=== PATIENT | female | born 1940 | race Caucasian/White ===

== ENCOUNTER 2020-08-28 14:44 | Outpatient (REF) | payer MEDICARE, SELFPAY | END 2020-08-28 14:45 | disposition home or self-care (01) | LOC: HO.LNP 14:44 | PROVIDERS: Visit Provider Hospitalist | DX: N39.0 Urinary tract infection, site not specified (principal) | CPT/HCPCS: 87086; 87088; 87186 ==

== ENCOUNTER 2021-03-18 14:14 | Outpatient (REF) | payer MEDICARE, SELFPAY | END 2021-03-18 14:15 | disposition home or self-care (01) | LOC: HO.LNP 14:14 | PROVIDERS: Visit Provider Hospitalist | DX: N39.0 Urinary tract infection, site not specified (principal) | CPT/HCPCS: 87086; 87088; 87186 ==

== ENCOUNTER 2021-05-04 08:41 | Outpatient (REF) | payer MEDICARE, SELFPAY ==
[2021-05-04 11:47] LABS: Hematocrit 42.5 % (37-47); Hemoglobin 14.7 g/dl (12.0-16.0); Mean Corpuscular HGB Conc 34.6 g/dl (31.0-35.0); Mean Corpuscular Volume 89.7 fL (80-98); Mean Platelet Volume 9.5 fL (9.4-12.3); Platelet Count 307 X10*3/uL (160-400); Red Blood Count 4.74 X10*6/uL (4.20-5.50); Red Cell Distribution Width 12.9 % (11.0-16.0); White Blood Count 8.6 X10*3/uL (4.8-10.8)
[2021-05-04 12:05] LABS: Alanine Aminotransferase 21 U/L (0-31); Albumin Level 4.6 g/dL (3.5-5.0); Alkaline Phosphatase 120 U/L (39-117); Anion Gap 14 (12-20); Aspartate Amino Transferase 25 U/L (5-31); Blood Urea Nitrogen 19 mg/dL (9-16); Calcium 9.7 mg/dL (8.4-10.2); Carbon Dioxide 27 mmol/L (22-29); Chloride 104 mmol/L (96-108); Cholesterol 171 mg/dL; Estimated Glomerular Filt Rate > 60; Glucose Fasting 90 mg/dL (60-99); HDL Cholesterol 55 mg/dL; LDL Cholesterol Calculated 97 mg/dl; Potassium 4.6 mmol/L (3.3-5.1); Sodium 140 mmol/L (135-145); Total Protein 7.9 g/dL (6.5-8.0); Triglycerides 97 mg/dL
[2021-05-04 12:08] LABS: TSH reflex Free T4 0.64 uIU/mL (0.32-4.0); Vitamin D 25-OH Total 30.3 ng/mL (>30)
== END 2021-05-04 08:42 | disposition home or self-care (01) ==
LOC: HO.HMGCLDS 08:41
PROVIDERS: PCP Internal Medicine; Visit Provider Internal Medicine
DX: Z00.00 Encounter for general adult medical examination without abnormal findings (principal); E55.9 Vitamin D deficiency, unspecified
CPT/HCPCS: 36415; 80053; 80061; 82306; 84443; 85027

== ENCOUNTER 2021-08-17 | Outpatient (REF) | payer MEDICARE, SELFPAY ==
[2021-08-18 13:02] LABS: Influenza A PCR NEGATIVE (Negative); Influenza B PCR NEGATIVE (Negative); Resp Syncy Virus RNA Qual PCR NEGATIVE (Negative); SARS COV2 PCR INHOUSE NEGATIVE (Negative)
== END 2021-08-17 00:01 | disposition home or self-care (01) ==
LOC: HO.LNP
PROVIDERS: Visit Provider Internal Medicine
DX: R43.9 Unspecified disturbances of smell and taste (principal); Z20.822 Contact with and (suspected) exposure to COVID-19
CPT/HCPCS: 0241U

== ENCOUNTER 2022-05-11 12:02 | Outpatient (REF) | payer MEDICARE, SELFPAY ==
[2022-05-11 14:11] LABS: Anion Gap 11 (12-20); Blood Urea Nitrogen 17 mg/dL (9-16); Calcium 9.3 mg/dL (8.4-10.2); Carbon Dioxide 26 mmol/L (22-29); Chloride 102 mmol/L (96-108); Estimated Glomerular Filt Rate > 60; Glucose Random 96 mg/dL (60-115); Potassium 4.7 mmol/L (3.3-5.1); Sodium 134 mmol/L (135-145)
== END 2022-05-11 12:03 | disposition home or self-care (01) ==
LOC: HO.HMGCLDS 12:02
PROVIDERS: PCP Internal Medicine; Visit Provider Physician Assistant
DX: Z87.440 Personal history of urinary (tract) infections (principal)
CPT/HCPCS: 36415; 80048

== ENCOUNTER 2022-06-20 09:48 | Outpatient (REF) | payer MEDICARE, SELFPAY ==
[2022-06-22 01:16] LABS: Lyme Abs Screen <0.90 index
== END 2022-06-20 09:49 | disposition home or self-care (01) ==
LOC: HO.HMGCLDS 09:48
PROVIDERS: PCP Internal Medicine; Visit Provider Internal Medicine
DX: T14.8XXA Other injury of unspecified body region, initial encounter (principal); W57.XXXA Bitten or stung by nonvenomous insect and other nonvenomous arthropods, initial encounter; Y93.9 Activity, unspecified; Y92.9 Unspecified place or not applicable; Y99.8 Other external cause status
CPT/HCPCS: 36415; 86617; 86618

== ENCOUNTER 2023-06-09 08:55 | Outpatient (AMB) | payer MEDICARE, SELFPAY ==
[2023-06-09 09:06] VITALS: BP 136/80; PULSE 84; O2SAT 97; BMI 20.6
--- NOTE | 2023-06-09 09:06 | AM.OFFVISMDC ---
Intake Vital Signs 06/09/23 09:06 Height 5 ft 4.5 in Weight 122 lb BMI 20.6 BP 136/80 Blood Pressure Location Lt brachial Position Sitting Pulse 84 Pulse Source Pulse Oximeter Pulse Oximetry (%) 97 Oxygen Delivery Method Room Air Intake Visit Reasons: SWV Allergies nitrofurantoin [NITROFURANTOIN] Allergy (Unknown, Verified 06/09/23 09:12) diarrhea, swollen lips oxycodone [From PERCOCET] Allergy (Unknown, Verified 02/27/23 11:56) NAUSEA & VOMITING Sulfa (Sulfonamide Antibiotics) [SULFA (SULFONAMIDE ANTIBIOTICS)] Allergy (Unknown, Verified 06/09/23 09:12) diarrhea, swollen lips trimethoprim [TRIMETHOPRIM] Allergy (Unknown, Verified 06/09/23 09:12) diarrhea, swollen lips acetaminophen [From VICODIN] Adverse Reaction (Mild, Verified 06/09/23 09:12) NAUSEA & VOMITING hydrocodone [From VICODIN] Adverse Reaction (Mild, Verified 06/09/23 09:12) NAUSEA & VOMITING Nitrofurantoin Macrocrystal Allergy (Unknown, Uncoded 06/09/23 09:12) diarrhea, swollen lips Trimethoprim HCl Allergy (Unknown, Uncoded 06/09/23 09:12) diarrhea swollen lips Medication List - Last Reconciled 06/09/23 by Fatou Hinojosa MD ascorbic acid (vitamin C) 500 mg PO DAILY calcium carbonate-vitamin D3 600 mg-12.5 mcg (500 unit) (Calcium 600 with Vitamin D3) caps PO celecoxib 200 mg PO DAILY cranberry 200 mg PO DAILY dicyclomine 10 mg PO TID docusate sodium (Colace) 100 mg PO DAILY estradiol 0.01%(0.1mg/gram) grams vaginal 2XW hyoscyamine sulfate 0.125 mg PO BID-QID PRN ibuprofen 200 mg PO Q6H PRN ketorolac 0.5% drps ophthalmic (eye) L.acidophilus,helvet-B.bifidum 250 million cell (Acidophilus Probiotic Complex) caps PO loratadine (Claritin) 10 mg PO DAILY melatonin 10 mg PO BEDTIME PRN vefbwtwo-mbh-vtsc-FA-lutein 8 mg iron-400 mcg-300 mcg (Centrum Silver Women) 1 tab PO DAILY naproxen 250 mg PO BID PRN omega 7-pzg-xeq-fish oil 500-1,000 mg 1 cap PO DAILY trospium 20 mg PO BID HPI SWV HPI Details Pt presents for annual. Patient noticed a new lump around her scar area on the right breast and will call her oncologist to schedule a repeat mammogram and ultrasound. Initiated the conversation about Advanced Directives. Advanced Directives help? patients prepare for current and future decisions about their medical treatment? and place of care. Discussed with patient that it is a process where a patients? current condition and prognosis are reviewed, their wishes for information? regarding their illness are elicited, and likely medical dilemmas are presented? and options discussed. The form can be amended as needed, reviewed yearly and? make changes as needed IPPE/AWV ? year old presents? for her ? Annual? Wellness Visit, initial visit.? Medical / Social History Reviewed? Past Medical History ?Yes? . ? [place]? of Care / Care Team list updated ?Yes . ? Surgical/Hospitalization? History ?Yes . ? Current Medications? (including OTC and supplements) ?Yes . ? Family History ?Yes? . ? Tobacco? Control form ?Yes . ? AUDIT-C (Alcohol use) form? ?Yes . ? Illicit drug use in Social? History ?Yes . ? Current diagnosis of? depression? ?No ? Appropriate PHQ2/PHQ9? completed ?Yes . ? Data entered by ?Medical? Box Sorter and reviewed by provider ? Fall Risk ? Fall? History? Have you had any falls with? injury in the past year? ?No . ? Have you had two or more? falls in the past year? ?No . ? Fall Risk Assessment: ?No? falls in the past year . ? HRA filled out by? the patient, reviewed by Provider and scanned. ? IPPE/AWV ? Balance? [place]? ?Yes . ? Tandem? walk ?Yes . ? Walk and? Turn ?Yes . ? Rise from? sit to stand ?Yes . ?Vision? Corrective? lens ?Yes ? Vision? screen ? Up-to-date, has an appointment [] for vision? screening and glaucoma screening ?Hearing? Whisper? test ?pass .? Initiated the conversation about Advanced Directives. Advanced Directives help? patients prepare for current and future decisions about their medical treatment? and place of care. Discussed with patient that it is a process where a patients? current condition and prognosis are reviewed, their wishes for information? regarding their illness are elicited, and likely medical dilemmas are presented? and options discussed. The form can be amended as needed, reviewed yearly and? make changes as needed Written? Plan?Completed. See Patient? Documents. [facility] Medical History (Updated 06/09/23 @ 10:08 by Fatou Hinojosa MD) Annual physical exam Breast calcification, right Frequent UTI Gallstones Hearing loss IBS (irritable bowel syndrome) Osteopenia Sacroiliitis Urge incontinence Vitamin D deficiency Surgical History H/O colonoscopy Family History (Updated 06/09/23 @ 09:24 by ISIDRA Schmitz) Father No problems noted. Mother HTN (hypertension) Aneurysm Social History Alcohol intake: current Alcohol intake frequency: holidays/special occasions only Patient Tobacco Use Status: Never used Tobacco Questionnaire Medicare Wellness Checkup What is your age?: 81 or older What gender do you identify with?: female During the past 4 weeks, how much have you been bothered by emotional problems such as feeling anxious, depressed, irritable, sad or downhearted, and blue?: slightly During the past 4 weeks, has your physical & emotional health limited your social activities with family, friends, neighbors, or groups?: not at all During the past 4 weeks, how much bodily pain have you generally had?: mild pain During the past 4 weeks, was someone available to help you if you needed & wanted help?: no, not at all During the past 4 weeks, what was the hardest physical activity you could do for at least 2 minutes?: moderate Can you get to places out of walking distance without help? (For eg., can you travel alone on buses, taxis or drive your car?): Yes Can you go shopping for groceries or clothes without someone's help?: Yes Can you prepare your own meals?: Yes Can you do your housework without help?: Yes Because of any health problems, do you need the help of another person with your personal care needs such as eating, bathing, dressing or getting around the house?: No Can you handle your own money without help?: Yes During the past 4 weeks, how would you rate your health in general?: good During the past 4 weeks how have things been going for you?: good & bad parts about equal Are you having difficulties driving your car?: no Do you always fasten your seat belt when you are in a car?: yes, usually During past 4 weeks, have you been bothered by the following: never: Sexual problems?, Trouble eating well?, Teeth or denture problems? and Problems using the telephone?, seldom: Falling or dizzy when standing up and sometimes: Tiredness or fatigue? Have you fallen 2 or more times in the past year?: No Are you afraid of falling?: No Are you a smoker?: no During the past 4 weeks, how many drinks of wine, beer, or other alcoholic beverages did you have?: 1 drink or less per week Do you exercise for about 20 minutes 3 or more times a week?: yes, most of the time Have you been given information to help with the following?: yes: Hazards in your house that might hurt you? and no: Keeping track of your medications? How often do you have trouble taking medicines the way you have been told to take them?: I always take medicine as prescribed How confident are you that you can control & manage most of your health problems?: very confident What is your race?: White Mini Mental State Exam (MMSE) Orientation What is the (year) (season) (date) (day) (month)?: year, season, date, day and month Where are we (state) (county) (town or city) (hospital) (floor)?: state, county, town or city, hospital/clinic and floor Registration Name of 3 unrelated objects clearly and slowly, then ask patient to repeat all 3 of them. (1st repeat determines score. Make sure they can repeat all three): object 1, object 2 and object 3 Attention & Calculation (CHOOSE ONE) Ask pt to begin with 100 & count backward by 7. Stop after 5 repeats. If pt cannot ask them to spell the word WORLD backward.: 93 Spell WORLD backwards (DLROW): 5 letters Recall Ask patient to repeat the 3 items from question #3.: object 1, object 2 and object 3 Language Show patient a wristwatch & ask what it is. Repeat for pencil.: watch and pencil Ask the patient to repeat the phrase 'No ifs, ands, or buts' after you.: correct Ask the patient to 'take a piece of paper with their right hand' 'fold paper in half' 'place paper on floor': take paper in right hand, fold paper in half and place paper on floor Print the sentence 'CLOSE YOUR EYES' on a piece. If patient actually closes eyes then score.: followed written direction Give patient a blank piece of paper & ask to write a sentence. Score if it contains a noun & verb.: sentence contains subject and verb Ask patient to copy figure of intersecting pentagons exactly. Score if all 10 angles & 2 intersects are included.: all 10 angles present & 2 are intersected Score Score: 31 Activity of Daily Living Bathing - sponge bath, tub bath or shower: receives no assistance (gets in/out by self, if usual bathing means Dressing - getting clothes from closets & drawers, including inner/outer garments & fasteners.: gets clothes & gets completely dressed without help Toileting - going to the 'toilet room' for urine/bowel elimination & cleaning self/arranging clothes: goes to toilet room, cleans self, arranges clothes without help Transfer: moves in & out of bed and chair without help (may use support object) Continence: controls urination/bowel movements completely by self Feeding: feeds self without help Total Score: 0 Information obtained from: patient Using telephone: independent Traveling: independent Shopping: independent Preparing meals: independent Housework: independent Taking medicine: independent Managing money: independent PHQ-9 Over the last 2 weeks, how often have you been bothered by any of the following problems? 1. Little interest or pleasure in doing things: not at all 2. Feeling down, depressed, or hopeless: not at all 3. Trouble falling or staying asleep, or sleeping too much: not at all 4. Feeling tired or having little energy: not at all 5. Poor appetite or overeating: not at all 6. Feeling bad about yourself - or that you are a failure or have let yourself or your family down: not at all 7. Trouble concentrating on things, such as reading the newspaper or watching television: not at all 8. Moving or speaking so slowly that other people could have noticed. Or the opposite - being so fidgety or restless that you have been moving around a lot more than usual: not at all 9. Thoughts that you would be better off or of hurting yourself in some way: not at all Total score: 0 Depression Screening Interpretation: Negative Source: Developed by Drs. Kojo Mcpherson, Sumi Kern, Harinder Lubin and colleagues, with an educational kingsley from [employer]. Review of Systems Const All systems reviewed & are unremarkable except as noted in HPI and below Reports no additional complaints Eyes Reports no additional complaints ENT Reports no additional complaints Card Reports no additional complaints Resp Reports no additional complaints GI Reports no additional complaints Reports no additional complaints Physical Exam Vital Signs: Last Vital Signs Pulse 84 06/09/23 09:06 BP 136/80 06/09/23 09:06 Pulse Ox 97 06/09/23 09:06 Oxygen Delivery Method Room Air 06/09/23 09:06 BMI result Body Mass Index 20.6 Const General: no acute distress HEENT Head: Yes normal to inspection Eyes General: appearance normal, both eyes and all related structures Neck Neck: Yes no lymphadenopathy and Yes supple Chest Breast/axilla palpation: abnormal palpation of the breast (Right breast 12:00 o'clock scar tissue with 1 cm mobile firm lump) Resp Effort & Inspection: normal respiratory effort Auscultation: clear to auscultation bilaterally Cardio Rhythm: regular rhythm Heart sounds: S1 normal heart sound present and S2 normal heart sound present GI Inspection: Yes normal to inspection Palpation (GI): Soft to palpation Percussion: Yes normal to percussion Auscultation: normal bowel sounds Extrem General: Yes no clubbing, cyanosis or edema Assessment & Plan Assessment & Plan (1) Annual physical exam: Code(s): Z00.00 - Encounter for general adult medical examination without abnormal findings Plan: Well-balanced diet regular exercise discussed with the patient she will return for fasting blood work. 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 Carrasco Code(s): K58.9 - Irritable bowel syndrome without diarrhea Plan: Restart dicyclomine and follow-up with GI Orders: Orders Comprehensive [place]. Panel Fast Today E55.9 - Vitamin D deficiency, unspecified, Z00.00 - Encounter for general adult medical examination without abnormal findings Lipid Panel Today E55.9 - Vitamin D deficiency, unspecified, Z00.00 - Encounter for general adult medical examination without abnormal findings TSH reflex Free T4 Today E55.9 - Vitamin D deficiency, unspecified, Z00.00 - Encounter for general adult medical examination without abnormal findings Complete Blood Count Auto Diff Today E55.9 - Vitamin D deficiency, unspecified, Z00.00 - Encounter for general adult medical examination without abnormal findings Medications: New dicyclomine 10 mg PO TID 90 caps 2RF Quality Reporting (2019) Depression/Bipolar (159/160/161/177) PHQ-9: Total score: 0 Coding Level of Care Code Medicare Subsequent (G0439) Diagnoses Annual physical exam Z00.00 Vitamin D deficiency E55.9 Breast calcification, right R92.1 IBS (irritable bowel syndrome) K58.9 CPT Codes Advance Care Planning - Time spent: 1-15 minutes, not on file ([id number]) Advance Care Planning Advance Care Planning discussion: Exists, not on file Forms completed: Health Care Proxy Time spent: 1-15 minutes, not on file
== END 2023-06-09 10:09 | disposition home or self-care (01) ==
PROVIDERS: Visit Provider Internal Medicine
DX: Z00.00 Encounter for general adult medical examination without abnormal findings (principal); E55.9 Vitamin D deficiency, unspecified; R92.1 Mammographic calcification found on diagnostic imaging of breast; K58.9 Irritable bowel syndrome, unspecified
CPT/HCPCS: 1124F; G0439

== ENCOUNTER 2023-06-12 09:01 | Outpatient (REF) | payer MEDICARE, SELFPAY ==
[2023-06-12 11:37] LABS: MANUAL DIFF FLAG NO
[2023-06-12 11:47] LABS: Basophils Absolute Auto 0.1 X10*3/uL (0.0-0.2); Basophils Percent Auto 0.8 % (0-2); Eosinophils Absolute Auto 0.3 X10*3/uL (0.0-0.4); Eosinophils Percent Auto 3.3 % (0-4); Hematocrit 41.3 % (37.0-47.0); Hemoglobin 14.5 g/dl (12.0-16.0); Imm Gran Abs Auto 0.01 X10*3/uL (0.00-0.03); Imm Gran Pct Auto 0.1 % (0.0-0.4); Lymphocytes Absolute Auto 1.8 X10*3/uL (1.2-4.9); Lymphocytes Percent Auto 23.1 % (20-40); Mean Corpuscular HGB Conc 35.1 g/dl (31.0-35.0); Mean Corpuscular Hemoglobin 30.8 pg (27.0-33.0); Mean Corpuscular Volume 87.7 fL (80.0-98.0); Mean Platelet Volume 9.3 fL (9.4-12.3); Monocytes Absolute Auto 0.6 X10*3/uL (0.1-1.2); Monocytes Percent Auto 7.6 % (2-11); Neutrophils Absolute Auto 5.2 x10*3/uL (2.0-8.3); Neutrophils Percent Auto 65.1 % (45-73); Platelet Count 308 X10*3/uL (160-400); Red Blood Count 4.71 X10*6/uL (4.20-5.50); Red Cell Distribution Width 13.1 % (11.0-16.0)
[2023-06-12 12:08] LABS: Alanine Aminotransferase 18 U/L (0-31); Albumin Level 4.4 g/dL (3.5-5.0); Alkaline Phosphatase 109 U/L (39-117); Anion Gap 12 (12-20); Aspartate Amino Transferase 22 U/L (5-31); Bilirubin Total 1.2 mg/dL (0.0-1.0); Blood Urea Nitrogen 15 mg/dL (9-16); Calcium 9.4 mg/dL (8.4-10.2); Carbon Dioxide 24 mmol/L (22-29); Chloride 106 mmol/L (96-108); Cholesterol 168 mg/dL; Estimated Glomerular Filt Rate > 60; Glucose Fasting 101 mg/dL (60-99); HDL Cholesterol 55 mg/dL; LDL Cholesterol Calculated 96 mg/dl; Potassium 4.1 mmol/L (3.3-5.1); Sodium 138 mmol/L (135-145); Total Protein 7.5 g/dL (6.5-8.0); Triglycerides 88 mg/dL
[2023-06-12 12:13] LABS: TSH reflex Free T4 0.91 uIU/mL (0.32-4.0)
== END 2023-06-12 09:02 | disposition home or self-care (01) ==
LOC: HO.HMGCLDS 09:01
PROVIDERS: PCP Internal Medicine; Visit Provider Internal Medicine
DX: Z00.00 Encounter for general adult medical examination without abnormal findings (principal); E55.9 Vitamin D deficiency, unspecified
CPT/HCPCS: 36415; 80053; 80061; 84443; 85025

== ENCOUNTER 2023-06-22 09:19 | Outpatient (AMB) | payer MEDICARE, SELFPAY ==
--- NOTE | 2023-06-22 09:48 | AM.OFFWIN_ITS ---
Intake Vital Signs 06/22/23 09:50 BP 130/80 Blood Pressure Location Lt brachial Position Sitting Pulse 64 Pulse Source Pulse Oximeter Temp 98.8 F Temp Source Temporal Artery Scan Pulse Oximetry (%) 97 Oxygen Delivery Method Room Air Intake Visit Reasons: EP UTI (lobby) Intake Note: Patient here for UTI, she has been experiencing frequent urination, cloudy urine and burning when urinating since Monday. Patient Tobacco Use Status: Never used Tobacco Allergies nitrofurantoin [NITROFURANTOIN] Allergy (Unknown, Verified 06/22/23 09:50) diarrhea, swollen lips oxycodone [From PERCOCET] Allergy (Unknown, Verified 06/22/23 09:50) NAUSEA & VOMITING Sulfa (Sulfonamide Antibiotics) [SULFA (SULFONAMIDE ANTIBIOTICS)] Allergy (Unknown, Verified 06/22/23 09:50) diarrhea, swollen lips trimethoprim [TRIMETHOPRIM] Allergy (Unknown, Verified 06/22/23 09:50) diarrhea, swollen lips acetaminophen [From VICODIN] Adverse Reaction (Mild, Verified 06/22/23 09:50) NAUSEA & VOMITING hydrocodone [From VICODIN] Adverse Reaction (Mild, Verified 06/22/23 09:50) NAUSEA & VOMITING Nitrofurantoin Macrocrystal Allergy (Unknown, Uncoded 06/22/23 09:50) diarrhea, swollen lips Trimethoprim HCl Allergy (Unknown, Uncoded 06/22/23 09:50) diarrhea swollen lips Do you need a note to return to daycare/school/sports/work: No HPI HPI Comments History of Present Illness Details 83-year-old female history of UTI so presents for UTI symptoms. Patient endorses burning, quality is coming his frequency and urgency. [facility] Medical History (Updated 06/09/23 @ 10:08 by Fatou Hinojosa MD) Annual physical exam Breast calcification, right Frequent UTI Gallstones Hearing loss IBS (irritable bowel syndrome) Osteopenia Sacroiliitis Urge incontinence Vitamin D deficiency Surgical History H/O colonoscopy Family History (Updated 06/09/23 @ 09:24 by Vandana Morales [facility]) Father No problems noted. Mother HTN (hypertension) Aneurysm Social History Alcohol intake: current Alcohol intake frequency: holidays/special occasions only Patient Tobacco Use Status: Never used Tobacco Review of Systems Const All systems reviewed & are unremarkable except as noted in HPI and below Denies fever(s), Denies headache(s) and Denies weakness Eyes Reports no additional complaints ENT Reports no additional complaints and Denies headache(s) Card Reports no additional complaints, Denies chest pain, Denies leg edema and Denies dyspnea Resp Denies cough and Denies dyspnea GI Denies abdominal pain, Denies nausea and Denies vomiting Reports dysuria and Reports urinary urgency Musc Reports no additional complaints Neuro Denies headache(s) and Denies weakness Psych Reports no additional complaints Endo Reports no additional complaints Physical Exam Vital Signs: Last Vital Signs Temp 98.8 F 06/22/23 09:50 Pulse 64 06/22/23 09:50 BP 130/80 06/22/23 09:50 Pulse Ox 97 06/22/23 09:50 Oxygen Delivery Method Room Air 06/22/23 09:50 Const General: cooperative, no acute distress and alert Orientation/consciousness: patient oriented x3 Limitations: no limitations HEENT Head: Yes normal to inspection Ears: hearing grossly normal bilaterally and external ears normal General nose exam: Normal external nose present Eyes General: appearance normal, both eyes and all related structures Neck Neck: Yes normal visual inspection Chest Chest palpation & inspection: normal inspection of the chest Resp Effort & Inspection: normal respiratory effort, able to speak in complete sentences and no audible wheezes Auscultation: clear to auscultation bilaterally Cardio Rate: regular rate Rhythm: regular rhythm GI Inspection: Yes normal to inspection Palpation (GI): Soft to palpation and nontender General: Yes no CVA tenderness Back/Spine/Pelvis Back: no CVA tenderness Skin General skin exam: no rashes or lesions noted Neuro General: patient oriented x3 Psych Appearance: grossly normal Mental Status: mental status grossly normal Speech and movement: Normal speech and movement present Affect: normal affect Attitude: cooperative Thought process: Normal thought process present Thought content: Normal thought content present Results AMB Urinalysis, Automated 2 UA Leukoctes 125 Laver[place]/uL Last Edit by СЕРГЕЙ Tello on 06/22/23 10: 13 UA Nitrite Positive Last Edit by СЕРГЕЙ Tello on 06/22/23 10:13 UA Urobilinogen 0.2 mg/dL Last Edit by Park Hernadez [facility] on 06/22/23 10:13 UA Protein 0 mg/dL Last Edit [facility] on 06/22/23 10:13 UA pH 6.0 Last Edit by [facility], [facility] on 06/22/23 10:13 UA Blood 10 Dillon/uL Last Edit by [facility], [facility] on 06/22/23 10:13 UA Specific [place] 1.010 Last Edit by [facility], [facility] on 06/22/23 10:13 UA Ketone Negative Last Edit by [facility], [facility] on 06/22/23 10:13 UA Bilirubin 0 mg/dL Last Edit by [facility], [facility] on 06/22/23 10:13 UA Glucose 0 mg/dL Last Edit by [facility], [facility] on 06/22/23 10:13 Results Reviewed Results Reviewed: Laboratory Last Values Urine pH (Auto) 6.0 06/22/23 10:11 Specific [place] (Auto) 1.010 06/22/23 10:11 Urine Protein (Auto) 0 mg/dL 06/22/23 10:11 Glucose (UA)(Auto) 0 mg/dL 06/22/23 10:11 Urine Ketones (Auto) Negative 06/22/23 10:11 Urine Blood (Auto) 10 [place]/uL 06/22/23 10:11 Urine Nitrite (Auto) Positive 06/22/23 10:11 Urine Bilirubin (Auto) 0 mg/dL 06/22/23 10:11 Urine Urobilinogen (Auto) 0.2 mg/dL 06/22/23 10:11 Leukocyte Esterase (Auto) 125 [place]/uL 06/22/23 10:11 Assessment & Plan Assessment & Plan (1) Urinary tract infection: Code(s): N39.0 - Urinary tract infection, site not specified Plan VSS. Symptoms consistent with UTI. Urinalysis shows positive leukocyte esterase. Cultures reviewed. Will prescribe Keflex Discharge instructions, follow up and treatment are discussed with patient in my usual fashion. Alternatives in treatment are also discussed. The patient will return for worsening symptoms or as needed. Advised that any labs/imaging or dered will be followed up on and contact made if further treatment needed. Counseled that patient's condition may require further evaluation and/or treatment. Symptoms of concern for worsening disorder discussed in detail in my customary manner. Patient does verbalize understanding of the plan, there are no apparent barriers to communication. The patient is given the opportunity to ask questions and have them answered to his/her satisfaction Orders: Orders AMB Urinalysis Automated Today Z13.9 - Encounter for screening, unspecified Medications: New cephalexin 500 mg PO BID 7 days 14 caps 0RF Patient Instructions: You was seen and evaluated in the urgent care for UTI symptoms. Urinalysis was performed and was consistent with urinary tract infection. Prescribed an antibiotic please take as directed. Please return to the emergency department her urgent care if you experience any new or worsening symptoms such as fever, back pain, worsening urinary symptoms, any concerns of assignments above. Coding Level of Care Code Est Pt Level 3 (74310) Diagnoses Urinary tract infection N39.0
[2023-06-22 09:50] VITALS: BP 130/80; PULSE 64; TEMP 37.1; O2SAT 97
== END 2023-06-22 10:39 | disposition home or self-care (01) ==
PROVIDERS: PCP Internal Medicine; Visit Provider Physician Assistant
DX: Z13.9 Encounter for screening, unspecified (principal); N39.0 Urinary tract infection, site not specified
CPT/HCPCS: 81003; 99213

== ENCOUNTER 2023-07-07 10:14 | Outpatient (AMB) | payer MEDICARE, SELFPAY ==
--- NOTE | 2023-07-07 10:31 | MHC.OFFWIV ---
Intake Vital Signs 07/07/23 10:33 Height 5 ft 4.5 in Weight 123 lb BMI 20.8 BP 136/72 Blood Pressure Location Lt brachial Position Sitting Pulse 70 Pulse Source Pulse Oximeter Temp 98.3 F Temp Source Temporal Artery Scan Pulse Oximetry (%) 97 Oxygen Delivery Method Room Air Intake Visit Reasons: EP, UTI? Intake Note: Pt is here c/o possible UTI. Patient Tobacco Use Status: Never used Tobacco Allergies nitrofurantoin [NITROFURANTOIN] Allergy (Unknown, Verified 07/07/23 10:31) diarrhea, swollen lips oxycodone [From PERCOCET] Allergy (Unknown, Verified 07/07/23 10:31) NAUSEA & VOMITING Sulfa (Sulfonamide Antibiotics) [SULFA (SULFONAMIDE ANTIBIOTICS)] Allergy (Unknown, Verified 07/07/23 10:31) diarrhea, swollen lips trimethoprim [TRIMETHOPRIM] Allergy (Unknown, Verified 07/07/23 10:31) diarrhea, swollen lips acetaminophen [From VICODIN] Adverse Reaction (Mild, Verified 07/07/23 10:31) NAUSEA & VOMITING hydrocodone [From VICODIN] Adverse Reaction (Mild, Verified 07/07/23 10:31) NAUSEA & VOMITING Nitrofurantoin Macrocrystal Allergy (Unknown, Uncoded 07/07/23 10:31) diarrhea, swollen lips Trimethoprim HCl Allergy (Unknown, Uncoded 07/07/23 10:31) diarrhea swollen lips Do you need a note to return to daycare/school/sports/work: No HPI HPI Comments History of Present Illness Details This is a 83-year-old female with past medical history significant for recurrent UTIs who presents to the office today for sick visit. Patient complaining of dysuria and urinary frequency x2 days. She denies any fevers or chills. She denies any flank pain. She denies any hematuria. She denies any abdominal pain or nausea/vomiting/diarrhea. [facility] Medical History (Updated 06/09/23 @ 10:08 by Fatou Hinojosa MD) Annual physical exam Breast calcification, right Frequent UTI Gallstones Hearing loss IBS (irritable bowel syndrome) Osteopenia Sacroiliitis Urge incontinence Vitamin D deficiency Surgical History H/O colonoscopy Family History (Updated 06/09/23 @ 09:24 by ISIDRA Schmitz) Father No problems noted. Mother HTN (hypertension) Aneurysm Social History Alcohol intake: current Alcohol intake frequency: holidays/special occasions only Patient Tobacco Use Status: Never used Tobacco Review of Systems Const All systems reviewed & are unremarkable except as noted in HPI and below Reports no additional complaints Eyes Reports no additional complaints ENT Reports no additional complaints Card Reports no additional complaints Resp Reports no additional complaints GI Reports no additional complaints Reports no additional complaints Musc Reports no additional complaints Skin/Breast Reports system reviewed and no additional complaints, except as documented Neuro Reports no additional complaints Psych Reports no additional complaints Endo Reports no additional complaints Luigi/Lymph Reports no additional complaints Aller/Immun Reports no additional complaints Physical Exam Vital Signs: Last Vital Signs Temp 98.3 F 07/07/23 10:33 Pulse 70 07/07/23 10:33 BP 136/72 07/07/23 10:33 Pulse Ox 97 07/07/23 10:33 Oxygen Delivery Method Room Air 07/07/23 10:33 BMI result Body Mass Index 20.8 Const General: cooperative, healthy appearing, no acute distress and well developed Orientation/consciousness: patient oriented x3 HEENT Head: Yes normal to inspection Ears: hearing grossly normal bilaterally General nose exam: Normal external nose present Face and sinus: Yes normal facial exam Mouth: Normal oral and palatal mucosa present Eyes General: appearance normal, both eyes and all related structures Pupils: Equal, round and reactive pupils present EOM: EOMs intact bilaterally Resp Effort & Inspection: normal respiratory effort and no respiratory distress Auscultation: clear to auscultation bilaterally Cardio Rate: regular rate Rhythm: regular rhythm Heart sounds: no gallops, no murmurs and no rubs Peripheral pulses: Peripheral pulses 2+ throughout GI Inspection: No distended Palpation (GI): Soft to palpation and nontender Auscultation: normal bowel sounds General: Yes no CVA tenderness Back/Spine/Pelvis Back: no CVA tenderness Skin General skin exam: no rashes or lesions noted Neuro General: patient oriented x3 Cranial nerves: Yes CN's II-XII intact bilaterally and Yes Equal, round and reactive pupils present Gait exam (Neuro): Normal gait present Motor exam (neuro): 5/5 motor strength present throughout Extrem General: Yes normal to inspection, Yes full ROM and Yes no clubbing, cyanosis or edema Psych Appearance: grossly normal Mental Status: mental status grossly normal Results AMB Urinalysis, Automated UA Leukoctes 70 [place]ver[place]/uL Last Edit by Danii Leon CMA on 07/07/23 10:48 UA Nitrite Negative Last Edit by Danii Leon CMA on 07/07/23 10:48 UA Urobilinogen 0.2 mg/dL Last Edit by Danii Leon, CURTIS on 07/07/23 10:48 UA Protein 0 mg/dL Last Edit by Danii Leon, CURTIS on 07/07/23 10:48 UA pH 6.0 Last Edit by Danii Leon, CURTIS on 07/07/23 10:48 UA Blood 25 Dillon/uL Last Edit by Danii Leon, CURTIS on 07/07/23 10:48 UA Specific [place] 1.010 Last Edit by Danii Leon, CURTIS on 07/07/23 10:48 UA Ketone Negative Last Edit by Danii Leon CMA on 07/07/23 10:48 UA Bilirubin 0 mg/dL Last Edit by Danii Leon, CURTIS on 07/07/23 10:48 UA Glucose 0 mg/dL Last Edit by Danii Leon CMA on 07/07/23 10:48 Results Reviewed Results Reviewed: Laboratory Last Values Urine pH (Auto) 6.0 07/07/23 10:47 Specific [place] (Auto) 1.010 07/07/23 10:47 Urine Protein (Auto) 0 mg/dL 07/07/23 10:47 Glucose (UA)(Auto) 0 mg/dL 07/07/23 10:47 Urine Ketones (Auto) Negative 07/07/23 10:47 Urine Blood (Auto) 25 Dillon/uL 07/07/23 10:47 Urine Nitrite (Auto) Negative 07/07/23 10:47 Urine Bilirubin (Auto) 0 mg/dL 07/07/23 10:47 Urine Urobilinogen (Auto) 0.2 mg/dL 07/07/23 10:47 Leukocyte Esterase (Auto) 70 [place]/uL 07/07/23 10:47 Assessment & Plan Assessment & Plan (1) Urinary tract infection: Code(s): N39.0 - Urinary tract infection, site not specified Plan This is an 83-year-old female with past medical history significant for recurrent UTIs complaining of dysuria and urinary frequency. Urine dipstick positive for leukocyte esterase. History and physical most consistent with an acute urinary tract infection. Her vital signs are stable, physical exam is benign without CVA tenderness to suggest pyelonephritis, and patient is overall nontoxic appearing. Patient sent home on PO cephalexin 500 mg 4 times daily x7 days for treatment of acute uncomplicated urinary tract infection. Patient advised to follow-up here or proceed directly to the emergency room if she were to develop fever/chills, hematuria, or flank pain. Patient verbalizes her understanding and she is in agreement with the plan. Orders: Orders AMB Urinalysis Automated Today Z13.9 - Encounter for screening, unspecified Medications: New cephalexin 500 mg PO QID 7 days 28 caps 0RF Coding Level of Care Code Est Pt Level 3 (73230) Diagnoses Urinary tract infection N39.0
[2023-07-07 10:33] VITALS: BP 136/72; PULSE 70; TEMP 36.8; O2SAT 97; BMI 20.8
== END 2023-07-07 12:12 | disposition home or self-care (01) ==
PROVIDERS: PCP Internal Medicine; Visit Provider Physician Assistant Medical
DX: N39.0 Urinary tract infection, site not specified (principal); R30.0 Dysuria
CPT/HCPCS: 81003; 99213

== ENCOUNTER 2023-08-28 10:22 | Outpatient (AMB) | payer MEDICARE, SELFPAY ==
--- NOTE | 2023-08-28 11:52 | MHC.OFFWIV ---
Intake Vital Signs 08/28/23 12:02 Height 5 ft 4.5 in Weight 123 lb BMI 20.8 BP 136/82 Blood Pressure Location Lt brachial Position Sitting Pulse 72 Pulse Source Pulse Oximeter Pulse Oximetry (%) 94 Oxygen Delivery Method Room Air Intake Visit Reasons: EST/uti [phone] Intake Note: Pt is here today for a walk in visit. Pt c/o pain and burning when urinating frequent urination since yesterday. Patient Tobacco Use Status: Never used Tobacco Allergies nitrofurantoin [NITROFURANTOIN] Allergy (Unknown, Verified 08/28/23 12:37) diarrhea, swollen lips oxycodone [From PERCOCET] Allergy (Unknown, Verified 08/28/23 12:37) NAUSEA & VOMITING Sulfa (Sulfonamide Antibiotics) [SULFA (SULFONAMIDE ANTIBIOTICS)] Allergy (Unknown, Verified 08/28/23 12:37) diarrhea, swollen lips trimethoprim [TRIMETHOPRIM] Allergy (Unknown, Verified 08/28/23 12:37) diarrhea, swollen lips acetaminophen [From VICODIN] Adverse Reaction (Mild, Verified 08/28/23 12:37) NAUSEA & VOMITING hydrocodone [From VICODIN] Adverse Reaction (Mild, Verified 08/28/23 12:37) NAUSEA & VOMITING Nitrofurantoin Macrocrystal Allergy (Unknown, Uncoded 08/28/23 12:37) diarrhea, swollen lips Trimethoprim HCl Allergy (Unknown, Uncoded 08/28/23 12:37) diarrhea swollen lips Medication List - Last Reconciled 08/28/23 by Lele Saravia MD ascorbic acid (vitamin C) 500 mg PO DAILY calcium carbonate-vitamin D3 600 mg-12.5 mcg (500 unit) (Calcium 600 with Vitamin D3) caps PO celecoxib 200 mg PO DAILY cephalexin 500 mg PO BID 7 days cephalexin 500 mg PO QID 7 days cranberry 200 mg PO DAILY dicyclomine 10 mg PO TID docusate sodium (Colace) 100 mg PO DAILY estradiol 0.01%(0.1mg/gram) grams vaginal 2XW hyoscyamine sulfate 0.125 mg PO BID-QID PRN ibuprofen 200 mg PO Q6H PRN ketorolac 0.5% drps ophthalmic (eye) L.acidophilus,helvet-B.bifidum 250 million cell (Acidophilus Probiotic Complex) caps PO loratadine (Claritin) 10 mg PO DAILY melatonin 10 mg PO BEDTIME PRN vebuybbi-mub-wgif-FA-vit K-lut 8 mg iron-400 mcg-50 mcg (Centrum Silver Women) 1 tab PO DAILY naproxen 250 mg PO BID PRN omega 1-ljv-aaz-fish oil 500-1,000 mg 1 cap PO DAILY trospium 20 mg PO BID HPI EST/uti [phone] HPI Details Patient presents for a sick visit. Reports symptoms of increased frequency of urination, burning on urination and discomfort in the suprapubic area. Symptoms started in the past few days. No fevers or chills. No nausea or vomiting. [facility] Medical History (Updated 08/28/23 @ 12:38 by Lele Saravia MD) Vitamin D deficiency Hearing loss Annual physical exam Gallstones Osteopenia Frequent UTI Breast calcification, right Sacroiliitis Urge incontinence IBS (irritable bowel syndrome) Surgical History H/O colonoscopy Family History (Updated 06/09/23 @ 09:24 by ISIDRA Schmitz) Father No problems noted. Mother HTN (hypertension) Aneurysm Social History Alcohol intake: current Alcohol intake frequency: holidays/special occasions only Patient Tobacco Use Status: Never used Tobacco Physical Exam Vital Signs: Last Vital Signs Pulse 72 08/28/23 12:02 BP 136/82 08/28/23 12:02 Pulse Ox 94 08/28/23 12:02 Oxygen Delivery Method Room Air 08/28/23 12:02 BMI result Body Mass Index 20.8 General: Yes bladder normal to palpation and Yes no CVA tenderness Bimanual exam- vagina & uterus: bladder normal to palpation Back/Spine/Pelvis Back: no CVA tenderness Results AMB Urinalysis, Automated UA Leukoctes 500 [place]/uL Last Edit by ISIDRA Schmitz on 08/28/23 12:08 3+ Vandana Morales 08/28/23 12:08 UA Nitrite Positive Last Edit by ISIDRA Schmitz on 08/28/23 12:08 UA Urobilinogen 0.2 mg/dL Last Edit by Vandana Morales Devyn on 08/28/23 12:08 UA Protein 0 mg/dL Last Edit by Vandana Morales Devyn on 08/28/23 12:08 UA pH 6.0 Last Edit by Vandana Morales [facility] on 08/28/23 12:08 UA Blood 25 [place]/uL Last Edit by Vandana Morales [facility] on 08/28/23 12:08 1+ Vandana Morales 08/28/23 12:08 UA Specific [place] 1.010 Last Edit by Vandana Morales Devyn on 08/28/23 12:08 UA Ketone Negative Last Edit by Vandana Morales [facility] on 08/28/23 12:08 UA Bilirubin 0 mg/dL Last Edit by Vandana Morales Devyn on 08/28/23 12:08 UA Glucose 0 mg/dL Last Edit by Vandana oMrales [facility] on 08/28/23 12:08 Results Reviewed Results Reviewed: Laboratory Last Values Urine pH (Auto) 6.0 08/28/23 12:07 Specific [place] (Auto) 1.010 08/28/23 12:07 Urine Protein (Auto) 0 mg/dL 08/28/23 12:07 Glucose (UA)(Auto) 0 mg/dL 08/28/23 12:07 Urine Ketones (Auto) Negative 08/28/23 12:07 Urine Blood (Auto) 25 [place]/uL 08/28/23 12:07 Urine Nitrite (Auto) Positive 08/28/23 12:07 Urine Bilirubin (Auto) 0 mg/dL 08/28/23 12:07 Urine Urobilinogen (Auto) 0.2 mg/dL 08/28/23 12:07 Leukocyte Esterase (Auto) 500 [place]/uL 08/28/23 12:07 Assessment & Plan Assessment & Plan (1) Urinary tract infection: Code(s): N39.0 - Urinary tract infection, site not specified Qualifiers: Urinary tract infection type: acute cystitis Hematuria presence: without hematuria Qualified Code(s): N30.00 - Acute cystitis without hematuria Plan: Take antibiotics as directed. Increase fluid intake. If symptoms of burning persist, new onset of fever or lower back pain, to follow-up at the clinic. Orders: Orders AMB Urinalysis Automated Today Z13.9 - Encounter for screening, unspecified Medications: Refilled cephalexin 500 mg PO QID 7 days 28 caps 0RF Coding Level of Care Code Est Pt Level 3 (75277) Diagnoses Acute cystitis without hematuria N30.00 Urinary tract infection type: acute cystitis Hematuria presence: without hematuria
[2023-08-28 12:02] VITALS: BP 136/82; PULSE 72; O2SAT 94; BMI 20.8
== END 2023-08-28 12:53 | disposition home or self-care (01) ==
PROVIDERS: PCP Internal Medicine; Visit Provider Internal Medicine
DX: N30.00 Acute cystitis without hematuria (principal); R35.0 Frequency of micturition
CPT/HCPCS: 81003; 99213

== ENCOUNTER 2023-10-27 11:04 | Outpatient (AMB) | payer MEDICARE, SELFPAY ==
--- NOTE | 2023-10-27 11:54 | MHC.OFFWIV ---
Intake Vital Signs 10/27/23 11:55 Height 5 ft 4.5 in Weight 56.245 kg BMI 21.0 BP 130/78 Blood Pressure Location Rt brachial Position Sitting Pulse 92 Pulse Source Pulse Oximeter Temp 97.6 F Temp Source Temporal Artery Scan Pulse Oximetry (%) 98 Oxygen Delivery Method Room Air Intake Visit Reasons: EP UTI [phone] Intake Note: pt is her today for UTI started last weekend Patient Tobacco Use Status: Never used Tobacco Allergies nitrofurantoin [NITROFURANTOIN] Allergy (Unknown, Verified 10/27/23 12:16) diarrhea, swollen lips oxycodone [From PERCOCET] Allergy (Unknown, Verified 10/27/23 12:16) NAUSEA & VOMITING Sulfa (Sulfonamide Antibiotics) [SULFA (SULFONAMIDE ANTIBIOTICS)] Allergy (Unknown, Verified 10/27/23 12:16) diarrhea, swollen lips trimethoprim [TRIMETHOPRIM] Allergy (Unknown, Verified 10/27/23 12:16) diarrhea, swollen lips acetaminophen [From VICODIN] Adverse Reaction (Mild, Verified 10/27/23 12:16) NAUSEA & VOMITING hydrocodone [From VICODIN] Adverse Reaction (Mild, Verified 10/27/23 12:16) NAUSEA & VOMITING Nitrofurantoin Macrocrystal Allergy (Unknown, Uncoded 08/28/23 12:37) diarrhea, swollen lips Trimethoprim HCl Allergy (Unknown, Uncoded 08/28/23 12:37) diarrhea swollen lips Do you need a note to return to daycare/school/sports/work: No HPI HPI Comments History of Present Illness Details 83-year-old female presents the urinary frequency, urgency, dysuria for the past few days. History of UTI in this feels like a typical UTI. No flank pain, fevers, chills, nausea, vomiting, abdominal pain, headache, vision changes, chest pain or shortness of breath Physical exam benign Concerns for UTI versus cystitis unlikely pyelonephritis. No signs of systemic illness. Plan at this time will obtain a urine. Will discharge patient home on Ceftin. Educated patient on diagnosis and treatment plan, answered all question, patient verbalizes understanding. At this time patient will be discharged home, advised to return with new or worsening symptoms. Educated on worrisome signs and symptoms and when to return. At this time I feel comfortable discharge home. [facility] Medical History Vitamin D deficiency Hearing loss Annual physical exam Gallstones Osteopenia Frequent UTI Breast calcification, right Sacroiliitis Urge incontinence IBS (irritable bowel syndrome) Surgical History H/O colonoscopy Family History Father No problems noted. Mother HTN (hypertension) Aneurysm Social History Alcohol intake: current Alcohol intake frequency: holidays/special occasions only Patient Tobacco Use Status: Never used Tobacco Review of Systems Const Details: Constitutional : No Weight loss, No Fever, No Chills, No Fatigue, No Malaise ENT/Mouth : No sore throat, No Rhinorrhea Eyes: No Eye Pain, No Swelling, No Redness Cardiovascular : No Chest Pain, No SOB, No Dyspnea on Exertion, No Orthopnea, No Edema, No Palpitations Respiratory : No Cough, No Sputum, No Wheezing Gastrointestinal : No Nausea, No Vomiting, No Diarrhea, No Constipation, No abdominal Pain, No Hematochezia, No Melena Genitourinary : + Dysuria, + Urinary Frequency, No Hematuria, Musculoskeletal : No joint pain, No Myalgias, No Joint Swelling Skin : No Skin Lesions, No rash Neuro : No Weakness, No Numbness, No Dizziness, No Headache Psych : No Anxiety/Panic, No Depression All other systems reviewed and are negative All systems reviewed & are unremarkable except as noted in HPI and below Physical Exam Vital Signs: Last Vital Signs Temp 97.6 F 10/27/23 11:55 Pulse 92 10/27/23 11:55 BP 130/78 10/27/23 11:55 Pulse Ox 98 10/27/23 11:55 Oxygen Delivery Method Room Air 10/27/23 11:55 BMI result Body Mass Index 21.0 vss Appearance: Alert.? Oriented X3.? No acute distress.? Head: Normocephalic, atraumatic, no step-offs or deformities Eyes: Pupils equal, round and reactive to light.? CVS: Normal heart rate and rhythm.? Pulses normal.? Respiratory: No respiratory distress.? Breath sounds normal.? Abdomen: Soft and nontender.? Skin: Skin warm and dry.? Normal skin color.? Normal skin turgor.? Extremities: No lower extremity edema.? No calf ttp. 5/5 strength to bilateral upper and lower extremities Back: No CVA tenderness bilaterally Neuro: Oriented X 3.? No motor deficit.? No sensory deficit. CN 2-12 intact Assessment & Plan Assessment & Plan (1) Acute UTI: Code(s): N39.0 - Urinary tract infection, site not specified Plan Take your medications as prescribed. If you were prescribed antibiotics today, it is important that you take your medication to their entirety, do not skip any doses, do not finish them early. Follow-up with your primary care provider this week. Return to the emergency department with new or worsening symptoms. Such as fevers, chills, chest pain, shortness of breath, nausea, vomiting, dizziness, headache, vision changes, lethargy In case of emergency call 911 Medications: New cefuroxime axetil 250 mg PO BID 7 days 14 tabs 0RF Coding Level of Care Code Est Pt Level 3 (77557) Diagnoses Acute UTI N39.0
[2023-10-27 11:55] VITALS: BP 130/78; PULSE 92; TEMP 36.4; O2SAT 98; BMI 21.0
== END 2023-10-27 12:58 | disposition home or self-care (01) ==
PROVIDERS: PCP Internal Medicine; Visit Provider Physician Assistant
DX: N39.0 Urinary tract infection, site not specified (principal)
CPT/HCPCS: 99213

== ENCOUNTER 2023-12-01 14:07 | Outpatient (AMB) | payer MEDICARE, SELFPAY ==
--- NOTE | 2023-12-01 14:47 | MHC.OFFWIV ---
Intake Vital Signs 12/01/23 14:48 Height 5 ft 4.5 in Weight 125 lb BMI 21.1 BP 150/90 H Blood Pressure Location Lt brachial Position Sitting Pulse 82 Pulse Source Pulse Oximeter Pulse Oximetry (%) 97 Oxygen Delivery Method Room Air Intake Visit Reasons: EP UTI in lobby Patient Tobacco Use Status: Never used Tobacco Allergies nitrofurantoin [NITROFURANTOIN] Allergy (Unknown, Verified 12/01/23 14:56) diarrhea, swollen lips oxycodone [From PERCOCET] Allergy (Unknown, Verified 12/01/23 14:56) NAUSEA & VOMITING Sulfa (Sulfonamide Antibiotics) [SULFA (SULFONAMIDE ANTIBIOTICS)] Allergy (Unknown, Verified 12/01/23 14:56) diarrhea, swollen lips trimethoprim [TRIMETHOPRIM] Allergy (Unknown, Verified 12/01/23 14:56) diarrhea, swollen lips acetaminophen [From VICODIN] Adverse Reaction (Mild, Verified 12/01/23 14:56) NAUSEA & VOMITING hydrocodone [From VICODIN] Adverse Reaction (Mild, Verified 12/01/23 14:56) NAUSEA & VOMITING Nitrofurantoin Macrocrystal Allergy (Unknown, Uncoded 08/28/23 12:37) diarrhea, swollen lips Trimethoprim HCl Allergy (Unknown, Uncoded 08/28/23 12:37) diarrhea swollen lips Medication List - Last Reconciled 12/01/23 by Oscar Castro MD ascorbic acid (vitamin C) 500 mg PO DAILY calcium carbonate-vitamin D3 600 mg-12.5 mcg (500 unit) (Calcium 600 with Vitamin D3) caps PO cefuroxime axetil 250 mg PO BID 7 days celecoxib 200 mg PO DAILY cranberry 200 mg PO DAILY dicyclomine 10 mg PO TID docusate sodium (Colace) 100 mg PO DAILY estradiol 0.01%(0.1mg/gram) grams vaginal 2XW hyoscyamine sulfate 0.125 mg PO BID-QID PRN ibuprofen 200 mg PO Q6H PRN ketorolac 0.5% drps ophthalmic (eye) L.acidophilus,helvet-B.bifidum 250 million cell (Acidophilus Probiotic Complex) caps PO loratadine (Claritin) 10 mg PO DAILY melatonin 10 mg PO BEDTIME PRN gfaaniuj-zla-ghow-FA-vit K-lut 8 mg iron-400 mcg-50 mcg (Centrum Silver Women) 1 tab PO DAILY naproxen 250 mg PO BID PRN omega 6-vfu-twy-fish oil 500-1,000 mg 1 cap PO DAILY trospium 20 mg PO BID Do you need a note to return to daycare/school/sports/work: No HPI EP UTI in lobby HPI Details Patient is 83-year-old female came in today to be evaluated for possible tract infection Patient is allergic to Macrodantin and sulfa Patient has been having recurrent UTIs We talked about personal hygiene, I would recommend to start using water rather than wipes to clean after urinating Patient already have appointment with the Urology next month Review system: She has no fever no chills, no headache no dizziness no back pain, no vomiting no nausea Antibiotic sent with 1 refill until patient sees urologist Blood pressure slightly elevated today it was fine last time will continue to monitor [facility] Medical History Vitamin D deficiency Hearing loss Annual physical exam Gallstones Osteopenia Frequent UTI Breast calcification, right Sacroiliitis Urge incontinence IBS (irritable bowel syndrome) Surgical History H/O colonoscopy Family History Father No problems noted. Mother HTN (hypertension) Aneurysm Social History Alcohol intake: current Alcohol intake frequency: holidays/special occasions only Patient Tobacco Use Status: Never used Tobacco Review of Systems Const All systems reviewed & are unremarkable except as noted in HPI and below Physical Exam Vital Signs: Last Vital Signs Pulse 82 12/01/23 14:48 BP 150/90 H 12/01/23 14:48 Pulse Ox 97 12/01/23 14:48 Oxygen Delivery Method Room Air 12/01/23 14:48 BMI result Body Mass Index 21.1 Const General: no acute distress Orientation/consciousness: patient oriented x3 Eyes General: appearance normal, both eyes and all related structures Resp Effort & Inspection: normal respiratory effort and able to speak in complete sentences Auscultation: clear to auscultation bilaterally Cardio Other: S1 S2 Neuro General: patient oriented x3 Psych Mental Status: mental status grossly normal Results AMB Urinalysis, Automated UA Leukoctes 125 [place]/uL Last Edit by Gerard Matos CMA on 12/01/23 14:58 UA Nitrite Positive Last Edit by Gerard Matos CMA on 12/01/23 14:58 UA Urobilinogen 0.2 mg/dL Last Edit by Gerard Matos CMA on 12/01/23 14:58 UA Protein 0 mg/dL Last Edit by Gerard Matos CMA on 12/01/23 14:58 UA pH 6.0 Last Edit by Gerard Matos CMA on 12/01/23 14:58 UA Blood 25 Dillon/uL Last Edit by Gerard Matos CMA on 12/01/23 14:58 UA Specific [place] 1.005 Last Edit by Gerard Matos CMA on 12/01/23 14:58 UA Ketone Negative Last Edit by Gerard Matos CMA on 12/01/23 14:58 UA Bilirubin 0 mg/dL Last Edit by Gerard Matos CMA on 12/01/23 14:58 UA Glucose 0 mg/dL Last Edit by Gerard Matos CMA on 12/01/23 14:58 Results Reviewed Results Reviewed: Laboratory Last Values Urine pH (Auto) 6.0 12/01/23 14:57 Specific [place] (Auto) 1.005 12/01/23 14:57 Urine Protein (Auto) 0 mg/dL 12/01/23 14:57 Glucose (UA)(Auto) 0 mg/dL 12/01/23 14:57 Urine Ketones (Auto) Negative 12/01/23 14:57 Urine Blood (Auto) 25 [place]/uL 12/01/23 14:57 Urine Nitrite (Auto) Positive 12/01/23 14:57 Urine Bilirubin (Auto) 0 mg/dL 12/01/23 14:57 Urine Urobilinogen (Auto) 0.2 mg/dL 12/01/23 14:57 Leukocyte Esterase (Auto) 125 [place]/uL 12/01/23 14:57 Assessment & Plan Assessment & Plan (1) Acute cystitis: Code(s): N30.00 - Acute cystitis without hematuria Qualifiers: Hematuria presence: with hematuria Qualified Code(s): N30.01 - Acute cystitis with hematuria Plan Patient is 83-year-old female came in today to be evaluated for possible tract infection Patient is allergic to Macrodantin and sulfa Patient has been having recurrent UTIs We talked about personal hygiene, I would recommend to start using water rather than wipes to clean after urinating Patient already have appointment with the Urology next month Review system: She has no fever no chills, no headache no dizziness no back pain, no vomiting no nausea Antibiotic sent with 1 refill until patient sees urologist Blood pressure slightly elevated today it was fine last time will continue to monitor Orders: Orders Urine Culture Today N30.00 - Acute cystitis without hematuria AMB Urinalysis Automated Today Z13.9 - Encounter for screening, unspecified Medications: Refilled cefuroxime axetil 250 mg PO BID 14 tabs 1RF 7 days Coding Level of Care Code Est Pt Level 3 (68127) Diagnoses Acute cystitis with hematuria N30.01 Hematuria presence: with hematuria
[2023-12-01 14:48] VITALS: BP 150/90; PULSE 82; O2SAT 97; BMI 21.1
== END 2023-12-01 15:27 | disposition home or self-care (01) ==
PROVIDERS: PCP Internal Medicine; Visit Provider Internal Medicine
DX: N30.01 Acute cystitis with hematuria (principal)
CPT/HCPCS: 81003; 99213

== ENCOUNTER 2023-12-01 14:57 | Outpatient (REF) | payer MEDICARE, SELFPAY | END 2023-12-01 14:58 | disposition home or self-care (01) | LOC: HO.LAB 14:57 | PROVIDERS: Visit Provider Internal Medicine | DX: N30.00 Acute cystitis without hematuria (principal) | CPT/HCPCS: 87086; 87088; 87186 ==

== ENCOUNTER 2023-12-21 11:38 | Outpatient (AMB) | payer MEDICARE, SELFPAY ==
[2023-12-21 11:40] VITALS: BP 120/70; PULSE 61; TEMP 36.3; O2SAT 96; BMI 21.1
--- NOTE | 2023-12-21 11:40 | AM.OFFWIN_ITS ---
Intake Vital Signs 12/21/23 11:40 Height 5 ft 4.5 in Weight 125 lb BMI 21.1 BP 120/70 Blood Pressure Location Lt brachial Position Sitting Pulse 61 Pulse Source Pulse Oximeter Temp 97.3 F Temp Source Temporal Artery Scan Pulse Oximetry (%) 96 Oxygen Delivery Method Room Air Intake Visit Reasons: EST/uti(lobby) Intake Note: pt is here today for UTI started 1 week ago Patient Tobacco Use Status: Never used Tobacco Allergies nitrofurantoin [NITROFURANTOIN] Allergy (Unknown, Verified 12/21/23 11:40) diarrhea, swollen lips oxycodone [From PERCOCET] Allergy (Unknown, Verified 12/21/23 11:40) NAUSEA & VOMITING Sulfa (Sulfonamide Antibiotics) [SULFA (SULFONAMIDE ANTIBIOTICS)] Allergy (Unknown, Verified 12/21/23 11:40) diarrhea, swollen lips trimethoprim [TRIMETHOPRIM] Allergy (Unknown, Verified 12/21/23 11:40) diarrhea, swollen lips acetaminophen [From VICODIN] Adverse Reaction (Mild, Verified 12/21/23 11:40) NAUSEA & VOMITING hydrocodone [From VICODIN] Adverse Reaction (Mild, Verified 12/21/23 11:40) NAUSEA & VOMITING Nitrofurantoin Macrocrystal Allergy (Unknown, Uncoded 08/28/23 12:37) diarrhea, swollen lips Trimethoprim HCl Allergy (Unknown, Uncoded 08/28/23 12:37) diarrhea swollen lips Do you need a note to return to daycare/school/sports/work: No HPI EST/uti(lobby) HPI Details This is an 83-year-old female patient who presents today with possible urinary tract infection. States that she does get frequent UTIs, and has an appointment with urology next month. Reports that she had a UTI about 1 month ago, and was prescribed cefuroxime, which she ended up having a negative reaction to including blisters in her mouth. She states that she has been having urinary urgency, frequency, burning for the last 5-6 days. Denies fever or chills. Denies flank pain. [facility] Medical History Vitamin D deficiency Hearing loss Annual physical exam Gallstones Osteopenia Frequent UTI Breast calcification, right Sacroiliitis Urge incontinence IBS (irritable bowel syndrome) Surgical History H/O colonoscopy Family History Father No problems noted. Mother HTN (hypertension) Aneurysm Social History Alcohol intake: current Alcohol intake frequency: holidays/special occasions only Patient Tobacco Use Status: Never used Tobacco Review of Systems Const All systems reviewed & are unremarkable except as noted in HPI and below Physical Exam Vital Signs: BMI result Body Mass Index 21.1 Const General: cooperative, comfortable and no acute distress Resp Effort & Inspection: normal respiratory effort Auscultation: clear to auscultation bilaterally Cardio Palpation: normal PMI Rate: regular rate Rhythm: regular rhythm General: Yes bladder normal to palpation and Yes no CVA tenderness Bimanual exam- vagina & uterus: bladder normal to palpation Back/Spine/Pelvis Back: no CVA tenderness Skin General skin exam: no rashes or lesions noted Extrem General: Yes no clubbing, cyanosis or edema Psych Appearance: grossly normal Mental Status: mental status grossly normal Speech and movement: Normal speech and movement present Results AMB Urinalysis, Automated UA Leukoctes 0 Laverne/uL Last Edit by Gerard Matos CMA on 12/21/23 11:46 UA Nitrite Negative Last Edit by Gerard Matos CMA on 12/21/23 11:46 UA Urobilinogen 0.2 mg/dL Last Edit by Gerard Matos CMA on 12/21/23 11 :46 UA Protein 0 mg/dL Last Edit by Gerard Matos CMA on 12/21/23 11:46 UA pH 6.0 Last Edit by Gerard Matos CMA on 12/21/23 11:46 UA Blood 0 Dillon/uL Last Edit by Gerard Matos CMA on 12/21/23 11:46 UA Specific Timblin 1.025 Last Edit by Gerard Matos CMA on 12/21/23 11:46 UA Ketone Negative Last Edit by Gerard Matos CMA on 12/21/23 11:46 UA Bilirubin 0 mg/dL Last Edit by Gerard Matos CMA on 12/21/23 11:46 UA Glucose 0 mg/dL Last Edit by Gerard Matos CMA on 12/21/23 11:46 Results Reviewed Results Reviewed: Laboratory Last Values Urine pH (Auto) 6.0 12/21/23 11:45 Specific Timblin (Auto) 1.025 12/21/23 11:45 Urine Protein (Auto) 0 mg/dL 12/21/23 11:45 Glucose (UA)(Auto) 0 mg/dL 12/21/23 11:45 Urine Ketones (Auto) Negative 12/21/23 11:45 Urine Blood (Auto) 0 Dillon/uL 12/21/23 11:45 Urine Nitrite (Auto) Negative 12/21/23 11:45 Urine Bilirubin (Auto) 0 mg/dL 12/21/23 11:45 Urine Urobilinogen (Auto) 0.2 mg/dL 12/21/23 11:45 Leukocyte Esterase (Auto) 0 Laverne/uL 12/21/23 11:45 Assessment & Plan Assessment & Plan (1) Urinary tract infection: Code(s): N39.0 - Urinary tract infection, site not specified Qualifiers: Urinary tract infection type: acute cystitis Hematuria presence: with hematuria Qualified Code(s): N30.01 - Acute cystitis with hematuria Plan: Urine dip consistent with UTI. Patient states she has done well previously on cephalexin. I will prescribe this. We reviewed indications, use, possible side effects. Encouraged her to keep upcoming urology appointment due to frequent UTIs. Offered to prescribe her pyridium for the discomfort however she declined. Advised to return to the clinic or follow-up with PCP if she does not improve with treatment, if she develops any worsening symptoms or fever/chills, or flank pain. She verbalizes understanding and agrees to plan. Orders: Orders AMB Urinalysis Automated Today Z13.9 - Encounter for screening, unspecified Medications: New cephalexin 500 mg PO QID 7 days 28 caps 0RF N39.0 - Urinary tract infection, site not specified Coding Level of Care Code Est Pt Level 3 (55687) Diagnoses Acute cystitis with hematuria N30.01 Urinary tract infection type: acute cystitis Hematuria presence: with hematuria
== END 2023-12-21 12:16 | disposition home or self-care (01) ==
PROVIDERS: PCP Internal Medicine; Visit Provider Nurse Practitioner Family
DX: N30.01 Acute cystitis with hematuria (principal)
CPT/HCPCS: 81003; 99213

== ENCOUNTER 2024-06-14 09:00 | Outpatient (AMB) | payer MEDICARE, SELFPAY ==
--- NOTE | 2024-06-14 09:04 | MHC.PC.OV ---
Intake Visit Reasons: SWV Allergies nitrofurantoin [NITROFURANTOIN] Allergy (Unknown, Verified 12/21/23 11:40) diarrhea, swollen lips oxycodone [From PERCOCET] Allergy (Unknown, Verified 12/21/23 11:40) NAUSEA & VOMITING Sulfa (Sulfonamide Antibiotics) [SULFA (SULFONAMIDE ANTIBIOTICS)] Allergy (Unknown, Verified 12/21/23 11:40) diarrhea, swollen lips trimethoprim [TRIMETHOPRIM] Allergy (Unknown, Verified 12/21/23 11:40) diarrhea, swollen lips acetaminophen [From VICODIN] Adverse Reaction (Mild, Verified 12/21/23 11:40) NAUSEA & VOMITING hydrocodone [From VICODIN] Adverse Reaction (Mild, Verified 12/21/23 11:40) NAUSEA & VOMITING Nitrofurantoin Macrocrystal Allergy (Unknown, Uncoded 08/28/23 12:37) diarrhea, swollen lips Trimethoprim HCl Allergy (Unknown, Uncoded 08/28/23 12:37) diarrhea swollen lips [facility] Medical History Vitamin D deficiency Hearing loss Annual physical exam Gallstones Osteopenia Frequent UTI Breast calcification, right Sacroiliitis Urge incontinence IBS (irritable bowel syndrome) Surgical History H/O colonoscopy Family History Father No problems noted. Mother HTN (hypertension) Aneurysm Social History Alcohol intake: current Alcohol intake frequency: holidays/special occasions only Patient Tobacco Use Status: Never used Tobacco Questionnaire PHQ-9 Over the last 2 weeks, how often have you been bothered by any of the following problems? 1. Little interest or pleasure in doing things: not at all 2. Feeling down, depressed, or hopeless: not at all 3. Trouble falling or staying asleep, or sleeping too much: several days 4. Feeling tired or having little energy: several days 5. Poor appetite or overeating: not at all 6. Feeling bad about yourself - or that you are a failure or have let yourself or your family down: not at all 7. Trouble concentrating on things, such as reading the newspaper or watching television: not at all 8. Moving or speaking so slowly that other people could have noticed. Or the opposite - being so fidgety or restless that you have been moving around a lot more than usual: not at all 9. Thoughts that you would be better off or of hurting yourself in some way: not at all Total score: 2 Source: Developed by Drs. Kojo Mcpherson, Sumi Kern, Harinder Lubin and colleagues, with an educational kingsley from [employer]. Thrive Questionnaire Date Thrive assessed: 06/11/24 I am a: Patient What is your living situation today?: I have a steady place to live Within the past 12 months, did the food you bought not last and you didn't have the money to get more?: Never true Within the past 12 months, did you worry whether your food would run out before you got money to buy more?: Never true Do you have trouble paying for medicines?: No Do you have trouble getting transportation to medical appointments?: No Do you have trouble paying your heating and electricity bill?: No Do you have trouble taking care of your child, family member or friend?: No Do you have trouble with day-to-day activities such as bathing, preparing meals, shopping, managing finances, etc.?: No Are you currently unemployed and looking for a job?: No Are you interested in more education?: No Please select the resources that you would like help with: Housing/Usp Currently or been in a relationship where the following occur: No concerns reported THRIVE Score: 0 AUDIT C Alcohol Use Questionnaire (AUDIT-C) 1. How often do you have a drink containing alcohol?: Monthly or less 2. How many drinks containing alcohol do you have on a typical day when you are drinking?: 1 or 2 3. How often do you have six or more drinks on one occasion?: Never Total Score: 1 DEMI-7 AMB Questionnaire DEMI-7 Feeling nervous, anxious, or on edge: 0 = Not at all Not being able to stop or control worryin = Not at all Worrying too much about different things: 0 = Not at all Trouble relaxin = Not at all Being so restless that it is hard to sit still: 0 = Not at all Becoming easily annoyed or irritable: 0 = Not at all Feeling afraid as if something awful might happen: 0 = Not at all Total DEMI-7 score (0-4 normal; 5-9 mild; 10-14 moderate; 15-21 severe): 0 Source: Developed by Drs. Kojo Mcpherson, Sumi Kern, Harinder Lubin and colleagues, with an educational kingsley from [employer]. Physical exam (Primary Care) Tobacco/Smoking Status: Tobacco use Status Patient Tobacco Use Status Never used Tobacco 12/21/23 11:40 Thrive Assessment: Date of Thrive Assessment Date Thrive assessed 06/11/24 06/11/24 12:05 Currently or been in a relationship where the following occur: No concerns reported Coding
--- NOTE | 2024-06-14 09:04 | AM.OFFVISMDC ---
Intake Vital Signs 06/14/24 09:05 Height 5 ft 4.5 in Weight 120 lb BMI 20.3 BP 130/65 Blood Pressure Location Rt brachial Position Sitting Pulse 80 Pulse Source Pulse Oximeter Pulse Oximetry (%) 98 Oxygen Delivery Method Room Air Intake Visit Reasons: SWV Allergies nitrofurantoin [NITROFURANTOIN] Allergy (Unknown, Verified 06/14/24 09:08) diarrhea, swollen lips oxycodone [From PERCOCET] Allergy (Unknown, Verified 06/14/24 09:08) NAUSEA & VOMITING Sulfa (Sulfonamide Antibiotics) [SULFA (SULFONAMIDE ANTIBIOTICS)] Allergy (Unknown, Verified 06/14/24 09:08) diarrhea, swollen lips trimethoprim [TRIMETHOPRIM] Allergy (Unknown, Verified 06/14/24 09:08) diarrhea, swollen lips acetaminophen [From VICODIN] Adverse Reaction (Mild, Verified 06/14/24 09:08) NAUSEA & VOMITING hydrocodone [From VICODIN] Adverse Reaction (Mild, Verified 06/14/24 09:08) NAUSEA & VOMITING Nitrofurantoin Macrocrystal Allergy (Unknown, Uncoded 06/14/24 09:08) diarrhea, swollen lips Trimethoprim HCl Allergy (Unknown, Uncoded 06/14/24 09:08) diarrhea swollen lips Medication List - Last Reconciled 06/14/24 by Fatou Hinojosa MD ascorbic acid (vitamin C) 500 mg PO DAILY calcium carbonate-vitamin D3 600 mg-12.5 mcg (500 unit) (Calcium 600 with Vitamin D3) caps PO cephalexin 250 mg PO QID cranberry 15,000 mg PO DAILY docusate sodium (Colace) 100 mg PO DAILY estradiol 0.01%(0.1mg/gram) grams vaginal 2XW ibuprofen 200 mg PO Q6H PRN ketorolac 0.5% drps ophthalmic (eye) L.acidophilus,helvet-B.bifidum 250 million cell (Acidophilus Probiotic Complex) caps PO loratadine (Claritin) 10 mg PO DAILY melatonin 10 mg PO BEDTIME PRN ygjfbuex-izd-kxbv-FA-vit K-lut 8 mg iron-400 mcg-50 mcg (Centrum Silver Women) 1 tab PO DAILY naproxen 220 mg PO DAILY PRN omega 9-uia-gdb-fish oil 500-1,000 mg 1 cap PO DAILY trospium 20 mg PO BID HPI SWV HPI Details Initiated the conversation about Advanced Directives. Advanced Directives help? patients prepare for current and future decisions about their medical treatment? and place of care. Discussed with patient that it is a process where a patients? current condition and prognosis are reviewed, their wishes for information? regarding their illness are elicited, and likely medical dilemmas are presented? and options discussed. The form can be amended as needed, reviewed yearly and? make changes as needed IPPE/AWV ? year old presents? for her ? Annual? Wellness Visit, initial visit.? Medical / Social History Reviewed? Past Medical History ?Yes? . ? [place]? of Care / Care Team list updated ?Yes . ? Surgical/Hospitalization? History ?Yes . ? Current Medications? (including OTC and supplements) ?Yes . ? Family History ?Yes? . ? Tobacco? Control form ?Yes . ? AUDIT-C (Alcohol use) form? ?Yes . ? Illicit drug use in Social? History ?Yes . ? Current diagnosis of? depression? ?No ? Appropriate PHQ2/PHQ9? completed ?Yes . ? Data entered by ?Medical? Adoption Coordinator and reviewed by provider ? Fall Risk ? Fall? History? Have you had any falls with? injury in the past year? ?No . ? Have you had two or more? falls in the past year? ?No . ? Fall Risk Assessment: ?No? falls in the past year . ? HRA filled out by? the patient, reviewed by Provider and scanned. ? IPPE/AWV ? Balance? [place]? ?Yes . ? Tandem? walk ?Yes . ? Walk and? Turn ?Yes . ? Rise from? sit to stand ?Yes . ?Vision? Corrective? lens ?Yes ? Vision? screen ? Up-to-date, has an appointment [] for vision? screening and glaucoma screening ?Hearing? Whisper? test ?pass .? Initiated the conversation about Advanced Directives. Advanced Directives help? patients prepare for current and future decisions about their medical treatment? and place of care. Discussed with patient that it is a process where a patients? current condition and prognosis are reviewed, their wishes for information? regarding their illness are elicited, and likely medical dilemmas are presented? and options discussed. The form can be amended as needed, reviewed yearly and? make changes as needed Written? Plan?Completed. See Patient? Documents. [facility] Medical History Vitamin D deficiency Hearing loss Annual physical exam Gallstones Osteopenia Frequent UTI Breast calcification, right Sacroiliitis Urge incontinence IBS (irritable bowel syndrome) Surgical History H/O colonoscopy Family History Father No problems noted. Mother HTN (hypertension) Aneurysm Social History Alcohol intake: current Alcohol intake frequency: holidays/special occasions only Patient Tobacco Use Status: Never used Tobacco Questionnaire Medicare Wellness Checkup What is your age?: 81 or older What gender do you identify with?: female During the past 4 weeks, how much have you been bothered by emotional problems such as feeling anxious, depressed, irritable, sad or downhearted, and blue?: not at all During the past 4 weeks, has your physical & emotional health limited your social activities with family, friends, neighbors, or groups?: not at all During the past 4 weeks, how much bodily pain have you generally had?: mild pain During the past 4 weeks, was someone available to help you if you needed & wanted help?: yes, a little During the past 4 weeks, what was the hardest physical activity you could do for at least 2 minutes?: moderate Can you get to places out of walking distance without help? (For eg., can you travel alone on buses, taxis or drive your car?): Yes Can you go shopping for groceries or clothes without someone's help?: Yes Can you prepare your own meals?: Yes Can you do your housework without help?: Yes Because of any health problems, do you need the help of another person with your personal care needs such as eating, bathing, dressing or getting around the house?: No Can you handle your own money without help?: Yes During the past 4 weeks, how would you rate your health in general?: good During the past 4 weeks how have things been going for you?: pretty well Are you having difficulties driving your car?: no Do you always fasten your seat belt when you are in a car?: yes, usually During past 4 weeks, have you been bothered by the following: never: Sexual problems?, Trouble eating well? and Problems using the telephone?, seldom: Falling or dizzy when standing up and sometimes: Teeth or denture problems? and Tiredness or fatigue? Have you fallen 2 or more times in the past year?: No Are you afraid of falling?: No Are you a smoker?: no During the past 4 weeks, how many drinks of wine, beer, or other alcoholic beverages did you have?: 1 drink or less per week Do you exercise for about 20 minutes 3 or more times a week?: yes, most of the time Have you been given information to help with the following?: yes: Hazards in your house that might hurt you? and yes: Keeping track of your medications? How often do you have trouble taking medicines the way you have been told to take them?: I always take medicine as prescribed How confident are you that you can control & manage most of your health problems?: somewhat confident What is your race?: White Mini Mental State Exam (MMSE) Orientation What is the (year) (season) (date) (day) (month)?: year, season, date, day and month Where are we (state) (county) (town or city) (hospital) (floor)?: state, county, town or city, hospital/clinic and floor Registration Name of 3 unrelated objects clearly and slowly, then ask patient to repeat all 3 of them. (1st repeat determines score. Make sure they can repeat all three): object 1, object 2 and object 3 Attention & Calculation (CHOOSE ONE) Spell WORLD backwards (DLROW): 5 letters Recall Ask patient to repeat the 3 items from question #3.: object 1, object 2 and object 3 Language Show patient a wristwatch & ask what it is. Repeat for pencil.: watch and pencil Ask the patient to repeat the phrase 'No ifs, ands, or buts' after you.: correct Ask the patient to 'take a piece of paper with their right hand' 'fold paper in half' 'place paper on floor': take paper in right hand, fold paper in half and place paper on floor Print the sentence 'CLOSE YOUR EYES' on a piece. If patient actually closes eyes then score.: followed written direction Give patient a blank piece of paper & ask to write a sentence. Score if it contains a noun & verb.: sentence contains subject and verb Score Score: 29 Activity of Daily Living Bathing - sponge bath, tub bath or shower: receives no assistance (gets in/out by self, if usual bathing means Dressing - getting clothes from closets & drawers, including inner/outer garments & fasteners.: gets clothes & gets completely dressed without help Toileting - going to the 'toilet room' for urine/bowel elimination & cleaning self/arranging clothes: goes to toilet room, cleans self, arranges clothes without help Transfer: moves in & out of bed and chair without help (may use support object) Continence: controls urination/bowel movements completely by self Feeding: feeds self without help Total Score: 0 Information obtained from: patient Using telephone: independent Traveling: independent Shopping: independent Preparing meals: independent Housework: independent Taking medicine: independent Managing money: independent PHQ-9 Over the last 2 weeks, how often have you been bothered by any of the following problems? 1. Little interest or pleasure in doing things: not at all 2. Feeling down, depressed, or hopeless: not at all 3. Trouble falling or staying asleep, or sleeping too much: several days 4. Feeling tired or having little energy: several days 5. Poor appetite or overeating: not at all 6. Feeling bad about yourself - or that you are a failure or have let yourself or your family down: not at all 7. Trouble concentrating on things, such as reading the newspaper or watching television: not at all 8. Moving or speaking so slowly that other people could have noticed. Or the opposite - being so fidgety or restless that you have been moving around a lot more than usual: not at all 9. Thoughts that you would be better off or of hurting yourself in some way: not at all Total score: 2 Depression Screening Interpretation: Negative Depression Screening Done: Yes Source: Developed by Drs. Kojo Mcpherson, Sumi Kern, Harinder Lubin and colleagues, with an educational kingsley from [employer]. Review of Systems Const All systems reviewed & are unremarkable except as noted in HPI and below Reports no additional complaints Eyes Reports no additional complaints ENT Reports no additional complaints Card Reports no additional complaints Resp Reports no additional complaints GI Reports no additional complaints Reports no additional complaints Physical Exam Vital Signs: Last Vital Signs Pulse 80 06/14/24 09:05 Pulse Ox 98 06/14/24 09:05 Oxygen Delivery Method Room Air 06/14/24 09:05 BMI result Body Mass Index 20.3 Const General: no acute distress HEENT Head: Yes normal to inspection Ears: hearing grossly normal bilaterally Eyes General: appearance normal, both eyes and all related structures Neck Neck: Yes no lymphadenopathy and Yes supple Resp Effort & Inspection: normal respiratory effort Auscultation: clear to auscultation bilaterally Cardio Rhythm: regular rhythm Heart sounds: S1 normal heart sound present and S2 normal heart sound present GI Inspection: Yes normal to inspection Palpation (GI): Soft to palpation Percussion: Yes normal to percussion Auscultation: normal bowel sounds Extrem General: Yes no clubbing, cyanosis or edema Assessment & Plan Assessment & Plan (1) IBS (irritable bowel syndrome): Comment: Chronic constipation, Dr. Carrasco, negative colonoscopy 2018 Code(s): K58.9 - Irritable bowel syndrome without diarrhea Plan: Increase fiber and fluid intake discussed with the patient she was advised to increase Colace dose to 2 a day and continue Metamucil supplement. Patient requested referral to GI (2) Frequent UTI: Comment: Dr. Morgan, on daily cephalexin Code(s): N39.0 - Urinary tract infection, site not specified Plan: Follow-up with urology (3) Annual physical exam: Code(s): Z00.00 - Encounter for general adult medical examination without abnormal findings Plan: Well-balanced diet regular physical activity discussed with the patient. She will return for fasting blood work. (4) Vitamin D deficiency: Code(s): E55.9 - Vitamin D deficiency, unspecified Plan: Continue vitamin-D supplement Orders: Orders Lipid Panel Today Fatou Hinojosa MD E55.9 - Vitamin D deficiency, unspecified, K58.9 - Irritable bowel syndrome without diarrhea, Z00.00 - Encounter for general adult medical examination without abnormal findings Vitamin D 25-OH Total Today Fatou Hinojosa MD E55.9 - Vitamin D deficiency, unspecified, K58.9 - Irritable bowel syndrome without diarrhea, Z00.00 - Encounter for general adult medical examination without abnormal findings Comprehensive [place]. Panel Fast Today Fatou Hinojosa MD E55.9 - Vitamin D deficiency, unspecified, K58.9 - Irritable bowel syndrome without diarrhea, Z00.00 - Encounter for general adult medical examination without abnormal findings Complete Blood Count Auto Diff Today Fatou Hinojosa MD E55.9 - Vitamin D deficiency, unspecified, K58.9 - Irritable bowel syndrome without diarrhea, Z00.00 - Encounter for general adult medical examination without abnormal findings TSH reflex Free T4 Today Fatou Hinojosa MD E55.9 - Vitamin D deficiency, unspecified, K58.9 - Irritable bowel syndrome without diarrhea, Z00.00 - Encounter for general adult medical examination without abnormal findings Referrals Gastroenterology Referral Fatou Hinojosa MD K58.9 - Irritable bowel syndrome without diarrhea Medications: Changed From cephalexin 500 mg PO QID 7 days 28 caps 0RF N39.0 - Urinary tract infection, site not specified To cephalexin 250 mg PO QID N39.0 - Urinary tract infection, site not specified JAZLYN Aguero Quality Reporting (2019) Depression/Bipolar (159/160/161/177) PHQ-9: Total score: 2 Coding Level of Care Code Medicare Subsequent (G0439) Diagnoses IBS (irritable bowel syndrome) K58.9 Frequent UTI N39.0 Annual physical exam Z00.00 Vitamin D deficiency E55.9 CPT Codes Advance Care Planning - Advance Care Planning discussion: On file, no changes ([id number]) Advance Care Planning - Time spent: 1-15 minutes, on File ([id number]) Advance Care Planning Advance Care Planning discussion: On file, no changes Forms completed: Health Care Proxy Time spent: 1-15 minutes, on File
[2024-06-14 09:05] VITALS: BP 130/65; PULSE 80; O2SAT 98; BMI 20.3
== END 2024-06-14 09:49 | disposition home or self-care (01) ==
PROVIDERS: PCP Internal Medicine; Visit Provider Internal Medicine
DX: Z00.00 Encounter for general adult medical examination without abnormal findings (principal); K58.9 Irritable bowel syndrome, unspecified; N39.0 Urinary tract infection, site not specified; E55.9 Vitamin D deficiency, unspecified
CPT/HCPCS: 1123F; G0439

== ENCOUNTER 2024-06-17 09:41 | Outpatient (REF) | payer MEDICARE, SELFPAY ==
[2024-06-17 13:29] LABS: MANUAL DIFF FLAG NO
[2024-06-17 13:49] LABS: Basophils Absolute Auto 0.1 X10*3/uL (0.0-0.2); Basophils Percent Auto 0.7 % (0-2); Eosinophils Absolute Auto 0.2 X10*3/uL (0.0-0.4); Eosinophils Percent Auto 2.4 % (0-4); Hematocrit 41.4 % (37.0-47.0); Hemoglobin 14.3 g/dl (12.0-16.0); Imm Gran Abs Auto 0.03 X10*3/uL (0.00-0.03); Imm Gran Pct Auto 0.3 % (0.0-0.4); Lymphocytes Percent Auto 20.2 % (20-40); Mean Corpuscular HGB Conc 34.5 g/dl (31.0-35.0); Mean Corpuscular Volume 89.6 fL (80.0-98.0); Mean Platelet Volume 9.7 fL (9.4-12.3); Monocytes Absolute Auto 0.9 X10*3/uL (0.1-1.2); Monocytes Percent Auto 9.1 % (2-11); Neutrophils Absolute Auto 6.5 x10*3/uL (2.0-8.3); Neutrophils Percent Auto 67.3 % (45-73); Platelet Count 306 X10*3/uL (160-400); Red Blood Count 4.62 X10*6/uL (4.20-5.50); Red Cell Distribution Width 13.7 % (11.0-16.0); White Blood Count 9.7 X10*3/uL (4.8-10.8)
[2024-06-17 14:21] LABS: Alanine Aminotransferase 17 U/L (0-31); Albumin Level 4.4 g/dL (3.5-5.0); Alkaline Phosphatase 96 U/L (39-117); Anion Gap 10 (12-20); Aspartate Amino Transferase 21 U/L (5-31); Blood Urea Nitrogen 13 mg/dL (9-16); Calcium 9.7 mg/dL (8.4-10.2); Carbon Dioxide 27 mmol/L (22-29); Chloride 102 mmol/L (96-108); Cholesterol 164 mg/dL (<200); Estimated Glomerular Filt Rate > 60; Glucose Fasting 98 mg/dL (60-99); HDL Cholesterol 58 mg/dL (>40); LDL Cholesterol Calculated 88 mg/dL (<100); Potassium 3.8 mmol/L (3.3-5.1); Sodium 135 mmol/L (135-145); Total Protein 7.3 g/dL (6.5-8.0); Triglycerides 93 mg/dL (<150)
[2024-06-17 14:23] LABS: Vitamin D 25-OH Total 41.7 ng/mL (>30)
== END 2024-06-17 09:42 | disposition home or self-care (01) ==
LOC: HO.HMGCLDS 09:41
PROVIDERS: PCP Internal Medicine; Visit Provider Internal Medicine
DX: Z00.00 Encounter for general adult medical examination without abnormal findings (principal); E55.9 Vitamin D deficiency, unspecified; K58.9 Irritable bowel syndrome, unspecified
CPT/HCPCS: 36415; 80053; 80061; 82306; 84443; 85025

== ENCOUNTER 2024-08-15 09:57 | Outpatient (AMB) | payer MEDICARE, SELFPAY ==
[2024-08-15 10:02] VITALS: BP 138/85; PULSE 86; O2SAT 97; BMI 20.3
--- NOTE | 2024-08-15 10:02 | A.OFFPC_ITS ---
Vital Signs 08/15/24 10:02 Height 5 ft 4.5 in Weight 120 lb BMI 20.3 BP 138/85 Blood Pressure Location Rt brachial Position Sitting Pulse 86 Pulse Source Pulse Oximeter Pulse Oximetry (%) 97 Oxygen Delivery Method Room Air Intake Visit Reasons: Follow up Intake Note: Pt is here today for a follow up visit. Allergies nitrofurantoin [NITROFURANTOIN] Allergy (Unknown, Verified 08/15/24 10:07) diarrhea, swollen lips oxycodone [From PERCOCET] Allergy (Unknown, Verified 08/15/24 10:07) NAUSEA & VOMITING Sulfa (Sulfonamide Antibiotics) [SULFA (SULFONAMIDE ANTIBIOTICS)] Allergy (Unknown, Verified 08/15/24 10:07) diarrhea, swollen lips trimethoprim [TRIMETHOPRIM] Allergy (Unknown, Verified 08/15/24 10:07) diarrhea, swollen lips acetaminophen [From VICODIN] Adverse Reaction (Mild, Verified 08/15/24 10:07) NAUSEA & VOMITING hydrocodone [From VICODIN] Adverse Reaction (Mild, Verified 08/15/24 10:07) NAUSEA & VOMITING Nitrofurantoin Macrocrystal Allergy (Unknown, Uncoded 08/15/24 10:07) diarrhea, swollen lips Trimethoprim HCl Allergy (Unknown, Uncoded 08/15/24 10:07) diarrhea swollen lips Medication List - Last Reconciled 08/15/24 by Fatou Hinojosa MD ascorbic acid (vitamin C) 500 mg PO DAILY calcium carbonate-vitamin D3 600 mg-12.5 mcg (500 unit) (Calcium 600 with Vitamin D3) caps PO cephalexin 250 mg PO QID cranberry 15,000 mg PO DAILY docusate sodium (Colace) 100 mg PO DAILY estradiol 0.01%(0.1mg/gram) grams vaginal 2XW ibuprofen 200 mg PO Q6H PRN ketorolac 0.5% drps ophthalmic (eye) L.acidophilus,helvet-B.bifidum 250 million cell (Acidophilus Probiotic Complex) caps PO loratadine (Claritin) 10 mg PO DAILY melatonin 10 mg PO BEDTIME PRN jczfzahm-aja-luct-FA-vit K-lut 8 mg iron-400 mcg-50 mcg (Centrum Silver Women) 1 tab PO DAILY naproxen 220 mg PO DAILY PRN omega 2-xbb-dtv-fish oil 500-1,000 mg 1 cap PO DAILY trospium 20 mg PO BID Tobacco use date assessed: 08/15/24 Fall risk assessment: 1 Fall in past year Last assessed Fall Risk: 08/15/24 Dental Screening Dental Screen Date: 08/15/24 Did you have a dental visit in the last 12 months?: Yes Did you have a dental problem in the last 6 months where you did not have access to dental care?: No Was dental information given to patient?: Patient has dentist HPI Follow up HPI Details Patient presents for the follow-up. She complains of sciatica flare up for the last 2 weeks worse when sitting or walking. She denies any weakness numbness in extremities change in bowel or bladder function. Patient has been taking Celebrex with some relief. She follows up with urology for frequent UTIs but has not started using estrogen cream. [facility] Medical History Vitamin D deficiency Hearing loss Annual physical exam Gallstones Osteopenia Frequent UTI Breast calcification, right Sacroiliitis Urge incontinence IBS (irritable bowel syndrome) Surgical History H/O colonoscopy Family History Father No problems noted. Mother HTN (hypertension) Aneurysm Social History [facility]: [facility] Alcohol intake: current Alcohol intake frequency: holidays/special occasions only Patient Tobacco Use Status: Never used Tobacco e-Cigarette/Vaping Use: Never Used service: No Current occupational status: retired Cognitive needs: No Hearing needs: No Vision needs: No Questionnaire PHQ-9 Over the last 2 weeks, how often have you been bothered by any of the following problems? 1. Little interest or pleasure in doing things: not at all 2. Feeling down, depressed, or hopeless: not at all 3. Trouble falling or staying asleep, or sleeping too much: not at all 4. Feeling tired or having little energy: not at all 5. Poor appetite or overeating: not at all 6. Feeling bad about yourself - or that you are a failure or have let yourself or your family down: not at all 7. Trouble concentrating on things, such as reading the newspaper or watching television: not at all 8. Moving or speaking so slowly that other people could have noticed. Or the opposite - being so fidgety or restless that you have been moving around a lot more than usual: not at all 9. Thoughts that you would be better off or of hurting yourself in some way: not at all Total score: 0 Depression Screening Interpretation: Negative Depression Screening Done: Yes 24172 - PHQ-9 Billing: Yes Source: Developed by Drs. Kojo Mcpherson, Sumi Kern, Harinder Lubin and colleagues, with an educational kingsley from [employer]. Thrive Questionnaire Date Thrive assessed: 08/15/24 I am a: Patient What is your living situation today?: I have a steady place to live Within the past 12 months, did the food you bought not last and you didn't have the money to get more?: Never true Within the past 12 months, did you worry whether your food would run out before you got money to buy more?: Never true Do you have trouble paying for medicines?: No Do you have trouble getting transportation to medical appointments?: No Do you have trouble paying your heating and electricity bill?: No Do you have trouble taking care of your child, family member or friend?: No Do you have trouble with day-to-day activities such as bathing, preparing meals, shopping, managing finances, etc.?: No Are you currently unemployed and looking for a job?: No Are you interested in more education?: No Please select the resources that you would like help with: None Currently or been in a relationship where the following occur: No concerns reported THRIVE Score: 0 AUDIT C Alcohol Use Questionnaire (AUDIT-C) 1. How often do you have a drink containing alcohol?: Monthly or less 2. How many drinks containing alcohol do you have on a typical day when you are drinking?: 1 or 2 3. How often do you have six or more drinks on one occasion?: Never Total Score: 1 DEMI-7 AMB Questionnaire DEMI-7 Date DEMI - 7 assessed: 08/15/24 Feeling nervous, anxious, or on edge: 0 = Not at all Not being able to stop or control worryin = Not at all Worrying too much about different things: 0 = Not at all Trouble relaxin = Not at all Being so restless that it is hard to sit still: 0 = Not at all Becoming easily annoyed or irritable: 0 = Not at all Feeling afraid as if something awful might happen: 0 = Not at all Total DEMI-7 score (0-4 normal; 5-9 mild; 10-14 moderate; 15-21 severe): 0 Source: Developed by Drs. Kojo Mcpherson, Sumi Kern, Harinder Lubin and colleagues, with an educational kingsley from [employer]. DEMI-7 Assessment Billing DEMI-7 Assessment Tool: DEMI-7 Assessment 08823 Review of Systems Const All systems reviewed & are unremarkable except as noted in HPI and below Eyes Reports no additional complaints ENT Reports no additional complaints Card Reports no additional complaints Resp Reports no additional complaints GI Reports no additional complaints Reports no additional complaints Physical exam (Primary Care) Vital Signs: Last Vital Signs Pulse 86 08/15/24 10:02 Pulse Ox 97 08/15/24 10:02 Oxygen Delivery Method Room Air 08/15/24 10:02 BMI result Body Mass Index 20.3 Tobacco/Smoking Status: Tobacco use Status Tobacco use date assessed 08/15/24 08/15/24 10:03 Patient Tobacco Use Status Never used Tobacco 08/15/24 10:03 e-Cigarette/Vaping Use Never Used 08/15/24 10:13 PHQ-9: PHQ-9 Score PHQ-9: Total score 0 08/15/24 10:13 Depression Screening Interpretation: Negative Thrive Assessment: Date of Thrive Assessment Date Thrive assessed 08/15/24 08/15/24 10:13 Currently or been in a relationship where the following occur: No concerns reported Const General: no acute distress Eyes General: appearance normal, both eyes and all related structures Resp Effort & Inspection: normal respiratory effort Auscultation: clear to auscultation bilaterally Cardio Rhythm: regular rhythm Heart sounds: S1 normal heart sound present and S2 normal heart sound present GI Inspection: Yes normal to inspection Palpation (GI): Soft to palpation Assessment and Plan Assessment & Plan (1) HTN (hypertension): Code(s): I10 - Essential (primary) hypertension Plan: START 25 MG OF LOSARTAN, low-sodium diet regular physical activity discussed with the patient. Follow-up in 1 month (2) Sciatica: Code(s): M54.30 - Sciatica, unspecified side Plan: Patient was advised to continue home exercises and take Celebrex as needed (3) Frequent UTI: Comment: Dr. Morgan, on daily cephalexin Code(s): N39.0 - Urinary tract infection, site not specified Plan: Follow-up with urologist patient will restart estradiol vaginal cream Medications: New losartan 25 mg PO DAILY 90 tabs 0RF Changed From estradiol 0.01%(0.1mg/gram) vaginal 2XW To estradiol 0.01%(0.1mg/gram) apply pea size to urethra qd vaginally QD; apply pea size to urethra qd vaginally 42.5 grams 1RF Coding Level of Care Code Est Pt Level 4 (05232) Diagnoses HTN (hypertension) I10 Sciatica M54.30 Frequent UTI N39.0 Additional Codes DEMI-7 Assessment Billing - DEMI-7 Assessment Tool: DEMI-7 Assessment 30602 ([id number])
== END 2024-08-15 10:56 | disposition home or self-care (01) ==
PROVIDERS: PCP Internal Medicine; Visit Provider Internal Medicine
DX: I10 Essential (primary) hypertension (principal); M54.30 Sciatica, unspecified side; N39.0 Urinary tract infection, site not specified

== ENCOUNTER → 2024-08-15 09:57 | Outpatient (BNVA) | payer MEDICARE, SELFPAY | PROVIDERS: PCP Internal Medicine; Visit Provider Internal Medicine | DX: I10 Essential (primary) hypertension (principal); M54.30 Sciatica, unspecified side; N39.0 Urinary tract infection, site not specified | CPT/HCPCS: 96127; 99212 ==

== ENCOUNTER 2024-08-23 15:38 | Emergency (ER) | payer MEDICARE, SELFPAY ==
[2024-08-23] VITALS (11 sets, daily range): BP systolic 117–240; BP diastolic 64–116; PULSE 60–90; RESP 16–18; TEMP 36.4–36.8; O2SAT 98–100; BMI 25.8
--- NOTE | 2024-08-23 | ECG_ITS ---
Test Reason : SYNCOPE Blood Pressure : / mmHG Vent. Rate : 075 BPM Atrial Rate : 075 BPM P-R Int : 180 ms QRS Dur : 080 ms QT Int : 416 ms P-R-T Axes : 073 068 092 degrees QTc Int : 464 ms Normal sinus rhythm Possible Left atrial enlargement Nonspecific ST abnormality Abnormal ECG When compared with ECG of 06-SEP-2019 14:51, No significant change was found Referred By: Generic ED Physician Electronically Signed By:ELLIOT THIBODEAUX
--- NOTE | ~2024-08-23 | CT_ITS ---
EXAMINATION: CT ANGIOGRAM HEAD AND NECK WITHOUT AND WITH CONTRAST CLINICAL INFORMATION: WORSE HEADACHE OF LIFE. HYPERTENSION. COMPARISON: CT HEAD DATED OCTOBER 12, 2017. TECHNIQUE: CONTIGUOUS AXIAL CT IMAGES WERE OBTAINED FROM THE AORTIC ARCH TO THE VERTEX OF THE HEAD FOLLOWING THE ADMINISTRATION OF 50 ML OF OMNIPAQUE 350 INTRAVENOUS CONTRAST. THE DATA WAS TRANSFERRED TO AN INDEPENDENT WORKSTATION, WHERE 3-D RECONSTRUCTIONS WERE PERFORMED. PRE-AND POSTCONTRAST HEAD CTS WERE ALSO PERFORMED. THE DEGREE OF STENOSIS DETERMINED BY NASCET CRITERIA. THIS CT EXAMINATION WAS PERFORMED USING DOSE OPTIMIZATION TECHNIQUES APPROPRIATE, VARIOUSLY INCLUDING THE FOLLOWING: *AUTOMATED EXPOSURE CONTROL *ADJUSTMENT OF MA AND/OR KV ACCORDING TO PATIENT SIZE (THIS INCLUDES TECHNIQUES OR STANDARDIZED PROTOCOLS FOR TARGETED EXAMS WHERE DOSE IS MATCHED TO INDICATION/REASON FOR EXAM; I.E. EXTREMITIES OR HEAD) *USE OF ITERATIVE RECONSTRUCTION TECHNIQUE DLP: 2169 MGY-CM INTERPRETATION OF FILMS: HEAD CT: There is no intracranial hemorrhage. No evidence of acute/subacute cerebral or cerebellar infarction. There is mild microvascular ischemic change. No extra-axial fluid collection, mass effect, or midline shift. There is a calcified extra-axial lesion along the high right parietal convexity measuring 1.5 x 1.4 cm. This likely represents a calcified meningioma. The ventricles are normal in size and configuration. There is no pathologic enhancement following the intravenous administration of contrast. The orbits are symmetric and within normal limits. Paranasal sinuses and mastoid air cells are clear. NECK CTA: The visualized aorta is normal in caliber. The origins of the common carotid and vertebral arteries are widely patent. The subclavian arteries are widely patent. The right common carotid artery and cervical bifurcation are normal in caliber. The cervical segment of the right internal carotid demonstrates smooth luminal margins and is normal in caliber. The left common carotid artery and cervical bifurcation are normal in caliber. The cervical segment of the left internal carotid demonstrates smooth luminal margins and is normal in caliber. The right vertebral artery is patent and has a normal course through the cervical region. The left vertebral artery is patent and has a normal course through the cervical region. HEAD CTA: The intracranial right internal carotid artery is normal in caliber. The right internal carotid artery bifurcation is normal. The right anterior and middle cerebral arteries are normal in appearance without significant stenosis or major branch vessel occlusion. The intracranial left internal carotid artery is normal in caliber. The left internal carotid artery bifurcation is normal. The left anterior and middle cerebral arteries are normal in appearance without significant stenosis or major branch vessel occlusion. The anterior communicating artery is unremarkable. The intradural vertebral arteries are widely patent and communicate normally with the basilar trunk. The posterior inferior cerebellar arteries are normal in appearance. The basilar artery and posterior cerebral artery vasculature is normal in appearance. No intracranial aneurysm. No evidence of high flow vascular malformation. OTHER: Lung apices are clear. The thyroid gland is normal in appearance. SUMMARY: No acute intracranial abnormality. Mild microvascular ischemic change. There is a calcified extra-axial lesion along the high right parietal convexity measuring 1.5 x 1.4 cm, likely representing a calcified meningioma. No intracranial aneurysm. No intracranial large vessel occlusion. Electronically signed by: Ru Toussaint DO 08/23/2024 10:41 PM EDT
--- NOTE | 2024-08-23 16:40 | ED_ITS ---
HPI - Syncope General Chief Complaint: Syncope Stated Complaint: SYNOCPAL EPISODE Time Seen by Provider: 08/23/24 16:30 Source: patient Mode of arrival: ambulatory Limitations: no limitations History of Present Illness ED Provider: stephanie CHAVEZ narrative: Patient's history of hypertension apparently had lunch was sitting with her friends and fell lightheaded and then passed out without falling to the ground patient started on lisinopril 20 mg daily for hypertension blood pressure was 89/60 when EMS reached on arrival it was 156/64 patient had similar episode 2 more times in the past but no workup done denies any palpitation no shortness a breath no fever no chills prior to syncope episode patient was fine had lunch Related Data Home Medications ?Medication ?Instructions ?Recorded ?Confirmed trospium 20 mg tablet 20 mg PO BID 08/28/20 08/15/24 ketorolac 0.5 % eye drops drp ophthalmic (eye) 04/29/21 08/15/24 Lactobacill cap PO 06/03/22 08/15/24 acidophilus-L.helvetic-B.bifidum 250 million cell capsule (Acidophilus Probiotic Complex) ascorbic acid (vitamin C) 500 mg 500 mg PO DAILY 06/03/22 08/15/24 tablet calcium carbonate 600 mg-vitamin cap PO 06/03/22 08/15/24 D3 12.5 mcg (500 unit) capsule (Calcium 600 with Vitamin D3) docusate sodium 100 mg capsule 100 mg PO DAILY 06/03/22 08/15/24 (Colace) ibuprofen 200 mg tablet 200 mg PO Q6H PRN 06/03/22 08/15/24 loratadine 10 mg tablet (Claritin) 10 mg PO DAILY 06/03/22 08/15/24 melatonin 10 mg capsule 10 mg PO BEDTIME PRN 06/03/22 08/15/24 eewpyhcc-jvxm-wkox 8 mg-folic 400 1 tab PO DAILY 06/03/22 08/15/24 mcg-K 50 mcg-lutein 300 mcg tablet (Centrum Silver Women) omega 9-shc-ott-fish oil 500 mg 1 cap PO DAILY 06/03/22 08/15/24 (200mg-300mg)-1,000 mg capsule cephalexin 500 mg capsule 250 mg PO QID 06/14/24 08/15/24 cranberry 400 mg capsule 15,000 mg PO DAILY 06/14/24 08/15/24 naproxen 250 mg tablet 220 mg PO DAILY PRN 06/14/24 08/15/24 Previous Rx's ?Medication ?Instructions ?Recorded estradiol 0.01% (0.1 mg/gram) See Rx Instructions vaginal .qd 08/15/24 vaginal cream #42.5 grams losartan 25 mg tablet 25 mg PO DAILY #90 tabs 08/15/24 Allergies Allergy/AdvReac Type Severity Reaction Status Date / Time nitrofurantoin Allergy Unknown diarrhea, Verified 08/23/24 15:49 [NITROFURANTOIN] swollen lips oxycodone [From PERCOCET] Allergy Unknown NAUSEA & Verified 08/23/24 15:49 VOMITING Sulfa (Sulfonamide Allergy Unknown diarrhea, Verified 08/23/24 15:49 Antibiotics) swollen [SULFA (SULFONAMIDE lips ANTIBIOTICS)] trimethoprim [TRIMETHOPRIM] Allergy Unknown diarrhea, Verified 08/23/24 15:49 swollen lips hydrocodone [From VICODIN] AdvReac Mild NAUSEA & Verified 08/23/24 15:49 VOMITING Nitrofurantoin Macrocrystal Allergy Unknown diarrhea, Uncoded 08/23/24 15:49 swollen lips Trimethoprim HCl Allergy Unknown diarrhea Uncoded 08/23/24 15:49 swollen lips Review of Systems 2 Review of Systems: Yes all other systems are reviewed and are negative PMFSH Past Medical History Medical History Vitamin D deficiency Hearing loss Annual physical exam Gallstones Osteopenia Frequent UTI Breast calcification, right Sacroiliitis Urge incontinence IBS (irritable bowel syndrome) Surgical History H/O colonoscopy Family History Family History Father No problems noted. Mother HTN (hypertension) Aneurysm Social History Social History Housing: Condominium Alcohol intake: current Alcohol intake frequency: holidays/special occasions only Patient Tobacco Use Status: Never used Tobacco e-Cigarette/Vaping Use: Never Used Advance Directives: No Advance Directives Information Provided: No Do you have a plan to hurt others: No Plan service: No Current occupational status: retired Cognitive needs: No Hearing needs: No Vision needs: No Physical Exam 2 Vital Signs: Vital Signs: Last Vital Signs Temp 98.3 F 08/23/24 18:17 Pulse 90 08/23/24 18:28 Resp 17 08/23/24 18:17 BP 220/110 H 08/23/24 20:38 Pulse Ox 99 08/23/24 18:17 O2 Del Method Room Air 08/23/24 18:17 BMI result Body Mass Index 25.8 Appearance: Alert. Oriented X3. No acute distress. Eyes: No pallor or icterus ENT: Pharynx normal. Oral Mucosa moist Neck: Normal inspection. Neck supple. CVS: Normal heart rate and rhythm. Pulses normal. Respiratory: No respiratory distress. Equal air entry bilateral, no wheezing/rales/rhonchi Abdomen: Soft and nontender. Bowel sounds are present, no mass palpable, no CVA tenderness Skin: Skin warm and dry. Normal skin color. Normal skin turgor. Extremities: No lower extremity edema. No calf tenderness Neuro: Oriented X 3. No motor deficit. No sensory deficit.No cerebellar signs , cranial nerves II-XII intact Medications Administered Discontinued Medications Generic Name Dose Route Start Last Admin Trade Name Freq PRN Reason Stop Dose Admin Acetaminophen 650 mg 08/23/24 18:19 08/23/24 18:24 Acetaminophen 325 Mg Tablet PO 08/23/24 18:20 650 mg ONCE ONE Administration Iohexol 85 ml 08/23/24 21:00 08/23/24 21:01 Iohexol 350 Mg/Ml 100 Ml Infus..Btl IV 08/23/24 21:01 85 ml ONCE ONE Administration Medical Decision Making Medical Decision Making [facility] Narrative: Patient's syncope episode allergy not clear with history of same in the past just prior to discharging the patient patient noticed having occipital headache blood pressure increased will do CTA head and neck rule out SAH 0 repeat blood pressure 202/98 does patient does take losartan 25 mg daily will increase the dose to 50mg Differential Diagnosis Differential Diagnoses: The differential diagnosis associated with the presentation includes Lab Data [facility] Lab Attestation statement: I reviewed the patient's lab results. 08/23/24 17:14 08/23/24 17:14 Labs: Lab Results 08/23/24 08/23/24 Range/Units 17:14 18:31 WBC 12.7 H (4.8-10.8) X10*3/uL RBC 4.35 (4.20-5.50) X10*6/uL Hgb 13.6 (12.0-16.0) g/dl Hct 38.8 (37.0-47.0) % MCV 89.2 (80.0-98.0) fL MCH 31.3 (27.0-33.0) pg MCHC 35.1 H (31.0-35.0) g/dl RDW 12.9 (11.0-16.0) % Plt Count 261 (160-400) X10*3/uL MPV 8.5 L (9.4-12.3) fL Immature Gran % (Auto) 0.5 H (0.0-0.4) % Neut % (Auto) 84.4 H (45-73) % Lymph % (Auto) 8.7 L (20-40) % Forrest % (Auto) 5.2 (2-11) % Eos % (Auto) 0.8 (0-4) % Baso % (Auto) 0.4 (0-2) % Lymph # (Auto) 1.1 L (1.2-4.9) X10*3/uL Forrest # (Auto) 0.7 (0.1-1.2) X10*3/uL Eos # (Auto) 0.1 (0.0-0.4) X10*3/uL Baso # (Auto) 0.1 (0.0-0.2) X10*3/uL Abs Immat Gran (auto) 0.07 H (0.00-0.03) X10*3/uL Absolute Neuts (auto) 10.7 H (2.0-8.3) x10*3/uL Absolute Nucleated RBC 0.000 (0.0-0.012) X10*3/uL Nucleated RBC % (auto) 0.0 (0.0-0.2) /100WBC Sodium 136 (135-145) mmol/L Potassium 3.9 (3.3-5.1) mmol/L Chloride 100 (96-108) mmol/L Carbon Dioxide 28 (22-29) mmol/L Anion Gap 12 (12-20) BUN 15 (9-16) mg/dL Creatinine 0.90 (0.5-1.4) mg/dL Estim Creat Clear Calc 44.9 Estimated GFR 60 Random Glucose 111 (60-115) mg/dL Calcium 9.6 (8.4-10.2) mg/dL Magnesium 2.4 (1.6-2.6) mg/dL Total Bilirubin 0.8 (0.0-1.0) mg/dL AST 23 (5-31) U/L ALT 19 (0-31) U/L Alkaline Phosphatase 96 (39-117) U/L Troponin I High Sens < 2.7 (<3.5-17.0) ng/L Total Protein 7.3 (6.5-8.0) g/dL Albumin 4.4 (3.5-5.0) g/dL Urine Color Yellow Urine Appearance Clear Urine pH 7.5 (5.0-9.0) Ur Specific [place] 1.010 (1.005-1.025) Urine Protein Negative (Neg-Trace) mg/dL Urine Glucose (UA) Negative (Negative) mg/dL Urine Ketones Negative (Negative) mg/dL Urine Blood Negative (Negative) Urine Nitrite Negative (Negative) Ur Leukocyte Esterase Trace H (Negative) Urine RBC 0-2 (0-2) /HPF Urine WBC 0-5 (0-5) /HPF Ur Squamous Epith Cells 0-2 (0-2) /HPF Urine Bacteria None Seen (None Seen) Hyaline Casts 0-2 (0-2) /LPF Discharge Plan Discharge Clinical Impression: Vasovagal syncope Patient Disposition: Home, Self-Care Instructions: Syncope (ED) Additional Instructions: Likely had vasovagal syncope episode Drink plenty of fluids Follow with your PCP for further evaluation loading Holter monitoring and Cardiology evaluation Prescriptions: No Action trospium 20 mg tablet 20 mg PO BID ketorolac 0.5 % drops ophthalmic (eye) ascorbic acid (vitamin C) 500 mg tablet 500 mg PO DAILY ibuprofen 200 mg tablet 200 mg PO Q6H PRN docusate sodium [Colace] 100 mg capsule 100 mg PO DAILY loratadine [Claritin] 10 mg tablet 10 mg PO DAILY omega 2-gkb-ern-fish oil 500-1,000 mg capsule 1 cap PO DAILY calcium carbonate-vitamin D3 [Calcium 600 with Vitamin D3] 600 mg-12.5 mcg (500 unit) capsule PO Centrum Silver Women 8 mg iron-400 mcg-300 mcg tablet 1 tab PO DAILY melatonin 10 mg capsule 10 mg PO BEDTIME PRN Acidophilus Probiotic Complex 250 million cell capsule PO cranberry 400 mg capsule 15,000 mg PO DAILY Rx Instructions: administer with a meal naproxen 250 mg tablet 220 mg PO DAILY PRN cephalexin 500 mg capsule 250 mg PO QID losartan 25 mg tablet 25 mg PO DAILY Qty: 90 0RF estradiol 0.01 % (0.1 mg/gram) cream See Rx Instructions vaginal .qd Qty: 42.5 1RF Rx Instructions: apply pea size to urethra qd vaginally QD; apply pea size to urethra qd vaginally Print Language: Armenian
--- NOTE | 2024-08-23 16:42 | PC.NURSE ---
Pt lalita from home, was out with her friends eating lunch when she suddenly felt lightheaded and passed out. Per EMS, pt friends waited 30 min before calling EMS for pt. Pt has no memory of losing consciousness, -headstrike per friends. States she has a hx of this, last time was in 2021 getting off a plane. Upon arrival pt a/ox4, speaking in full sentences, no c/o headache/dizziness/lightheadedness, no increased wob/sob, lung sounds cta bilaterally, s1 and s2 heard, NSR on engine monitor, HR-60s, abdomen soft, non-tender on palpation. Pt also states recently diagnosed with HTN and put on Lisinopril. Per EMS pt had low BP en route, upon arrival pt hypertensive, 156/64. Plan for EKG and labs to be obtained. Pt resting in bed quietly, call aguilar within reach, all needs met at this time.
[2024-08-23 17:20] LABS: MANUAL DIFF FLAG NO
[2024-08-23 17:24] LABS: Basophils Absolute Auto 0.1 X10*3/uL (0.0-0.2); Basophils Percent Auto 0.4 % (0-2); Eosinophils Absolute Auto 0.1 X10*3/uL (0.0-0.4); Eosinophils Percent Auto 0.8 % (0-4); Hematocrit 38.8 % (37.0-47.0); Hemoglobin 13.6 g/dl (12.0-16.0); Imm Gran Abs Auto 0.07 X10*3/uL (0.00-0.03); Imm Gran Pct Auto 0.5 % (0.0-0.4); Lymphocytes Absolute Auto 1.1 X10*3/uL (1.2-4.9); Lymphocytes Percent Auto 8.7 % (20-40); Mean Corpuscular HGB Conc 35.1 g/dl (31.0-35.0); Mean Corpuscular Hemoglobin 31.3 pg (27.0-33.0); Mean Corpuscular Volume 89.2 fL (80.0-98.0); Mean Platelet Volume 8.5 fL (9.4-12.3); Monocytes Absolute Auto 0.7 X10*3/uL (0.1-1.2); Monocytes Percent Auto 5.2 % (2-11); Neutrophils Absolute Auto 10.7 x10*3/uL (2.0-8.3); Neutrophils Percent Auto 84.4 % (45-73); Platelet Count 261 X10*3/uL (160-400); Red Blood Count 4.35 X10*6/uL (4.20-5.50); Red Cell Distribution Width 12.9 % (11.0-16.0); White Blood Count 12.7 X10*3/uL (4.8-10.8)
[2024-08-23 17:41] LABS: Alanine Aminotransferase 19 U/L (0-31); Albumin Level 4.4 g/dL (3.5-5.0); Alkaline Phosphatase 96 U/L (39-117); Anion Gap 12 (12-20); Aspartate Amino Transferase 23 U/L (5-31); Bilirubin Total 0.8 mg/dL (0.0-1.0); Blood Urea Nitrogen 15 mg/dL (9-16); Calcium 9.6 mg/dL (8.4-10.2); Carbon Dioxide 28 mmol/L (22-29); Chloride 100 mmol/L (96-108); Creatinine Clr Calc Pharmacy 44.9; Estimated Glomerular Filt Rate 60; Glucose Random 111 mg/dL (60-115); Magnesium 2.4 mg/dL (1.6-2.6); Potassium 3.9 mmol/L (3.3-5.1); Sodium 136 mmol/L (135-145); Total Protein 7.3 g/dL (6.5-8.0)
[2024-08-23 17:50] LABS: Troponin-I High Sensitivity < 2.7 ng/L (<3.5-17.0)
[2024-08-23] MEDS: Acetaminophen 325 MG TABLET 650 MG PO (18:24)
[2024-08-23 19:09] LABS: Appearance Urine Clear; Color Urine Yellow; Glucose Urine UA Negative (Negative); Leukocyte Esterase Urine Trace (Negative); Nitrite Urine Negative (Negative); PH 7.5 (5.0-9.0); UMIC TRIGGER UACC YES; Urine Blood Negative (Negative); Urine Ketones Negative (Negative); Urine Protein Negative (Neg-Trace)
--- NOTE | 2024-08-23 19:13 | PC.NURSE ---
Assumed care of pt at 1900. PT alert and oriented and in no acute distress. PT reports minor head pain and was recently medicated- effectivness pending. PT on personnel monitor NSR 79bpm. BP 164/75. Call aguilar within reach. Safety precautions in place. plan of care ongoing.
[2024-08-23 19:33] LABS: Bacteria Urine None Seen (None Seen); Hyaline Casts Urine 0-2 /LPF (0-2); RBC Urine 0-2 /HPF (0-2); Squamous Epithelial Cell Urine 0-2 /HPF (0-2); WBC Urine 0-5 /HPF (0-5)
[2024-08-23] MEDS: iohexoL 350 MG/ML 100 ML INFUS..BTL 85 ML IV (21:01)
[2024-08-23] MEDS: Losartan Potassium 50 MG TABLET PO (21:39)
== END 2024-08-23 23:37 | disposition home or self-care (01) ==
PROVIDERS: Emergency Provider Internal Medicine; PCP Internal Medicine
DX: R55 Syncope and collapse (principal); I10 Essential (primary) hypertension; Z79.899 Other long term (current) drug therapy
CPT/HCPCS: 36415; 70496; 70498; 80053; 81001; 83735; 84484; 85025; 93005; 99284; 99285; Q9967

== ENCOUNTER 2024-08-26 13:29 | Outpatient (REF) | payer MEDICARE, SELFPAY ==
[2024-08-26 16:31] LABS: Appearance Urine Cloudy; Color Urine Yellow; Glucose Urine UA Negative (Negative); Leukocyte Esterase Urine Large (3+) (Negative); Nitrite Urine Negative (Negative); PH 6.5 (5.0-9.0); UMIC TRIGGER UA YES; Urine Blood Small (1+) (Negative); Urine Ketones Negative (Negative); Urine Protein Trace mg/dL (Neg-Trace)
[2024-08-26 16:44] LABS: Bacteria Urine 4+ (None Seen); Hyaline Casts Urine 0-2 /LPF (0-2); Squamous Epithelial Cell Urine 0-2 /HPF (0-2); WBC Urine >50 /HPF (0-5)
== END 2024-08-26 13:30 | disposition home or self-care (01) ==
LOC: HO.HMGCLDS 13:29
PROVIDERS: PCP Internal Medicine; Visit Provider Internal Medicine
DX: R30.0 Dysuria (principal); R82.79 Other abnormal findings on microbiological examination of urine
CPT/HCPCS: 81001; 87086; 87088; 87186

== ENCOUNTER 2024-08-29 09:52 | Outpatient (AMB) | payer MEDICARE, SELFPAY ==
--- NOTE | 2024-08-29 09:55 | A.OFFPC_ITS ---
Vital Signs 08/29/24 09:56 Height 5 ft 4.5 in Weight 119 lb BMI 20.1 BP 135/82 Blood Pressure Location Rt brachial Position Sitting Pulse 78 Pulse Source Pulse Oximeter Pulse Oximetry (%) 98 Oxygen Delivery Method Room Air Intake Visit Reasons: ED followup, htn, syncope Intake Note: Pt is here today for ER follow up visit. Allergies nitrofurantoin [NITROFURANTOIN] Allergy (Unknown, Verified 08/23/24 15:49) diarrhea, swollen lips oxycodone [From PERCOCET] Allergy (Unknown, Verified 08/23/24 15:49) NAUSEA & VOMITING Sulfa (Sulfonamide Antibiotics) [SULFA (SULFONAMIDE ANTIBIOTICS)] Allergy (Unknown, Verified 08/23/24 15:49) diarrhea, swollen lips trimethoprim [TRIMETHOPRIM] Allergy (Unknown, Verified 08/23/24 15:49) diarrhea, swollen lips hydrocodone [From VICODIN] Adverse Reaction (Mild, Verified 08/23/24 15:49) NAUSEA & VOMITING Nitrofurantoin Macrocrystal Allergy (Unknown, Uncoded 08/23/24 15:49) diarrhea, swollen lips Trimethoprim HCl Allergy (Unknown, Uncoded 08/23/24 15:49) diarrhea swollen lips Medication List - Last Reconciled 08/29/24 by Fatou Hinojosa MD ascorbic acid (vitamin C) 500 mg PO DAILY calcium carbonate-vitamin D3 600 mg-12.5 mcg (500 unit) (Calcium 600 with Vitamin D3) caps PO cephalexin 250 mg PO QID ciprofloxacin HCl 250 mg PO BID cranberry 15,000 mg PO DAILY docusate sodium (Colace) 100 mg PO DAILY estradiol 0.01%(0.1mg/gram) apply pea size to urethra qd vaginally QD; apply pea size to urethra qd vaginally ibuprofen 200 mg PO Q6H PRN ketorolac 0.5% drps ophthalmic (eye) L.acidophilus,helvet-B.bifidum 250 million cell (Acidophilus Probiotic Complex) caps PO loratadine (Claritin) 10 mg PO DAILY losartan 50 mg PO DAILY melatonin 10 mg PO BEDTIME PRN vvpuhics-gog-kmpw-FA-vit K-lut 8 mg iron-400 mcg-50 mcg (Centrum Silver Women) 1 tab PO DAILY naproxen 220 mg PO DAILY PRN omega 9-nce-lbo-fish oil 500-1,000 mg 1 cap PO DAILY trospium 20 mg PO BID Tobacco use date assessed: 08/15/24 Dental Screening Dental Screen Date: 08/15/24 HPI ED followup, htn, syncope HPI Details Pt presents for f/u HTN. Pt went to ER a week ago with vasovagal syncope. Workup was negative for CVA. Patient has been under lot of stress related to her friend diagnosed with breast brain tumor and worrying about her son taking care of her ex-. She complains of chronic sciatica pain radiating down to left leg worse when walking longer distance. Patient has been walking daily for half an hour. She denies weakness or numbness in extremities or change in bowel bladder function. She is currently taking Cipro for UTI. [facility] Medical History Vitamin D deficiency Hearing loss Annual physical exam Gallstones Osteopenia Frequent UTI Breast calcification, right Sacroiliitis Urge incontinence IBS (irritable bowel syndrome) Surgical History H/O colonoscopy Family History Father No problems noted. Mother HTN (hypertension) Aneurysm Social History Housing: Condominium Alcohol intake: current Alcohol intake frequency: holidays/special occasions only Patient Tobacco Use Status: Never used Tobacco e-Cigarette/Vaping Use: Never Used service: No Current occupational status: retired Cognitive needs: No Hearing needs: No Vision needs: No Questionnaire Thrive Questionnaire Date Thrive assessed: 06/11/24 I am a: Patient What is your living situation today?: I have a steady place to live Within the past 12 months, did the food you bought not last and you didn't have the money to get more?: Never true Within the past 12 months, did you worry whether your food would run out before you got money to buy more?: Never true Do you have trouble paying for medicines?: No Do you have trouble getting transportation to medical appointments?: No Do you have trouble paying your heating and electricity bill?: No Do you have trouble taking care of your child, family member or friend?: No Do you have trouble with day-to-day activities such as bathing, preparing meals, shopping, managing finances, etc.?: No Are you currently unemployed and looking for a job?: No Are you interested in more education?: No Please select the resources that you would like help with: None Currently or been in a relationship where the following occur: No concerns reported THRIVE Score: 0 DEMI-7 AMB Questionnaire DEMI-7 Date DEMI - 7 assessed: 08/15/24 Source: Developed by Drs. Kojo Mcpherson, Sumi Kern, Harinder Lubin and colleagues, with an educational kingsley from [employer]. Review of Systems Const All systems reviewed & are unremarkable except as noted in HPI and below ENT Reports no additional complaints Card Reports no additional complaints Resp Reports no additional complaints GI Reports no additional complaints Reports no additional complaints Physical exam (Primary Care) Vital Signs: Last Vital Signs Pulse 78 08/29/24 09:56 Pulse Ox 98 08/29/24 09:56 Oxygen Delivery Method Room Air 08/29/24 09:56 BMI result Body Mass Index 20.1 Tobacco/Smoking Status: Tobacco use Status Tobacco use date assessed 08/15/24 08/29/24 10:02 Patient Tobacco Use Status Never used Tobacco 08/29/24 10:02 e-Cigarette/Vaping Use Never Used 08/29/24 10:02 Thrive Assessment: Date of Thrive Assessment Date Thrive assessed 06/11/24 08/29/24 10:02 Currently or been in a relationship where the following occur: No concerns reported Const General: no acute distress HENMT Mouth: Normal oral and palatal mucosa present Throat: Yes posterior oropharynx normal Neck Neck: Yes supple Resp Effort & Inspection: normal respiratory effort Auscultation: clear to auscultation bilaterally Cardio Rhythm: regular rhythm Heart sounds: S1 normal heart sound present and S2 normal heart sound present GI Auscultation: normal bowel sounds Coding Level of Care Code Est Pt Level 4 (32996) Diagnoses Sciatica M54.30 HTN (hypertension) I10 Syncope R55 Anxiety F41.9 Assessment & Plan Assessment & Plan (1) Sciatica: Code(s): M54.30 - Sciatica, unspecified side Category: Medical Plan: Referred to physical therapy (2) HTN (hypertension): Code(s): I10 - Essential (primary) hypertension Category: Medical Plan: Continue losartan low-sodium diet regular physical activity (3) Syncope: Comment: Vasovagal 08/23/2024 Code(s): R55 - Syncope and collapse Category: Medical Plan: Obtain echo and Holter (4) Anxiety: Code(s): F41.9 - Anxiety disorder, unspecified Category: Medical Plan: Stress management mindfulness discussed with the patient. Sertraline 25 mg daily will be started patient will follow-up in 1 month Orders: Orders CA echo transthoracic complete Today I10 - Essential (primary) hypertension, R55 - Syncope and collapse PT Evaluation and Treatment Today M54.30 - Sciatica, unspecified side ECG 3 day holter monitor Today I10 - Essential (primary) hypertension, R55 - Syncope and collapse Medications: New sertraline 25 mg PO DAILY 30 tabs 3RF Changed From losartan 25 mg PO DAILY 90 tabs 0RF To losartan 50 mg PO DAILY
[2024-08-29 09:56] VITALS: BP 135/82; PULSE 78; O2SAT 98; BMI 20.1
== END 2024-08-29 10:37 | disposition home or self-care (01) ==
PROVIDERS: PCP Internal Medicine; Visit Provider Internal Medicine
DX: M54.30 Sciatica, unspecified side (principal); I10 Essential (primary) hypertension; R55 Syncope and collapse; F41.9 Anxiety disorder, unspecified

== ENCOUNTER → 2024-08-29 09:52 | Outpatient (BNVA) | payer MEDICARE, SELFPAY | PROVIDERS: PCP Internal Medicine; Visit Provider Internal Medicine | DX: I10 Essential (primary) hypertension (principal); R55 Syncope and collapse; M54.30 Sciatica, unspecified side; F41.9 Anxiety disorder, unspecified | CPT/HCPCS: 99212 ==

== ENCOUNTER 2024-09-09 10:39 | Outpatient (REF) | payer MEDICARE, SELFPAY | END 2024-09-09 10:40 | disposition home or self-care (01) | LOC: HO.LAB 10:39 | PROVIDERS: PCP Internal Medicine | DX: N30.01 Acute cystitis with hematuria (principal) | CPT/HCPCS: 81003; 87086; 87088; 87147; 87186; 99212 ==

== ENCOUNTER 2024-09-09 12:08 | Outpatient (AMB) | payer MEDICARE, SELFPAY ==
[2024-09-09 13:40] VITALS: BP 134/80; PULSE 89; O2SAT 98
--- NOTE | 2024-09-09 13:40 | AM.OFFWIN_ITS ---
Intake Vital Signs 09/09/24 13:40 Weight 120 lb BP 134/80 Blood Pressure Location Lt brachial Position Sitting Pulse 89 Pulse Source Pulse Oximeter Pulse Oximetry (%) 98 Oxygen Delivery Method Room Air Intake Visit Reasons: EP ? UTI Patient Tobacco Use Status: Never used Tobacco Allergies nitrofurantoin [NITROFURANTOIN] Allergy (Unknown, Verified 09/09/24 13:40) diarrhea, swollen lips oxycodone [From PERCOCET] Allergy (Unknown, Verified 09/09/24 13:40) NAUSEA & VOMITING Sulfa (Sulfonamide Antibiotics) [SULFA (SULFONAMIDE ANTIBIOTICS)] Allergy (Unknown, Verified 09/09/24 13:40) diarrhea, swollen lips trimethoprim [TRIMETHOPRIM] Allergy (Unknown, Verified 09/09/24 13:40) diarrhea, swollen lips hydrocodone [From VICODIN] Adverse Reaction (Mild, Verified 09/09/24 13:40) NAUSEA & VOMITING Nitrofurantoin Macrocrystal Allergy (Unknown, Uncoded 09/09/24 13:40) diarrhea, swollen lips Trimethoprim HCl Allergy (Unknown, Uncoded 09/09/24 13:40) diarrhea swollen lips Do you need a note to return to daycare/school/sports/work: No HPI HPI Comments History of Present Illness Details Patient is an 84-year-old female coming in with a query of whether she has a UTI or not as she has been symptomatic for 3 days. She tells me she knows her body very well and when her urine is cloudy, that means she has a UTI. She states she does have a little bit of burning but she denies any increased frequency of urination or increased urgency of urination, low back pain or fevers. She tells me that 2 weeks ago she called her PCP, when had a urinalysis done in the lab and was treated with Cipro twice a day for 7 days. She tells me while she was taking the medication, she did feel better but as soon as she stopped the medication, she started feeling symptomatic again for a UTI. She tells me the only medication that works for her is Keflex 500 mg twice a day for 7 days, she has brought in a prescription bottle for me. [facility] Medical History Vitamin D deficiency Hearing loss Annual physical exam Gallstones Osteopenia Frequent UTI Breast calcification, right Sacroiliitis Urge incontinence IBS (irritable bowel syndrome) Surgical History H/O colonoscopy Family History Father No problems noted. Mother HTN (hypertension) Aneurysm [facility] Alcohol intake: current Alcohol intake frequency: holidays/special occasions only Patient Tobacco Use Status: Never used Tobacco e-Cigarette/Vaping Use: Never Used service: No Current occupational status: retired Cognitive needs: No Hearing needs: No Vision needs: No Review of Systems Const All systems reviewed & are unremarkable except as noted in HPI and below Physical Exam Vital Signs: Last Vital Signs Pulse 89 09/09/24 13:40 BP 134/80 09/09/24 13:40 Pulse Ox 98 09/09/24 13:40 Oxygen Delivery Method Room Air 09/09/24 13:40 Const General: cooperative, healthy appearing, comfortable and no acute distress Orientation/consciousness: patient oriented x3 HEENT Head: Yes normal to inspection Ears: hearing grossly normal bilaterally General nose exam: Normal external nose present Face and sinus: Yes normal facial exam Neck Neck: Yes normal visual inspection, Yes trachea midline and Yes supple Resp Effort & Inspection: normal respiratory effort and able to speak in complete sentences Skin General skin exam: no rashes or lesions noted Neuro General: patient oriented x3 Psych Appearance: grossly normal Speech and movement: Normal speech and movement present Attitude: cooperative Thought process: Normal thought process present Insight: Good insight present (Psych) Judgement: Good judgement present (Psych) Results AMB Urinalysis, Automated UA Leukoctes 70 Laverne/uL Last Edit by СЕРГЕЙ Tello on 09/09/24 13:4 5 UA Nitrite Positive Last Edit by СЕРГЕЙ Tello on 09/09/24 13:45 UA Urobilinogen 0.2 mg/dL Last Edit by СЕРГЕЙ Tello on 09/09/24 13:45 UA Protein 0 mg/dL Last Edit by СЕРГЕЙ Tello on 09/09/24 13:45 UA pH 6.0 Last Edit by СЕРГЕЙ Tello on 09/09/24 13:45 UA Blood 10 Dillon/uL Last Edit by СЕРГЕЙ Tello on 09/09/24 13:45 UA Specific Wayne 1.015 Last Edit by СЕРГЕЙ Tello on 09/09/24 13:45 UA Ketone Negative Last Edit by СЕРГЕЙ Tello on 09/09/24 13:45 UA Bilirubin 0 mg/dL Last Edit by СЕРГЕЙ Tello on 09/09/24 13:45 UA Glucose 0 mg/dL Last Edit by СЕРГЕЙ Tello on 09/09/24 13:45 Assessment & Plan Assessment & Plan (1) Acute cystitis: Code(s): N30.00 - Acute cystitis without hematuria Qualifiers: Hematuria presence: with hematuria Qualified Code(s): N30.01 - Acute cystitis with hematuria Plan: UA positive for leukocyte esterase and positive for nitrites and blood. Will send Keflex to patient's pharmacy as she states this is the only medication that will cure her of a UTI. I am also sending a culture as it is a 2nd UTI in 3 weeks, failed treatment with Cipro. Plan See above Orders: Orders AMB Urinalysis Automated Today Z13.9 - Encounter for screening, unspecified Urine Culture Today N30.01 - Acute cystitis with hematuria Medications: New cephalexin 500 mg PO Q12H 14 caps 0RF Discontinued ciprofloxacin HCl Discontinued Reason: Patient no longer taking 250 mg PO BID 14 tabs 0RF Coding Level of Care Code Est Pt Level 3 (56455) Diagnoses Acute cystitis with hematuria N30.01 Hematuria presence: with hematuria
== END 2024-09-09 14:05 | disposition home or self-care (01) ==
PROVIDERS: PCP Internal Medicine; Visit Provider Physician Assistant
DX: N30.01 Acute cystitis with hematuria (principal); Z13.9 Encounter for screening, unspecified

== ENCOUNTER → 2024-09-25 08:00 | Outpatient (REF) | payer MEDICARE, SELFPAY ==
--- NOTE | 2024-09-25 08:04 | HM_ITS ---
Conclusion: 1. Patient was monitored for total period of 3 days 2. Baseline was normal sinus rhythm with average heart rate of 77 beats per minute 3. No significant pauses or arrhythmias noted 4. Patient marked the counter 3 times with reported symptoms of dizziness/lightheadedness correlating with sinus rhythm MTDD
--- NOTE | 2024-09-25 08:50 | CA_ITS ---
Transthoracic Echocardiogram Patient (Last, First, Middle): Jennifer Wilson H Gender: Female Date of : 1940 Age: 84 Procedure Date: 09/25/2024 Procedure Type: Transthoracic Echocardiogram Location: OP Height: 162.56 cm Weight: 54.43 kg BSA: 1.57 m2 Heart Rate: bpm BP: 150 / 80 mmHg Radio Electronics Technician: KYA Referring MD: Fatou Hinojosa MD Chainsaw Mechanic: Carlos Lubin MD Symptoms: I10 - Essential (primary) hypertension Study Quality: Adequate ECG Rhythm: Sinus Conclusions: - 1. Hyperdynamic LV EF of greater than 70% with impaired relaxation filling pattern 2. Calcific aortic valve changes noted with normal cardiac valvular Dopplers 3. Normal RV systolic pressure 4. No gross pericardial effusion Findings Left Ventricle Normal left ventricular cavity size. There is normal left ventricular wall thickness. The left ventricular systolic function is hyperdynamic. The visually estimated ejection fraction is >70%. Spectral Doppler is indicative of an impaired relaxation filling pattern. Right Ventricle Normal right ventricular cavity size and systolic function. Atria The left atrium is normal in size. There is no evidence of interatrial shunt. The right atrium is normal in size. Aortic Valve There is mild calcification of the aortic valve. There is moderate thickening of the aortic valve. There is no aortic valve stenosis. The mean gradient is 6 mmHg. There is no aortic valve regurgitation. Mitral Valve There is mild anterior and posterior mitral leaflet thickening. There is trace mitral valve regurgitation. There is no mitral valve stenosis. Pulmonic Valve The pulmonic valve was not well visualized. Tricuspid Valve Likely normal tricuspid valve structure and function. There is trace tricuspid valve regurgitation. The right ventricular systolic pressure is normal. The right ventricular systolic pressure is 32 mmHg. Normal right atrial pressure. There is no evidence of pulmonary hypertension. Great Vessels All visible segments of the aorta are normal in size. The pulmonary artery was not well visualized. There is no dilatation of the ascending aorta measuring 3.20 cm. Venous The inferior vena cava is normal in size and collapses greater than 50% with inspiration. Pericardium/Pleural There is no evidence of pericardial effusion. Measurements 2D Linear Measurements IVSd: 0.81 0.6-0.9/0.6-1.0 cm LVIDd: 3.30 3.9-5.3/4.2-5.9 cm LVIDd Index: 2.10 2.4-3.2/2.2-3.1 cm/m2 LVIDs: 1.89 2.0-3.6 cm LVPWd: 0.76 0.7-1.1 cm LA Diam: 2.70 2.7-3.8/3.0-4.0 cm LAIDs Index: 1.72 1.5-2.3 cm/m2 LV Mass: 82.82 67-162/88-224 g LV Mass Index: 52.75 43-95/49-115 g/m2 LVOT Diam: 1.80 3.0+(-)1.3 cm 2D Systolic Function EF 4C: 66.50 >55% EF 2C: 74.10 >55% EF BiP: 73.10 >55% Mitral Valve MV Pk E: 0.57 MV PK A: 0.79 MV Decel Time: 298.00 E/A: 0.70 E'Lateral: 8.81 E'Medial: 5.87 E/E' Med: 9.60 E/E' Lat: 6.40 PHT: 87.00 MVA PHT: 2.53 Decel [place]: 1.90 Aortic Valve AoV Pk Devyn: 1.51 AoV Mn Devyn: 1.16 AoV VTI: 0.31 AoV Pk Grad: 9.00 Aov Mn Grad: 6.00 LEONEL Cont.VTI: 2.15 LVOT LVOT Pk Devyn: 1.34 LVOT Mn Devyn: 0.95 LVOT VTI: 0.26 LVOT Pk Grad: 7.00 LVOT Mn Grad: 4.00 LVOT Diam: 1.80 LVOT Area: 2.54 Diastolic Function MV Pk E: 0.57 MV Pk A: 0.79 E/A: 0.70 E'Medial: 5.87 E/E' Med: 9.60 E' Laterial: 8.81 E/E' Lat: 6.40 Right Ventricle TAPSE (mm): 26.30 TVS' Devyn: 13.80 Tricuspid Valve TR Pk Devyn: 2.69 TR Pk Grad: 29.00 RA Press: 3.00 RVSP: 32.00 Great Vessels Aorta Sinus of Valsalva: 3.56 2.0-3.[address] [place]: 2.53 1.7-3.4 cm Ao Asc: 3.20 2.1-3.4 cm Updated in Other Vendor System with Status of Final Carlos Lubin MD electronically signed on 09/25/2024 4:47:30 PM with status of Final
== END ==
LOC: HO.CARD 08:00
PROVIDERS: PCP Internal Medicine; Visit Provider Internal Medicine
DX: I10 Essential (primary) hypertension (principal); R55 Syncope and collapse
CPT/HCPCS: 93242; 93306

== ENCOUNTER → 2024-09-25 08:50 | Outpatient (BNV) | payer MEDICARE, SELFPAY | PROVIDERS: PCP Internal Medicine; Visit Provider Internal Medicine Cardiovascular Disease | DX: I47.10 Supraventricular tachycardia, unspecified (principal) | CPT/HCPCS: 93244; 93306 ==

== ENCOUNTER 2024-10-08 12:25 | Outpatient (AMB) | payer MEDICARE, SELFPAY ==
[2024-10-08 12:51] VITALS: BP 120/78; PULSE 74; O2SAT 98; BMI 20.3
--- NOTE | 2024-10-08 12:51 | A.OFFPC_ITS ---
Vital Signs 10/08/24 12:51 Height 5 ft 4.5 in Weight 120 lb BMI 20.3 BP 120/78 Blood Pressure Location Lt brachial Position Sitting Pulse 74 Pulse Source Pulse Oximeter Pulse Oximetry (%) 98 Oxygen Delivery Method Room Air Intake Visit Reasons: 1 months f/up Intake Note: Pt is here today for 1 month follow up visit on BP and echo results. Allergies nitrofurantoin [NITROFURANTOIN] Allergy (Unknown, Verified 10/08/24 12:59) diarrhea, swollen lips oxycodone [From PERCOCET] Allergy (Unknown, Verified 10/08/24 12:59) NAUSEA & VOMITING Sulfa (Sulfonamide Antibiotics) [SULFA (SULFONAMIDE ANTIBIOTICS)] Allergy (Unknown, Verified 10/08/24 12:59) diarrhea, swollen lips trimethoprim [TRIMETHOPRIM] Allergy (Unknown, Verified 10/08/24 12:59) diarrhea, swollen lips hydrocodone [From VICODIN] Adverse Reaction (Mild, Verified 10/08/24 12:59) NAUSEA & VOMITING Nitrofurantoin Macrocrystal Allergy (Unknown, Uncoded 10/08/24 12:59) diarrhea, swollen lips Trimethoprim HCl Allergy (Unknown, Uncoded 10/08/24 12:59) diarrhea swollen lips Medication List - Last Reconciled 10/08/24 by Fatou Hinojosa MD ascorbic acid (vitamin C) 500 mg PO DAILY calcium carbonate-vitamin D3 600 mg-12.5 mcg (500 unit) (Calcium 600 with Vitamin D3) caps PO cranberry 15,000 mg PO DAILY docusate sodium (Colace) 100 mg PO DAILY estradiol 0.01%(0.1mg/gram) apply pea size to urethra qd vaginally QD; apply pea size to urethra qd vaginally ibuprofen 200 mg PO Q6H PRN ketorolac 0.5% drps ophthalmic (eye) L.acidophilus,helvet-B.bifidum 250 million cell (Acidophilus Probiotic Complex) caps PO loratadine (Claritin) 10 mg PO DAILY losartan 50 mg PO DAILY melatonin 10 mg PO BEDTIME PRN dbzetpja-olx-yxgl-FA-vit K-lut 8 mg iron-400 mcg-50 mcg (Centrum Silver Women) 1 tab PO DAILY naproxen 220 mg PO DAILY PRN omega 4-iog-ogy-fish oil 500-1,000 mg 1 cap PO DAILY sertraline 25 mg PO DAILY trospium 20 mg PO BID Tobacco use date assessed: 08/15/24 Dental Screening Dental Screen Date: 08/15/24 HPI 1 months f/up HPI Details Patient presents for the follow-up of hypertension and chronic anxiety. She reports feeling tired and lightheaded after eating breakfast for about half an hour. She denies nausea vomiting chest pain shortness or breath. Patient walks daily for at least 4 miles a day. [facility] Medical History Vitamin D deficiency Hearing loss Annual physical exam Gallstones Osteopenia Frequent UTI Breast calcification, right Sacroiliitis Urge incontinence IBS (irritable bowel syndrome) Surgical History H/O colonoscopy Family History Father No problems noted. Mother HTN (hypertension) Aneurysm Social History Housing: Condominium Alcohol intake: current Alcohol intake frequency: holidays/special occasions only Patient Tobacco Use Status: Never used Tobacco e-Cigarette/Vaping Use: Never Used service: No Current occupational status: retired Cognitive needs: No Hearing needs: No Vision needs: No Questionnaire Thrive Questionnaire Date Thrive assessed: 06/11/24 I am a: Patient What is your living situation today?: I have a steady place to live Within the past 12 months, did the food you bought not last and you didn't have the money to get more?: Never true Within the past 12 months, did you worry whether your food would run out before you got money to buy more?: Never true Do you have trouble paying for medicines?: No Do you have trouble getting transportation to medical appointments?: No Do you have trouble paying your heating and electricity bill?: No Do you have trouble taking care of your child, family member or friend?: No Do you have trouble with day-to-day activities such as bathing, preparing meals, shopping, managing finances, etc.?: No Are you currently unemployed and looking for a job?: No Are you interested in more education?: No Please select the resources that you would like help with: None Currently or been in a relationship where the following occur: No concerns reported THRIVE Score: 0 DEMI-7 AMB Questionnaire DEMI-7 Date DEMI - 7 assessed: 08/15/24 Source: Developed by Drs. Kojo Mcpherson, Sumi Kern, Harinder Lubin and colleagues, with an educational kingsley from [employer]. Review of Systems Const All systems reviewed & are unremarkable except as noted in HPI and below ENT Reports no additional complaints Card Reports no additional complaints Resp Reports no additional complaints GI Reports no additional complaints Reports no additional complaints Physical exam (Primary Care) Vital Signs: Last Vital Signs Pulse 74 10/08/24 12:51 BP 120/78 10/08/24 12:51 Pulse Ox 98 10/08/24 12:51 Oxygen Delivery Method Room Air 10/08/24 12:51 BMI result Body Mass Index 20.3 Tobacco/Smoking Status: Tobacco use Status Tobacco use date assessed 08/15/24 10/08/24 12:52 Patient Tobacco Use Status Never used Tobacco 10/08/24 12:52 e-Cigarette/Vaping Use Never Used 10/08/24 12:52 Thrive Assessment: Date of Thrive Assessment Date Thrive assessed 06/11/24 10/08/24 12:52 Currently or been in a relationship where the following occur: No concerns reported Eyes General: appearance normal, both eyes and all related structures Neck Neck: Yes supple Resp Effort & Inspection: normal respiratory effort Auscultation: clear to auscultation bilaterally Cardio Rhythm: regular rhythm Heart sounds: S1 normal heart sound present and S2 normal heart sound present GI Inspection: Yes normal to inspection Palpation (GI): Soft to palpation Percussion: Yes normal to percussion Auscultation: normal bowel sounds Neuro Cranial nerves: Yes CN's II-XII intact bilaterally Gait exam (Neuro): Normal gait present Motor exam (neuro): 5/5 motor strength present throughout Romberg Test: Negative Coding Level of Care Code Est Pt Level 3 (84620) Diagnoses HTN (hypertension) I10 Anxiety F41.9 Assessment & Plan Assessment & Plan (1) HTN (hypertension): Code(s): I10 - Essential (primary) hypertension Category: Medical Plan: Patient will try losartan 25 mg twice a day instead of 50 mg daily. She was advised to increase fluid intake (2) Anxiety: Code(s): F41.9 - Anxiety disorder, unspecified Category: Medical Plan: Continue Zoloft follow-up in 3 months Medications: New losartan 25 mg PO BID 180 tabs 1RF
== END 2024-10-08 13:24 | disposition home or self-care (01) ==
PROVIDERS: PCP Internal Medicine; Visit Provider Internal Medicine
DX: I10 Essential (primary) hypertension (principal); F41.9 Anxiety disorder, unspecified

== ENCOUNTER → 2024-10-08 12:25 | Outpatient (BNVA) | payer MEDICARE, SELFPAY | PROVIDERS: PCP Internal Medicine; Visit Provider Internal Medicine | DX: I10 Essential (primary) hypertension (principal); F41.9 Anxiety disorder, unspecified | CPT/HCPCS: 99212 ==

== ENCOUNTER 2024-11-21 10:50 | Outpatient (REF) | payer MEDICARE, SELFPAY | END 2024-11-21 10:51 | disposition home or self-care (01) | LOC: HO.LAB 10:50 | PROVIDERS: PCP Internal Medicine; Visit Provider Physician Assistant | DX: N30.00 Acute cystitis without hematuria (principal) | CPT/HCPCS: 81003; 87086; 99212 ==

== ENCOUNTER 2024-11-21 10:50 | Outpatient (AMB) | payer MEDICARE, SELFPAY ==
--- NOTE | 2024-11-21 12:04 | AM.OFFWIN_ITS ---
Intake Vital Signs 11/21/24 12:06 BP 124/80 Blood Pressure Location Lt brachial Position Sitting Temp 97.8 F Temp Source Oral Intake Visit Reasons: EP UTI? car ([phone]) Intake Note: Patient here for frequent urination, burning and cloudy that started Monday. Patient Tobacco Use Status: Never used Tobacco Allergies nitrofurantoin [NITROFURANTOIN] Allergy (Unknown, Verified 10/08/24 12:59) diarrhea, swollen lips oxycodone [From PERCOCET] Allergy (Unknown, Verified 10/08/24 12:59) NAUSEA & VOMITING Sulfa (Sulfonamide Antibiotics) [SULFA (SULFONAMIDE ANTIBIOTICS)] Allergy (Unknown, Verified 10/08/24 12:59) diarrhea, swollen lips trimethoprim [TRIMETHOPRIM] Allergy (Unknown, Verified 10/08/24 12:59) diarrhea, swollen lips hydrocodone [From VICODIN] Adverse Reaction (Mild, Verified 10/08/24 12:59) NAUSEA & VOMITING Nitrofurantoin Macrocrystal Allergy (Unknown, Uncoded 10/08/24 12:59) diarrhea, swollen lips Trimethoprim HCl Allergy (Unknown, Uncoded 10/08/24 12:59) diarrhea swollen lips HPI HPI Comments History of Present Illness Details History of Present Illness - The patient is an 84-year-old female p resenting with urinary tract infection (UTI) symptoms accompanied by hematuria. - Onset was approximately four days ago, with an episode of temporary relief occ urring post-[facility], followed by the recurrence of symptoms. - Blood in the urine has been noted by t he patient, with no associated fever or back pain reported, she has known hemorrhoids. - Prior treatments include Cephalexin, w hich previously managed E. coli-related UTIs successfully. 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 - Her urinary cultures previously indica nadya multi-organism growth, including E. coli, Group B Streptococcus, and Morganella. Physical Exam General: Cooperative, healthy appearing, comfortable, no acute distress and well developed Orientation: Patient oriented x3 Limitations: No limitations Head: Normal to inspection Ears: Hearing grossly normal bilaterally Nose: Normal external nose present Face and sinus: Normal facial exam Eyes: Appearance normal, both eyes and all related structures Neck: Normal visual inspection and Yes full ROM Respiratory: Normal respiratory effort and able to speak in complete sentences Skin: Swollen lips noted Neuro: Patient oriented x3 Extremities: Normal to inspection [facility] Medical History Vitamin D deficiency Hearing loss Annual physical exam Gallstones Osteopenia Frequent UTI Breast calcification, right Sacroiliitis Urge incontinence IBS (irritable bowel syndrome) Surgical History H/O colonoscopy Family History Father No problems noted. Mother HTN (hypertension) Aneurysm Social History Housing: Condominium Alcohol intake: current Alcohol intake frequency: holidays/special occasions only Patient Tobacco Use Status: Never used Tobacco e-Cigarette/Vaping Use: Never Used service: No Current occupational status: retired Cognitive needs: No Hearing needs: No Vision needs: No Review of Systems Const All systems reviewed & are unremarkable except as noted in HPI and below Assessment & Plan Assessment & Plan (1) Urinary tract infection: Code(s): N39.0 - Urinary tract infection, site not specified Qualifiers: Urinary tract infection type: acute cystitis Hematuria presence: without hematuria Qualified Code(s): N30.00 - Acute cystitis without hematuria Plan: UA + leuk est, + blood, neg nitrites. A urinary tract infection primarily caused by E. coli (per her history) is being treated with Cephalexin, which has proven effective in past instances. The patient is advised to take this antibiotic twice daily for five days. A urine culture is being conducted to verify the current pathogenic profile and ensure that the treatment aligns suitably with antibiotic sensitivities. The prescription will be filled at a specified pharmacy, with particular consideration to previously ineffective or unacceptable treatments. Patient was informed and verbally consented to the use of an ambient scribe for clinic note documentation during this visit. Orders: Orders Urine Culture Today N39.0 - Urinary tract infection, site not specified Medications: New cefuroxime axetil 500 mg PO Q12H 10 tabs 0RF Coding Level of Care Code Est Pt Level 3 (46655) Diagnoses Acute cystitis without hematuria N30.00 Urinary tract infection type: acute cystitis Hematuria presence: without hematuria
[2024-11-21 12:06] VITALS: BP 124/80; TEMP 36.6
== END 2024-11-21 12:26 | disposition home or self-care (01) ==
PROVIDERS: PCP Internal Medicine; Visit Provider Physician Assistant
DX: Z13.9 Encounter for screening, unspecified (principal); N30.00 Acute cystitis without hematuria

== ENCOUNTER 2025-01-13 11:12 | Outpatient (AMB) | payer MEDICARE, SELFPAY ==
--- NOTE | 2025-01-13 11:26 | MHC.PC.OV ---
Vital Signs 01/13/25 11:43 Height 5 ft 4.5 in Weight 121 lb BMI 20.4 BP 126/84 Blood Pressure Location Lt brachial Position Sitting Respiration 18 Pulse 80 Pulse Source Pulse Oximeter Temp 98.6 F Temp Source Oral Pulse Oximetry (%) 98 Oxygen Delivery Method Room Air Intake Visit Reasons: 3 months f/up Intake Note: Pt is here today for 3 months follow up visit. Allergies nitrofurantoin [NITROFURANTOIN] Allergy (Unknown, Verified 01/13/25 11:44) diarrhea, swollen lips oxycodone [From PERCOCET] Allergy (Unknown, Verified 01/13/25 11:44) NAUSEA & VOMITING Sulfa (Sulfonamide Antibiotics) [SULFA (SULFONAMIDE ANTIBIOTICS)] Allergy (Unknown, Verified 01/13/25 11:44) diarrhea, swollen lips trimethoprim [TRIMETHOPRIM] Allergy (Unknown, Verified 01/13/25 11:44) diarrhea, swollen lips hydrocodone [From VICODIN] Adverse Reaction (Mild, Verified 01/13/25 11:44) NAUSEA & VOMITING Nitrofurantoin Macrocrystal Allergy (Unknown, Uncoded 01/13/25 11:44) diarrhea, swollen lips Trimethoprim HCl Allergy (Unknown, Uncoded 01/13/25 11:44) diarrhea swollen lips Medication List - Last Reconciled 01/13/25 by Fatou Hinojosa MD ascorbic acid (vitamin C) 500 mg PO DAILY calcium carbonate-vitamin D3 600 mg-12.5 mcg (500 unit) (Calcium with Vit D3) caps PO cranberry fruit 15,000 mg PO DAILY docusate sodium (Colace) 100 mg PO DAILY estradiol 0.01%(0.1mg/gram) apply pea size to urethra qd vaginally QD; apply pea size to urethra qd vaginally ibuprofen 200 mg PO Q6H PRN ketorolac 0.5% drps ophthalmic (eye) L.acidophilus,helvet-B.bifidum 250 million cell (Acidophilus Probiotic Complex) caps PO loratadine (Claritin) 10 mg PO DAILY losartan 25 mg PO BID melatonin 10 mg PO BEDTIME PRN ttzxlshh-gcz-akrp-FA-vit K-lut 8 mg iron-400 mcg-50 mcg (Centrum Silver Women) 1 tab PO DAILY naproxen 220 mg PO DAILY PRN omega 5-hng-uzc-fish oil 500-1,000 mg 1 cap PO DAILY sertraline 25 mg PO DAILY trospium 20 mg PO BID Tobacco use date assessed: 01/13/25 Fall risk assessment: 1 Fall in past year Last assessed Fall Risk: 01/13/25 Dental Screening Dental Screen Date: 01/13/25 Did you have a dental visit in the last 12 months?: Yes Did you have a dental problem in the last 6 months where you did not have access to dental care?: No Was dental information given to patient?: Patient has dentist HPI 3 months f/up HPI Details Pt presents for f/u HTN. controlled on Losartan. Pt has seen GI for IBS/chronic abd pain, contipation and abdominal ultrasound celiac disease workup were ordered. Patient was prescribed dicyclomine but she has not been taking it because of possible side effects listed chronic anxiety is stable on sertraline. [facility] Medical History Vitamin D deficiency Hearing loss Annual physical exam Gallstones Osteopenia Frequent UTI Breast calcification, right Sacroiliitis Urge incontinence IBS (irritable bowel syndrome) Surgical History H/O colonoscopy Family History Father No problems noted. Mother HTN (hypertension) Aneurysm Social [facility] Alcohol intake: current Alcohol intake frequency: holidays/special occasions only Patient Tobacco Use Status: Never used Tobacco e-Cigarette/Vaping Use: Never Used service: No Current occupational status: retired Cognitive needs: No Hearing needs: No Vision needs: No Questionnaire PHQ-9 Over the last 2 weeks, how often have you been bothered by any of the following problems? 1. Little interest or pleasure in doing things: not at all 2. Feeling down, depressed, or hopeless: not at all 3. Trouble falling or staying asleep, or sleeping too much: not at all 4. Feeling tired or having little energy: not at all 5. Poor appetite or overeating: not at all 6. Feeling bad about yourself - or that you are a failure or have let yourself or your family down: not at all 7. Trouble concentrating on things, such as reading the newspaper or watching television: not at all 8. Moving or speaking so slowly that other people could have noticed. Or the opposite - being so fidgety or restless that you have been moving around a lot more than usual: not at all 9. Thoughts that you would be better off or of hurting yourself in some way: not at all Total score: 0 Depression Screening Interpretation: Negative Depression Screening Done: Yes 53463 - PHQ-9 Billing: Yes Source: Developed by Drs. Kojo Mcpherson, Sumi Kern, Harinder Lubin and colleagues, with an educational kingsley from [employer]. Thrive Questionnaire Date Thrive assessed: 01/13/25 I am a: Patient What is your living situation today?: I have a steady place to live Within the past 12 months, did the food you bought not last and you didn't have the money to get more?: Never true Within the past 12 months, did you worry whether your food would run out before you got money to buy more?: Never true Do you have trouble paying for medicines?: No Do you have trouble getting transportation to medical appointments?: No Do you have trouble paying your heating and electricity bill?: No Do you have trouble taking care of your child, family member or friend?: No Do you have trouble with day-to-day activities such as bathing, preparing meals, shopping, managing finances, etc.?: No Are you currently unemployed and looking for a job?: No Are you interested in more education?: No Please select the resources that you would like help with: None THRIVE Score: 0 AUDIT C Alcohol Use Questionnaire (AUDIT-C) 1. How often do you have a drink containing alcohol?: Monthly or less 2. How many drinks containing alcohol do you have on a typical day when you are drinking?: 1 or 2 3. How often do you have six or more drinks on one occasion?: Never Total Score: 1 DEMI-7 AMB Questionnaire DEMI-7 Date DMEI - 7 assessed: 01/13/25 Feeling nervous, anxious, or on edge: 0 = Not at all Not being able to stop or control worryin = Not at all Worrying too much about different things: 0 = Not at all Trouble relaxin = Not at all Being so restless that it is hard to sit still: 0 = Not at all Becoming easily annoyed or irritable: 0 = Not at all Feeling afraid as if something awful might happen: 0 = Not at all Total DEMI-7 score (0-4 normal; 5-9 mild; 10-14 moderate; 15-21 severe): 0 Source: Developed by Drs. Kojo Mcpherson, Sumi Kern, Harinder Lubin and colleagues, with an educational kingsley from [employer]. DEMI-7 Assessment Billing DEMI-7 Assessment Tool: DEMI-7 Assessment 61352 Review of Systems Const All systems reviewed & are unremarkable except as noted in HPI and below Eyes Reports no additional complaints ENT Reports no additional complaints Card Reports no additional complaints Resp Reports no additional complaints GI Reports no additional complaints Reports no additional complaints Physical exam (Primary Care) Vital Signs: Last Vital Signs Temp 98.6 F 01/13/25 11:43 Pulse 80 01/13/25 11:43 Resp 18 01/13/25 11:43 BP 126/84 01/13/25 11:43 Pulse Ox 98 01/13/25 11:43 Oxygen Delivery Method Room Air 01/13/25 11:43 BMI result Body Mass Index 20.4 Tobacco/Smoking Status: Tobacco use Status Tobacco use date assessed 01/13/25 01/13/25 11:47 Patient Tobacco Use Status Never used Tobacco 01/13/25 11:47 e-Cigarette/Vaping Use Never Used 01/13/25 11:26 PHQ-9: PHQ-9 Score PHQ-9: Total score 0 01/13/25 11:47 Depression Screening Interpretation: Negative Thrive Assessment: Date of Thrive Assessment Date Thrive assessed 01/13/25 01/13/25 11:47 Const General: no acute distress HENMT Head: Yes normal to inspection Face and sinus: Yes normal facial exam Eyes General: appearance normal, both eyes and all related structures Resp Effort & Inspection: normal respiratory effort Auscultation: clear to auscultation bilaterally Cardio Rhythm: regular rhythm Heart sounds: S1 normal heart sound present and S2 normal heart sound present GI Inspection: Yes normal to inspection Palpation (GI): Soft to palpation Percussion: Yes normal to percussion Auscultation: normal bowel sounds Coding Level of Care Code Est Pt Level 4 (46006) Diagnoses HTN (hypertension) I10 Frequent UTI N39.0 IBS (irritable bowel syndrome) K58.9 Additional Codes DEMI-7 Assessment Billing - DEMI-7 Assessment Tool: DEMI-7 Assessment 64081 ([id number]) PHQ-9 - 19629 - PHQ-9 Billing: Yes ([id number]) Assessment & Plan Assessment & Plan (1) HTN (hypertension): Code(s): I10 - Essential (primary) hypertension Category: Medical Plan: Continue losartan (2) Frequent UTI: Comment: Dr. Morgan, on daily cephalexin Code(s): N39.0 - Urinary tract infection, site not specified Category: Medical Plan: Continue estradiol vaginal cream and follows up with Urology (3) IBS (irritable bowel syndrome): Comment: Chronic constipation, Dr. Carrasco, negative colonoscopy 2018 Code(s): K58.9 - Irritable bowel syndrome, unspecified Category: Medical Plan: Follow-up with the GI Orders: Orders Comprehensive [place]. Panel Fast 6 Months E55.9 - Vitamin D deficiency, unspecified, I10 - Essential (primary) hypertension, K58.9 - Irritable bowel syndrome, unspecified, Z00.00 - Encounter for general adult medical examination without abnormal findings Complete Blood Count Auto Diff 6 Months E55.9 - Vitamin D deficiency, unspecified, I10 - Essential (primary) hypertension, K58.9 - Irritable bowel syndrome, unspecified, Z00.00 - Encounter for general adult medical examination without abnormal findings Vitamin D 25-OH (D2 and D3) 6 Months E55.9 - Vitamin D deficiency, unspecified, I10 - Essential (primary) hypertension, K58.9 - Irritable bowel syndrome, unspecified, Z00.00 - Encounter for general adult medical examination without abnormal findings
[2025-01-13 11:43] VITALS: BP 126/84; PULSE 80; RESP 18; TEMP 37; O2SAT 98; BMI 20.4
--- OUTSIDE RECORDS SUMMARY | 2025-01-13 12:52 | XMS_ITS ---
Author Organization [facility] Address [address] [place] [address] Care Team Providers Care Smoke Chaser Name Role Phone Fatou Hinojsoa MD Primary Care Provider Kojo Eastman Unavailable [phone] ALLERGIES Allergen (clinical drug ingredient) Drug/Non Drug Allergy documented on EMR Reaction Allergy Type Onset Date Status sulfacetamide Sulfacetamide Unknown Drug Allergy Active nitrofurantoin Nitrofurantoin Unknown Drug Allergy Active hydrocodone HYDROcodone Unknown Drug Allergy Act landon fosfomycin Fosfomycin Unknown Drug Allergy Activ e Vicodin Unknown Drug Allergy Active trimethoprim Trimethoprim Unknown Drug Allergy A ctive REASON FOR VISIT Patient presents today for ibs, diarrhea MEDICATIONS Medication SIG (Take, Route, Frequency, Duration) Notes Start Date End Date Status Hyoscyamine Sulfate 0.125 MG 1 tablet on the tongue and allow to dissolve as needed Orally every 4 to 6 hours as needed for lower abdominal cramping/bloating for 30 days 01/08/2025 Active Cranberry 500 MG as directed Orally Active Hyoscyamine 125 MG PRN A ctive Metamucil 0.52 GM 2 capsules with 8 ounces of liquid Orally as directed Active Melatonin 5 MG 1 tablet at bedtime as needed with food Orally Once a day Active Acidophilus - as directed Orally once a day Active Vitamin D3 1000 UNIT 1 tablet Orally Onc e a day Active Nitrofurantoin Macrocrystal 50 MG 1 capsule with food or milk Orally Once a day for 30 day(s) Not-Taking Centrum Silver - as directed Orally once a day Active Calcium 1 tab Oral once a day Active Meloxicam 7.5 MG 1 tablet Orally Once a day/PRN Not-Taking Tolterodine Tartrate ER 4 MG Orally Once a day Active Anastrozole 1 MG 1 tablet Orally Once a day Not-Taking ibuprofen 200 MG PRN Act landon Phenylephrine HCl 10 MG as directed NEEDED Active Acetaminophen 500 MG Orally PRN Active Claritin NEEDED Active Colace 100 MG Orally DAILY Act landon Sertraline HCl 25 MG 1 tablet Orally Onc e a day Active Vitamin C 500 MG as directed Orally Active Losartan Potassium 100 MG 1 tablet Orall y Once a day Active SOCIAL HISTORY Tobacco Use: Social History Observation Description Date Details (start date - stop date) Never Smoker NA - NA Sex Assigned At : Social History Observation Description Sex Assigned At Unknown Tobacco Use/Smoking Question Answer Notes Patient is a nonsmoker Alcohol Screen Question Answer Notes Did you have a drink contain ing alcohol in the past year? Yes How often did you have a dri nk containing alcohol in the past year? Never (0 point) How many drinks did you have on a typical day when you were drinking in the past year? 1 or 2 drinks (0 point) How often did you have 6 or more drinks on one occasion in the past year? Never (0 point) Points 0 Interpretation Negative PROBLEMS Problem Type ICD Code Onset Dates Problem Status W/U Status Risk SNOMED Code Notes Problem Gallstones (K80.20) Active confirmed Gallstones (030524954) Problem Abdominal pain, RUQ (R10.11) Active confirmed Right upper quadrant pain (045776506) VITAL SIGNS Temperature 98.0 degrees Fahrenheit 01/08/20 25 Blood pressure systolic 001 mm Hg 01/08/20 25 Blood pressure diastolic 01 mm Hg 025 Height 64.5 in 01/08/2025 Weight 121 lbs 01/08/2025 BMI 20.45 kg/m2 01/08/2025 Encounters Encounter Location Date Provider Diagnosis [facility] [address] [place] [address] 01/08/2025 Kojo Carrasco Irritable bowel syndrome, unspecified type K58.9 ; Gallstones K80.20 and Abdominal pain, RUQ R10.11 ASSESSMENTS Encounter Date Diagnosis Assessment Notes Treatment Notes Treatment Clinical Notes 01/08/2025 Irritable bowel syndrome, unspecified type (ICD-10 - K58.9) Start using the Hyoscyamine and Simethicone regularly for the IBS, cramps, and bloating 01/08/2025 Gallstones (ICD-10 - K80.20) We may need you to see a surgeon for the gallstones 01/08/2025 Abdominal pain, RUQ (ICD-10 - R10.11) PLAN OF TREATMENT Medication Medication Name Sig Start Date Stop Date Notes Hyoscyamine Sulfate 0.125 MG 1 tablet on the tongue and allow to dissolve as needed Orally every 4 to 6 hours as needed for lower abdominal cramping/bloating for 30 days 01/08/2025 Hyoscyamine 125 MG PRN Treatment Notes Assessment Notes Irritable bowel syndrome, unspecified ty pe Start using the Hyoscyamine and Simethicone regularly for the IBS, cramps, and bloating Gallstones We may need you to s ee a surgeon for the gallstones Pending Test Test Name Order Date LIVER PROFILE 01/08/2025 CBC w DIFF 01/08/2025 CELIAC PANEL #10 01/08/2025 Lipase 01/08/2025 US abdomen complete 01/08/2025 Next Appt Details Follow Up: 2024, Andrewo n: Provider Name:Kojo Carrasco , 08/12/2025 10:30:00 AM, [address] [place] [address], [address], [place], [address],
--- OUTSIDE RECORDS SUMMARY | 2025-01-13 12:52 | XMS_ITS | Clinical Summary ---
Author Organization [address] [facility] Address [address] [place] [address] Phone Care Team Providers Care Commercial Escrow Officer Name Role Phone Unavailable Primary Care Provider Unavailabl e Encounters Date Type Department Care Team Description 12/13/2024 Lab Requisition [facility] - Main Lab [address] [facility] [place] [address] Jessa Livingston MD Urinary tract infection, site not specified from Last 3 Months Social History Tobacco Use Types Packs/Day Years Used Date Smoking Tobacco: Never Assessed Comments Unknown Sex and Gender Information Value Date Recorded Sex Assigned at Not on file Legal Sex Female 5:28 AM EST Gender Identity Not on file Sexual Orientation Not on file Plan of Treatment Health Maintenance Due Date Last Done Comments DTaP,Tdap,and Td Vaccines (1 - Tdap) 02/09/1960 Pneumococcal Vaccine: 50+ Ye ars (1 of 1 - PCV) 1991 Zoster Vaccines (1 of 2) 1991 RSV Immunization Patients 60 + Years Old (1 - 1-dose 75+ series) 02/09/2016 Depression Screening 10/23/2022 Falls Risk Assessment 10/23/2022 Medicare Annual Wellness Visit 10/23/2022 Osteoporosis Screening (Bone Density Screening) 10/23/2022 Social Influencers of Health Screening 10/23/2022 COVID-19 Vaccine ( - 2023-2 5 season) 2024 Influenza Vaccine (#1) 2024 HIB Vaccines Aged Out No longer eligi ble based on patient's age to complete this topic HPV Vaccines Aged Out No longer eligi ble based on patient's age to complete this topic Hepatitis A Vaccines Aged Out No long er eligible based on patient's age to complete this topic Hepatitis B Vaccines Aged Out No long er eligible based on patient's age to complete this topic IPV Vaccines Aged Out No longer eligi ble based on patient's age to complete this topic MMR Vaccines Aged Out No longer eligi ble based on patient's age to complete this topic Meningococcal ACWY Vaccine Aged Out N o longer eligible based on patient's age to complete this topic Meningococcal B Vacine Aged Out No lo nger eligible based on patient's age to complete this topic RSV Immunization Patients Un kelli 20 months Aged Out No longer eligible b ased on patient's age to complete this topic Varicella Vaccines Aged Out No longer eligible based on patient's age to complete this topic Procedures Procedure Name Priority Date/Time Associated Diagnosis Comments CULTURE URINE Routine 12/13/2024 12:00 AM EST Urinary tract infection, site not specified from Last 3 Months Results * (ABNORMAL) Culture urine (12/13/2024 12:00 AM EST) Culture, Urine >100,000 CFU/mL Enterococcus faecalis(A) JAKI 12/15/2024 7:[address] [facility] Comment: Edited result: Previously reported as Enterococcus species on 12/14/2024 at 1301 EST. Urine Urine specimen from urethra / Unknown 12/13/2024 12/13/2024 6:04 PM EST Narrative Organism Antibiotic Method Susceptibility Enterococcus faecalis Benzylpenicillin JAKI 4 ug/ml: Susceptible Enterococcus faecalis Ampicillin JAKI <=2 ug/ml: Susceptible Enterococcus faecalis Ciprofloxacin JAKI 1 ug/ml: Susceptible Enterococcus faecalis Levofloxacin JAKI 1 ug/ml: Susceptible Enterococcus faecalis Linezolid JAKI 2 ug/ml: Susceptible Enterococcus faecalis Vancomycin JAKI 1 ug/ml: Susceptible Enterococcus faecalis Tetracycline JAKI >=16 ug/ml: Resistant Enterococcus faecalis Nitrofurantoin JAKI <=16 ug/ml: Susceptible us Jessa Livingston MD LAB MICROBIOLOGY - G ENERAL ORDERABLES Final Result [facility] [address] [place] [address], [place] [phone] from Last 3 Months Insurance [place] [facility]
--- OUTSIDE RECORDS SUMMARY | 2025-01-13 12:53 | XMS_ITS | Patient Health Record ---
Author Organization [facility] Address [address] [place] [address] Care Team Providers Care Side Guider Name Role Phone Fatou Hinojosa MD Primary Care Provider Kojo Eastman [phone] ALLERGIES Allergen (clinical drug ingredient) Drug/Non Drug Allergy documented on EMR Reaction Allergy Type Onset Date Status sulfacetamide Sulfacetamide Unknown Drug Allergy Active nitrofurantoin Nitrofurantoin Unknown Drug Allergy Active hydrocodone HYDROcodone Unknown Drug Allergy Act landon fosfomycin Fosfomycin Unknown Drug Allergy Activ e Vicodin Unknown Drug Allergy Active trimethoprim Trimethoprim Unknown Drug Allergy A ctive REASON FOR REFERRAL No Information MEDICATIONS Medication SIG (Take, Route, Frequency, Duration) Notes Start Date End Date Status Acetaminophen 500 MG Orally PRN Active ibuprofen 200 MG PRN Act landon Metamucil 0.52 GM 2 capsules with 8 ounces of liquid Orally as directed Active Phenylephrine HCl 10 MG as directed NEEDED Active Melatonin 5 MG 1 tablet at bedtime as needed with food Orally Once a day Active Acidophilus - as directed Orally once a day Active Sertraline HCl 25 MG 1 tablet Orally Onc e a day Active Centrum Silver - as directed Orally once a day Active Vitamin C 500 MG as directed Orally Active Calcium 1 tab Oral once a day Active Hyoscyamine Sulfate 0.125 MG 1 tablet on the tongue and allow to dissolve as needed Orally every 4 to 6 hours as needed for lower abdominal cramping/bloating for 30 days 01/08/2025 Active Meloxicam 7.5 MG 1 tablet Orally Once a day/PRN Not-Taking Losartan Potassium 100 MG 1 tablet Orall y Once a day Active Tolterodine Tartrate ER 4 MG Orally Once a day Active Cranberry 500 MG as directed Orally Active Hyoscyamine 125 MG PRN A ctive Anastrozole 1 MG 1 tablet Orally Once a day Not-Taking Claritin NEEDED Active Vitamin D3 1000 UNIT 1 tablet Orally Onc e a day Active Colace 100 MG Orally DAILY Act landon Nitrofurantoin Macrocrystal 50 MG 1 capsule with food or milk Orally Once a day for 30 day(s) Not-Taking IMMUNIZATIONS Vaccine Route Administration Date Status Comme nts Influenza Unknown 08/20/2018 Administered Influenza Unknown 09/10/2024 Administered SOCIAL HISTORY Tobacco Use: Social History Observation [...] W/U Status Risk SNOMED Code Notes Problem Encounter for screening for malignant neoplasm of colon (Z12.11) Active confirmed [id number] Problem Gallstones (K80.20) Active confirmed Gallstones (153810426) Problem Abdominal pain, RUQ (R10.11) Active confirmed Right upper quadrant pain (749534798) Problem Irritable bowel syndrome, unspecified type (K58.9) Active confirmed 50210105 VITAL SIGNS Temperature 98.0 degrees Fahrenheit 01/08/2025 Blood pressure diastolic 01 mm Hg 01/08/2025 Height 64.5 in 01/08/2025 Blood pressure systolic 001 mm Hg 01/08/2025 Weight 121 lbs 01/08/2025 BMI 20.45 kg/m2 01/08/2025 Encounters Encounter Location Date Provider Diagnosis [facility] [address] [place] [address] 01/08/2025 Kojo Carrasco Irritable bowel syndrome, unspecified type K58.9 ; Gallstones K80.20 and Abdominal pain, RUQ R10.11 ASSESSMENTS Encounter Date Diagnosis Assessment Notes Treatment Notes Treatment Clinical Notes 01/08/2025 Gallstones (ICD-10 - K80.20) We may need you to see a surgeon for the gallstones 01/08/2025 Irritable bowel syndrome, unspecified type (ICD-10 - K58.9) Start using the Hyoscyamine and Simethicone regularly for the IBS, cramps, and bloating 01/08/2025 Abdominal pain, RUQ (ICD-10 - R10.11) PLAN OF TREATMENT Pending Test Test Name Order Date LIVER PROFILE 01/08/2025 CBC w DIFF 01/08/2025 CELIAC PANEL #10 01/08/2025 Lipase 01/08/2025 US abdomen complete 01/08/2025 Future Test Test Name Order Date COLONOSCOPY 05/30/2019 Next Appt Details Provider Name:Kojo Carrasco , 08/12/2025 10:30:00 AM, [address] [place] [address], [address], [place], [address], Insurance Providers Payer Name Payer Address Payer Phone Subscriber Number Group Number Insured Name Patient Relationship to Insured Coverage Start Date Coverage End Date [facility] [address] [place], [place] [id number] [phone] [id number] RASHAUN SALINAS Self - patient is the insured MEDICAL (GENERAL) HISTORY Medical History History ICD Code Breast cancer--2014---right lumpectomy-- XRT Denies DC,DM,CVA,Lung disease,renal dise ase Neg. 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
--- OUTSIDE RECORDS SUMMARY | 2025-01-13 12:53 | XMS_ITS | Encounter Summary ---
Author Organization [facility] Address [address] [place] [address] Care Team Providers Care Used Car Lot Attendant Name Role Phone Unavailable Primary Care Provider Unavailabl e Encounter Details Date Type Department Care Team (Late st Contact Info) Description 12/13/2024 Lab Requisition [facility] - Main Lab [address] [place] [address] Jessa Livingston MD [address] [phone] Urinary tract infection, site not specified Social History Tobacco Use Types Packs/Day Years Used Date Smoking Tobacco: Never Assessed Comments Unknown Sex and Gender Information Value Date Recorded Sex Assigned at Not on file Legal Sex Female 5:28 AM EST Gender Identity Not on file Sexual Orientation Not on file documented as of this encounter Plan of Treatment Not on file documented as of this encounter Procedures Procedure Name Priority Date/Time Associated Diagnosis Comments CULTURE URINE Routine 12/13/2024 12:00 AM EST Urinary tract infection, site not specified documented in this encounter Results * (ABNORMAL) Culture urine (12/13/2024 12:00 AM EST) Culture, Urine >100,000 CFU/mL Enterococcus faecalis(A) JAKI 12/15/2024 7:52 AM EST [facility] ([facility] Comment: Edited result: Previously reported as [...] MICROBIOLOGY - G ENERAL ORDERABLES Final Result [facility] ([facility]) [facility] [address] [place] [address], [place] [phone] documented in this encounter Visit Diagnoses Diagnosis Urinary tract infection, site not specified documented in this encounter
== END 2025-01-13 12:20 | disposition home or self-care (01) ==
LOC: HO.HMCC 11:12
PROVIDERS: PCP Internal Medicine; Visit Provider Internal Medicine
DX: I10 Essential (primary) hypertension (principal); N39.0 Urinary tract infection, site not specified; K58.9 Irritable bowel syndrome, unspecified

== ENCOUNTER 2025-01-13 12:23 | Outpatient (REF) | payer MEDICARE, SELFPAY ==
[2025-01-13 13:46] LABS: MANUAL DIFF FLAG NO
[2025-01-13 13:59] LABS: Basophils Absolute Auto 0.1 X10*3/uL (0.0-0.2); Basophils Percent Auto 0.6 % (0-2); Eosinophils Absolute Auto 0.2 X10*3/uL (0.0-0.4); Eosinophils Percent Auto 1.9 % (0-4); Hematocrit 39.8 % (37.0-47.0); Hemoglobin 13.6 g/dl (12.0-16.0); Imm Gran Abs Auto 0.04 X10*3/uL (0.00-0.03); Imm Gran Pct Auto 0.4 % (0.0-0.4); Lymphocytes Absolute Auto 1.5 X10*3/uL (1.2-4.9); Lymphocytes Percent Auto 15.2 % (20-40); Mean Corpuscular HGB Conc 34.2 g/dl (31.0-35.0); Mean Corpuscular Hemoglobin 30.4 pg (27.0-33.0); Mean Corpuscular Volume 88.8 fL (80.0-98.0); Mean Platelet Volume 9.3 fL (9.4-12.3); Monocytes Absolute Auto 0.7 X10*3/uL (0.1-1.2); Monocytes Percent Auto 7.3 % (2-11); Neutrophils Absolute Auto 7.4 x10*3/uL (2.0-8.3); Neutrophils Percent Auto 74.6 % (45-73); Platelet Count 342 X10*3/uL (160-400); Red Blood Count 4.48 X10*6/uL (4.20-5.50); White Blood Count 9.9 X10*3/uL (4.8-10.8)
--- OUTSIDE RECORDS SUMMARY | 2025-01-13 14:08 | XMS_ITS | Encounter Summary ---
Author Organization [facility] Address [address] [place] [address] Care Team Providers Care Cupola Mechanic Name Role Phone Unavailable Primary Care Provider Unavailabl e Encounter Details Date Type Department Care Team (Late st Contact Info) Description 12/13/2024 Lab Requisition [facility] - Main Lab [address] [place] [address] Jessa Livingston MD [address] [phone] Urinary tract infection, site not specified Social [...] Enterococcus faecalis(A) JAKI 12/15/2024 7:52 AM EST [facility] Comment: Edited result: Previously reported [...] MICROBIOLOGY - G ENERAL ORDERABLES Final Result [facility] ([facility]) [facility] [address] [place] [address], [place] [phone] documented in this encounter Visit Diagnoses Diagnosis Urinary tract infection, site not specified documented in this encounter
--- OUTSIDE RECORDS SUMMARY | 2025-01-13 14:08 | XMS_ITS | Clinical Summary ---
Author Organization 299 [facility] Address [address] [place] [address] Phone Care Team Providers Care Loading Manager Name Role Phone Unavailable Primary Care Provider Unavailabl e Encounters Date Type Department Care Team Description 12/13/2024 Lab Requisition [facility] - Main Lab [address] [facility] [place] [address] Jessa Livingston MD Urinary tract [...] Enterococcus faecalis(A) JAKI 12/15/2024 7:52 AM EST [facility] Comment: Edited result: Previously reported [...] MICROBIOLOGY - G ENERAL ORDERABLES Final Result [facility] [address] [place] [address], [place] [phone] from Last 3 Months [place] [facility]
[2025-01-13 14:24] LABS: Alanine Aminotransferase 30 U/L (0-31); Albumin Level 4.3 g/dL (3.5-5.0); Alkaline Phosphatase 143 U/L (39-117); Aspartate Amino Transferase 30 U/L (5-31); Bilirubin Direct 0.2 mg/dL (0.0-0.5); Bilirubin Total 0.5 mg/dL (0.0-1.0); Lipase 38 U/L (8-78); Total Protein 7.8 g/dL (6.5-8.0)
[2025-01-14 08:24] LABS: Immunoglobulin A 242 mg/dL (70-320)
[2025-01-14 16:48] LABS: Gliadin Deamidated IgA Ab <1.0 U/mL; Gliadin Deamidated IgG Ab <1.0 U/mL; Transglutaminase Ab IgG <1.0 U/mL; Transglutaminase IgA <1.0 U/mL
[2025-01-16 16:17] LABS: Endomysial IgA Antibody Negative (Negative)
== END 2025-01-13 12:24 | disposition home or self-care (01) ==
LOC: HO.HMGCLDS 12:23
PROVIDERS: PCP Internal Medicine; Visit Provider Internal Medicine
DX: I10 Essential (primary) hypertension (principal); N39.0 Urinary tract infection, site not specified; K58.1 Irritable bowel syndrome with constipation; E55.9 Vitamin D deficiency, unspecified; Z79.899 Other long term (current) drug therapy
CPT/HCPCS: 36415; 80076; 82784; 83690; 85025; 86231; 86258; 86364; 96127; 99212

== ENCOUNTER 2025-01-23 14:07 | Outpatient (REF) | payer MEDICARE, SELFPAY ==
--- OUTSIDE RECORDS SUMMARY | 2025-01-23 17:18 | XMS_ITS | Clinical Summary ---
Author Organization 299 [facility] Address [address] [place] [address] Phone Care Team Providers Care Environmental Maintenance Worker Name Role Phone Unavailable Primary Care Provider Unavailabl e Encounters Date Type Department Care Team Description 12/13/2024 Lab Requisition [facility] - Main Lab 299 [facility] [place] [address] Jessa Livingston MD Urinary tract [...] Enterococcus faecalis(A) JAKI 12/15/2024 7:52 AM EST [facility] Comment: Edited result: Previously [...] MICROBIOLOGY - G ENERAL ORDERABLES Final Result [facility] [address] [place] [address], [place] [phone] from Last 3 Months [place] [facility]
--- OUTSIDE RECORDS SUMMARY | 2025-01-23 17:18 | XMS_ITS | Encounter Summary ---
Author Organization [facility] Address [address] [place] [address] Care Team Providers Care Egg Gatherer Name Role Phone Unavailable Primary Care Provider Unavailabl e Encounter Details Date Type Department Care Team (Late st Contact Info) Description 12/13/2024 Lab Requisition [facility] - Main Lab [address] [place] [address] Jessa Livingston MD [address] [phone] Urinary tract infection, site not specified Social [...] Enterococcus faecalis(A) JAKI 12/15/2024 7:52 AM EST [facility] ([facility] Comment: Edited result: Previously reported [...] MICROBIOLOGY - G ENERAL ORDERABLES Final Result [facility] ([facility]) [facility] [address] [place] [address], [place] [phone] documented in this encounter Visit Diagnoses Diagnosis Urinary tract infection, site not specified documented in this encounter
--- OUTSIDE RECORDS SUMMARY | 2025-01-23 17:18 | XMS_ITS ---
Author Organization [facility] Address [address] [place] [address] Care Team Providers Care Robotic Welder Name Role Phone Fatou Hinojosa MD Primary Care Provider Kojo Eastman Unavailable [phone] Allergies Allergen (clinical drug ingredient) Drug/Non Drug Allergy documented on EMR Reaction Allergy Type Onset Date Status trimethoprim Trimethoprim Unknown Drug Allergy A ctive sulfacetamide Sulfacetamide Unknown Drug Allergy Active nitrofurantoin Nitrofurantoin Unknown Drug Allergy Active hydrocodone HYDROcodone Unknown Drug Allergy Act landon fosfomycin Fosfomycin Unknown Drug Allergy Activ e Vicodin Unknown Drug Allergy Active REASON FOR VISIT Patient presents today for ibs, diarrhea Medications Medication SIG (Take, Route, Frequency, Duration) Notes [...] tablet Orall y Once a day Active Social History Tobacco Use: Social History Observation Description Date Details (start date - stop date) Never Smoker NA - NA Tobacco Use/Smoking Question Answer Notes Patient is [...] Never (0 point) Points 0 Interpretation Negative Section Notes: Nonsmoker; no sig alcohol Problems Problem Type SNOMED Code ICD Code Onset Dates Problem Status W/U Status Risk Notes Problem Gallstones (317223760) Gallstones (K80.20) Active confirmed Problem Right upper quadrant pain (926801394) Abdominal pain, RUQ (R10.11) Active confirmed Vital Signs Temperature 98.0 degrees Fahrenheit 01/08/20 25 Blood pressure systolic 001 mm Hg 01/08/20 25 Blood pressure diastolic 01 mm Hg 025 Height 64.5 in 01/08/2025 Weight 121 lbs 01/08/2025 BMI 20.45 kg/m2 01/08/2025 Encounters Encounter Location Date Provider Diagnosis [facility] [address] [place] [address] 01/08/2025 Kojo Carrasco Irritable bowel syndrome, unspecified type K58.9 ; Gallstones K80.20 and Abdominal pain, RUQ R10.11 Assessments Encounter Date Diagnosis (ICD Code) Assessment Notes Treatment Notes Treatment Clinical Notes Section Notes 01/08/2025 Irritable bowel syndrome, unspecified type (ICD-10 - K58.9) Start using the Hyoscyamine and Simethicone regularly for the IBS, cramps, and bloating 01/08/2025 Gallstones (ICD-10 - K80.20) We may need you to see a surgeon for the gallstones 01/08/2025 Abdominal pain, RUQ (ICD-10 - R10.11) Plan Of Treatment Medication Medication Name Sig Start Date Stop [...] 01/08/2025 Next Appt Details Follow Up: 2024, Reaso n: Provider Name:Kojo Carrasco , 08/12/2025 10:30:00 AM, [address] [place] [address], [address], [place], [address], Progress Notes * RASHAUN WEBSTER HDO B:1940 (84 yo F)Acc No.[id number]:01/08/2025 Progress Notes Patient:?MELECIOEZEQUIEL URBANDevyn Kim Provider:?Kojo Carrasco MD :1940???Age:84 Y???Sex:Female D ate:01/08/2025 Address:[address] [place] [address], [place] Pcp:Fatou Hinojosa MD Subjective: * Chief Complaints: * ???1. Patient presents today for ibs, diarrhea. * Medical History:?Breast canc er--2015---right lumpectomy--XRT, Denies MS,DM,CVA,Lung disease,renal disease, Neg. colonoscopy in 2008--diverticulosis, internal hemorrohoids, IBS--negative laboratories for celiac disease in 2010, Gallstones--asymptomatic, Hx of UTI's--seeing a urologist, Urinary incontinence - mild, Hypertension. * Surgical History:?Abscess in cervical spine 02/2004, Lumpectomy, right breast-as above 2014. * Family History:?Father: dece ased.?Mother: , aneurysm, diagnosed with HTN (hypertension).? No known hx of colon cancer or polyps. No family history of liver cancer. * Social History:?Tobacco Use:?Tobacco Use/Smoking?Patient is a?nonsmoker.?Drugs/Alcohol:?Alcohol Screen?Did you have a drink containing alcohol in the past year??Yes,?How often did you have a drink containing alcohol in the past year??Never (0 point),?How many drinks did you have on a typical day when you were drinking in the past year??1 or 2 drinks (0 point),?How often did you have 6 or more drinks on one occasion in the past year??Never (0 point),?Points?0,?Interpretation?Negative.?Miscellaneous:?Exercise: yoga, walking , gym. Marital status: . 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 ???Nonsmoker; no sig alcohol. * Medications:?Taking Losartan Potassium 100 MG Tablet 1 tablet Orally Once a day , Taking Sertraline HCl 25 MG Tablet 1 tablet Orally Once a day , Taking Vitamin C 500 MG Capsule as directed Orally , Taking Acetaminophen 500 MG Capsule Orally PRN , Taking ibuprofen 200 MG PRN , Taking Phenylephrine HCl 10 MG Tablet as directed NEEDED , Taking Claritin NEEDED , Taking Colace 100 MG Capsule Orally DAILY , Taking Tolterodine Tartrate ER 4 MG Capsule Extended Release 24 Hour Orally Once a day , Taking Hyoscyamine 125 MG PRN , Taking Centrum Silver - Tablet as directed Orally once a day , Taking Calcium 600 mg with D 1 tab Oral once a day , Taking Acidophilus - Tablet as directed Orally once a day , Taking Metamucil 0.52 GM Capsule 2 capsules with 8 ounces of liquid Orally as directed , Taking Melatonin 5 MG Tablet 1 tablet at bedtime as needed with food Orally Once a day , Taking Vitamin D3 1000 UNIT Capsule 1 tablet Orally Once a day , Taking Cranberry 500 MG Capsule as directed Orally , Not-Taking/PRN Anastrozole 1 MG Tablet 1 tablet Orally Once a day , Not-Taking/PRN Meloxicam 7.5 MG Tablet 1 tablet Orally Once a day/PRN , Not-Taking/PRN Nitrofurantoin Macrocrystal 50 MG Capsule 1 capsule with food or milk Orally Once a day , Discontinued Naproxen 220 MG PRN , Discontinued Fish Oil 200 mg 1 capsule Orally Once a day , Medication List reviewed and reconciled with the patient * Allergies:?Vicodin, Nitrofur antoin, Sulfacetamide, Trimethoprim, HYDROcodone, Fosfomycin. Objective: * Vitals:?Wt: 121 lbs, Ht: 64. 5 in, BMI: 20.45 Index, BP: 001/01 mm Hg, Temp: 98.0, Wt-k.88. Assessment: * Assessment: 1.?Irritable bowel syndrome, unspecified type - K58.9 (Primary)???2.?Gallstones - K80.20???3.?Abdominal pain, RUQ - R10.11??? Plan: * Treatment: 2.?Gallstones?LAB: LIVER PROFILE ?LAB: CBC w DIFF ?LAB: Lipase ?Imaging: US abdomen complete * Notes: We may need you to see a surgeon for the gallstones??3.?Abdominal pain, RUQ?LAB: LIVER PROFILE ?LAB: CBC w DIFF ?LAB: Lipase ?Imaging: US abdomen complete* sched 01/30/25 at 9:00 [facility] Ultrasound dept 2nd floorfasting 8 hrs prior * 4.?Others? Refill Hyoscyamine, 125 MG, PRN.?? * Preventive Medicine:? ??Urinary Incontinence:?Urinary Incontinence?Assessment:?Present,?Plan of care documented:?Yes,?Type of plan of care:?Addressing co-morbid factors.? ??Screenings:?Fall Risk Screening?Fall Risk Assessment:?No falls in the past year,?Screening:?No falls in the past year,?Assessment:?Not performed, no reason specified,?Plan of Care:?Not documented, no reason specified.? * Follow Up:?2024 * * The named appointment provid er may or may not be the originator of this progress note, and it is not deemed complete until electronically signed by the appointment provider. Sign off status: Pending * Provider:?Kojo Carrasco MD Date:? 025 Generated for Pj conner/Jose/Harpalsmitting on:?01/23/2025 05:18 PM EST
--- OUTSIDE RECORDS SUMMARY | 2025-01-23 17:18 | XMS_ITS | Patient Health Record ---
Author Organization [facility] Address [address] [place] [address] Care Team Providers Care Executive Director Of Marketing Name Role Phone Fatou Hinojosa MD Primary Care Provider Kojo Eastman [phone] Allergies Allergen (clinical drug ingredient) Drug/Non Drug Allergy documented on EMR Reaction Allergy Type Onset Date Status trimethoprim Trimethoprim Unknown Drug Allergy A ctive sulfacetamide Sulfacetamide Unknown Drug Allergy Active nitrofurantoin Nitrofurantoin Unknown Drug Allergy Active hydrocodone HYDROcodone Unknown Drug Allergy Act landon fosfomycin Fosfomycin Unknown Drug Allergy Activ e Vicodin Unknown Drug Allergy Active Results Component Value Reference Range Notes Complete Blood Count Auto Di ff Reviewed date:01/13/2025 05:19:57 PM Interpretation: Performing Lab:[facility], [address] [place] [phone] Notes/Report: White Blood Count 9.9 4.8-10.8 X10*3/uL Red Blood Count 4.48 4.20-5.50 X10*6/uL Hemoglobin 13.6 12.0-16.0 g/dl Hematocrit 39.8 37.0-47.0 % Mean Corpuscular Volume 88.8 80.0-98.0 fL Mean Corpuscular Hemoglobin 30.4 27.0-33.0 pg Mean Corpuscular HGB Conc 34.2 31.0-35.0 g/dl Red Cell Distribution Width 13.0 11.0-16.0 % Platelet Count 342 160-400 X10*3/uL Mean Platelet Volume 9.3 9.4-12.3 fL Neutrophils Percent Auto 74.6 45-73 % Imm Gran Pct Auto 0.4 0.0-0.4 % Lymphocytes Percent Auto 15.2 20-40 % Monocytes Percent Auto 7.3 2-11 % Eosinophils Percent Auto 1.9 0-4 % Basophils Percent Auto 0.6 0-2 % NRBC Pct Auto 0.0 0.0-0.2 /100WBC Neutrophils Absolute Auto 7.4 2.0-8.3 x10*3/u L Imm Gran Abs Auto 0.04 0.00-0.03 X10*3/uL Lymphocytes Absolute Auto 1.5 1.2-4.9 X10*3/u L Monocytes Absolute Auto 0.7 0.1-1.2 X10*3/uL Eosinophils Absolute Auto 0.2 0.0-0.4 X10*3/u L Basophils Absolute Auto 0.1 0.0-0.2 X10*3/uL NRBC Abs Auto 0.000 0.0-0.012 X10*3/uL Liver Panel (Not yet reviewe d by provider) Interpretation: Performing Lab:[facility], [address] [place] [phone] Notes/Report: Bilirubin Total 0.5 0.0-1.0 mg/dL Bilirubin Direct 0.2 0.0-0.5 mg/dL Aspartate Amino Transferase 30 5-31 U/L Alanine Aminotransferase 30 0-31 U/L Total Protein 7.8 6.5-8.0 g/dL Albumin Level 4.3 3.5-5.0 g/dL Alkaline Phosphatase 143 39-117 U/L Lipase Reviewed date:01/13/2025 05:20:25 PM Interpretation: Performing Lab:[facility], [address] [place] [phone] Notes/Report: Lipase 38 8-78 U/L Immunoglobulin A Reviewed date:01/17/2025 05:21:45 PM Interpretation: Performing Lab:[facility], [address] [place] [phone] Notes/Report: Immunoglobulin A 242 70-320 mg/dL THIS TEST WAS PERFORMED AT: [facility] [address] [place] [phone] MILLI ROMAN MD Transglutaminase Ab IgG Reviewed date:01/17/2025 05:21:58 PM Interpretation: Performing Lab:[address] [address] Notes/Report: Transglutaminase Ab IgG <1.0 Value Interpretation ----- <15.0 Antibody not detected > or = 15.0 Antibody detected THIS TEST WAS PERFORMED AT: [facility] [address] [place] [phone] MILLI ROMAN MD Transglutaminase IgA Reviewed date:01/17/2025 05:22:08 PM Interpretation: Performing Lab:[address] [address] Notes/Report: Transglutaminase IgA <1.0 Value Interpretation ----- <15.0 Antibody not detected > or = 15.0 Antibody detected THIS TEST WAS PERFORMED AT: [facility] [address] [place] [phone] MILLI ROMAN MD Gliadin Ab Panel Reviewed date:01/17/2025 05:22:17 PM Interpretation: Performing Lab:[facility], [address] [place] [phone] Notes/Report: Gliadin Deamidated IgA Ab <1.0 Value Interpretation ----- <15.0 Antibody not detected > or = 15.0 Antibody detected Gliadin Deamidated IgG Ab <1.0 Value Interpretation ----- <15.0 Antibody not detected > or = 15.0 Antibody detected THIS TEST WAS PERFORMED AT: [facility] [address] [place] [phone] MILLI ROMAN MD Endomysial IgA rflx Titer Reviewed date:01/17/2025 05:22:27 PM Interpretation: Performing Lab:[facility], [address] [place] [phone] Notes/Report: Endomysial IgA Antibody Negative Negative THIS TEST WAS PERFORMED AT: [facility] [address] [place] [address] BETTINA VENEGAS MD,PHD Endomysial Titer TNP Reason For Referral No Information Medications Medication SIG (Take, Route, Frequency, Duration) [...] Once a day for 30 day(s) Not-Taking Immunizations Vaccine Route Administration Date Status Comme nts Influenza Unknown 08/20/2018 Administered Influenza Unknown 09/10/2024 Administered Social History Tobacco Use: Social History Observation [...] Negative Section Notes: Nonsmoker; no sig alcohol Nonsmoker; no sig alcohol Nonsmoker; no sig alcohol Problems Problem Type SNOMED Code ICD Code Onset Dates Problem Status W/U Status Risk Notes Problem 270909894 Encounter for screening for malignant neoplasm of colon (Z12.11) Active confirmed Problem Gallstones (933450906) Gallstones (K80.20) Active confirmed Problem Right upper quadrant pain (839245345) Abdominal pain, RUQ (R10.11) Active confirmed Problem 12099805 Irritable bowel syndrome, unspecified type (K58.9) Active confirmed Vital Signs Temperature 98.0 degrees Fahrenheit 01/08/2025 Blood pressure diastolic 01 mm Hg 01/08/2025 Height 64.5 in 01/08/2025 Blood pressure systolic 001 mm Hg 01/08/2025 Weight 121 lbs 01/08/2025 BMI 20.45 kg/m2 01/08/2025 Encounters Encounter Location Date Provider Diagnosis [facility] [address] [place] [address] 01/08/2025 Kojo Carrasco Irritable bowel syndrome, unspecified type K58.9 ; Gallstones K80.20 and Abdominal pain, RUQ R10.11 Assessments Encounter Date Diagnosis (ICD Code) Assessment Notes Treatment Notes Treatment Clinical Notes Section Notes 01/08/2025 Gallstones (ICD-10 - K80.20) We may need you to see a surgeon for the gallstones 01/08/2025 Irritable bowel syndrome, unspecified type (ICD-10 - K58.9) Start using the Hyoscyamine and Simethicone regularly for the IBS, cramps, and bloating 01/08/2025 Abdominal pain, RUQ (ICD-10 - R10.11) Plan Of Treatment Pending Test Test Name Order Date LIVER PROFILE 01/08/2025 CBC w DIFF 01/08/2025 CELIAC PANEL #10 01/08/2025 Liver Panel 01/13/2025 Lipase 01/08/2025 US abdomen complete 01/08/2025 Future Test Test Name Order Date COLONOSCOPY 05/30/2019 Next Appt Details Provider Name:Kojo Carrasco , 08/12/2025 10:30:00 AM, [address], [address], [place], [address], Insurance Providers Payer Name Payer Address Payer Phone Subscriber Number Group Number Insured Name Patient Relationship to Insured Coverage Start Date Coverage End Date [facility] [address] [place], [place] [id number] [phone] [id number] RASHAUN SALINAS Self - patient is the insured Medical (General) History Medical History History ICD Code Breast cancer--2014---right lumpectomy-- XRT Denies ME,DM,CVA,Lung disease,renal dise ase Neg. 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
== END 2025-01-23 14:08 | disposition home or self-care (01) ==
LOC: HO.HMGCX 14:07
PROVIDERS: PCP Internal Medicine; Visit Provider Internal Medicine
DX: M53.3 Sacrococcygeal disorders, not elsewhere classified (principal)
CPT/HCPCS: 72220

== ENCOUNTER → 2025-01-23 14:11 | Outpatient (BNV) | payer MEDICARE, SELFPAY | PROVIDERS: PCP Internal Medicine; Visit Provider Radiology Diagnostic Radiology | DX: M53.3 Sacrococcygeal disorders, not elsewhere classified (principal) | CPT/HCPCS: 72220 ==

== ENCOUNTER 2025-01-27 07:24 | Inpatient (IN) | payer MEDICARE, SELFPAY ==
[2025-01-27] VITALS (8 sets, daily range): BP systolic 97–207; BP diastolic 56–104; PULSE 70–86; RESP 12–18; TEMP 36.3–36.9; O2SAT 96–100; BMI 25.7
--- NOTE | ~2025-01-27 | CT_ITS ---
EXAMINATION: CT LUMBAR SPINE WITHOUT CONTRAST CLINICAL INFORMATION: Low back pain, numbness and tingling. COMPARISON: None available. TECHNIQUE: Spiral CT imaging of the lumbar spine performed in axial plane without contrast. Multiplanar reformatted images were constructed from the axial data set. This CT examination was performed using dose optimization techniques as appropriate, variously including the following: *Automated exposure control *Adjustment of mA and/or kV according to patient size (this includes techniques or standardized protocols for targeted exams where dose is matched to indication/reason for exam; i.e. extremities or head) *Use of iterative reconstruction technique FINDINGS: There is a minimal levoconvex scoliosis. There is a normal lumbar lordosis. No lumbar fractures, compression deformities, or suspicious bone lesions evident. There is a 2 mm degenerative anterolisthesis of L2 on L3. There is a 4 mm degenerative appearing anterolisthesis of L4 on L5. There is moderate disc space degeneration present L3-4, with milder changes at the other levels. There is normal facet alignment. There are right greater than left hypertrophic degenerative facet changes, mainly spanning L3-S1. There is severe central canal stenosis at L2-3 and L3-4 secondary to diffuse disc bulge, posterior ligamentous thickening/infolding, and hypertrophic facet changes. There is moderate to severe central canal stenosis at L4-5. No additional central canal stenosis. There are bilateral sacral insufficiency fractures identified, traversing the superior S2 vertebral body. There is moderate atheromatous calcification of the aorta. There is no aneurysm. The bladder is distended. CT/CT lumbar spine wo IV con IMPRESSION: 1. There are bilateral sacral insufficiency fractures present, traversing the S2 vertebral body. 2. There is moderate to advanced lumbar spondylosis, with severe central canal stenosis identified at L2-3, and L3-4. There is moderate to severe central canal stenosis at L4-5. These findings with either elucidated on nonemergent MRI. Electronically signed by: Jon Pineda MD 01/27/2025 11:10 AM EDT
--- NOTE | ~2025-01-27 | MR_ITS ---
EXAMINATION: MR LUMBAR SPINE WITHOUT AND WITH CONTRAST CLINICAL INFORMATION: Bilateral sacral insufficiency fractures. Low back pain. Numbness. Bowel issues. Bowel and bladder incontinence. COMPARISON: None available. TECHNIQUE: MRI of the lumbar spine was obtained using routine sequences with and without contrast. Intravenous contrast: Gadolinium based 7 mL. No reported immediate complications FINDINGS: Last rib-bearing vertebra labeled T12. There is no abnormal enhancement within the conus medullaris the cauda equina or filum terminalis. No abnormal enhancement in the leptomeningeal compartment or the central spinal canal. There is bone marrow STIR enhancing signal abnormality involving the included sacrum, S1-S2. There is no enhancing soft tissue component. Bone marrow inhomogeneity throughout the axial skeleton. Grade 1 anterolisthesis L4-5 and L2-3 level. The conus medullaris ends at inferior endplate of T12 with normal signal. T12-L1: No disc herniation no neuroforamina stenosis. L1-2: Broad-based disc bulging. Facet joint and ligamentum flavum hypertrophy. No central spinal canal stenosis. Bilateral neuroforamina narrowing. L2-3: Broad-based disc bulging. Facet joint and ligamentum flavum hypertrophy resulting in CSF effacement of the thecal sac central spinal canal and bilateral neuroforamina stenosis likely compressing the neural elements of the thecal sac. L3-4: Broad-based disc bulging. Facet joint and ligamentum flavum hypertrophy resulting in CSF effacement of the thecal sac central spinal canal and bilateral neuroforamina stenosis compressing the neural elements mostly of the thecal sac. L4-5: Grade 1 anterolisthesis. Broad-based disc bulging. Facet joint and ligamentum flavum hypertrophy. CSF effacement of the thecal sac central spinal canal and bilateral neuroforamina stenosis likely compressing the neural elements of the thecal sac. L5-S1: Broad-based disc bulging. Facet joint hypertrophy. No gross central spinal canal stenosis. Bilateral neuroforamina narrowing encroaching the exiting nerve roots. No prevertebral compartment hematoma, mass or fluid collection. Intraluminal nonenhancing hypointense signal within the gallbladder. Fluid-filled distended bladder. MR/MR lumbar spine wo/w con IMPRESSION: No abnormal enhancement to suggest leptomeningeal carcinomatosis or tumor infiltration in the axial skeleton. Acute insufficiency fracture S1-S2/sacrum. Multilevel spondylosis resulting in central spinal canal and bilateral neuroforamina stenosis from L2-3 to L4-5 compressing the neural elements of the thecal sac and to a lesser extent in the exiting nerve roots. Grade 1 anterolisthesis L4-5 and to a lesser extent L2-3. Cholelithiasis. Electronically signed by: Jacky Madden MD 01/27/2025 03:23 PM EDT
--- NOTE | ~2025-01-27 | CT_ITS ---
EXAMINATION: CT PELVIS WITHOUT CONTRAST CLINICAL INFORMATION: Probably fracture in the coccyx. COMPARISON: None available. TECHNIQUE: Helical scanning was performed with submillimeter collimation through the pelvis. Sagittal and coronal multiplanar 2-D reconstructions were obtained. This CT examination was performed using dose optimization techniques as appropriate, variously including the following: *Automated exposure control *Adjustment of mA and/or kV according to patient size (this includes techniques or standardized protocols for targeted exams where dose is matched to indication/reason for exam; i.e. extremities or head) *Use of iterative reconstruction technique. DLP: 272 mGy centimeter. FINDINGS: PELVIS: Fluid-filled distended bladder. Tiny intraluminal air bubbles in a nondependent portion. Mixed plaques in the distal abdominal aorta and iliac arteries. No ascites, pelvic peritoneal cavity. No gross pneumoperitoneum. Abundant stool. OSSEOUS STRUCTURES: Acute comminuted cortical disruption in the sacrum at the S1 and S2 involving the neuroforamina and the alar bilaterally. Spondylosis at L4-5 and L5-S1 resulting in central and bilateral neuroforamina stenosis. The coxofemoral joints are intact with normal alignment. The bony pelvis is intact. There is sclerosis and vacuum phenomenon at the sacroiliac joints. CT/CT pelvis wo IV con IMPRESSION: Acute comminuted fractures, sacrum involving S1 and S2 and the neural foramina. Multilevel spondylosis L4-5 and L5-S1 resulting in central spinal canal and bilateral neuroforamina stenosis. Fluid-filled distended bladder with tiny intraluminal gas. Consider recent instrumentation. Nonspecific.. Electronically signed by: Jacky Madden MD 01/27/2025 11:13 AM EDT
--- OUTSIDE RECORDS SUMMARY | 2025-01-27 07:56 | XMS_ITS | Clinical Summary ---
Author Organization 299 [facility] Address [address] [place] [address] Phone Care Team Providers Care Shearing Machine Operator Name Role Phone Unavailable Primary Care Provider Unavailabl e Encounters Date Type Department Care Team Description 12/13/2024 Lab Requisition [facility] - Main Lab 299 [facility] [email or web address] [address] Jessa Livingston MD Urinary tract [...] Enterococcus faecalis(A) JAKI 12/15/2024 7:52 AM EST [facility] Comment: Edited result: Previously reported [...] MICROBIOLOGY - G ENERAL ORDERABLES Final Result [facility] [address] [place] [address], [place] [phone] from Last 3 Months [place] [facility]
--- OUTSIDE RECORDS SUMMARY | 2025-01-27 07:56 | XMS_ITS | Encounter Summary ---
Author Organization [facility] Address [address] [place] [address] Care Team Providers Care Health Tech Name Role Phone Unavailable Primary Care Provider Unavailabl e Encounter Details Date Type Department Care Team (Late st Contact Info) Description 12/13/2024 Lab Requisition [facility] - Main Lab [address] [place] [address] Jessa Livingston MD [address] [phone] Urinary tract infection, site not specified Social [...] Enterococcus faecalis(A) JAKI 12/15/2024 7:52 AM EST [facility] Comment: Edited result: Previously reported [...] MICROBIOLOGY - G ENERAL ORDERABLES Final Result [facility] [address] [place] [address], [place] [phone] documented in this encounter Visit Diagnoses Diagnosis Urinary tract infection, site not specified documented in this encounter
--- OUTSIDE RECORDS SUMMARY | 2025-01-27 07:56 | XMS_ITS | Patient Health Record ---
Author Organization [facility] Address [address] [place] [address] Care Team Providers Care Line Production Cook Name Role Phone Fatou Hinojosa MD Primary Care Provider Kojo Eastman [phone] Allergies Allergen (clinical drug ingredient) Drug/Non Drug Allergy documented on EMR Reaction Allergy Type Onset Date Status nitrofurantoin Nitrofurantoin Unknown Drug Allergy Active hydrocodone HYDROcodone Unknown Drug Allergy Act landon fosfomycin Fosfomycin Unknown Drug Allergy Activ e Vicodin Unknown Drug Allergy Active trimethoprim Trimethoprim Unknown Drug Allergy A ctive sulfacetamide Sulfacetamide Unknown Drug Allergy Active Results Component Value Reference Range Notes Complete Blood Count Auto Di ff Reviewed date:01/13/2025 05:19:57 PM Interpretation: Performing Lab:[facility], [address] [place] [phone] Notes/Report: White Blood Count 9.9 4.8-10.8 X10*3/uL [...] yet reviewe d by provider) Interpretation: Performing Lab:[facility], [address] [place] [phone] Notes/Report: Bilirubin Total 0.5 0.0-1.0 mg/dL Bilirubin Direct 0.2 0.0-0.5 mg/dL Aspartate Amino Transferase 30 5-31 U/L Alanine Aminotransferase 30 0-31 U/L Total Protein 7.8 6.5-8.0 g/dL Albumin Level 4.3 3.5-5.0 g/dL Alkaline Phosphatase 143 39-117 U/L Lipase Reviewed date:01/13/2025 05:20:25 PM Interpretation: Performing Lab:[facility], [address] [place] [phone] Notes/Report: Lipase 38 8-78 U/L Immunoglobulin A Reviewed date:01/17/2025 05:21:45 PM Interpretation: Performing Lab:[facility], [address] [place] [phone] Notes/Report: Immunoglobulin A 242 70-320 mg/dL THIS TEST WAS PERFORMED AT: [facility] [address] [place] [phone] MILLI ROMAN MD Transglutaminase Ab IgG Reviewed date:01/17/2025 05:21:58 PM Interpretation: Performing Lab:[address] [phone] Notes/Report: Transglutaminase Ab IgG <1.0 Value Interpretation ----- <15.0 Antibody not detected > or = 15.0 Antibody detected THIS TEST WAS PERFORMED AT: [facility] [address] [place] [phone] MILLI ROMAN MD Transglutaminase IgA Reviewed date:01/17/2025 05:22:08 PM Interpretation: Performing Lab:[address] [phone] Notes/Report: Transglutaminase IgA <1.0 Value Interpretation ----- <15.0 Antibody not detected > or = 15.0 Antibody detected THIS TEST WAS PERFORMED AT: [facility] [address] [place] [phone] MILLI ROMAN MD Gliadin Ab Panel Reviewed date:01/17/2025 05:22:17 PM Interpretation: Performing Lab:[facility], [address] [place] [phone] Notes/Report: Gliadin Deamidated IgA Ab <1.0 Value Interpretation ----- <15.0 Antibody not detected > or = 15.0 Antibody detected Gliadin Deamidated IgG Ab <1.0 Value Interpretation ----- <15.0 Antibody not detected > or = 15.0 Antibody detected THIS TEST WAS PERFORMED AT: [facility] [address] [place] [phone] MILLI ROMAN MD Endomysial IgA rflx Titer Reviewed date:01/17/2025 05:22:27 PM Interpretation: Performing Lab:[facility], [address] [place] [phone] Notes/Report: Endomysial IgA Antibody Negative Negative THIS TEST WAS PERFORMED AT: [facility] [address] [place] [address] BETTINA VENEGAS MD,PHD Endomysial Titer TNP Reason [...] Problem Status W/U Status Risk Notes Problem 613480387 Encounter for screening for malignant neoplasm of colon (Z12.11) Active confirmed Problem Gallstones (290779852) Gallstones (K80.20) Active confirmed Problem Right upper quadrant pain (559679159) Abdominal pain, RUQ (R10.11) Active confirmed Problem [id number] Irritable bowel syndrome, unspecified type (K58.9) Active confirmed Vital Signs Temperature 98.0 degrees Fahrenheit 01/08/2025 Blood pressure diastolic 01 mm Hg 01/08/2025 Height 64.5 in 01/08/2025 Blood pressure systolic 001 mm Hg 01/08/2025 Weight 121 lbs 01/08/2025 BMI 20.45 kg/m2 01/08/2025 Encounters Encounter Location Date Provider Diagnosis [facility] [address] [place] [phone] 01/08/2025 Kojo Carrasco Irritable bowel syndrome, unspecified [...] Name:Kojo Carrasco , 08/12/2025 10:30:00 AM, [address], [address], [place], [address], Insurance Providers Payer Name Payer Address Payer Phone Subscriber Number Group Number Insured Name Patient Relationship to Insured Coverage Start Date Coverage End Date [facility] [address] [place], [place] [id number] [phone] [id number] RASHAUN SALINAS Self - patient is [...]
--- OUTSIDE RECORDS SUMMARY | 2025-01-27 07:56 | XMS_ITS ---
Author Organization [facility] Address [address] [place] [address] Care Team Providers Care Machine Oiler Name Role Phone Fatou Hinojosa MD Primary Care Provider Kojo Eastman Unavailable [phone] Allergies Allergen (clinical drug ingredient) Drug/Non Drug Allergy documented on EMR Reaction Allergy Type Onset Date Status nitrofurantoin Nitrofurantoin Unknown Drug Allergy Active hydrocodone HYDROcodone Unknown Drug Allergy Act landon fosfomycin Fosfomycin Unknown Drug Allergy Activ e Vicodin Unknown Drug Allergy Active trimethoprim Trimethoprim Unknown Drug Allergy A ctive sulfacetamide Sulfacetamide Unknown Drug Allergy Active REASON FOR VISIT [...] Status W/U Status Risk Notes Problem Gallstones (567202545) Gallstones (K80.20) Active confirmed Problem Right upper quadrant pain (060380595) Abdominal pain, RUQ (R10.11) Active confirmed Vital Signs Temperature 98.0 degrees Fahrenheit 01/08/20 25 Blood pressure systolic 001 mm Hg 01/08/20 25 Blood pressure diastolic 01 mm Hg 025 Height 64.5 in 01/08/2025 Weight 121 lbs 01/08/2025 BMI 20.45 kg/m2 01/08/2025 Encounters Encounter Location Date Provider Diagnosis [facility] [address] [place] [address] 01/08/2025 Kojo Carrasco Irritable bowel syndrome, unspecified [...] Provider Name:Kojo Carrasco , 08/12/2025 10:30:00 AM, [address] [place] [address], [address], [place], [address], Progress Notes * RASHAUN WEBSTER HDO B:1940 (84 yo F)Acc No.[id number]:01/08/2025 Progress Notes Patient:?MELECIOEZEQUIEL URBANDevyn Kim Provider:?Kojo Carrasco MD :1940???Age:84 Y???Sex:Female D ate:01/08/2025 Address:[address] [place] [address], [place], [place] Pcp:Fatou Hinojosa MD Subjective: * Chief Complaints: * ???1. Patient presents today for ibs, diarrhea. * Medical History:?Breast canc er--2015---right lumpectomy--XRT, Denies IA,DM,CVA,Lung disease,renal disease, Neg. colonoscopy in 2008--diverticulosis, internal [...] gym. Marital status: . 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 ???Nonsmoker; no sig alcohol. * Medications:?Taking Losartan [...] US abdomen complete* sched 01/30/25 at 9:00 [facility] Ultrasound dept 2nd floorfasting 8 hrs prior [...] MD Date:? 025 Generated for Pj conner/Jose/Harpalsmitting on:?01/27/2025 07:55 AM EDT
--- NOTE | 2025-01-27 09:01 | ED.GENADULT ---
HPI - General Adult General Chief complaint: Back Pain/Injury Stated complaint: LOW BACK PAIN S/P FALL T-14 DAYS PER EMS Time Seen by Provider: 01/27/25 08:58 Source: patient and EMS Mode of arrival: EMS Limitations: no limitations History of Present Illness ED Provider: Frida Finney PA-C HPI narrative: Patient is an 84 year old female with a past medical history of HTN, sciatica, and cervical spine epidural abscess who presents to the ED via EMS for complaints of low back pain, intermittent numbness / tingling to her groin, intermittent bowel incontinence, intermittent bladder incontinence, intermittent bowel retention, and intermittent bladder retention. She states that 3 weeks ago she slipped on ice in a parking lot, landed on her bottom, and was able to stand up and continue her activities. Denies head strike or loss of consciousness. She endorsed some lower back pain after this fall that improved over the following two weeks that did not impact her daily function. She states that 1 week ago she awoke in the morning with acute worsening of her lower back pain which now radiated down both legs to her ankles. She has had progressive increase in pain and decrease in her ability to ambulate over the course of this week. Last night she was unable to get to her bathroom due to the pain and describes crawling in attempts to do so. She states her son came over to assist her to and from the bathroom. She states that multiple times she was unable to empty her bladder despite having the urge and also has had multiple episodes of urinary incontinence. She endorses a tingling sensation in both distal lower extremities and weakness of the lower extremities that she attributes to the pain. She denies fevers, headaches, chest pain, difficulty breathing, abdominal pain, nausea, and vomiting. Onset (ago): week(s) (1) Location: back and lower extremity Radiation: extremity (Bilateral lower extremities) Pain Consistency: constant Relieving factors: none Exacerbating factors: movement Associated symptoms: weakness and other (Urinary and bowel retention and incontinence) Treatments prior to arrival: NSAID Related Data Home Medications ?Medication ?Instructions ?Recorded ?Confirmed trospium 20 mg tablet 20 mg PO BID 08/28/20 01/13/25 ketorolac 0.5 % eye drops drp ophthalmic (eye) 04/29/21 01/13/25 Lactobacill cap PO 06/03/22 01/13/25 acidophilus-L.helvetic-B.bifidum 250 million cell capsule (Acidophilus Probiotic Complex) ascorbic acid (vitamin C) 500 mg 500 mg PO DAILY 06/03/22 01/13/25 tablet calcium 600 mg (as cap PO 06/03/22 01/13/25 carbonate)-vitamin D3 12.5 mcg (500 unit) capsule (Calcium with Vit D3) docusate sodium 100 mg capsule 100 mg PO DAILY 06/03/22 01/13/25 (Colace) ibuprofen 200 mg tablet 200 mg PO Q6H PRN 06/03/22 01/13/25 loratadine 10 mg tablet (Claritin) 10 mg PO DAILY 06/03/22 01/13/25 melatonin 10 mg capsule 10 mg PO BEDTIME PRN 06/03/22 01/13/25 wrodubqq-sjou-uvni 8 mg-folic 400 1 tab PO DAILY 06/03/22 01/13/25 mcg-K 50 mcg-lutein 300 mcg tablet (Centrum Silver Women) omega 1-gnk-wtd-fish oil 500 mg 1 cap PO DAILY 06/03/22 01/13/25 (200mg-300mg)-1,000 mg capsule cranberry fruit 400 mg capsule 15,000 mg PO DAILY 06/14/24 01/13/25 naproxen 250 mg tablet 220 mg PO DAILY PRN 06/14/24 01/13/25 hyoscyamine sulfate 0.125 mg 0.125 mg PO Q4-6H PRN cramps 01/27/25 disintegrating tablet methenamine hippurate 1 gram tablet 1 g PO BID 01/27/25 Previous Rx's ?Medication ?Instructions ?Recorded estradiol 0.01% (0.1 mg/gram) See Rx Instructions vaginal .qd 08/15/24 vaginal cream #42.5 grams losartan 25 mg tablet 25 mg PO BID #180 tabs 10/08/24 sertraline 25 mg tablet 25 mg PO DAILY #90 tabs 12/23/24 Allergies Allergy/AdvReac Type Severity Reaction Status Date / Time nitrofurantoin Allergy Unknown diarrhea, Verified 01/27/25 07:47 [NITROFURANTOIN] swollen lips oxycodone [From PERCOCET] Allergy Unknown NAUSEA & Verified 01/27/25 07:47 VOMITING Sulfa (Sulfonamide Allergy Unknown diarrhea, Verified 01/27/25 07:47 Antibiotics) swollen [SULFA (SULFONAMIDE lips ANTIBIOTICS)] trimethoprim [TRIMETHOPRIM] Allergy Unknown diarrhea, Verified 01/27/25 07:47 swollen lips lactose Allergy Gastrointestinal Verified 01/27/25 16:26 Upset hydrocodone [From VICODIN] AdvReac Mild NAUSEA & Verified 01/27/25 07:47 VOMITING Nitrofurantoin Macrocrystal Allergy Unknown diarrhea, Uncoded 01/27/25 07:47 swollen lips Trimethoprim HCl Allergy Unknown diarrhea Uncoded 01/27/25 07:47 swollen lips Review of Systems Constitutional: Constitutional: Reports no additional constitutional complaints, Denies chills, Denies fever(s) and Denies night sweats Eyes: Eyes: Reports no additional eye complaints, Denies blurry vision, Denies change in vision, Denies diplopia, Denies eye discharge, Denies loss of vision and Denies eye pain ENT: Denies dizziness Cardiovascular: Cardiovascular: Reports no additional cardiovascular complaints, Denies chest pain, Denies lightheadedness, Denies Loss of Consciousness and Denies dyspnea Respiratory: Respiratory: Reports no additional respiratory complaints and Denies dyspnea Gastrointestinal: Gastrointestinal: Reports no additional gastrointestinal complaints, Denies abdominal pain, Denies melena, Denies hematochezia, Reports change in bowel habits, Denies change in stool character and Reports fecal incontinence (intermittently) Genitourinary: Genitourinary: Denies hematuria, Reports urinary frequency, Reports difficulty voiding, Denies dysuria, Reports urinary incontinence and Reports urinary urgency Musculoskeletal: Musculoskeletal: Reports back pain, Reports numbness (intermittent of the groin and lower extremities), Reports radiating pain into limb and Reports tingling Neurologic: Denies dizziness, Denies loss of vision, Reports numbness (intermittent of the groin and lower extremities), Reports radicular pain and Reports tingling Psychiatric: Psychiatric: Reports no additional psychiatric complaints Endocrine: Endocrine: Reports no additional endocrine complaints Hematologic/Lymphatic: Hematologic/Lymphatic: Reports no additional hematologic/lymphatic complaints Allergic/Immunologic: Allergic/Immunologic: Reports no additional allergic/immunologic complaints PMFSH Past Medical History Attestation statement: The following information was validated with the patient. Source: old records reviewed and nursing notes reviewed Medical History Vitamin D deficiency Hearing loss Annual physical exam Gallstones Osteopenia Frequent UTI Breast calcification, right Sacroiliitis Urge incontinence IBS (irritable bowel syndrome) Surgical History H/O colonoscopy Family History Family History Father No problems noted. Mother HTN (hypertension) Aneurysm Social History Social History [facility] Alcohol intake: current Alcohol intake frequency: holidays/special occasions only Patient Tobacco Use Status: Never used Tobacco Smoked in Last 30 Days: No e-Cigarette/Vaping Use: Never Used Use of substances other than those prescribed or required for medical reasons: No Advance Directives: No Advance Directives Information Provided: Yes Do you have a plan to hurt others: No Plan service: No Current occupational status: retired Cognitive needs: No Hearing needs: No Vision needs: No Physical Exam ED Vital Signs: Vital Signs - 24 hr 01/27/25 07:45 01/27/25 12:38 01/27/25 15:32 Temperature 97.9 F 98.1 F Pulse Rate 86 74 70 Respiratory Rate 18 16 14 Blood Pressure 186/96 H 146/85 H 100/56 L Pulse Oximetry 98 99 97 Oxygen Delivery Method Room Air Room Air Room Air 01/27/25 16:18 01/27/25 16:19 Temperature 97.3 F Pulse Rate 77 Respiratory Rate 16 12 Blood Pressure 158/76 H Pulse Oximetry 98 Oxygen Delivery Method Room Air BMI result Body Mass Index 25.7 Const General: cooperative, no acute distress, alert and awake Nutritional Appearance: well nourished Orientation/consciousness: patient oriented x3 Limitations: no limitations [facility] Head: Yes normal to inspection and Yes atraumatic Ears: hearing grossly normal bilaterally and external ears normal General nose exam: Normal external nose present, no nasal discharge noted and no epistaxis Face and sinus: Yes normal facial exam, No abrasion and No laceration Mouth: Normal oral and palatal mucosa present, no drooling and no muffled voice Eyes General: appearance normal, both eyes and all related structures Periorbital: periorbital findings normal Eyelids: Yes eyelids normal Conjunctivae: conjunctivae normal Pupils: Equal, round and reactive pupils present EOM: EOMs intact bilaterally Neck Neck: Yes normal visual inspection, Yes full ROM and Yes no lymphadenopathy Chest Chest palpation & inspection: normal inspection of the chest Resp Effort & Inspection: normal respiratory effort and able to speak in complete sentences GI Inspection: Yes normal to inspection Back/Spine/Pelvis Thoracic/Lumbar Spine: pain with thoraco-lumbar ROM and straight leg raise positive Pelvis: no pain with anterior-posterior compression and no pain with lateral compression Coccyx: Coccyx tenderness present Neuro General: patient oriented x3, moves all extremities and CN's II-XI intact bilaterally Cranial nerves: Yes Equal, round and reactive pupils present Cognition (Neuro): normal cognition Motor exam (neuro): 5/5 motor strength present throughout Extrem General: Yes normal to inspection, Yes full ROM and Yes capillary refill normal Right lower extremity: normal to inspection and full ROM (decreased 2/2 back pain) Left lower extremity: normal to inspection and full ROM (decreased 2/2 back pain) Psych Appearance: grossly normal Mental Status: mental status grossly normal Affect: normal affect Attitude: cooperative Thought process: Normal thought process present Thought content: Normal thought content present Insight: Good insight present (Psych) Medications Administered Discontinued Medications Generic Name Dose Route Start Last Admin Trade Name Freq PRN Reason Stop Dose Admin Ceftriaxone Sodium 1 gm 01/27/25 13:27 01/27/25 15:49 Ceftriaxone Sodium 1 Gm Vial IVPUSH 01/27/25 13:28 1 gm ONCE ONE Administration Fentanyl 25 mcg 01/27/25 15:31 01/27/25 16:19 Fentanyl Citrate/Pf 100 Mcg/2 Ml Vial IVPUSH 01/27/25 15:32 25 mcg ONCE ONE Administration Protocol Gadobutrol 7.5 ml 01/27/25 14:50 01/27/25 14:50 Gadobutrol 7.5 Ml Vial IVPUSH 01/27/25 14:51 7 ml ONCE ONE Administration Methylprednisolone Sodium Succinate 60 mg 01/27/25 15:31 01/27/25 15:48 Methylprednisolone Sod Succ 125 Mg/2 Ml Vial IVPUSH 01/27/25 15:32 60 mg ONCE ONE Administration Morphine Sulfate 4 mg 01/27/25 09:37 01/27/25 10:00 Morphine Sulfate 4 Mg/Ml Cartridge IVPUSH 01/27/25 09:38 4 mg ONCE ONE Administration Protocol Ondansetron HCl 4 mg 01/27/25 09:37 01/27/25 09:59 Ondansetron Hcl 4 Mg/2 Ml Vial IVPUSH 01/27/25 09:38 4 mg ONCE ONE Administration Medical Decision Making Medical Decision Making [facility] Narrative: Patient is an 84 year old assigned female at with a history of HTN, IBS, and cervical epidural abscess 20-25 years ago, presenting to the emergency department today with persistent low back pain and multiple intermittent neurological complaints. Patient's physical exam was as noted in the physical exam portion of this note. Patient had no focal deficits or neurological findings at this time. Patient's bilateral lower legs PMS were intact bilaterally. Patient's blood work showed an elevated WBC count of 14.4, ESR of 21, and CRP of 3.17. Patient's urine showed evidence of an acute UTI. 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 Given patient's intermittent bowel / bladder incontinence and retention - an MRI was ordered. The MRI re-demonstrated what was found on the CT scan and did not show any evidence of cauda equina. Patient's clinical presentation is most consistent with bilateral sacral fracture and chronic spinal stenosis further exacerbated by the recent fall. Patient's neurological exam remained normal. Patient was given IV morphine, IV Fentanyl, and IV solu-medrol which she stated helped her pain some but did not relieve it entirely. Given the patient's intractable pain, sacral fractures, and subjective intermittent neurological findings - patient will be admitted to the hospital. I spoke to the hospitalist team who agreed to admission. I explained my physical exam findings as well as all test results to the patient. I answered all questions asked by the patient. Patient verbalized agreement and understanding with this treatment plan and admission. Lab Data 01/27/25 09:53 01/27/25 09:53 Labs: Lab Results 01/27/25 01/27/25 Range/Units 09:53 12:40 WBC 14.4 H (4.8-10.8) X10*3/uL RBC 4.53 (4.20-5.50) X10*6/uL Hgb 13.8 (12.0-16.0) g/dl Hct 39.4 (37.0-47.0) % MCV 87.0 (80.0-98.0) fL MCH 30.5 (27.0-33.0) pg MCHC 35.0 (31.0-35.0) g/dl RDW 12.8 (11.0-16.0) % Plt Count 371 (160-400) X10*3/uL MPV 8.3 L (9.4-12.3) fL Immature Gran % (Auto) 0.5 H (0.0-0.4) % Neut % (Auto) 84.3 H (45-73) % Lymph % (Auto) 7.9 L (20-40) % Rains % (Auto) 5.6 (2-11) % Eos % (Auto) 1.4 (0-4) % Baso % (Auto) 0.3 (0-2) % Lymph # (Auto) 1.1 L (1.2-4.9) X10*3/uL Rains # (Auto) 0.8 (0.1-1.2) X10*3/uL Eos # (Auto) 0.2 (0.0-0.4) X10*3/uL Baso # (Auto) 0.0 (0.0-0.2) X10*3/uL Abs Immat Gran (auto) 0.07 H (0.00-0.03) X10*3/uL Absolute Neuts (auto) 12.1 H (2.0-8.3) x10*3/uL Absolute Nucleated RBC 0.000 (0.0-0.012) X10*3/uL Nucleated RBC % (auto) 0.0 (0.0-0.2) /100WBC ESR 21 H (0-20) MM/HR Sodium 133 L (135-145) mmol/L Potassium 3.7 (3.3-5.1) mmol/L Chloride 101 (96-108) mmol/L Carbon Dioxide 25 (22-29) mmol/L Anion Gap 11 L (12-20) BUN 12 (9-16) mg/dL Creatinine 0.62 (0.5-1.4) mg/dL Estim Creat Clear Calc 65.1 Estimated GFR > 60 Random Glucose 106 (60-115) mg/dL Calcium 9.2 (8.4-10.2) mg/dL Magnesium 1.8 (1.6-2.6) mg/dL Total Bilirubin 0.9 (0.0-1.0) mg/dL AST 34 H (5-31) U/L ALT 28 (0-31) U/L Alkaline Phosphatase 232 H (39-117) U/L C-Reactive Protein 3.17 H (< or = 0.50) mg/dL Total Protein 7.7 (6.5-8.0) g/dL Albumin 4.0 (3.5-5.0) g/dL Urine Color Yellow Urine Appearance Clear Urine pH 8.5 (5.0-9.0) Ur Specific [place] 1.010 (1.005-1.025) Urine Protein Trace (Neg-Trace) mg/dL Urine Glucose (UA) Negative (Negative) mg/dL Urine Ketones Negative (Negative) mg/dL Urine Blood Trace H (Negative) Urine Nitrite Positive H (Negative) Ur Leukocyte Esterase Moderate (2+) H (Negative) Urine RBC 3-5 H (0-2) /HPF Urine WBC >50 H (0-5) /HPF Ur Squamous Epith Cells 0-2 (0-2) /HPF Urine Bacteria 4+ (None Seen) Hyaline Casts 0-2 (0-2) /LPF Discharge Plan Discharge Clinical Impression: Acute UTI, Bilateral sacral insufficiency fracture, Spinal stenosis, Intractable back pain Patient Disposition: Admitted As Inpatient Print Language: Slovak
[2025-01-27] MEDS: ondansetron HCL 4 MG/2 ML VIAL IVPUSH (09:59)
[2025-01-27] MEDS: Morphine Sulfate 4 MG/ML CARTRIDGE IVPUSH (10:00)
[2025-01-27 10:03] LABS: MANUAL DIFF FLAG NO
[2025-01-27 10:05] LABS: Basophils Percent Auto 0.3 % (0-2); Eosinophils Absolute Auto 0.2 X10*3/uL (0.0-0.4); Eosinophils Percent Auto 1.4 % (0-4); Hematocrit 39.4 % (37.0-47.0); Hemoglobin 13.8 g/dl (12.0-16.0); Imm Gran Abs Auto 0.07 X10*3/uL (0.00-0.03); Imm Gran Pct Auto 0.5 % (0.0-0.4); Lymphocytes Absolute Auto 1.1 X10*3/uL (1.2-4.9); Lymphocytes Percent Auto 7.9 % (20-40); Mean Corpuscular Hemoglobin 30.5 pg (27.0-33.0); Mean Platelet Volume 8.3 fL (9.4-12.3); Monocytes Absolute Auto 0.8 X10*3/uL (0.1-1.2); Monocytes Percent Auto 5.6 % (2-11); Neutrophils Absolute Auto 12.1 x10*3/uL (2.0-8.3); Neutrophils Percent Auto 84.3 % (45-73); Platelet Count 371 X10*3/uL (160-400); Red Blood Count 4.53 X10*6/uL (4.20-5.50); Red Cell Distribution Width 12.8 % (11.0-16.0); White Blood Count 14.4 X10*3/uL (4.8-10.8)
[2025-01-27 10:24] LABS: Alanine Aminotransferase 28 U/L (0-31); Alkaline Phosphatase 232 U/L (39-117); Anion Gap 11 (12-20); Aspartate Amino Transferase 34 U/L (5-31); Bilirubin Total 0.9 mg/dL (0.0-1.0); Blood Urea Nitrogen 12 mg/dL (9-16); C Reactive Protein 3.17 mg/dL (< or = 0.50); Calcium 9.2 mg/dL (8.4-10.2); Carbon Dioxide 25 mmol/L (22-29); Chloride 101 mmol/L (96-108); Creatinine Clr Calc Pharmacy 65.1; Estimated Glomerular Filt Rate > 60; Glucose Random 106 mg/dL (60-115); Magnesium 1.8 mg/dL (1.6-2.6); Potassium 3.7 mmol/L (3.3-5.1); Sodium 133 mmol/L (135-145); Total Protein 7.7 g/dL (6.5-8.0)
[2025-01-27 10:48] LABS: Erythrocyte Sedimentation Rate 21 MM/HR (0-20)
[2025-01-27 13:07] LABS: Appearance Urine Clear; Color Urine Yellow; Glucose Urine UA Negative (Negative); Leukocyte Esterase Urine Moderate (2+) (Negative); Nitrite Urine Positive (Negative); PH 8.5 (5.0-9.0); UMIC TRIGGER UACC YES; Urine Blood Trace (Negative); Urine Ketones Negative (Negative); Urine Protein Trace mg/dL (Neg-Trace)
[2025-01-27 13:11] LABS: Bacteria Urine 4+ (None Seen); Hyaline Casts Urine 0-2 /LPF (0-2); Squamous Epithelial Cell Urine 0-2 /HPF (0-2); UACC Culture Trigger YES; WBC Urine >50 /HPF (0-5)
--- NOTE | 2025-01-27 14:27 | PC.NURSE ---
Patient is in MRI
[2025-01-27] MEDS: gadobutroL 7.5 ML VIAL IVPUSH (14:50)
--- NOTE | 2025-01-27 15:45 | PC.NURSE ---
Delay of Rocephin due to pt being at MRI.
[2025-01-27] MEDS: methylPREDNISolone Sod Succ 125 MG/2 ML VIAL 60 MG IVPUSH (15:48)
[2025-01-27] MEDS: cefTRIAXone sodium 1 GM VIAL IVPUSH (15:49)
[2025-01-27] MEDS: fentaNYL citrate/PF 100 MCG/2 ML VIAL 25 MCG IVPUSH (16:19)
--- NOTE | 2025-01-27 17:53 | PHA.MEDREC ---
Addendum entered by Adelaide Arita RPh 01/27/25 18:18: [facility] REVIEWED Original Note: Pharmacy Consult ? Medication Reconciliation Pharmacy has completed the medication reconciliation. Spoke with patient and she was able to confirm her medications. Patient confirmed her Losartan 25mg tab and confirmed she was taking it twice a day but she recently saw her Dr and her blood pressure was normal then and the Dr decreased it to one tablet daily. She confirmed she took her medications yesterday.
--- NOTE | 2025-01-27 19:13 | P.HPHOSP_ITS ---
History of Present Illness Date of Service: 01/27/25 Attending physician on admission: Lulu Rothman Chief Complaint: back pain, fall 84-year-old female with history of osteopenia, recurrent UTI, IBS, anxiety, hypertension, cervical spinal epidural abscess, and sciatica presented to the ED earlier today for evaluation of low back pain, intermittent bilateral lower extremity paraesthesia, intermittent bowel incontinence and bladder incontinence, and intermittent bladder retention. She states about 3 weeks ago on president's day had initial injury where she fell while holding onto a screen door that was blown open by the wind. She states after that fall she did have pain but was able to continue with her normal activities. However 3 days ago, she slipped and fell in the bathroom and since then has had significant pain in the low back/sacrum with radiation into bilateral lower extremities. There has also been intermittent paresthesias in the bilateral lower extremities. She states she has primarily had issues with urge incontinence but in the last 3 days has also developed some intermittent urinary retention. She states she had a single episode of fecal incontinence but otherwise bowel function has been normal. She denies any weakness in the lower extremities or saddle anesthesia. She denies any fevers, chills, abdominal pain, nausea, vomiting, diarrhea, dysuria, hematuria, cough, shortness of breath, chest pain. Since arrival, has been mildly hypertensive, vital signs otherwise within normal limits. She has a leukocytosis of 14.4. Renal function is baseline, electrolyte levels are normal except for a mild hyponatremia of 133. CRP 3.17, ESR 21. Urinalysis with 2+ leukocytes, positive nitrites, trace blood, positive urinary sediment and 4+ bacteria. CT of the pelvis shows acute comminuted fractures of the sacrum involving S1 and S2 and the neural foramina. There is multilevel spondylosis at L4-5 and L5-S1 resulting in central spinal canal stenosis and bilateral neural foramina stenosis. CT of the lumbar spine shows moderate to advanced lumbar spondylosis with severe central canal stenosis identified at L2-3, and L3-4 with moderate to severe central canal stenosis at L4-5. MRI of the lumbar spine shows similar findings with the bilateral neural foramina stenosis at L2-3 to L4-5 compressing the neural elements of the thecal sac and to a lesser extent in the exiting nerve roots. In the ED has received 4 mg Zofran, 25 mcg fentanyl, 60 mg methylprednisolone 1 g ceftriaxone. She will be admitted for further management of intractable low back pain/sacral fracture and UTI. Review of Systems 2 Review of Systems: Yes all other systems are reviewed and are negative [facility] Medical History Vitamin D deficiency Hearing loss Annual physical exam Gallstones Osteopenia Frequent UTI Breast calcification, right Sacroiliitis Urge incontinence IBS (irritable bowel syndrome) Family History Father No problems noted. Mother HTN (hypertension) Aneurysm Surgical History H/O colonoscopy Social History Household Members: None Housing: [facility] Do you presently have visiting nurse or other home services: No Alcohol intake: current Alcohol intake frequency: holidays/special occasions only Comment: bed alarm broke: chair alarm attached to jasen Patient Tobacco Use Status: Never used Tobacco e-Cigarette/Vaping Use: Never Used service: No Current occupational status: retired Cognitive needs: No Hearing needs: No Vision needs: No Meds Allergies Allergy/AdvReac Type Severity Reaction Status Date / Time nitrofurantoin Allergy Unknown diarrhea, Verified 01/27/25 07:47 [NITROFURANTOIN] swollen lips oxycodone [From PERCOCET] Allergy Unknown NAUSEA & Verified 01/27/25 07:47 VOMITING Sulfa (Sulfonamide Allergy Unknown diarrhea, Verified 01/27/25 07:47 Antibiotics) swollen [SULFA (SULFONAMIDE lips ANTIBIOTICS)] trimethoprim [TRIMETHOPRIM] Allergy Unknown diarrhea, Verified 01/27/25 07:47 swollen lips lactose Allergy Gastrointestinal Verified 01/27/25 16:26 Upset hydrocodone [From VICODIN] AdvReac Mild NAUSEA & Verified 01/27/25 07:47 VOMITING Nitrofurantoin Macrocrystal Allergy Unknown diarrhea, Uncoded 01/27/25 07:47 swollen lips Trimethoprim HCl Allergy Unknown diarrhea Uncoded 01/27/25 07:47 swollen lips Active Medications: Current Medications Acetaminophen (Acetaminophen 325 Mg Tablet) 650 mg PO Q6H PRN PRN Reason: Pain, Mild 1-3,fever,headache Calcium Carbonate (Calcium Carbonate 750 Mg Tab.Chew) 750 mg PO Q4H PRN PRN Reason: Heartburn Ceftriaxone Sodium (Ceftriaxone Sodium 1 Gm Vial) 1 gm IVPUSH Q24H ALFONSO Enoxaparin Sodium (Enoxaparin Sodium 40 Mg/0.4 Ml Syringe) 40 mg SUBCUT Q24H ALFONSO Hydromorphone HCl (Hydromorphone Hcl 1 Mg/Ml Syringe) 0.5 mg IVPUSH Q4H PRN; Protocol PRN Reason: Pain, Severe (Pain Scale 7-10) Ketorolac Tromethamine (Ketorolac Tromethamine 15 Mg/Ml Vial) 15 mg IVPUSH Q6H PRN PRN Reason: Pain, Moderate(Pain Scale 4-6) Magnesium Hydroxide (Milk Of Magnesia 30 Ml Oral.Susp) 30 ml PO DAILY PRN PRN Reason: Constipation Melatonin (Melatonin 3 Mg Tablet) 6 mg PO BEDTIME PRN PRN Reason: Insomnia Ondansetron HCl (Ondansetron Hcl 4 Mg/2 Ml Vial) 4 mg IVPUSH Q8H PRN PRN Reason: Nausea and Vomiting Sodium Chloride (0.9 % Sodium Chloride Flush 3 Ml Syringe) 3 ml IVFLUSH [facility]SH[facility]HI [facility] Home Medications ?Medication ?Instructions ?Recorded ?Confirmed ?Last Taken ?Type trospium 20 mg tablet 20 mg PO BID 08/28/20 01/27/25 01/26/25 History ketorolac 0.5 % eye drops 2 drp ophthalmic (eye) DAILY PRN 04/29/21 01/27/25 Unknown History Dry Eye(S) Lactobacill 1 cap PO DAILY 06/03/22 01/27/25 01/26/25 History acidophilus-L.helvetic-B.bifidum 250 million cell capsule (Acidophilus Probiotic Complex) ascorbic acid (vitamin C) 500 mg 500 mg PO DAILY 06/03/22 01/27/25 01/26/25 History tablet calcium 600 mg (as 1 cap PO DAILY 06/03/22 01/27/25 01/26/25 History carbonate)-vitamin D3 12.5 mcg (500 unit) capsule (Calcium with Vit D3) docusate sodium 100 mg capsule 100 mg PO BEDTIME 06/03/22 01/27/25 01/26/25 History (Colace) ibuprofen 200 mg tablet 200 mg PO Q6H PRN Pain 06/03/22 01/27/25 Unknown History loratadine 10 mg tablet (Claritin) 10 mg PO DAILY 06/03/22 01/27/25 01/26/25 History melatonin 10 mg capsule 10 mg PO BEDTIME PRN Sleep 06/03/22 01/27/25 Unknown History xbdinvvk-vrvx-uvhc 8 mg-folic 400 1 tab PO DAILY 06/03/22 01/27/25 01/26/25 History mcg-K 50 mcg-lutein 300 mcg tablet (Centrum Silver Women) cranberry fruit 400 mg capsule 400 mg PO DAILY 06/14/24 01/27/25 01/26/25 History naproxen 250 mg tablet 220 mg PO DAILY PRN Pain 06/14/24 01/27/25 Unknown History diphenhydramine 25 1 - 2 tab PO BEDTIME PRN Pain/Sleep 01/27/25 01/27/25 01/26/25 History mg-acetaminophen 500 mg tablet (Acetaminophen PM) hyoscyamine sulfate 0.125 mg 0.125 mg PO Q4-6H PRN cramps 01/27/25 01/27/25 Unknown History disintegrating tablet losartan 25 mg tablet 25 mg PO DAILY 01/27/25 01/27/25 01/26/25 History methenamine hippurate 1 gram tablet 1 g PO DAILY 01/27/25 01/27/25 01/26/25 History Physical Exam 2 Vital Signs and Narrative: Vital Signs: Last Vital Signs Temp 97.3 F 01/27/25 16:18 Pulse 82 01/27/25 17:36 Resp 15 01/27/25 17:36 BP 168/92 H 01/27/25 17:36 Pulse Ox 97 01/27/25 17:36 O2 Del Method Room Air 01/27/25 17:36 BMI result Body Mass Index 25.7 Constitutional - Awake and Alert, No apparent distress Eyes - PERRLA, EOMI Cardiovascular - S1S2, RRR, No edema Respiratory - Normal lung expansion, Normal respiratory effort, No respiratory distress, CTA bilaterally Gastrointestinal - NT / ND; +BS; No rebound or guarding Extremities - no calf tenderness bilaterally, no swelling Skin - Warm/Dry Neurological - Alert & oriented x3, CN II-XII in tact, 3/5 strength BUE and BLE, decreased sensation ble, downgoing babinski, 1+ patellar reflex R and 2+ patellar reflex L, positive b/l striaight leg raises Psychological - Appropriate affect Results Labs 01/31/25 05:15 01/31/25 05:15 Labs: Laboratory Results - last 24 hr 01/27/25 01/27/25 09:53 12:40 MCV 87.0 MCH 30.5 MCHC 35.0 RDW 12.8 Plt Count 371 MPV 8.3 L Immature Gran % (Auto) 0.5 H Neut % (Auto) 84.3 H Lymph % (Auto) 7.9 L [place] % (Auto) 5.6 Eos % (Auto) 1.4 Baso % (Auto) 0.3 Lymph # (Auto) 1.1 L [place] # (Auto) 0.8 Eos # (Auto) 0.2 Baso # (Auto) 0.0 Abs Immat Gran (auto) 0.07 H Absolute Neuts (auto) 12.1 H Absolute Nucleated RBC 0.000 Nucleated RBC % (auto) 0.0 ESR 21 H Anion Gap 11 L Estim Creat Clear Calc 65.1 Estimated GFR > 60 Random Glucose 106 Calcium 9.2 Magnesium 1.8 Total Bilirubin 0.9 AST 34 H ALT 28 Alkaline Phosphatase 232 H C-Reactive Protein 3.17 H Total Protein 7.7 Albumin 4.0 Urine Color Yellow Urine Appearance Clear Urine pH 8.5 Ur Specific [place] 1.010 Urine Protein Trace Urine Glucose (UA) Negative Urine Ketones Negative Urine Blood Trace H Urine Nitrite Positive H Ur Leukocyte Esterase Moderate (2+) H Urine RBC 3-5 H Urine WBC >50 H Ur Squamous Epith Cells 0-2 Urine Bacteria 4+ Hyaline Casts 0-2 Imaging Radiologist's Impressions: Impressions Pelvis CT 01/27/25 09:31 IMPRESSION: Acute comminuted fractures, sacrum involving S1 and S2 and the neural foramina. Multilevel spondylosis L4-5 and L5-S1 resulting in central spinal canal and bilateral neuroforamina stenosis. Fluid-filled distended bladder with tiny intraluminal gas. Consider recent instrumentation. Nonspecific.. Electronically signed by: Jacky Madden MD 01/27/2025 11:13 AM EDT Lumbar Spine CT 01/27/25 10:13 IMPRESSION: 1. There are bilateral sacral insufficiency fractures present, traversing the S2 vertebral body. 2. There is moderate to advanced lumbar spondylosis, with severe central canal stenosis identified at L2-3, and L3-4. There is moderate to severe central canal stenosis at L4-5. These findings with either elucidated on nonemergent MRI. Electronically signed by: Jon Pineda MD 01/27/2025 11:10 AM EDT Lumbar Spine MRI 01/27/25 14:27 IMPRESSION: No abnormal enhancement to suggest leptomeningeal carcinomatosis or tumor infiltration in the axial skeleton. Acute insufficiency fracture S1-S2/sacrum. Multilevel spondylosis resulting in central spinal canal and bilateral neuroforamina stenosis from L2-3 to L4-5 compressing the neural elements of the thecal sac and to a lesser extent in the exiting nerve roots. Grade 1 anterolisthesis L4-5 and to a lesser extent L2-3. Cholelithiasis. Electronically signed by: Jacky Madden MD 01/27/2025 03:23 PM EDT Assessment and Plan (1) Intractable back pain: Status: Acute (2) Central stenosis of spinal canal: Status: Acute Plan 84-year-old female with history of osteopenia, recurrent UTI, IBS, anxiety, hypertension, history of cervical spinal epidural abscess, and sciatica admitted for further management of intractable low back pain #Acute intractable low back pain- due to sacral fracture and multilevel central canal stenosis -CT of the pelvis shows acute comminuted fractures of the sacrum involving S1 and S2 and the neural foramina. There is multilevel spondylosis at L4-5 and L5- S1 resulting in central spinal canal stenosis and bilateral neural foramina stenosis. CT of the lumbar spine shows moderate to advanced lumbar spondylosis with severe central canal stenosis identified at L2-3, and L3-4 with moderate to severe central canal stenosis at L4-5. MRI of the lumbar spine shows similar findings with the bilateral neural foramina stenosis at L2-3 to L4-5 compressing the neural elements of the thecal sac and to a lesser extent in the exiting nerve roots. -Pain management PRN with IV dilaudid and toradol -Prednisone 60mg daily -neurology given central canal stenosis and coinciding intermittent urinary retention -pt eval #Acute UTI -2+ leukocytes, positive nitrites, trace blood, positive urinary sediment and 4+ bacteria -leukocytosis 14.4, no other SIRS criteria. No sepsis/severe sepsis -IV ceftriaxone (initiated 01/27) -follow CBC, cultures # hypertension -continue losartan # IBS -continue high-dose thiamine # mood disorder -continue home medications # osteopenia -continue calcium/vitamin-D DVT prophylaxis-Lovenox Full code Patient requires inpatient stay at least 2 midnights due to intractable low back pain related to sacral fracture and multilevel central canal stenosis requiring IV pain management and expert consultation Quality Stroke Does the patient have a stroke diagnosis?: No VTE Prior VTE?: No VTE Risk Level:: Medical - moderate - high VTE Device Contraindication: Treatment Not Indicated VTE Drug Contraindication: N/A - Med Ordered
[2025-01-27] MEDS: Lidocaine 4 % Patch ADH..PATCH 2 PATCH TRANSDERMA (20:20)
[2025-01-27] MEDS: Docusate Sodium 100 MG CAPSULE PO (20:20)
[2025-01-27] MEDS: Enoxaparin Sodium 40 MG/0.4 ML SYRINGE SUBCUT (20:20)
--- NOTE | 2025-01-27 20:26 | PC.NURSE ---
pt medicated per provider order. lidocaine patches applied to lower back. effectiveness pending. pt incontinent of urine - new padding placed. turned/repositioned. pillow placed under left side of pt's back to promote comfort. pt remains on RA w/o difficulty. no sob/wob noted. respirations even/unlabored. pending bed assignment. plan of care ongoing. call aguilar placed within reach.
[2025-01-28] MEDS: ondansetron HCL 4 MG/2 ML VIAL IVPUSH (00:02)
[2025-01-28] MEDS: HYDROmorphone HCl 1 MG/ML SYRINGE 0.5 MG IVPUSH ×2 (00:03→13:18)
[2025-01-28] MEDS: 0.9 % Sodium Chloride Flush 3 ML SYRINGE IVFLUSH ×4 (00:05→20:38)
[2025-01-28 05:12] LABS: MANUAL DIFF FLAG NO
[2025-01-28 05:16] LABS: Basophils Percent Auto 0.2 % (0-2); Hematocrit 38.1 % (37.0-47.0); Hemoglobin 13.4 g/dl (12.0-16.0); Imm Gran Abs Auto 0.05 X10*3/uL (0.00-0.03); Imm Gran Pct Auto 0.4 % (0.0-0.4); Lymphocytes Percent Auto 8.2 % (20-40); Mean Corpuscular HGB Conc 35.2 g/dl (31.0-35.0); Mean Corpuscular Hemoglobin 30.8 pg (27.0-33.0); Mean Corpuscular Volume 87.6 fL (80.0-98.0); Mean Platelet Volume 8.9 fL (9.4-12.3); Monocytes Absolute Auto 0.5 X10*3/uL (0.1-1.2); Monocytes Percent Auto 4.2 % (2-11); Neutrophils Absolute Auto 10.9 x10*3/uL (2.0-8.3); Platelet Count 395 X10*3/uL (160-400); Red Blood Count 4.35 X10*6/uL (4.20-5.50); Red Cell Distribution Width 13.1 % (11.0-16.0); White Blood Count 12.5 X10*3/uL (4.8-10.8)
[2025-01-28 05:37] LABS: Anion Gap 15 (12-20); Blood Urea Nitrogen 26 mg/dL (9-16); Calcium 9.6 mg/dL (8.4-10.2); Carbon Dioxide 21 mmol/L (22-29); Chloride 101 mmol/L (96-108); Creatinine Clr Calc Pharmacy 44.4; Estimated Glomerular Filt Rate 59; Glucose Random 124 mg/dL (60-115); Potassium 4.8 mmol/L (3.3-5.1); Sodium 132 mmol/L (135-145)
[2025-01-28 06:20] VITALS: BP 112/71; PULSE 78; RESP 16; TEMP 36.6; O2SAT 97
[2025-01-28 07:13] VITALS: BP 138/72; PULSE 71; RESP 14; TEMP 36.4; O2SAT 99
[2025-01-28 08:41] VITALS: BP 138/72; PULSE 71; O2SAT 99
--- NOTE | 2025-01-28 08:59 | HO.PM.IMPN ---
Subjective Subjective Date of Service: 01/28/25 Interval History: Complaining of back pain. Review of Systems Review of Systems: Yes all other systems are reviewed and are negative Physical Exam Vital Signs: Vital Signs: Last Vital Signs Temp 97.6 F 01/28/25 07:13 Pulse 71 01/28/25 08:41 Resp 14 01/28/25 07:13 BP 138/72 01/28/25 08:41 Pulse Ox 99 01/28/25 08:41 O2 Del Method Room Air 01/28/25 07:13 BMI result Body Mass Index 25.7 Elderly female lying in bed in no distress Eyes - PERRLA, EOMI Cardiovascular - S1S2, RRR, No edema Respiratory - Normal lung expansion, Normal respiratory effort, No respiratory distress, CTA bilaterally Gastrointestinal - NT / ND; +BS; No rebound or guarding Extremities - no calf tenderness bilaterally, no swelling Skin - Warm/Dry Neurological - Alert & oriented x3, CN II-XII in tact, 3/5 strength BUE and BLE, decreased sensation ble, downgoing babinski, 1+ patellar reflex R and 2+ patellar reflex L, positive b/l striaight leg raises Psychological - Appropriate affect Objective Data Active Medications Acetaminophen (Acetaminophen 325 Mg Tablet) 650 mg PO Q6H PRN PRN Reason: Pain, Mild 1-3,fever,headache Ascorbic Acid (Ascorbic Acid 500 Mg Tablet) 500 mg PO DAILY [facility] Calcium Carbonate (Calcium Carbonate 750 Mg Tab.Chew) 750 mg PO Q4H PRN PRN Reason: Heartburn Calcium Carbonate/Cholecalciferol (Calcium + Vitamin D 250 Mg Tablet) 500 mg PO DAILY [facility] Ceftriaxone Sodium (Ceftriaxone Sodium 1 Gm Vial) 1 gm IVPUSH Q24H [facility] Docusate Sodium (Docusate Sodium 100 Mg Capsule) 100 mg PO BEDTIME [facility] Last Admin: 01/27/25 20:20 Dose: 100 mg Documented By: MELODY Enoxaparin Sodium (Enoxaparin Sodium 40 Mg/0.4 Ml Syringe) 40 mg SUBCUT Q24H [facility] Last Admin: 01/27/25 20:20 Dose: 40 mg Documented By: MELODY Hydromorphone HCl (Hydromorphone Hcl 1 Mg/Ml Syringe) 0.5 mg IVPUSH Q4H PRN; Protocol PRN Reason: Pain, Severe (Pain Scale 7-10) Last Admin: 01/28/25 00:03 Dose: 0.5 mg Documented By: YUSEF Ketorolac Tromethamine (Ketorolac Tromethamine 15 Mg/Ml Vial) 15 mg IVPUSH Q6H PRN PRN Reason: Pain, Moderate(Pain Scale 4-6) Ketorolac Tromethamine (Ketorolac Tromethamine 0.5% Op 5 Ml Drops) 2 drop EYE-BOTH DAILY PRN PRN Reason: Dry Eye(S) Lidocaine (Lidocaine 4 % Patch Adh..Patch) 2 patch TRANSDERMA DAILY [facility]; Protocol Last Admin: 01/27/25 20:20 Dose: 2 patch Documented By: MELODY Loratadine (Loratadine 10 Mg Tablet) 10 mg PO DAILY [facility] Losartan Potassium (Losartan Potassium 25 Mg Tablet) 25 mg PO DAILY [facility]; Protocol Magnesium Hydroxide (Milk Of Magnesia 30 Ml Oral.Susp) 30 ml PO DAILY PRN PRN Reason: Constipation Melatonin (Melatonin 3 Mg Tablet) 6 mg PO BEDTIME PRN PRN Reason: Insomnia Multivitamins/Vitamin C (Multivitamin Tablet) 1 tab PO DAILY [facility] Non-Formulary Medication (Trospium) 20 mg PO BID [facility] Ondansetron HCl (Ondansetron Hcl 4 Mg/2 Ml Vial) 4 mg IVPUSH Q8H PRN PRN Reason: Nausea and Vomiting Last Admin: 01/28/25 00:02 Dose: 4 mg Documented By: YUSEF Prednisone (Prednisone 20 Mg Tablet) 60 mg PO DAILY [facility] Sertraline HCl (Sertraline Hcl 25 Mg Tablet) 25 mg PO DAILY [facility] Sodium Chloride (0.9 % Sodium Chloride Flush 3 Ml Syringe) 3 ml IVFLUSH QSHIFT [facility] Last Admin: 01/28/25 00:05 Dose: 3 ml Documented By: YUSEF Labs 01/28/25 04:14 01/28/25 04:14 Labs: Laboratory Results - last 24 hr 01/27/25 01/27/25 01/28/25 09:53 12:40 04:14 MCV 87.0 87.6 MCH 30.5 30.8 MCHC 35.0 35.2 H RDW 12.8 13.1 Plt Count 371 395 MPV 8.3 L 8.9 L Immature Gran % (Auto) 0.5 H 0.4 Neut % (Auto) 84.3 H 87.0 H Lymph % (Auto) 7.9 L 8.2 L Cook % (Auto) 5.6 4.2 Eos % (Auto) 1.4 0.0 Baso % (Auto) 0.3 0.2 Lymph # (Auto) 1.1 L 1.0 L Cook # (Auto) 0.8 0.5 Eos # (Auto) 0.2 0.0 Baso # (Auto) 0.0 0.0 Abs Immat Gran (auto) 0.07 H 0.05 H Absolute Neuts (auto) 12.1 H 10.9 H Absolute Nucleated RBC 0.000 0.000 Nucleated RBC % (auto) 0.0 0.0 ESR 21 H Anion Gap 11 L 15 Estim Creat Clear Calc 65.1 44.4 Estimated GFR > 60 59 Random Glucose 106 124 H Calcium 9.2 9.6 Magnesium 1.8 Total Bilirubin 0.9 AST 34 H ALT 28 Alkaline Phosphatase 232 H C-Reactive Protein 3.17 H Total Protein 7.7 Albumin 4.0 Urine Color Yellow Urine Appearance Clear Urine pH 8.5 Ur Specific [place] 1.010 Urine Protein Trace Urine Glucose (UA) Negative Urine Ketones Negative Urine Blood Trace H Urine Nitrite Positive H Ur Leukocyte Esterase Moderate (2+) H Urine RBC 3-5 H Urine WBC >50 H Ur Squamous Epith Cells 0-2 Urine Bacteria 4+ Hyaline Casts 0-2 Assessment and Plan (1) Intractable back pain: Status: Acute (2) Central stenosis of spinal canal: Status: Acute Plan 84-year-old female with history of osteopenia, recurrent UTI, IBS, anxiety, hypertension, history of cervical spinal epidural abscess, and sciatica admitted for further management of intractable low back pain #Acute intractable low back pain- due to sacral fracture and multilevel central canal stenosis -CT of the pelvis shows acute comminuted fractures of the sacrum involving S1 and S2 and the neural foramina. MRI of the lumbar spine shows similar findings with the bilateral neural foramina stenosis at L2-3 to L4-5 compressing the neural elements of the thecal sac and to a lesser extent in the exiting nerve roots. -Pain management PRN with IV dilaudid. Will add scheduled po tramadol -Prednisone 60mg daily -neurology given central canal stenosis and coinciding intermittent urinary retention - pending eval -pt eval pending #Acute UTI -2+ leukocytes, positive nitrites, trace blood, positive urinary sediment and 4+ bacteria -leukocytosis 14.4, no other SIRS criteria. No sepsis/severe sepsis -IV ceftriaxone (initiated 01/27) -follow CBC, cultures # hypertension -continue losartan # IBS -continue high-dose thiamine # mood disorder -continue sertraline # osteopenia -continue calcium/vitamin-D DVT prophylaxis-Lovenox Full code Reason for continued hospitalization: Pain control. Neurology consult and PT eval pending. Quality Stroke Does the patient have a stroke diagnosis?: No VTE Prior VTE?: No VTE Risk Level:: Medical - moderate - high VTE Device Contraindication: Treatment Not Indicated VTE Drug Contraindication: N/A - Med Ordered
[2025-01-28] MEDS: traMADoL HCL 50 MG TABLET PO ×3 (09:53→20:37)
[2025-01-28] MEDS: Sertraline HCL 25 MG TABLET PO (09:54)
[2025-01-28] MEDS: Losartan Potassium 25 MG TABLET PO (09:54)
[2025-01-28] MEDS: predniSONE 20 MG TABLET 60 MG PO (09:54)
[2025-01-28] MEDS: Loratadine 10 MG TABLET PO (09:54)
[2025-01-28] MEDS: Calcium + Vitamin D 250 MG TABLET 500 MG PO (09:54)
[2025-01-28] MEDS: Lidocaine 4 % Patch ADH..PATCH 2 PATCH TRANSDERMA (09:54)
[2025-01-28] MEDS: Ascorbic Acid 500 MG TABLET PO (09:54)
[2025-01-28] MEDS: Multivitamin TABLET 1 TAB PO (09:54)
--- NOTE | 2025-01-28 09:55 | PM.NEUROCN ---
History of Present Illness Data of Consult Service Date: 01/28/25 Primary Care Provider: Fatou Hinojosa MD [facility] Reason for consult: Back pain and urinary retention 84 years old woman with previous history of cervical spine disease fell on eyes few days ago landing on her lower back. Since then she was having back pain which became severe bringing her to hospital. Since then she was also having tingling and numb feeling in her toes. She was noted to be with full bladder or urinary retention. Pain on admission was tendon were 10 and when I saw her she was more comfortable stating that pain was about 7. She was able to get up and walk on her feet. Review of Systems Review of Systems: Severe back pain and difficulty urination PMFSH Past Medical History Medical History Vitamin D deficiency Hearing loss Annual physical exam Gallstones Osteopenia Frequent UTI Breast calcification, right Sacroiliitis Urge incontinence IBS (irritable bowel syndrome) Family History Family History Father No problems noted. Mother HTN (hypertension) Aneurysm Surgical History Surgical History H/O colonoscopy Social History Social History Housing: Condominium Alcohol intake: current Alcohol intake frequency: holidays/special occasions only Patient Tobacco Use Status: Never used Tobacco Smoked in Last 30 Days: No e-Cigarette/Vaping Use: Never Used Use of substances other than those prescribed or required for medical reasons: No Advance Directives: No Advance Directives Information Provided: Yes Do you have a plan to hurt others: No Plan Nutrition Risks: No Nutritional Risk service: No Current occupational status: retired Cognitive needs: No Hearing needs: No Vision needs: No Meds Allergies Allergy/AdvReac Type Severity Reaction Status Date / Time nitrofurantoin Allergy Unknown diarrhea, Verified 01/27/25 07:47 [NITROFURANTOIN] swollen lips oxycodone [From PERCOCET] Allergy Unknown NAUSEA & Verified 01/27/25 07:47 VOMITING Sulfa (Sulfonamide Allergy Unknown diarrhea, Verified 01/27/25 07:47 Antibiotics) swollen [SULFA (SULFONAMIDE lips ANTIBIOTICS)] trimethoprim [TRIMETHOPRIM] Allergy Unknown diarrhea, Verified 01/27/25 07:47 swollen lips lactose Allergy Gastrointestinal Verified 01/27/25 16:26 Upset hydrocodone [From VICODIN] AdvReac Mild NAUSEA & Verified 01/27/25 07:47 VOMITING Nitrofurantoin Macrocrystal Allergy Unknown diarrhea, Uncoded 01/27/25 07:47 swollen lips Trimethoprim HCl Allergy Unknown diarrhea Uncoded 01/27/25 07:47 swollen lips Active Medications: Current Medications Acetaminophen (Acetaminophen 325 Mg Tablet) 650 mg PO Q6H PRN PRN Reason: Pain, Mild 1-3,fever,headache Ascorbic Acid (Ascorbic Acid 500 Mg Tablet) 500 mg PO DAILY [facility] Last Admin: 01/28/25 09:54 Dose: 500 mg Calcium Carbonate (Calcium Carbonate 750 Mg Tab.Chew) 750 mg PO Q4H PRN PRN Reason: Heartburn Calcium Carbonate/Cholecalciferol (Calcium + Vitamin D 250 Mg Tablet) 500 mg PO DAILY [facility] Last Admin: 01/28/25 09:54 Dose: 500 mg Ceftriaxone Sodium (Ceftriaxone Sodium 1 Gm Vial) 1 gm IVPUSH Q24H [facility] Docusate Sodium (Docusate Sodium 100 Mg Capsule) 100 mg PO BEDTIME [facility] Last Admin: 01/27/25 20:20 Dose: 100 mg Enoxaparin Sodium (Enoxaparin Sodium 40 Mg/0.4 Ml Syringe) 40 mg SUBCUT Q24H [facility] Last Admin: 01/27/25 20:20 Dose: 40 mg Hydromorphone HCl (Hydromorphone Hcl 1 Mg/Ml Syringe) 0.5 mg IVPUSH Q4H PRN; Protocol PRN Reason: Pain, Severe (Pain Scale 7-10) Last Admin: 01/28/25 00:03 Dose: 0.5 mg Ketorolac Tromethamine (Ketorolac Tromethamine 0.5% Op 5 Ml Drops) 2 drop EYE-BOTH DAILY PRN PRN Reason: Dry Eye(S) Lidocaine (Lidocaine 4 % Patch Adh..Patch) 2 patch TRANSDERMA DAILY [facility]; Protocol Last Admin: 01/28/25 09:54 Dose: 2 patch Loratadine (Loratadine 10 Mg Tablet) 10 mg PO DAILY [facility] Last Admin: 01/28/25 09:54 Dose: 10 mg Losartan Potassium (Losartan Potassium 25 Mg Tablet) 25 mg PO DAILY [facility]; Protocol Last Admin: 01/28/25 09:54 Dose: 25 mg Magnesium Hydroxide (Milk Of Magnesia 30 Ml Oral.Susp) 30 ml PO DAILY PRN PRN Reason: Constipation Melatonin (Melatonin 3 Mg Tablet) 6 mg PO BEDTIME PRN PRN Reason: Insomnia Multivitamins/Vitamin C (Multivitamin Tablet) 1 tab PO DAILY [facility] Last Admin: 01/28/25 09:54 Dose: 1 tab Non-Formulary Medication (Trospium) 20 mg PO BID [facility] Ondansetron HCl (Ondansetron Hcl 4 Mg/2 Ml Vial) 4 mg IVPUSH Q8H PRN PRN Reason: Nausea and Vomiting Last Admin: 01/28/25 00:02 Dose: 4 mg Prednisone (Prednisone 20 Mg Tablet) 60 mg PO DAILY [facility] Last Admin: 01/28/25 09:54 Dose: 60 mg Sertraline HCl (Sertraline Hcl 25 Mg Tablet) 25 mg PO DAILY [facility] Last Admin: 01/28/25 09:54 Dose: 25 mg Sodium Chloride (0.9 % Sodium Chloride Flush 3 Ml Syringe) 3 ml IVFLUSH QSHIFT [facility] Last Admin: 01/28/25 09:54 Dose: 3 ml Tramadol HCl (Tramadol Hcl 50 Mg Tablet) 50 mg PO Q6H [facility] Last Admin: 01/28/25 09:53 Dose: 50 mg Home Medications ?Medication ?Instructions ?Recorded ?Confirmed ?Last Taken ?Type trospium 20 mg tablet 20 mg PO BID 08/28/20 01/27/25 01/26/25 History ketorolac 0.5 % eye drops 2 drp ophthalmic (eye) DAILY PRN 04/29/21 01/27/25 Unknown History Dry Eye(S) Lactobacill 1 cap PO DAILY 06/03/22 01/27/25 01/26/25 History acidophilus-L.helvetic-B.bifidum 250 million cell capsule (Acidophilus Probiotic Complex) ascorbic acid (vitamin C) 500 mg 500 mg PO DAILY 06/03/22 01/27/25 01/26/25 History tablet calcium 600 mg (as 1 cap PO DAILY 06/03/22 01/27/25 01/26/25 History carbonate)-vitamin D3 12.5 mcg (500 unit) capsule (Calcium with Vit D3) docusate sodium 100 mg capsule 100 mg PO BEDTIME 0701/27/25 01/26/25 History (Colace) ibuprofen 200 mg tablet 200 mg PO Q6H PRN Pain 06/03/22 01/27/25 Unknown History loratadine 10 mg tablet (Claritin) 10 mg PO DAILY 06/03/22 01/27/25 01/26/25 History melatonin 10 mg capsule 10 mg PO BEDTIME PRN Sleep 06/03/22 01/27/25 Unknown History mlldablt-vsau-cbqa 8 mg-folic 400 1 tab PO DAILY 06/03/22 01/27/25 01/26/25 History mcg-K 50 mcg-lutein 300 mcg tablet (Centrum Silver Women) cranberry fruit 400 mg capsule 400 mg PO DAILY 06/14/24 01/27/25 01/26/25 History naproxen 250 mg tablet 220 mg PO DAILY PRN Pain 06/14/24 01/27/25 Unknown History diphenhydramine 25 1 - 2 tab PO BEDTIME PRN Pain/Sleep 01/27/25 01/27/25 01/26/25 History mg-acetaminophen 500 mg tablet (Acetaminophen PM) hyoscyamine sulfate 0.125 mg 0.125 mg PO Q4-6H PRN cramps 01/27/25 01/27/25 Unknown History disintegrating tablet losartan 25 mg tablet 25 mg PO DAILY 01/27/25 01/27/25 01/26/25 History methenamine hippurate 1 gram tablet 1 g PO DAILY 01/27/25 01/27/25 01/26/25 History Physical Exam Vital Signs: Vital Signs: Last Vital Signs Temp 97.6 F 01/28/25 07:13 Pulse 71 01/28/25 08:41 Resp 14 01/28/25 07:13 BP 138/72 01/28/25 08:41 Pulse Ox 99 01/28/25 08:41 O2 Del Method Room Air 01/28/25 07:13 BMI result Body Mass Index 25.7 Neuro: Other: He is alert and awake with normal spontaneity of speech fluency comprehension and affect. She is able to lift each leg up against gravity. She is able to fully wiggle her toes. Knee and ankle reflexes are trace to absent with flexor plantars. Results Labs 01/28/25 04:14 01/28/25 04:14 Labs: Short CBC 01/27/25 01/28/25 Range/Units 09:53 04:14 WBC 14.4 H 12.5 H (4.8-10.8) X10*3/uL Hgb 13.8 13.4 (12.0-16.0) g/dl Hct 39.4 38.1 (37.0-47.0) % Plt Count 371 395 (160-400) X10*3/uL BMP 01/27/25 01/28/25 09:53 04:14 Sodium 133 L 132 L Potassium 3.7 4.8 D Chloride 101 101 Carbon Dioxide 25 21 L BUN 12 26 H Creatinine 0.62 0.91 Calcium 9.2 9.6 Liver Function 01/27/25 Range/Units 09:53 Total Bilirubin 0.9 (0.0-1.0) mg/dL AST 34 H (5-31) U/L ALT 28 (0-31) U/L Alkaline Phosphatase 232 H (39-117) U/L Albumin 4.0 (3.5-5.0) g/dL Urine 01/27/25 Range/Units 12:40 Urine Color Yellow Urine Appearance Clear Urine pH 8.5 (5.0-9.0) Ur Specific [place] 1.010 (1.005-1.025) Urine Protein Trace (Neg-Trace) mg/dL Urine Glucose (UA) Negative (Negative) mg/dL MRI of lumbosacral spine revealed moderate to severe multilevel stenosis, sacral fracture, and full bladder. Microbiology Microbiology Results: Microbiology 01/27/25 Unknown Urine clean catch - Clean Catch Midstream Urine Culture - Preliminary Staphylococcus species Assessment and Plan (1) Cauda equina syndrome: Status: Acute 84 years old woman with chronic multilevel spinal stenosis and recent fall resulting in sacral fracture probably resulting in edema and impinging on cauda equina. She was having intractable pain and also urinary retention. I recommend brief course of Decadron and neuro surgical consultation. In the meantime, for management, urinary catheterization is recommended to assess her postvoid residual. Procedures Date of Service Date of Service: 01/28/25
--- NOTE | 2025-01-28 13:56 | MHC.CM.PN ---
PT LIVES ALONE HAD NO,PREVIOUS SERVICES PT IS AGREEABLE TO PTS RECOMMENDATION FOR STR REFERRALS MADE
[2025-01-28 15:12] VITALS: BP 149/77; PULSE 86; RESP 18; TEMP 36.6; O2SAT 98
[2025-01-28 15:32] VITALS: BMI 21.0
[2025-01-28] MEDS: cefTRIAXone sodium 1 GM VIAL IVPUSH (16:00)
--- NOTE | 2025-01-28 16:09 | P.CDIM_ITS ---
PROVIDER RESPONSE TEXT: To clarify, the appropriate diagnosis supported by the clinical indicators: Sacral fracture: unknown QUERY TEXT: PHYSICIAN'S DOCUMENTATION REQUEST Date of Query: 01/28/2025 09:40 AM EDT Patient Name: Jennifer Wilson Admit Date: 01/27/2025 Dear Tom Gaviria MD, A review of the medical record indicates additional documentation may be needed. Please review below and update the documentation accordingly. Documentation in the record indicates the patient was admitted with a Sacral fracture. Clinical Indicators: Patient with low back pain, intermittent numbness, tingling in the groin, slipped on the ice 3 weeks ago. She endorsed low back pain after this fall radiating down her legs to her ankles. Osteopenia/MRI showed Acute insufficiency fracture L2-3 to L4-5 compressing the neural elements of th e thecal sac and to a lesser extent in the exiting nerve roots. Lidocaine Tramadol/Dilaudid Please provide the following additional clarification regarding further specifics to the noted Sacral fracture, if known: Sacral fracture (Please note if Type I, II, IIIA, IIIB, or IIIC or Zone I. II, III etc. Other specifics to the noted sacral fracture Other (explain) Clinically unable to determine (explain) Thank you, Rosario Multnai, CCS, CDIS Use of terms such as suspected, likely, concern for, or probable (associated with a specific diagnosi s that is being evaluated, monitored, or treated as if it exists) are acceptable and can be coded in the inpatient se tting, when documented at the time of discharge. Please use your independent medical judgment in providing your response. THIS QUERY IS PART OF THE PERMANENT MEDICAL RECORD
[2025-01-28] MEDS: Enoxaparin Sodium 40 MG/0.4 ML SYRINGE SUBCUT (19:03)
[2025-01-28 19:37] VITALS: BP 141/66; PULSE 78; RESP 18; TEMP 36.2; O2SAT 97
[2025-01-28] MEDS: Docusate Sodium 100 MG CAPSULE PO (20:37)
[2025-01-29 03:46] VITALS: BP 150/74; PULSE 85; RESP 18; TEMP 36.4; O2SAT 98
[2025-01-29] MEDS: traMADoL HCL 50 MG TABLET PO ×4 (04:01→20:08)
[2025-01-29 07:28] VITALS: BP 149/68; PULSE 78; RESP 16; TEMP 36.4; O2SAT 99
[2025-01-29] MEDS: Calcium + Vitamin D 250 MG TABLET 500 MG PO (08:28)
[2025-01-29] MEDS: Multivitamin TABLET 1 TAB PO (08:28)
[2025-01-29] MEDS: Sertraline HCL 25 MG TABLET PO (08:28)
[2025-01-29] MEDS: Loratadine 10 MG TABLET PO (08:28)
[2025-01-29] MEDS: Ascorbic Acid 500 MG TABLET PO (08:28)
[2025-01-29] MEDS: Lidocaine 4 % Patch ADH..PATCH 2 PATCH TRANSDERMA (08:31)
[2025-01-29] MEDS: Losartan Potassium 25 MG TABLET PO (08:31)
[2025-01-29] MEDS: 0.9 % Sodium Chloride Flush 3 ML SYRINGE IVFLUSH ×3 (08:32→20:08)
[2025-01-29 09:54] VITALS: BP 149/68; PULSE 78; O2SAT 99
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
[2025-01-29] MEDS: Milk of Magnesia 30 ML ORAL.SUSP PO (10:30)
--- NOTE | 2025-01-29 11:15 | MHC.CM.PN ---
Met with patient to discuss DP. She had a bed offer from [facility]. She requested a SNF closer to [place]. Referrals sent and a bed offer has been accepted from [facility]. Per MD rounds DC is anticipated 2 days. Clinical info has been sent to the STR/ DP [facility] via BLS.
--- NOTE | 2025-01-29 11:25 | P.PNIM_ITS ---
Subjective Subjective Date of Service: 01/29/25 Interval History: Complaining of back pain and constipation. Last BM >3 days ago Review of Systems All other ROS reviewed and negative except as noted above Review of Systems: Yes all other systems are reviewed and are negative Physical Exam 2 Vital Signs: Vital Signs: Last Vital Signs Temp 97.6 F 01/29/25 07:28 Pulse 78 01/29/25 09:54 Resp 16 01/29/25 07:28 BP 149/68 H 01/29/25 09:54 Pulse Ox 99 01/29/25 09:54 O2 Del Method Room Air 01/29/25 07:28 BMI result Body Mass Index 21.0 Const: Other: Elderly female lying in bed in no distress Eyes - PERRLA, EOMI Cardiovascular - S1S2, RRR, No edema Respiratory - Normal lung expansion, Normal respiratory effort, No respiratory distress, CTA bilaterally Gastrointestinal - NT / ND; +BS; No rebound or guarding Extremities - no calf tenderness bilaterally, no swelling Skin - Warm/Dry Neurological - Alert & oriented x3, CN II-XII in tact, 5/5 strength BUE and BLE, no sensory deficit b/l legs Psychological - Appropriate affect Objective Data Active Medications Acetaminophen (Acetaminophen 325 Mg Tablet) 650 mg PO Q6H PRN PRN Reason: Pain, Mild 1-3,fever,headache Ascorbic Acid (Ascorbic Acid 500 Mg Tablet) 500 mg PO DAILY [facility] Last Admin: 01/29/25 08:28 Dose: 500 mg Documented By: SAQIB Calcium Carbonate (Calcium Carbonate 750 Mg Tab.Chew) 750 mg PO Q4H PRN PRN Reason: Heartburn Calcium Carbonate/Cholecalciferol (Calcium + Vitamin D 250 Mg Tablet) 500 mg PO DAILY [facility] Last Admin: 01/29/25 08:28 Dose: 500 mg Documented By: SAQIB Ceftriaxone Sodium (Ceftriaxone Sodium 1 Gm Vial) 1 gm IVPUSH Q24H [facility] Last Admin: 01/28/25 16:00 Dose: 1 gm Documented By: MATTHIAS Dexamethasone (Dexamethasone 4 Mg Tablet) 8 mg PO BIDWM [facility] Docusate Sodium (Docusate Sodium 100 Mg Capsule) 100 mg PO BEDTIME [facility] Last Admin: 01/28/25 20:37 Dose: 100 mg Documented By: DANNA Enoxaparin Sodium (Enoxaparin Sodium 40 Mg/0.4 Ml Syringe) 40 mg SUBCUT Q24H [facility] Last Admin: 01/28/25 19:03 Dose: 40 mg Documented By: MATTHIAS Hydromorphone HCl (Hydromorphone Hcl 1 Mg/Ml Syringe) 0.5 mg IVPUSH Q4H PRN; Protocol PRN Reason: Pain, Severe (Pain Scale 7-10) Last Admin: 01/28/25 13:18 Dose: 0.5 mg Documented By: PERLA Ketorolac Tromethamine (Ketorolac Tromethamine 0.5% Op 5 Ml Drops) 2 drop EYE- BOTH DAILY PRN PRN Reason: Dry Eye(S) Lidocaine (Lidocaine 4 % Patch Adh..Patch) 2 patch TRANSDERMA DAILY [facility]; Protocol Last Admin: 01/29/25 08:31 Dose: 2 patch Documented By: SAQIB Loratadine (Loratadine 10 Mg Tablet) 10 mg PO DAILY [facility] Last Admin: 01/29/25 08:28 Dose: 10 mg Documented By: SAQIB Losartan Potassium (Losartan Potassium 25 Mg Tablet) 25 mg PO DAILY [facility]; Protocol Last Admin: 01/29/25 08:31 Dose: 25 mg Documented By: SAQIB Magnesium Hydroxide (Milk Of Magnesia 30 Ml Oral.Susp) 30 ml PO DAILY PRN PRN Reason: Constipation Last Admin: 01/29/25 10:30 Dose: 30 ml Documented By: SAQIB Melatonin (Melatonin 3 Mg Tablet) 6 mg PO BEDTIME PRN PRN Reason: Insomnia Multivitamins/Vitamin C (Multivitamin Tablet) 1 tab PO DAILY [facility] Last Admin: 01/29/25 08:28 Dose: 1 tab Documented By: SAQIB Non-Formulary Medication (Trospium) 20 mg PO BID [facility] Ondansetron HCl (Ondansetron Hcl 4 Mg/2 Ml Vial) 4 mg IVPUSH Q8H PRN PRN Reason: Nausea and Vomiting Last Admin: 01/28/25 00:02 Dose: 4 mg Documented By: YUSEF Sertraline HCl (Sertraline Hcl 25 Mg Tablet) 25 mg PO DAILY [facility] Last Admin: 01/29/25 08:28 Dose: 25 mg Documented By: SAQIB Sodium Chloride (0.9 % Sodium Chloride Flush 3 Ml Syringe) 3 ml IVFLUSH QSHIFT [facility] Last Admin: 01/29/25 08:32 Dose: 3 ml Documented By: SAQIB Tramadol HCl (Tramadol Hcl 50 Mg Tablet) 50 mg PO Q6H [facility] Last Admin: 01/29/25 08:28 Dose: 50 mg Documented By: SAQIB Labs 01/28/25 04:14 01/28/25 04:14 Microbiology Microbiology Results: Microbiology 01/27/25 Unknown Urine Culture - Final Urine clean catch - Clean Catch Midstream Methicillin Res Staph Aureus Assessment and Plan (1) Intractable back pain: Status: Acute (2) Sacral fracture: Status: Acute Plan 84-year-old female with history of osteopenia, recurrent UTI, IBS, anxiety, hypertension, history of cervical spinal epidural abscess, and sciatica admitted for further management of intractable low back pain #Acute intractable low back pain- due to sacral fracture and multilevel central canal stenosis -Pain management PRN with IV dilaudid. Added scheduled po tramadol -neurology recommended decadron and neurosx consult -neurosx consulted. Talked and discussed with Dr resendiz. Not true cauda equina and no indication of steroids, d/c'ed decadron -pt eval>STR #Acute UTI -causing urinary incontinence -urine cx- MRSA. Vancomycin started 01/29. ID consulted -IV ceftriaxone (01/27-01/29) # Constipation -dulcolax ordered. last BM >3d ago # hypertension -continue losartan # mood disorder -continue sertraline # osteopenia -continue calcium/vitamin-D DVT prophylaxis-Lovenox Full code Reason for continued hospitalization: IV antibiotics, pain control. Quality Stroke Does the patient have a stroke diagnosis?: No VTE Prior VTE?: No VTE Risk Level:: Medical - moderate - high VTE Device Contraindication: Treatment Not Indicated VTE Drug Contraindication: N/A - Med Ordered
[2025-01-29] MEDS: Methenamine Hippurate 1 GM TABLET PO (12:26)
[2025-01-29] MEDS: bisacodyL 5 MG TABLET.DR 10 MG PO (12:26)
[2025-01-29] MEDS: vancomycin HCL 1,500 MG in 0.9 % Sodium Chloride 500 ML 333.33 MG IV (12:27)
--- NOTE | 2025-01-29 13:25 | PHA.PROG ---
Admission Date/Time: January 27, 2025 18:59 Indication: Other Weight in k.4 kg Adjusted body weight in Kg: [place] body weight in Kg: Obesity Dosing Indication % IBW: Serum Creatinine - Last 168 Hours 01/27/25 01/28/25 09:53 04:14 Creatinine 0.62 0.91 Estimated CrCl and GFR - Last 168 Hours 01/27/25 01/28/25 09:53 04:14 Estim Creat Clear Calc 65.1 44.4 Estimated GFR > 60 59 Vancomycin Loading Dose: 1500mg Current Vancomycin Dosing Regimen: 1250mg Vancomycin Monitoring using AUC goal of 400 - 600 range with trough as surrogate marker: 527 mg/L Date and Time for next Vancomycin Level to be drawn: 01/30/25 @ 1200 Pharmacist Comments on Vancomycin Plan: Vancomycin dosing will take advantage of [employer] as a clinical decision support tool that uses Bayesian modeling to calculate individual patient's pharmacokinetic parameters and forecast the patient's drug concentration time course with the target goal AUC 24 range of 400 - 600 mg/L/hr.
[2025-01-29 15:46] VITALS: BP 135/64; PULSE 74; RESP 18; TEMP 36.8; O2SAT 96
--- NOTE | 2025-01-29 16:05 | P.CNID_ITS ---
History of Present Illness Data of Consult Service Date: 01/29/25 Requesting physician: Tom Gaviria Primary Care Provider: Fatou Hinojosa MD HPI Reason for consult: back pain,urinary hesitancy She presents with worsening low back pain over last week 06/29. She fell three weeks ago on coccyx area and was seen but told to wait for area to heal. She said she couldnt get out of bed and slid onto floor three days ago and called 911. She also complains of urinary hesitancy. She has no fever or chills. MRI LS spine negative. She has MRSA in urine. I dont see blood cultures but no fever. Review of Systems 2 Review of Systems: Yes all other systems are reviewed and are negative PMFSH Past Medical History Medical History Vitamin D deficiency Hearing loss Annual physical exam Gallstones Osteopenia Frequent UTI Breast calcification, right Sacroiliitis Urge incontinence IBS (irritable bowel syndrome) Family History Family History Father No problems noted. Mother HTN (hypertension) Aneurysm Family history: reviewed and not pertinent Surgical History Surgical History H/O colonoscopy Social History Social History Household Members: None Housing: Condominium Do you presently have visiting nurse or other home services: No Alcohol intake: current Alcohol intake frequency: holidays/special occasions only Comment: bed alarm broke: chair alarm attached to jasen Patient Tobacco Use Status: Never used Tobacco e-Cigarette/Vaping Use: Never Used service: No Current occupational status: retired Cognitive needs: No Hearing needs: No Vision needs: No Meds Allergies Allergy/AdvReac Type Severity Reaction Status Date / Time nitrofurantoin Allergy Unknown diarrhea, Verified 01/27/25 07:47 [NITROFURANTOIN] swollen lips oxycodone [From PERCOCET] Allergy Unknown NAUSEA & Verified 01/27/25 07:47 VOMITING Sulfa (Sulfonamide Allergy Unknown diarrhea, Verified 01/27/25 07:47 Antibiotics) swollen [SULFA (SULFONAMIDE lips ANTIBIOTICS)] trimethoprim [TRIMETHOPRIM] Allergy Unknown diarrhea, Verified 01/27/25 07:47 swollen lips lactose Allergy Gastrointestinal Verified 01/27/25 16:26 Upset hydrocodone [From VICODIN] AdvReac Mild NAUSEA & Verified 01/27/25 07:47 VOMITING Nitrofurantoin Macrocrystal Allergy Unknown diarrhea, Uncoded 01/27/25 07:47 swollen lips Trimethoprim HCl Allergy Unknown diarrhea Uncoded 01/27/25 07:47 swollen lips Active Medications: Current Medications Acetaminophen (Acetaminophen 325 Mg Tablet) 650 mg PO Q6H PRN PRN Reason: Pain, Mild 1-3,fever,headache Ascorbic Acid (Ascorbic Acid 500 Mg Tablet) 500 mg PO DAILY [facility] Last Admin: 01/29/25 08:28 Dose: 500 mg Calcium Carbonate (Calcium Carbonate 750 Mg Tab.Chew) 750 mg PO Q4H PRN PRN Reason: Heartburn Calcium Carbonate/Cholecalciferol (Calcium + Vitamin D 250 Mg Tablet) 500 mg PO DAILY [facility] Last Admin: 01/29/25 08:28 Dose: 500 mg Docusate Sodium (Docusate Sodium 100 Mg Capsule) 100 mg PO BEDTIME [facility] Last Admin: 01/28/25 20:37 Dose: 100 mg Enoxaparin Sodium (Enoxaparin Sodium 40 Mg/0.4 Ml Syringe) 40 mg SUBCUT Q24H [facility] Last Admin: 01/28/25 19:03 Dose: 40 mg Hydromorphone HCl (Hydromorphone Hcl 1 Mg/Ml Syringe) 0.5 mg IVPUSH Q4H PRN; Protocol PRN Reason: Pain, Severe (Pain Scale 7-10) Last Admin: 01/28/25 13:18 Dose: 0.5 mg Vancomycin HCl 1,250 mg/ (Sodium Chloride) 250 mls @ 166.667 mls/hr IV Q24H [facility] Ketorolac Tromethamine (Ketorolac Tromethamine 0.5% Op 5 Ml Drops) 2 drop EYE- BOTH DAILY PRN PRN Reason: Dry Eye(S) Lidocaine (Lidocaine 4 % Patch Adh..Patch) 2 patch TRANSDERMA DAILY [facility]; Protocol Last Admin: 01/29/25 08:31 Dose: 2 patch Loratadine (Loratadine 10 Mg Tablet) 10 mg PO DAILY [facility] Last Admin: 01/29/25 08:28 Dose: 10 mg Losartan Potassium (Losartan Potassium 25 Mg Tablet) 25 mg PO DAILY [facility]; Protocol Last Admin: 01/29/25 08:31 Dose: 25 mg Magnesium Hydroxide (Milk Of Magnesia 30 Ml Oral.Susp) 30 ml PO DAILY PRN PRN Reason: Constipation Last Admin: 01/29/25 10:30 Dose: 30 ml Melatonin (Melatonin 3 Mg Tablet) 6 mg PO BEDTIME PRN PRN Reason: Insomnia Methenamine Hippurate (Methenamine Hippurate 1 Gm Tablet) 1 gm PO DAILY [facility] Last Admin: 01/29/25 12:26 Dose: 1 gm Multivitamins/Vitamin C (Multivitamin Tablet) 1 tab PO DAILY [facility] Last Admin: 01/29/25 08:28 Dose: 1 tab Non-Formulary Medication (Trospium) 20 mg PO BID [facility] Ondansetron HCl (Ondansetron Hcl 4 Mg/2 Ml Vial) 4 mg IVPUSH Q8H PRN PRN Reason: Nausea and Vomiting Last Admin: 01/28/25 00:02 Dose: 4 mg Pharmacy Consult (Consult Rx Vancomycin Dosing) 1 each MISCELLANE DAILY PRN PRN Reason: Consult order Sertraline HCl (Sertraline Hcl 25 Mg Tablet) 25 mg PO DAILY [facility] Last Admin: 01/29/25 08:28 Dose: 25 mg Sodium Chloride (0.9 % Sodium Chloride Flush 3 Ml Syringe) 3 ml IVFLUSH QSHIFT [facility] Last Admin: 01/29/25 08:32 Dose: 3 ml Tramadol HCl (Tramadol Hcl 50 Mg Tablet) 50 mg PO Q6H [facility] Last Admin: 01/29/25 14:25 Dose: 50 mg Home Medications ?Medication ?Instructions ?Recorded ?Confirmed ?Last Taken ?Type trospium 20 mg tablet 20 mg PO BID 08/28/20 01/27/25 01/26/25 History ketorolac 0.5 % eye drops 2 drp ophthalmic (eye) DAILY PRN 04/29/21 01/27/25 Unknown History Dry Eye(S) Lactobacill 1 cap PO DAILY 06/03/22 01/27/25 01/26/25 History acidophilus-L.helvetic-B.bifidum 250 million cell capsule (Acidophilus Probiotic Complex) ascorbic acid (vitamin C) 500 mg 500 mg PO DAILY 06/03/22 01/27/25 01/26/25 History tablet calcium 600 mg (as 1 cap PO DAILY 06/03/22 01/27/25 01/26/25 History carbonate)-vitamin D3 12.5 mcg (500 unit) capsule (Calcium with Vit D3) docusate sodium 100 mg capsule 100 mg PO BEDTIME 06/03/22 01/27/25 01/26/25 History (Colace) ibuprofen 200 mg tablet 200 mg PO Q6H PRN Pain 06/03/22 01/27/25 Unknown History loratadine 10 mg tablet (Claritin) 10 mg PO DAILY 06/03/22 01/27/25 01/26/25 History melatonin 10 mg capsule 10 mg PO BEDTIME PRN Sleep 06/03/22 01/27/25 Unknown History crbynrrl-rhtk-bamv 8 mg-folic 400 1 tab PO DAILY 06/03/22 01/27/25 01/26/25 History mcg-K 50 mcg-lutein 300 mcg tablet (Centrum Silver Women) cranberry fruit 400 mg capsule 400 mg PO DAILY 06/14/24 01/27/25 01/26/25 History naproxen 250 mg tablet 220 mg PO DAILY PRN Pain 06/14/24 01/27/25 Unknown History diphenhydramine 25 1 - 2 tab PO BEDTIME PRN Pain/Sleep 01/27/25 01/27/25 01/26/25 History mg-acetaminophen 500 mg tablet (Acetaminophen PM) hyoscyamine sulfate 0.125 mg 0.125 mg PO Q4-6H PRN cramps 01/27/25 01/27/25 Unknown History disintegrating tablet losartan 25 mg tablet 25 mg PO DAILY 01/27/25 01/27/25 01/26/25 History methenamine hippurate 1 gram tablet 1 g PO DAILY 01/27/25 01/27/25 01/26/25 History Physical Exam 2 Vital Signs: Vital Signs: Last Vital Signs Temp 98.2 F 01/29/25 15:46 Pulse 74 01/29/25 15:46 Resp 18 01/29/25 15:46 BP 135/64 01/29/25 15:46 Pulse Ox 96 01/29/25 15:46 O2 Del Method Room Air 01/29/25 15:46 BMI result Body Mass Index 21.0 Const: General: cooperative HEENT: Head: Yes normal to inspection Face and sinus: Yes normal facial exam Mouth: Normal oral and palatal mucosa present Teeth and gingiva: d entition normal Eyes: General: appearance normal, both eyes and all related structures P upils: Equal, round and reactive pupils present Resp: Effort & Inspection: normal respiratory effort Cardio: Rate: regular rate Rhythm: regular rhythm GI: Palpation (GI): Soft to palpation and nontender : General: Yes no CVA tenderness Back/Spine/Pelvis: Back: no CVA tenderness Skin: General skin exam: no rashes or lesions noted Neuro: General: moves all extremities Cranial nerves: Yes Equal, round and reactive pupils present Extrem: General: Yes normal to inspection Psych: Appearance: grossly normal Results Labs 01/28/25 04:14 01/28/25 04:14 Microbiology Microbiology Results: Microbiology 01/27/25 Unknown Urine clean catch - Clean Catch Midstream Urine Culture - Final Methicillin Res Staph Aureus Assessment and Plan (1) Intractable back pain: Status: Acute (2) Acute UTI: Status: Acute Plan She has probable MRSA UTI. She is on Vancomycin. There is no evidence OM. Would check blood cultures even though on antibiotics. Would switch from IV Vancomycin to po Bactrim DS bid or macrodantin tomorrow for total 10 days antibiotics unless bacteremic.
[2025-01-29 19:38] VITALS: BP 132/64; PULSE 76; RESP 18; TEMP 36.5; O2SAT 96
[2025-01-29] MEDS: Enoxaparin Sodium 40 MG/0.4 ML SYRINGE SUBCUT (20:08)
[2025-01-29] MEDS: Docusate Sodium 100 MG CAPSULE PO (20:08)
[2025-01-30 02:55] VITALS: BP 170/88; PULSE 72; RESP 20; TEMP 36.4; O2SAT 96
[2025-01-30] MEDS: traMADoL HCL 50 MG TABLET PO ×3 (03:13→20:14)
[2025-01-30 06:48] LABS: Creatinine Clr Calc Pharmacy 57.5; Estimated Glomerular Filt Rate > 60
[2025-01-30] MEDS: Losartan Potassium 25 MG TABLET PO (07:44)
[2025-01-30] MEDS: Multivitamin TABLET 1 TAB PO (07:44)
[2025-01-30] MEDS: Sertraline HCL 25 MG TABLET PO (07:44)
[2025-01-30] MEDS: Methenamine Hippurate 1 GM TABLET PO (07:44)
[2025-01-30] MEDS: Calcium + Vitamin D 250 MG TABLET 500 MG PO (07:45)
[2025-01-30] MEDS: Lidocaine 4 % Patch ADH..PATCH 2 PATCH TRANSDERMA (07:45)
[2025-01-30] MEDS: Ascorbic Acid 500 MG TABLET PO (07:45)
[2025-01-30] MEDS: 0.9 % Sodium Chloride Flush 3 ML SYRINGE IVFLUSH ×3 (07:45→23:31)
[2025-01-30] MEDS: HYDROmorphone HCl 1 MG/ML SYRINGE 0.5 MG IVPUSH ×2 (07:49→23:24)
[2025-01-30] MEDS: Milk of Magnesia 30 ML ORAL.SUSP PO (07:49)
[2025-01-30 07:51] VITALS: BP 190/84; PULSE 76; RESP 20; TEMP 36.5; O2SAT 94
--- NOTE | 2025-01-30 08:20 | P.PNIM_ITS ---
Subjective Subjective Date of Service: 01/30/25 Interval History: Ongoing back pain and constipation. Last BM >4 days ago Review of Systems All other ROS reviewed and negative except as noted above Physical Exam 2 Vital Signs: Vital Signs: Last Vital Signs Temp 97.7 F 01/30/25 07:51 Pulse 76 01/30/25 07:51 Resp 20 01/30/25 07:51 BP 190/84 H 01/30/25 07:51 Pulse Ox 94 01/30/25 07:51 O2 Del Method Room Air 01/30/25 07:51 BMI result Body Mass Index 21.0 Const: Other: Elderly female lying in bed in no distress Eyes - PERRLA, EOMI Cardiovascular - S1S2, RRR, No edema Respiratory - Normal lung expansion, Normal respiratory effort, No respiratory distress, CTA bilaterally Gastrointestinal - NT / ND; +BS; No rebound or guarding Extremities - no calf tenderness bilaterally, no swelling Skin - Warm/Dry Neurological - Alert & oriented x3, CN II-XII in tact, 5/5 strength BUE and BLE, no sensory deficit b/l legs Psychological - Appropriate affect Objective Data Active Medications Acetaminophen (Acetaminophen 325 Mg Tablet) 650 mg PO Q6H PRN PRN Reason: Pain, Mild 1-3,fever,headache Ascorbic Acid (Ascorbic Acid 500 Mg Tablet) 500 mg PO DAILY [facility] Last Admin: 01/30/25 07:45 Dose: 500 mg Documented By: BETHANY Calcium Carbonate (Calcium Carbonate 750 Mg Tab.Chew) 750 mg PO Q4H PRN PRN Reason: Heartburn Calcium Carbonate/Cholecalciferol (Calcium + Vitamin D 250 Mg Tablet) 500 mg PO DAILY [facility] Last Admin: 01/30/25 07:45 Dose: 500 mg Documented By: BETHANY Docusate Sodium (Docusate Sodium 100 Mg Capsule) 100 mg PO BEDTIME [facility] Last Admin: 01/29/25 20:08 Dose: 100 mg Documented By: DANNA Enoxaparin Sodium (Enoxaparin Sodium 40 Mg/0.4 Ml Syringe) 40 mg SUBCUT Q24H [facility] Last Admin: 01/29/25 20:08 Dose: 40 mg Documented By: DANNA Hydromorphone HCl (Hydromorphone Hcl 1 Mg/Ml Syringe) 0.5 mg IVPUSH Q4H PRN; Protocol PRN Reason: Pain, Severe (Pain Scale 7-10) Last Admin: 01/30/25 07:49 Dose: 0.5 mg Documented By: BETHANY Vancomycin HCl 1,250 mg/ (Sodium Chloride) 250 mls @ 166.667 mls/hr IV Q24H [facility] Ketorolac Tromethamine (Ketorolac Tromethamine 0.5% Op 5 Ml Drops) 2 drop EYE- BOTH DAILY PRN PRN Reason: Dry Eye(S) Lidocaine (Lidocaine 4 % Patch Adh..Patch) 2 patch TRANSDERMA DAILY [facility]; Protocol Last Admin: 01/30/25 07:45 Dose: 2 patch Documented By: BETHANY Loratadine (Loratadine 10 Mg Tablet) 10 mg PO DAILY [facility] Last Admin: 01/30/25 08:02 Dose: Not Given Documented By: BETHANY Non-Admin Reason: Patient Refused Losartan Potassium (Losartan Potassium 25 Mg Tablet) 25 mg PO DAILY [facility]; Protocol Last Admin: 01/30/25 07:44 Dose: 25 mg Documented By: BETHANY Magnesium Hydroxide (Milk Of Magnesia 30 Ml Oral.Susp) 30 ml PO DAILY PRN PRN Reason: Constipation Last Admin: 01/30/25 07:49 Dose: 30 ml Documented By: BETHANY Melatonin (Melatonin 3 Mg Tablet) 6 mg PO BEDTIME PRN PRN Reason: Insomnia Methenamine Hippurate (Methenamine Hippurate 1 Gm Tablet) 1 gm PO DAILY [facility] Last Admin: 01/30/25 07:44 Dose: 1 gm Documented By: BETHANY Multivitamins/Vitamin C (Multivitamin Tablet) 1 tab PO DAILY [facility] Last Admin: 01/30/25 07:44 Dose: 1 tab Documented By: BETHANY Ondansetron HCl (Ondansetron Hcl 4 Mg/2 Ml Vial) 4 mg IVPUSH Q8H PRN PRN Reason: Nausea and Vomiting Last Admin: 01/28/25 00:02 Dose: 4 mg Documented By: YUSEF Pharmacy Consult (Consult Rx Vancomycin Dosing) 1 each MISCELLANE DAILY PRN PRN Reason: Consult order Sertraline HCl (Sertraline Hcl 25 Mg Tablet) 25 mg PO DAILY [facility] Last Admin: 01/30/25 07:44 Dose: 25 mg Documented By: BETHANY Sodium Chloride (0.9 % Sodium Chloride Flush 3 Ml Syringe) 3 ml IVFLUSH QSHIFT [facility] Last Admin: 01/30/25 07:45 Dose: 3 ml Documented By: BETHANY Tramadol HCl (Tramadol Hcl 50 Mg Tablet) 50 mg PO Q6H [facility] Last Admin: 01/30/25 08:02 Dose: Not Given Documented By: BETHANY Non-Admin Reason: pt requesting stronger pain med Labs 01/28/25 04:14 01/30/25 05:42 Labs: Laboratory Results - last 24 hr 01/29/25 01/30/25 17:10 05:42 Hold Purple Top SEE NOTE Estim Creat Clear Calc 57.5 Estimated GFR > 60 Microbiology Microbiology Results: Microbiology 01/27/25 Unknown Urine Culture - Final Urine clean catch - Clean Catch Midstream Methicillin Res Staph Aureus Assessment and Plan (1) Intractable back pain: Status: Acute (2) Sacral fracture: Status: Acute Plan 84-year-old female with history of osteopenia, recurrent UTI, IBS, anxiety, hypertension, history of cervical spinal epidural abscess, and sciatica admitted for further management of intractable low back pain #Acute intractable low back pain- due to sacral fracture and multilevel central canal stenosis -Pain management PRN with IV dilaudid. Added scheduled po tramadol -neurology recommended decadron and neurosx consult -neurosx consulted. Talked and discussed with Dr resendiz. Not true cauda equina and no indication of steroids, d/c'ed decadron -pt eval>STR #Acute UTI -High PVR. Placed galloway 01/29 -urinary continence- overflow + d/t UTI (not cauda equina) -urine cx- MRSA. Vancomycin started 01/29. ID consulted>transition to po nitrofurantoin (allergic to bactrim) upon d/c for total of 10 days. Blood cx negative so far -IV ceftriaxone (01/27-01/29) # Constipation -dulcolax ordered 01/29, still no BM. Ordered enema 01/30 # hypertension -continue losartan # mood disorder -continue sertraline # osteopenia -continue calcium/vitamin-D DVT prophylaxis-Lovenox Full code Reason for continued hospitalization: IV antibiotics, pain control, constipation, awaiting blood cx Dispo: Eventual STR Quality Stroke Does the patient have a stroke diagnosis?: No VTE Prior VTE?: No VTE Risk Level:: Medical - moderate - high VTE Device Contraindication: Treatment Not Indicated VTE Drug Contraindication: N/A - Med Ordered
[2025-01-30 09:17] VITALS: BP 144/76
--- NOTE | 2025-01-30 11:25 | MHC.CM.PN ---
[facility] requesting HCP. Patient's son will bring in a copy. Per MD rounds, no discharge today. Pain constipation management are the plan today. DP [facility] via BLS.
[2025-01-30] MEDS: vancomycin HCL 1,500 MG in 0.9 % Sodium Chloride 500 ML 333.33 MG IV (13:31)
--- NOTE | 2025-01-30 14:20 | PC.NURSE ---
Addendum entered by Vandana Berry RN 01/30/25 18:21: Pt voided 100 ml PVR 642ml, made aware, pt straight cathed for 650ml clear yellow urine. Original Note: F/C removed at 1400 Per MD Everette orders,voiding trial initiated.
--- NOTE | 2025-01-30 14:25 | PC.NURSE ---
Soap randa enema given with positive result, pt had small hard pellet like BM brown in color. MD Gaviria aware.
[2025-01-30 14:56] VITALS: BP 136/67; PULSE 76; RESP 18; TEMP 36.6; O2SAT 95
[2025-01-30] MEDS: Enoxaparin Sodium 40 MG/0.4 ML SYRINGE SUBCUT (18:27)
[2025-01-30 19:48] VITALS: BP 160/72; PULSE 75; RESP 20; TEMP 36.8; O2SAT 96
[2025-01-30] MEDS: Docusate Sodium 100 MG CAPSULE PO (20:14)
[2025-01-30 23:24] VITALS: RESP 16
[2025-01-31] MEDS: traMADoL HCL 50 MG TABLET PO ×4 (02:37→20:53)
[2025-01-31 03:20] VITALS: BP 140/82; PULSE 74; RESP 18; TEMP 36.8; O2SAT 99
[2025-01-31 05:46] LABS: MANUAL DIFF FLAG NO
[2025-01-31 05:54] LABS: Basophils Absolute Auto 0.1 X10*3/uL (0.0-0.2); Basophils Percent Auto 0.7 % (0-2); Eosinophils Absolute Auto 0.6 X10*3/uL (0.0-0.4); Eosinophils Percent Auto 5.5 % (0-4); Hematocrit 37.7 % (37.0-47.0); Hemoglobin 13.5 g/dl (12.0-16.0); Imm Gran Abs Auto 0.04 X10*3/uL (0.00-0.03); Imm Gran Pct Auto 0.4 % (0.0-0.4); Lymphocytes Absolute Auto 1.7 X10*3/uL (1.2-4.9); Lymphocytes Percent Auto 16.7 % (20-40); Mean Corpuscular HGB Conc 35.8 g/dl (31.0-35.0); Mean Corpuscular Hemoglobin 31.3 pg (27.0-33.0); Mean Corpuscular Volume 87.3 fL (80.0-98.0); Mean Platelet Volume 8.3 fL (9.4-12.3); Monocytes Percent Auto 9.5 % (2-11); Neutrophils Absolute Auto 6.9 x10*3/uL (2.0-8.3); Neutrophils Percent Auto 67.2 % (45-73); Platelet Count 347 X10*3/uL (160-400); Red Blood Count 4.32 X10*6/uL (4.20-5.50); Red Cell Distribution Width 12.8 % (11.0-16.0); White Blood Count 10.3 X10*3/uL (4.8-10.8)
[2025-01-31 06:01] LABS: Anion Gap 12 (12-20); Blood Urea Nitrogen 16 mg/dL (9-16); Calcium 9.5 mg/dL (8.4-10.2); Carbon Dioxide 27 mmol/L (22-29); Chloride 99 mmol/L (96-108); Creatinine Clr Calc Pharmacy 58.4; Estimated Glomerular Filt Rate > 60; Glucose Random 103 mg/dL (60-115); Sodium 134 mmol/L (135-145)
[2025-01-31 08:15] VITALS: BP 160/90; PULSE 77; RESP 12; TEMP 36.1; O2SAT 97
--- NOTE | 2025-01-31 08:38 | HE.PHANOTE ---
[facility] current dose is 1500 mg Q24H. Patient will have a level pulled tomorrow 02/01 @1200. Patients Scr down from 0.64 to 0.63 today. Will continue to monitor, predicted AUC 494
[2025-01-31] MEDS: HYDROmorphone HCl 1 MG/ML SYRINGE 0.5 MG IVPUSH ×2 (08:48→22:34)
[2025-01-31 08:49] VITALS: BP 160/90
[2025-01-31] MEDS: Lidocaine 4 % Patch ADH..PATCH 2 PATCH TRANSDERMA (08:49)
[2025-01-31] MEDS: Losartan Potassium 25 MG TABLET PO (08:49)
[2025-01-31] MEDS: Sertraline HCL 25 MG TABLET PO (08:49)
[2025-01-31] MEDS: 0.9 % Sodium Chloride Flush 3 ML SYRINGE IVFLUSH (08:49)
[2025-01-31] MEDS: Ascorbic Acid 500 MG TABLET PO (08:50)
[2025-01-31] MEDS: Multivitamin TABLET 1 TAB PO (08:50)
[2025-01-31] MEDS: Calcium + Vitamin D 250 MG TABLET 500 MG PO (08:51)
[2025-01-31] MEDS: Methenamine Hippurate 1 GM TABLET PO (08:51)
[2025-01-31 10:28] VITALS: BP 160/90
[2025-01-31] MEDS: Sennosides/Docusate Sodium TABLET 2 TAB PO ×2 (11:01→20:51)
--- NOTE | 2025-01-31 12:07 | P.PNIM_ITS ---
Subjective Subjective Date of Service: 01/31/25 Interval History: back pain causing difficulty with defecation urinary discomfort improving Review of Systems Review of Systems: Yes all other systems are reviewed and are negative Physical Exam 2 Vital Signs: Vital Signs: Last Vital Signs Temp 97.0 F 01/31/25 08:15 Pulse 77 01/31/25 08:15 Resp 12 01/31/25 08:15 BP 160/90 H 01/31/25 10:28 Pulse Ox 97 01/31/25 08:15 O2 Del Method Room Air 01/31/25 08:15 BMI result Body Mass Index 21.0 Gen: in no acute distress HEENT: sclera anicteric, moist mucus membranes Neck: supple Lungs: clear to auscultation bilaterally Heart: regular rate and rhythm, no murmurs Abd: soft, non-tender, non-distended Ext: no edema Skin: warm/well-perfused Neuro: alert and oriented x3, no focal findings Psych: appropriate affect Objective Data Active Medications Acetaminophen (Acetaminophen 325 Mg Tablet) 650 mg PO Q6H PRN PRN Reason: Pain, Mild 1-3,fever,headache Ascorbic Acid (Ascorbic Acid 500 Mg Tablet) 500 mg PO DAILY [facility] Last Admin: 01/31/25 08:50 Dose: 500 mg Documented By: LIZETT Calcium Carbonate (Calcium Carbonate 750 Mg Tab.Chew) 750 mg PO Q4H PRN PRN Reason: Heartburn Calcium Carbonate/Cholecalciferol (Calcium + Vitamin D 250 Mg Tablet) 500 mg PO DAILY [facility] Last Admin: 01/31/25 08:51 Dose: 500 mg Documented By: LIZETT Cyclobenzaprine HCl (Cyclobenzaprine Hcl 5 Mg Tablet) 5 mg PO TID PRN PRN Reason: back muscle spasm Enoxaparin Sodium (Enoxaparin Sodium 40 Mg/0.4 Ml Syringe) 40 mg SUBCUT Q24H [facility] Last Admin: 01/30/25 18:27 Dose: 40 mg Documented By: BETHANY Hydromorphone HCl (Hydromorphone Hcl 1 Mg/Ml Syringe) 0.5 mg IVPUSH Q4H PRN; Protocol PRN Reason: Pain, Severe (Pain Scale 7-10) Last Admin: 01/31/25 08:48 Dose: 0.5 mg Documented By: LIZETT Vancomycin HCl 1,500 mg/ (Sodium Chloride) 500 mls @ 333.333 mls/hr IV Q24H [facility] Last Infusion: 01/30/25 15:15 Dose: Infused Documented By: BETHANY Ketorolac Tromethamine (Ketorolac Tromethamine 0.5% Op 5 Ml Drops) 2 drop EYE- BOTH DAILY PRN PRN Reason: Dry Eye(S) Lidocaine (Lidocaine 4 % Patch Adh..Patch) 2 patch TRANSDERMA DAILY [facility]; Protocol Last Admin: 01/31/25 08:49 Dose: 2 patch Documented By: LIZETT Loratadine (Loratadine 10 Mg Tablet) 10 mg PO DAILY [facility] Last Admin: 01/31/25 08:50 Dose: Not Given Documented By: LIZETT Non-Admin Reason: Patient Refused Losartan Potassium (Losartan Potassium 25 Mg Tablet) 25 mg PO DAILY [facility]; Protocol Last Admin: 01/31/25 08:49 Dose: 25 mg Documented By: LIZETT Magnesium Hydroxide (Milk Of Magnesia 30 Ml Oral.Susp) 30 ml PO DAILY PRN PRN Reason: Constipation Last Admin: 01/30/25 07:49 Dose: 30 ml Documented By: BETHANY Melatonin (Melatonin 3 Mg Tablet) 6 mg PO BEDTIME PRN PRN Reason: Insomnia Methenamine Hippurate (Methenamine Hippurate 1 Gm Tablet) 1 gm PO DAILY [facility] Last Admin: 01/31/25 08:51 Dose: 1 gm Documented By: LIZETT Multivitamins/Vitamin C (Multivitamin Tablet) 1 tab PO DAILY [facility] Last Admin: 01/31/25 08:50 Dose: 1 tab Documented By: LIZETT Ondansetron HCl (Ondansetron Hcl 4 Mg/2 Ml Vial) 4 mg IVPUSH Q8H PRN PRN Reason: Nausea and Vomiting Last Admin: 01/28/25 00:02 Dose: 4 mg Documented By: YUSEF Pharmacy Consult (Consult Rx Vancomycin Dosing) 1 each MISCELLANE DAILY PRN PRN Reason: Consult order Polyethylene Glycol (Polyethylene Glycol 3350 17 Gm Powd.Pack) 17 gm PO DAILY PRN PRN Reason: Constipation Senna/Docusate Sodium (Sennosides/Docusate Sodium Tablet) 2 tab PO BID [facility] Last Admin: 01/31/25 11:01 Dose: 2 tab Documented By: LIZETT Sertraline HCl (Sertraline Hcl 25 Mg Tablet) 25 mg PO DAILY [facility] Last Admin: 01/31/25 08:49 Dose: 25 mg Documented By: LIZETT Sodium Chloride (0.9 % Sodium Chloride Flush 3 Ml Syringe) 3 ml IVFLUSH QSHIFT [facility] Last Admin: 01/31/25 08:49 Dose: 3 ml Documented By: LIZETT Tramadol HCl (Tramadol Hcl 50 Mg Tablet) 50 mg PO Q6H [facility] Last Admin: 01/31/25 08:50 Dose: 50 mg Documented By: LIZETT Labs 01/31/25 05:15 01/31/25 05:15 Labs: Laboratory Results - last 24 hr 01/30/25 01/31/25 12:07 05:15 MCV 87.3 MCH 31.3 MCHC 35.8 H RDW 12.8 Plt Count 347 MPV 8.3 L Immature Gran % (Auto) 0.4 Neut % (Auto) 67.2 Lymph % (Auto) 16.7 L [place] % (Auto) 9.5 Eos % (Auto) 5.5 H Baso % (Auto) 0.7 Lymph # (Auto) 1.7 [place] # (Auto) 1.0 Eos # (Auto) 0.6 H Baso # (Auto) 0.1 Abs Immat Gran (auto) 0.04 H Absolute Neuts (auto) 6.9 Absolute Nucleated RBC 0.000 Nucleated RBC % (auto) 0.0 Anion Gap 12 Estim Creat Clear Calc 58.4 Estimated GFR > 60 Random Glucose 103 Calcium 9.5 Random Vancomycin 7.0 L Microbiology Microbiology Results: Microbiology 01/29/25 17:10 Blood Culture - Preliminary Blood - Venous No growth after 24 hours. 01/29/25 17:10 Blood Culture - Preliminary Blood - Venous No growth after 24 hours. Assessment and Plan (1) Intractable back pain: Status: Acute (2) Sacral fracture: Status: Acute Plan d5 for 84yo F with osteopenia, recurrent UTIs, IBS, anxiety, HTN, hx cervical spinal epidural abscess, sciatica admitted for intractable low back pain due to multilevel central canal stenosis + sacral fracture sacral fracture multilevel central canal stenosis - Neurology had initially recommended dexamethasone but Neurosurgery was consulted and does not feel that the pt has cauda equina syndrome, so dexamethasone was stopped - pain control with IV hydromorphone, PO tramadol - PT eval: STR recommended acute UTI with retention - overflow incontinence + UTI, not cauda equina - urine culture growing MRSA; changed to vancomycin 01/29. ID consulted; if BCx negative at 48hr, will transition to nitrofurantoin for total 10d [end date 02/08]; follow up BCx tonight constipation - bowel regimen intensified HTN - losartan osteopneia - calcium/vitamin D mood disorder - sertraline VTE ppx - enoxaparin dispo - STR In my clinical judgment, the patient requires continued inpatient hospitalization for the following reasons: on IV ABX pending final blood cultures Total time managing care of this patient today: 40 minutes. Quality Stroke Does the patient have a stroke diagnosis?: No VTE Prior VTE?: No VTE Risk Level:: Medical - moderate - high VTE Device Contraindication: Treatment Not Indicated VTE Drug Contraindication: N/A - Med Ordered
--- NOTE | 2025-01-31 14:18 | MHC.CM.PN ---
[facility] has received insurance authorization. The MD has been notified that if Pt is medically cleared to discharge over the weekend Authorization has been received
[2025-01-31] MEDS: vancomycin HCL 1,500 MG in 0.9 % Sodium Chloride 500 ML 333.33 MG IV (14:21)
[2025-01-31 16:22] VITALS: BP 150/60; PULSE 75; RESP 18; TEMP 37; O2SAT 99
[2025-01-31] MEDS: Enoxaparin Sodium 40 MG/0.4 ML SYRINGE SUBCUT (18:27)
[2025-01-31 19:15] VITALS: BP 168/72; PULSE 78; RESP 18; TEMP 36.8; O2SAT 98
[2025-02-01] MEDS: HYDROmorphone HCl 1 MG/ML SYRINGE 0.5 MG IVPUSH (02:35)
[2025-02-01] MEDS: traMADoL HCL 50 MG TABLET PO ×2 (02:35→08:18)
[2025-02-01] MEDS: 0.9 % Sodium Chloride Flush 3 ML SYRINGE IVFLUSH ×2 (02:36→08:18)
[2025-02-01 03:00] VITALS: BP 122/57; PULSE 77; RESP 18; TEMP 36.7; O2SAT 97
[2025-02-01 06:16] LABS: Creatinine Clr Calc Pharmacy 60.3; Estimated Glomerular Filt Rate > 60
[2025-02-01 06:48] VITALS: BP 129/60; PULSE 84; RESP 16; TEMP 36.6; O2SAT 97
[2025-02-01] MEDS: Multivitamin TABLET 1 TAB PO (08:18)
[2025-02-01] MEDS: Methenamine Hippurate 1 GM TABLET PO (08:18)
[2025-02-01] MEDS: Sertraline HCL 25 MG TABLET PO (08:19)
[2025-02-01] MEDS: Losartan Potassium 25 MG TABLET PO (08:19)
[2025-02-01] MEDS: Ascorbic Acid 500 MG TABLET PO (08:19)
[2025-02-01] MEDS: Calcium + Vitamin D 250 MG TABLET 500 MG PO (08:19)
[2025-02-01] MEDS: Lidocaine 4 % Patch ADH..PATCH 2 PATCH TRANSDERMA (08:20)
[2025-02-01] MEDS: Sennosides/Docusate Sodium TABLET 2 TAB PO (08:26)
--- NOTE | 2025-02-01 12:23 | MHC.CM.PN ---
Patient accepted STR bed offer at [facility], who has obtained insurance auth. Per MD medically cleared for dc. BLS transport scheduled for 2:30pm. RN and patient aware. IMM delivered.
--- NOTE | 2025-02-01 12:24 | PM.DS ---
DS: Providers Provider Date of Service: 02/01/25 Date of admission: 01/27/25 18:59 Date of discharge: 02/01/25 Primary care physician: Fatou Hinojosa MD Consults: 01/27/25 19:09 Consult to Neurology Routine Consulting Provider: [facility] Reason for consultation: central canal stenosis, urinary retention 01/29/25 11:37 Consult to Infectious Diseases Routine Consulting Provider: [facility] Reason for consultation: MRSA in urine, bactrim allergy, is symptomatic DS: Diagnosis Discharge Diagnosis (1) Intractable back pain: Status: Acute (2) Sacral fracture: Status: Acute DS: Summary Hospital Course Hospital Course: History of presenting illness: Date of Service: 01/27/25 Attending physician on admission: Lulu Rothman Chief Complaint: back pain, fall 84-year-old female with history of osteopenia, recurrent UTI, IBS, anxiety, hypertension, cervical spinal epidural abscess, and sciatica presented to the ED earlier today for evaluation of low back pain, intermittent bilateral lower extremity paraesthesia, intermittent bowel incontinence and bladder incontinence, and intermittent bladder retention. She states about 3 weeks ago on 's had initial injury where she fell while holding onto a screen door that was blown open by the wind. She states after that fall she did have pain but was able to continue with her normal activities. However 3 days ago, she slipped and fell in the bathroom and since then has had significant pain in the low back/sacrum with radiation into bilateral lower extremities. There has also been intermittent paresthesias in the bilateral lower extremities. She states she has primarily had issues with urge incontinence but in the last 3 days has also developed some intermittent urinary retention. She states she had a single episode of fecal incontinence but otherwise bowel function has been normal. She denies any weakness in the lower extremities or saddle anesthesia. She denies any fevers, chills, abdominal pain, nausea, vomiting, diarrhea, dysuria, hematuria, cough, shortness of breath, chest pain. Since arrival, has been mildly hypertensive, vital signs otherwise within normal limits. She has a leukocytosis of 14.4. Renal function is baseline, electrolyte levels are normal except for a mild hyponatremia of 133. CRP 3.17, ESR 21. Urinalysis with 2+ leukocytes, positive nitrites, trace blood, positive urinary sediment and 4+ bacteria. CT of the pelvis shows acute comminuted fractures of the sacrum involving S1 and S2 and the neural foramina. There is multilevel spondylosis at L4-5 and L5-S1 resulting in central spinal canal stenosis and bilateral neural foramina stenosis. CT of the lumbar spine shows moderate to advanced lumbar spondylosis with severe central canal stenosis identified at L2-3, and L3-4 with moderate to severe central canal stenosis at L4-5. MRI of the lumbar spine shows similar findings with the bilateral neural foramina stenosis at L2-3 to L4-5 compressing the neural elements of the thecal sac and to a lesser extent in the exiting nerve roots. In the ED has received 4 mg Zofran, 25 mcg fentanyl, 60 mg methylprednisolone 1 g ceftriaxone. She will be admitted for further management of intractable low back pain/sacral fracture and UTI. Hospital course: 84yo F with osteopenia, recurrent UTIs, IBS, anxiety, HTN, hx cervical spinal epidural abscess, sciatica, admitted for intractable low back pain due to multilevel central canal stenosis + sacral fracture due to fall, admitted to medical floor seen by Neurology they initially recommended dexamethasone but Neurosurgery was consulted and does not feel that the pt has cauda equina syndrome, so dexamethasone was stopped, treated with IV hydromorphone, PO tramadol, lidocaine patch, Flexeril, pain has improved, patient seen by Physical therapy they recommended short-term rehab therefore patient is being discharged to rehab facility on tramadol 4 times a day, Flexeril 5 mg as needed, Celebrex 200 mg daily. Acute UTI with retention patient has history of stress incontinence plus UTI, not quite a liquidy, urine culture grew MRSA, treated with IV vancomycin, blood cultures x2 are negative seen by infectious disease patient is being discharged on Zyvox twice daily for 7 more days, patient has allergy to Macrobid and sulfa causing swollen lips and diarrhea. constipation - bowel regimen intensified HTN stable on losartan osteopneia on calcium/vitamin D mood disorder continue sertraline Time Attestation Discharge Coordination Time (in mins): 40 Quality: Safe Use of Opioids Does Pt have an Active Cancer Diagnosis on the Problem List?: No Quality: Stroke Does the patient have a stroke diagnosis?: No Physical Exam Vital Signs: Vital Signs: Last Vital Signs Temp 98 F 02/01/25 06:48 Pulse 84 02/01/25 06:48 Resp 16 02/01/25 06:48 BP 129/60 02/01/25 06:48 Pulse Ox 97 02/01/25 06:48 O2 Del Method Room Air 02/01/25 06:48 BMI result Body Mass Index 21.0 Const: Other: Gen: in no acute distress HEENT: sclera anicteric, moist mucus membranes Neck: supple Lungs: clear to auscultation bilaterally Heart: regular rate and rhythm, no murmurs Abd: soft, non-tender, non-distended Ext: no edema Skin: warm/well-perfused Neuro: alert and oriented x3, no focal findings, Psych: appropriate affect DS: Data Data Completed and Pending Labs on day of discharge: Laboratory Results - last 24 hr 02/01/25 05:52 Creatinine 0.61 Estim Creat Clear Calc 60.3 Estimated GFR > 60 Preliminary micro results at discharge 01/29/25 17:10 Blood Culture - Preliminary Blood - Venous No growth after 48 hours. 01/29/25 17:10 Blood Culture - Preliminary Blood - Venous No growth after 48 hours. Discharge Plan Discharge Anticipated Discharge Date/Time: 02/01/25 12:14 Patient Disposition: Xfer SNF Discharge Diagnosis: Sacral fracture Multilevel central canal stenosis Acute UTI with retention Constipation Referrals: [facility] [Outside] - 1 Week Fatou Hinojosa MD [Primary Care Provider] - 1 Week Discharge Medications: New tramadol 50 mg Tablet 50 mg PO Q6H Qty: 20 0RF acetaminophen 325 mg Tablet 650 mg PO Q6H PRN (Reason: Pain, Mild 1-3,Fever,Headache) Qty: 30 0RF cyclobenzaprine 5 mg Tablet 5 mg PO TID PRN (Reason: back muscle spasm) Qty: 30 0RF polyethylene glycol 3350 17 gram Powder In Packet 17 g PO DAILY PRN (Reason: Constipation) Qty: 30 0RF lidocaine [Lidocaine Pain Relief] 4 % Adhesive Patch,Medicated 2 patch transdermal DAILY Qty: 4 0RF Protocol: Apply to: Apply to: low back/sacrum sennosides-docusate sodium [Senna Plus] 8.6-50 mg Tablet 2 tab PO BID Qty: 60 0RF linezolid 600 mg tablet 600 mg PO BID Qty: 14 0RF celecoxib [Celebrex] 200 mg capsule 200 mg PO DAILY Qty: 14 0RF Continued sertraline 25 mg tablet 25 mg PO DAILY Qty: 90 3RF hyoscyamine sulfate 0.125 mg tablet,disintegrating 0.125 mg PO Q4-6H PRN (Reason: cramps) methenamine hippurate 1 gram tablet 1 g PO DAILY diphenhydramine-acetaminophen [Acetaminophen PM] 25-500 mg Tablet 1 - 2 tab PO BEDTIME PRN (Reason: Pain/Sleep) losartan 25 mg tablet 25 mg PO DAILY trospium 20 mg tablet 20 mg PO BID ketorolac 0.5 % drops 2 drp ophthalmic (eye) DAILY PRN (Reason: Dry Eye(S)) ascorbic acid (vitamin C) 500 mg tablet 500 mg PO DAILY docusate sodium [Colace] 100 mg capsule 100 mg PO BEDTIME loratadine [Claritin] 10 mg tablet 10 mg PO DAILY calcium carbonate-vitamin D3 [Calcium 600 with Vitamin D3] 600 mg-12.5 mcg (500 unit) capsule 1 cap PO DAILY Centrum Silver Women 8 mg iron-400 mcg-300 mcg tablet 1 tab PO DAILY melatonin 10 mg capsule 10 mg PO BEDTIME PRN (Reason: Sleep) Acidophilus Probiotic Complex 250 million cell capsule 1 cap PO DAILY cranberry fruit 400 mg capsule 400 mg PO DAILY Rx Instructions: administer with a meal Discontinued ibuprofen 200 mg tablet 200 mg PO Q6H PRN (Reason: Pain) naproxen 250 mg tablet 220 mg PO DAILY PRN (Reason: Pain) Discharge Orders: Discharge Order (Routine); Ordered 02/01/25 Ordered By: Lulu Rothman Diet: Advance to usual diet Activity on Discharge: As tolerated Stand Alone Forms: Patient Portal Discharge page Print Language: Dj[place] Care Plan Goals: Sacral fracture, continue physical therapy for impaired bed mobility, gait pattern safety and standing balance with muscle weakness and pain For UTI take linezolid 600 mg twice daily for 7 days end date 02/08 Take pain medications as prescribed Urinary retention with history of recurrent UTI/stress incontinence continue Sellers catheter and outpatient follow-up with primary urologist Dr. Morgan Constipation continue bowel regimen and adjust for persistent symptoms Health Concerns: Continue all home medications Plan of Treatment: Outpatient follow-up with primary care physician Patient follow-up with urology call for appointment Assessment: As above
[2025-02-01] MEDS: Linezolid 600 MG TABLET PO (12:47)
[2025-02-01] MEDS: Celecoxib 200 MG CAPSULE PO (12:47)
[2025-02-01 12:53] LABS: Vancomycin Random 10.9 mcg/mL (15-20)
== END 2025-02-01 14:31 | disposition skilled nursing facility (03) | DRG 552 ==
LOC: HO.ED 15:32 → HO.EDOVER 19:16 → HO.S3 01-28 14:29
PROVIDERS: Internal Medicine; Physician Assistant Medical; Student in an Organized Health Care Education/Training Program; Admitting Provider Physician Assistant; Emergency Provider Student in an Organized Health Care Education/Training Program; PCP Internal Medicine; Visit Provider Hospitalist
DX: S32.10XA Unspecified fracture of sacrum, initial encounter for closed fracture (principal); W00.0XXA Fall on same level due to ice and snow, initial encounter; R33.9 Retention of urine, unspecified; B95.62 Methicillin resistant Staphylococcus aureus infection as the cause of diseases classified elsewhere; M85.80 Other specified disorders of bone density and structure, unspecified site; F39 Unspecified mood [affective] disorder; K58.9 Irritable bowel syndrome, unspecified; K59.00 Constipation, unspecified; M48.061 Spinal stenosis, lumbar region without neurogenic claudication; M48.07 Spinal stenosis, lumbosacral region; Z87.440 Personal history of urinary (tract) infections; Z79.899 Other long term (current) drug therapy
CPT/HCPCS: 36415; 72131; 72158; 72192; 80048; 80053; 80202; 81001; 81003; 82565; 83735; 85025; 85652; 86140; 87040; 87086; 87088; 87186; 97116; 97162; 97530; 99285; A9585; J0696; J1171; J1650; J2270; J2405; J2919; J3010; J3371

== ENCOUNTER → 2025-01-27 09:31 | Outpatient (BNV) | payer MEDICARE, SELFPAY | PROVIDERS: Emergency Provider Student in an Organized Health Care Education/Training Program; PCP Internal Medicine; Visit Provider Radiology Diagnostic Radiology | DX: M54.50 Low back pain, unspecified (principal) | CPT/HCPCS: 72131; 72158; 72192 ==

== ENCOUNTER → 2025-01-27 18:59 | Outpatient (BNV) | payer MEDICARE, SELFPAY | PROVIDERS: Admitting Provider Physician Assistant; Emergency Provider Student in an Organized Health Care Education/Training Program; PCP Internal Medicine; Visit Provider Student in an Organized Health Care Education/Training Program | DX: M54.9 Dorsalgia, unspecified (principal); S32.10XA Unspecified fracture of sacrum, initial encounter for closed fracture | CPT/HCPCS: 99232 ==

== ENCOUNTER → 2025-01-27 18:59 | Outpatient (BNV) | payer MEDICARE, SELFPAY | PROVIDERS: Admitting Provider Physician Assistant; Emergency Provider Student in an Organized Health Care Education/Training Program; PCP Internal Medicine; Visit Provider Physician Assistant | DX: Z48.89 Encounter for other specified surgical aftercare (principal) | CPT/HCPCS: 99231 ==

== ENCOUNTER → 2025-01-27 18:59 | Outpatient (BNV) | payer MEDICARE, SELFPAY | PROVIDERS: Admitting Provider Physician Assistant; Emergency Provider Student in an Organized Health Care Education/Training Program; PCP Internal Medicine; Visit Provider Internal Medicine | DX: M54.9 Dorsalgia, unspecified (principal); N39.0 Urinary tract infection, site not specified | CPT/HCPCS: 99222 ==

== ENCOUNTER → 2025-01-27 18:59 | Outpatient (BNV) | payer MEDICARE, SELFPAY | PROVIDERS: Admitting Provider Physician Assistant; Emergency Provider Student in an Organized Health Care Education/Training Program; PCP Internal Medicine; Visit Provider Psychiatry & Neurology Neurology | DX: G83.4 Cauda equina syndrome (principal) | CPT/HCPCS: 99222 ==

== ENCOUNTER 2025-02-20 11:50 | Outpatient (AMB) | payer MEDICARE, SELFPAY ==
--- NOTE | 2025-02-20 11:58 | MHC.PC.OV ---
Vital Signs 02/20/25 11:59 Height 5 ft 4 in Weight 123 lb BMI 21.1 BP 120/68 Blood Pressure Location Rt brachial Position Sitting Respiration 18 Pulse 86 Pulse Source Pulse Oximeter Temp 98.8 F Temp Source Oral Pulse Oximetry (%) 98 Oxygen Delivery Method Room Air Intake Visit Reasons: Hospital/Rehab follow up Intake Note: Pt is here today for a Hospital follow up visit. Allergies nitrofurantoin [NITROFURANTOIN] Allergy (Unknown, Verified 02/20/25 12:04) diarrhea, swollen lips oxycodone [From PERCOCET] Allergy (Unknown, Verified 02/20/25 12:04) NAUSEA & VOMITING Sulfa (Sulfonamide Antibiotics) [SULFA (SULFONAMIDE ANTIBIOTICS)] Allergy (Unknown, Verified 02/20/25 12:04) diarrhea, swollen lips trimethoprim [TRIMETHOPRIM] Allergy (Unknown, Verified 02/20/25 12:04) diarrhea, swollen lips hydrocodone [From VICODIN] Adverse Reaction (Mild, Verified 02/20/25 12:04) NAUSEA & VOMITING Nitrofurantoin Macrocrystal Allergy (Unknown, Uncoded 02/20/25 12:04) diarrhea, swollen lips Trimethoprim HCl Allergy (Unknown, Uncoded 01/27/25 07:47) diarrhea swollen lips Medication List - Last Reconciled 02/20/25 by Fatou Hinojosa MD acetaminophen 650 mg (2 x 325 mg) PO Q6H PRN ascorbic acid (vitamin C) 500 mg PO DAILY calcium carbonate-vitamin D3 600 mg-12.5 mcg (500 unit) (Calcium with Vit D3) 1 cap PO DAILY celecoxib (Celebrex) 200 mg PO DAILY cranberry fruit 400 mg PO DAILY cyclobenzaprine 5 mg PO TID PRN cyclobenzaprine 5 mg PO TID PRN diphenhydramine-acetaminophen 25-500 mg (Acetaminophen PM) 1 - 2 tabs PO BEDTIME PRN docusate sodium (Colace) 100 mg PO BEDTIME hyoscyamine sulfate 0.125 mg PO Q4-6H PRN ketorolac 0.5% 2 drps ophthalmic (eye) DAILY PRN L.acidophilus,helvet-B.bifidum 250 million cell (Acidophilus Probiotic Complex) 1 cap PO DAILY lidocaine 4% (Lidocaine Pain Relief) 2 patches See Protocol transdermal DAILY loratadine (Claritin) 10 mg PO DAILY losartan 25 mg PO DAILY melatonin 10 mg PO BEDTIME PRN methenamine hippurate 1 g PO DAILY ikvtclqo-hak-rjcu-FA-vit K-lut 8 mg iron-400 mcg-50 mcg (Centrum Silver Women) 1 tab PO DAILY polyethylene glycol 3350 17 grams PO DAILY PRN sennosides-docusate sodium 8.6-50 mg (Senna Plus) 2 tabs PO BID sertraline 25 mg PO DAILY tamsulosin 0.4 mg PO BEDTIME tizanidine 2 mg PO Q8H PRN tramadol 50 mg PO Q6H trospium 20 mg PO BID Tobacco use date assessed: 02/20/25 Fall risk assessment: 1 Fall in past year Last assessed Fall Risk: 02/20/25 Dental Screening Dental Screen Date: 01/13/25 HPI Hospital/Rehab follow up HPI Details Pt presents for f/u inpatient rehab after sacral and coccyx fracture after a fall. Pt has been ambulating with a walker and starting home PT. Pt c/o lower extremities edema for 1 week since she got home from rehab. Patient denies chest pain shortness or breath PND orthopnea. During hospitalization she developed acute urinary retention treated with Sellers catheter. Patient is established with [facility] and started taking tamsulosin because she failed voiding test and has a follow-up with Urology in 1 month. PT continues to take trospium for urinary incontinence. She has been treating with tramadol for 1 month for the pain but reports feeling dizzy lightheaded and off balance. [facility] Medical History Vitamin D deficiency Hearing loss Annual physical exam Gallstones Osteopenia Frequent UTI Breast calcification, right Sacroiliitis Urge incontinence IBS (irritable bowel syndrome) Surgical History H/O colonoscopy Family History Father No problems noted. Mother HTN (hypertension) Aneurysm Social History Household Members: None Housing: Condominium Do you presently have visiting nurse or other home services: No Alcohol intake: current Alcohol intake frequency: holidays/special occasions only Comment: bed alarm broke: chair alarm attached to jasen Patient Tobacco Use Status: Never used Tobacco e-Cigarette/Vaping Use: Never Used service: No Current occupational status: retired Cognitive needs: No Hearing needs: No Vision needs: No Questionnaire Thrive Questionnaire Date Thrive assessed: 06/11/24 I am a: Patient What is your living situation today?: I have a steady place to live Within the past 12 months, did the food you bought not last and you didn't have the money to get more?: Never true Within the past 12 months, did you worry whether your food would run out before you got money to buy more?: Never true Do you have trouble paying for medicines?: No Do you have trouble getting transportation to medical appointments?: No Do you have trouble paying your heating and electricity bill?: No Do you have trouble taking care of your child, family member or friend?: No Do you have trouble with day-to-day activities such as bathing, preparing meals, shopping, managing finances, etc.?: No Are you currently unemployed and looking for a job?: No Are you interested in more education?: No Please select the resources that you would like help with: None Currently or been in a relationship where the following occur: No concerns reported THRIVE Score: 0 DEMI-7 AMB Questionnaire DEMI-7 Date DEMI - 7 assessed: 01/13/25 Source: Developed by Drs. Kojo Mcpherson, Sumi Kern, Harinder Lubin and colleagues, with an educational kingsley from [employer]. Review of Systems Const All systems reviewed & are unremarkable except as noted in HPI and below Eyes Reports no additional complaints Card Reports no additional complaints Resp Reports no additional complaints GI Reports no additional complaints Reports no additional complaints Physical exam (Primary Care) Vital Signs: Last Vital Signs Temp 98.8 F 02/20/25 11:59 Pulse 86 02/20/25 11:59 Resp 18 02/20/25 11:59 BP 120/68 02/20/25 11:59 Pulse Ox 98 02/20/25 11:59 Oxygen Delivery Method Room Air 02/20/25 11:59 BMI result Body Mass Index 21.1 Tobacco/Smoking Status: Tobacco use Status Tobacco use date assessed 02/20/25 02/20/25 12:11 Patient Tobacco Use Status Never used Tobacco 02/20/25 12:11 e-Cigarette/Vaping Use Never Used 02/20/25 11:59 Thrive Assessment: Date of Thrive Assessment Date Thrive assessed 06/11/24 02/20/25 11:59 Currently or been in a relationship where the following occur: No concerns reported Const General: no acute distress HENMT Head: Yes normal to inspection Ears: hearing grossly normal bilaterally Face and sinus: Yes normal facial exam Eyes General: appearance normal, both eyes and all related structures Neck Neck: Yes supple Resp Effort & Inspection: normal respiratory effort Auscultation: clear to auscultation bilaterally Cardio Rhythm: regular rhythm Heart sounds: S1 normal heart sound present and S2 normal heart sound present GI Inspection: Yes normal to inspection Palpation (GI): Soft to palpation Percussion: Yes normal to percussion Coding Level of Care Code Est Pt Level 4 (19042) Diagnoses HTN (hypertension) I10 Sacral fracture S32.10XA Urinary retention R33.9 Leg edema R60.0 Assessment & Plan Assessment & Plan (1) HTN (hypertension): Code(s): I10 - Essential (primary) hypertension Category: Medical Plan: Continue losartan (2) Sacral fracture: Code(s): S32.10XA - Unspecified fracture of sacrum, initial encounter for closed fracture Category: Medical Plan: Continue home physical therapy schedule DEXA (3) Urinary retention: Comment: Established with [facility] on chronic Sellers catheter Code(s): R33.9 - Retention of urine, unspecified Category: Medical Plan: Patient was advised to stop taking trospium, it may contribute to urinary retention, continue tamsulosin and follow-up with Urology (4) Leg edema: Code(s): R60.0 - Localized edema Category: Medical Plan: Start furosemide 20 mg every other day check basic metabolic panel in 1 week, patient was advised to elevate lower extremities, follow-up in 1 month Orders: Orders Basic Metabolic Panel 1 Week I10 - Essential (primary) hypertension XR DEXA axial skeleton Today Z78.0 - Asymptomatic menopausal state Medications: New furosemide 20 mg PO Q OTHER DAY 30 tabs 3RF meloxicam 7.5 mg PO DAILY PRN 30 tabs 0RF pain (scale score 7-10) tizanidine 2 mg PO BID PRN Refilled sertraline 25 mg PO DAILY 90 tabs 3RF
[2025-02-20 11:59] VITALS: BP 120/68; PULSE 86; RESP 18; TEMP 37.1; O2SAT 98; BMI 21.1
--- OUTSIDE RECORDS SUMMARY | 2025-02-20 13:10 | XMS_ITS | Encounter Summary ---
Author Organization [facility] Address [address] [place] [address] Care Team Providers Care Drug Safety Scientist Name Role Phone Lucas Bolanos MD Primary Care Provider [phone] Encounter Details Date Type Department Care Team (Late st Contact Info) Description 02/13/2025 Lab Requisition [facility] - Main Lab [address] [place] [address] Lucas Bolanos MD [address] [facility] [address] [place], [address] Other shelter (current) drug therapy Social History Tobacco Use Types Packs/Day Years [...] Procedure Name Priority Date/Time Associated Diagnosis Comments COMPLETE BLOOD COUNT STAT 02/13/2025 5:16 PM EDT 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 BASIC METABOLIC PANEL STAT 02/13/2025 5:16 PM EDT 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 documented in this encounter Results * (ABNORMAL) Basic metabolic panel (02/13/2025 5:16 PM EDT) Sodium 131(L) 133 - 145 mmol/L LAB CHEMISTRY METHOD 02/13/2025 6:16 PM EDT [facility] Potassium 4.0 3.5 - 5.5 mmol/L LAB CHEMISTRY METHOD 02/13/2025 6:16 PM EDT [facility] Chloride 98 96 - 110 mmol/L LAB CHEMISTRY METHOD 02/13/2025 6:16 PM [facility] CO2 28 21 - 32 mmol/L LAB CHEMISTRY METHOD 02/13/2025 6:16 PM [facility] Anion Gap 5 3 - 11 LAB CHEMISTRY METHOD 02/13/2025 6:16 PM [facility] Glucose 93 70 - 100 mg/dL LAB CHEMISTRY METHOD 02/13/2025 6:16 PM [facility] BUN 15 5 - 25 mg/dL LAB CHEMISTRY METHOD 02/13/2025 6:16 PM [facility] Creatinine 0.86 0.50 - 1.10 mg/dL LAB CHEMISTRY METHOD 02/13/2025 6:16 PM [facility] eGFR 67 >=60 mL/min/1. 73m2 LAB CHEMISTRY METHOD 02/13/2025 6:16 PM T [facility] Comment:Calculation based on the??Chronic Kidney Disease Epidemiology Collaboration (CKD-EPI) equation refit??without adjustment for race. BUN/Creatinine Ratio 17.4 LAB CHEMISTRY METHOD 02/13/2025 6:16 PM [facility] Calcium 8.9 8.5 - 10.5 mg/dL LAB CHEMISTRY METHOD 02/13/2025 6:16 PM T [facility] Blood Venous blood specimen / Unknown Venipuncture / Unknown 02/13/2025 5:16 PM EDT 02/13/2025 5:41 PM EDT us Lucas Bolanos MD LAB BLOOD ORDERABLES Final Resul t [facility] [address] [place] [address], [place] [phone] * (ABNORMAL) Complete blood count (02/13/2025 5:16 PM EDT) [facility] WBC 9.6 4.8 - 10.8 K/mcL LAB HEMETOLOGY METHOD 02/13/2025 5:50 PM EDT [facility] RBC 3.80 3.80 - 4.80 M/mcL LAB HEMETOLOGY METHOD 02/13/2025 5:50 PM EDT [facility] Hemoglobin 11.7 11.5 - 16.0 g/dL LAB HEMETOLOGY METHOD 02/13/2025 5:50 PM EDT [facility] Hematocrit 33.8(L) 35.0 - 47.0 % LAB HEMETOLOGY METHOD 02/13/2025 5:50 PM EDT [facility] MCV 89.4 79.0 - 98.0 FL LAB HEMETOLOGY METHOD 02/13/2025 5:50 PM EDT [facility] MCH 31.0 27.0 - 32.0 pcg LAB HEMETOLOGY METHOD 02/13/2025 5:50 PM EDT [facility] MCHC 34.6 32.0 - 37.0 g/dL LAB HEMETOLOGY METHOD 02/13/2025 5:50 PM EDT [facility] RDW 12.9 11.0 - 15.0 % LAB HEMETOLOGY METHOD 02/13/2025 5:50 PM EDT [facility] Platelets 235 130 - 400 K/mcL LAB HEMETOLOGY METHOD 02/13/2025 5:50 PM EDT [facility] MPV 8.8 7.0 - 11.0 FL LAB HEMETOLOGY METHOD 02/13/2025 5:50 PM EDT [facility] NRBC 0.0 <1.0 % LAB HEMETOLOGY METHOD 02/13/2025 5:50 PM EDT [facility] NRBC Absolute 0.00 <0.10 K/mcL LAB HEMETOLOGY METHOD 02/13/2025 5:50 PM EDT [facility] Blood Venous blood specimen / Unknown Venipuncture / Unknown 02/13/2025 5:16 PM EDT 02/13/2025 5:41 PM EDT us Lucas Bolanos MD LAB BLOOD ORDERABLES Final Resul t [facility] [address] [place] [address], documented in this encounter Visit Diagnoses Diagnosis 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
--- OUTSIDE RECORDS SUMMARY | 2025-02-20 13:11 | XMS_ITS ---
Author Organization [facility] Address [address] [place] [address] Care Team Providers Care Bill Poster Installer Name Role Phone Fatou Hinojosa MD Primary Care Provider Kojo Eastman Unavailable [phone] Allergies Allergen (clinical drug ingredient) Drug/Non Drug [...] Status W/U Status Risk Notes Problem Gallstones (226427717) Gallstones (K80.20) Active confirmed Problem Right upper quadrant pain (391155321) Abdominal pain, RUQ (R10.11) Active confirmed Vital Signs Temperature 98.0 degrees Fahrenheit 01/08/20 25 Blood pressure systolic 001 mm Hg 01/08/20 25 Blood pressure diastolic 01 mm Hg 025 Height 64.5 in 01/08/2025 Weight 121 lbs 01/08/2025 BMI 20.45 kg/m2 01/08/2025 Encounters Encounter Location Date Provider Diagnosis [facility] [address] [place] [address] 01/08/2025 Kojo Carrasco Irritable bowel syndrome, unspecified [...] Provider Name:Kojo Carrasco , 08/12/2025 10:30:00 AM, [address] [place] [address], [address], [place], [address], Progress Notes * RASHAUN WEBSTER HDO B:1940 (85 yo F)Acc No.[id number]:01/08/2025 Progress Notes Patient:?MELECIOEZEQUIEL URBANDevyn Kim Provider:?Kojo Carrasco MD :1940???Age:84 Y???Sex:Female D ate:01/08/2025 Address:[address] [place] [address], [place], [place] Pcp:Fatou Hinojosa MD Subjective: * Chief Complaints: * ???1. Patient presents today for ibs, diarrhea. * Medical History:?Breast canc er--2015---right lumpectomy--XRT, Denies KS,DM,CVA,Lung disease,renal disease, Neg. colonoscopy in 2008--diverticulosis, internal [...] gym. Marital status: . 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 ???Nonsmoker; no sig alcohol. * Medications:?Taking Losartan [...] US abdomen complete* sched 01/30/25 at 9:00 [facility] Ultrasound dept 2nd floorfasting 8 hrs prior [...] MD Date:? 025 Generated for Pj conner/Jose/Harpalsmitting on:?02/20/2025 01:11 PM EDT
--- OUTSIDE RECORDS SUMMARY | 2025-02-20 13:11 | XMS_ITS | Clinical Summary ---
Author Organization [address] Address [address] [place] [address] Phone Care Team Providers Care Teachers' Aide Name Role Phone Lucas Bolanos MD Primary Care Provider [phone] Encounters Date Type Department Care Team Description 02/13/2025 Lab Requisition [facility] [address] [place] [phone] Lucas Bolanos MD Other skilled nursing (current) drug therapy 02/04/2025 Lab Requisition [facility] [address] [place] [phone] Lucas Bolanos MD Unspecified atrial fibrillation (CMS/HCC) 02/03/2025 Lab Requisition [facility] [address] [place] [phone] Lucas Bolanos MD Anemia, unspecified 12/13/2024 Lab Requisition [facility] [address] [place] [phone] Jessa Livingston MD Urinary tract infection, site [...] Vaccines (1 of 2) 1991 RSV Immunization Adult Patie nts (1 - 1-dose 75+ series) 02/09/2016 Depression Screening 10/23/2022 Falls Risk Assessment 10/23/2022 Medicare Annual Wellness Visit 10/23/2022 Osteoporosis Screening (Bone Density Screening) 10/23/2022 Social Influencers of Health Screening 10/23/2022 COVID-19 Vaccine (2023-2 5 season) 2024 Influenza Vaccine (Season Ended) 2025 HIB Vaccines Aged Out No longer eligi [...] Procedure Name Priority Date/Time Associated Diagnosis Comments BASIC METABOLIC PANEL STAT 02/13/2025 5:16 PM EDT 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 COMPLETE BLOOD COUNT STAT 02/13/2025 5:16 PM EDT Other skilled nursing (current) drug therapy C-REACTIVE PROTEIN Routine 02/04/2025 9: 09 AM EDT Unspecified atrial fibrillation (CMS/HCC) COMPREHENSIVE METABOLIC PANEL Routine 02/04/2025 9:09 AM EDT Unspecified atrial fibrillation (CMS/HCC) COMPLETE BLOOD COUNT Routine 02/04/2025 9:09 AM EDT Unspecified atrial fibrillation (CMS/HCC) COMPREHENSIVE METABOLIC PANEL Routine 02/03/2025 6:23 AM EDT Anemia, unspecified COMPLETE BLOOD COUNT Routine 02/03/2025 6:23 AM EDT Anemia, unspecified CULTURE URINE Routine 12/13/2024 12:00 AM EST Urinary tract infection, site not specified from Last 3 Months Results * (ABNORMAL) Complete blood count (02/13/2025 5:16 PM EDT) Only the most recent of3 resultswithin the time period is included. WBC 9.6 4.8 - 10.8 K/mcL LAB HEMETOLOGY METHOD 02/13/2025 5:50 PM EDT [facility] RBC 3.80 3.80 - 4.80 M/mcL LAB HEMETOLOGY METHOD 02/13/2025 5:50 PM EDT [facility] Hemoglobin 11.7 11.5 - 16.0 g/dL LAB HEMETOLOGY METHOD 02/13/2025 5:50 PM EDT [facility] Hematocrit 33.8(L) 35.0 - 47.0 % LAB HEMETOLOGY METHOD 02/13/2025 5:50 PM EDT [facility] MCV 89.4 79.0 - 98.0 FL LAB HEMETOLOGY METHOD 02/13/2025 5:50 PM EDT [facility] MCH 31.0 27.0 - 32.0 pcg LAB HEMETOLOGY METHOD 02/13/2025 5:50 PM EDT [facility] MCHC 34.6 32.0 - 37.0 g/dL LAB HEMETOLOGY METHOD 02/13/2025 5:50 PM EDT [facility] RDW 12.9 11.0 - 15.0 % LAB HEMETOLOGY METHOD 02/13/2025 5:50 PM EDT [facility] Platelets 235 130 - 400 K/mcL LAB HEMETOLOGY METHOD 02/13/2025 5:50 PM EDT [facility] MPV 8.8 7.0 - 11.0 FL LAB HEMETOLOGY METHOD 02/13/2025 5:50 PM EDT [facility] NRBC 0.0 <1.0 % LAB HEMETOLOGY METHOD 02/13/2025 5:50 PM EDT [facility] NRBC Absolute 0.00 <0.10 K/mcL LAB HEMETOLOGY METHOD 02/13/2025 5:50 PM EDT [facility] Blood Venous blood specimen / Unknown Venipuncture / Unknown 02/13/2025 5:16 PM EDT 02/13/2025 5:41 PM EDT us Lucas Bolanos MD LAB BLOOD ORDERABLES Final Resul t [facility] [address] [place] [address], * (ABNORMAL) Basic metabolic panel (02/13/2025 5:16 PM EDT) Sodium 131(L) 133 - 145 mmol/L LAB CHEMISTRY METHOD 02/13/2025 6:16 PM EDT [facility] Potassium 4.0 3.5 - 5.5 mmol/L LAB CHEMISTRY METHOD 02/13/2025 6:16 PM EDT [facility] Chloride 98 96 - 110 mmol/L LAB CHEMISTRY METHOD 02/13/2025 6:16 PM EDT [facility] CO2 28 21 - 32 mmol/L LAB CHEMISTRY METHOD 02/13/2025 6:16 PM EDT [facility] Anion Gap 5 3 - 11 LAB CHEMISTRY METHOD 02/13/2025 6:16 PM EDT [facility] Glucose 93 70 - 100 mg/dL LAB CHEMISTRY METHOD 02/13/2025 6:16 PM EDT [facility] BUN 15 5 - 25 mg/dL LAB CHEMISTRY METHOD 02/13/2025 6:16 PM EDT [facility] Creatinine 0.86 0.50 - 1.10 mg/dL LAB CHEMISTRY METHOD 02/13/2025 6:16 PM EDT [facility] eGFR 67 >=60 mL/min/1. 73m2 LAB CHEMISTRY METHOD 02/13/2025 6:16 PM EDT [facility] Comment:Calculation based on the??Chronic Kidney Disease Epidemiology Collaboration (CKD-EPI) equation refit??without adjustment for race. BUN/Creatinine Ratio 17.4 LAB CHEMISTRY METHOD 02/13/2025 6:16 PM EDT [facility] Calcium 8.9 8.5 - 10.5 mg/dL LAB CHEMISTRY METHOD 02/13/2025 6:16 PM EDT [facility] Blood Venous blood specimen / Unknown Venipuncture / Unknown 02/13/2025 5:16 PM EDT 02/13/2025 5:41 PM EDT us Lucas Bolanos MD LAB BLOOD ORDERABLES Final Resul t Performing Organization Address City/[facility]/ZIP Co de Phone Number [facility] [address] [place] [address], * C-reactive protein (02/04/2025 9:09 AM EDT) C-Reactive Protein 0.39 <=0.50 mg/dL LAB CHEMISTRY METHOD 02/04/2025 12:15 PM EDT [facility] Blood Venous blood specimen / Unknown Venipuncture / Unknown 02/04/2025 9:09 AM EDT 02/04/2025 10:44 AM EDT us Lucas Bolanos MD LAB BLOOD ORDERABLES Final Resul t [facility] [address] [place] [address], [place] [phone] * (ABNORMAL) Comprehensive metabolic panel (02/04/2025 9:09 AM EDT) Only the most recent of2 resultswithin the time period is included. Sodium 130(L) 133 - 145 mmol/L LAB CHEMISTRY METHOD 02/04/2025 12:15 PM [facility] Potassium 4.1 3.5 - 5.5 mmol/L LAB CHEMISTRY METHOD 02/04/2025 12:15 PM [facility] Chloride 98 96 - 110 mmol/L LAB CHEMISTRY METHOD 02/04/2025 12:15 PM [facility] CO2 25 21 - 32 mmol/L LAB CHEMISTRY METHOD 02/04/2025 12:15 PM [facility] Anion Gap 7 3 - 11 LAB CHEMISTRY METHOD 02/04/2025 12:15 PM [facility] Glucose 132(H) 70 - 100 mg/dL LAB CHEMISTRY METHOD 02/04/2025 12:15 PM [facility] BUN 16 5 - 25 mg/dL LAB CHEMISTRY METHOD 02/04/2025 12:15 PM [facility] Creatinine 0.78 0.50 - 1.10 mg/dL LAB CHEMISTRY METHOD 02/04/2025 12:15 PM [facility] eGFR 75 >=60 mL/min/1. 73m2 LAB CHEMISTRY METHOD 02/04/2025 12:15 PM [facility] Comment:Calculation based on the??Chronic Kidney Disease Epidemiology Collaboration (CKD-EPI) equation refit??without adjustment for race. BUN/Creatinine Ratio 20.5 LAB CHEMISTRY METHOD 02/04/2025 12:15 PM [facility] Calcium 8.9 8.5 - 10.5 mg/dL LAB CHEMISTRY METHOD 02/04/2025 12:15 PM [facility] AST (SGOT) 23 10 - 42 unit/L LAB CHEMISTRY METHOD 02/04/2025 12:15 PM EDT [facility] ALT (SGPT) 37 10 - 60 unit/L LAB CHEMISTRY METHOD 02/04/2025 12:15 PM EDT [facility] Alkaline Phosphatase 246(H) 42 - 121 unit/L LAB CHEMISTRY METHOD 02/04/2025 12:15 PM EDT [facility] Total Protein 6.3 6.0 - 8.0 g/dL LAB CHEMISTRY METHOD 02/04/2025 12:15 PM EDT [facility] Albumin 3.3 3.2 - 5.0 g/dL LAB CHEMISTRY METHOD 02/04/2025 12:15 PM EDT [facility] Total Bilirubin 0.5 0.0 - 1.4 mg/dL LAB CHEMISTRY METHOD 02/04/2025 12:15 PM EDT [facility] Blood Venous blood specimen / Unknown Venipuncture / Unknown 02/04/2025 9:09 AM EDT 02/04/2025 10:44 AM EDT us uLcas Bolanos MD LAB BLOOD ORDERABLES Final Resul t [facility] [address] [place] [address], * (ABNORMAL) Culture urine (12/13/2024 12:00 AM EST) Culture, Urine >100,000 CFU/mL Enterococcus faecalis(A) JAKI 12/15/2024 7:52 AM EST [facility] Comment: Edited result: Previously [...] Enterococcus faecalis Nitrofurantoin JAKI <=16 ug/ml: Susceptible Jessa Livingston MD LAB MICROBIOLOGY - G ENERAL ORDERABLES Final Result [facility] [address] [place] [address], [place] [phone] from Last 3 Months Insurance [place] [facility] Care Teams Teachers' Aide Relationship Specialty Start Date End Date Lucas Bolanos MD [address] [place] [address], [phone] PCP - General Family Medicine 02/03/25
--- OUTSIDE RECORDS SUMMARY | 2025-02-20 13:11 | XMS_ITS | Patient Health Record ---
Author Organization [facility] Address [address] [place] [address] Care Team Providers Care Environmental Educator Name Role Phone Fatou Hinojosa MD Primary Care Provider Kojo Eastman [phone] Allergies Allergen (clinical drug ingredient) Drug/Non Drug Allergy documented on EMR Reaction Allergy Type Onset Date Status sulfacetamide Sulfacetamide Unknown Drug Allergy Active nitrofurantoin Nitrofurantoin Unknown Drug Allergy Active hydrocodone HYDROcodone Unknown Drug Allergy Act landon fosfomycin Fosfomycin Unknown Drug Allergy Activ e Vicodin Unknown Drug Allergy Active trimethoprim Trimethoprim Unknown Drug Allergy A ctive Results Component Value Reference Range Notes Complete Blood Count Auto Di ff Reviewed date:01/13/2025 05:19:57 PM Interpretation: Performing Lab:[facility], [address] [place] [phone] Notes/Report: White Blood Count 9.9 4.8-10.8 X10*3/uL [...] yet reviewe d by provider) Interpretation: Performing Lab:[facility], [address] [place] [phone] Notes/Report: Bilirubin Total 0.5 0.0-1.0 mg/dL Bilirubin Direct 0.2 0.0-0.5 mg/dL Aspartate Amino Transferase 30 5-31 U/L Alanine Aminotransferase 30 0-31 U/L Total Protein 7.8 6.5-8.0 g/dL Albumin Level 4.3 3.5-5.0 g/dL Alkaline Phosphatase 143 39-117 U/L Lipase Reviewed date:01/13/2025 05:20:25 PM Interpretation: Performing Lab:[facility], [address] [place] [phone] Notes/Report: Lipase 38 8-78 U/L Immunoglobulin A Reviewed date:01/17/2025 05:21:45 PM Interpretation: Performing Lab:[facility], [address] [place] [phone] Notes/Report: Immunoglobulin A 242 70-320 mg/dL THIS TEST WAS PERFORMED AT: [facility] [address] [place] [phone] MILLI ROMAN MD Transglutaminase Ab IgG Reviewed date:01/17/2025 05:21:58 PM Interpretation: Performing Lab:[address] [phone] Notes/Report: Transglutaminase Ab IgG <1.0 Value Interpretation ----- <15.0 Antibody not detected > or = 15.0 Antibody detected THIS TEST WAS PERFORMED AT: [facility] [address] [place] [phone] MILLI ROMAN MD Transglutaminase IgA Reviewed date:01/17/2025 05:22:08 PM Interpretation: Performing Lab:[address] [phone] Notes/Report: Transglutaminase IgA <1.0 Value Interpretation ----- <15.0 Antibody not detected > or = 15.0 Antibody detected THIS TEST WAS PERFORMED AT: [facility] [address] [place] [phone] MILLI ROMAN MD Gliadin Ab Panel Reviewed date:01/17/2025 05:22:17 PM Interpretation: Performing Lab:[facility], [address] [place] [phone] Notes/Report: Gliadin Deamidated IgA Ab <1.0 Value Interpretation ----- <15.0 Antibody not detected > or = 15.0 Antibody detected Gliadin Deamidated IgG Ab <1.0 Value Interpretation ----- <15.0 Antibody not detected > or = 15.0 Antibody detected THIS TEST WAS PERFORMED AT: [facility] [address] [place] [phone] MILLI ROMAN MD Endomysial IgA rflx Titer Reviewed date:01/17/2025 05:22:27 PM Interpretation: Performing Lab:[facility], [address] [place] [phone] Notes/Report: Endomysial IgA Antibody Negative Negative THIS TEST WAS PERFORMED AT: [facility] [address] [place] [address] BETTINA VENEGAS MD,PHD Endomysial Titer TNP Reason [...] Problem Status W/U Status Risk Notes Problem 946164176 Encounter for screening for malignant neoplasm of colon (Z12.11) Active confirmed Problem Gallstones (080585715) Gallstones (K80.20) Active confirmed Problem Right upper quadrant pain (889890175) Abdominal pain, RUQ (R10.11) Active confirmed Problem 47385491 Irritable bowel syndrome, unspecified type (K58.9) Active confirmed Vital Signs Temperature 98.0 degrees Fahrenheit 01/08/2025 Blood pressure diastolic 01 mm Hg 01/08/2025 Height 64.5 in 01/08/2025 Blood pressure systolic 001 mm Hg 01/08/2025 Weight 121 lbs 01/08/2025 BMI 20.45 kg/m2 01/08/2025 Encounters Encounter Location Date Provider Diagnosis [facility] [address] [place] [id number] 01/08/2025 Kojo Carrasco Irritable bowel syndrome, unspecified [...] Name:Kojo Carrasco , 08/12/2025 10:30:00 AM, [address], [address], [place], [address], Insurance Providers Payer Name Payer Address Payer Phone Subscriber Number Group Number Insured Name Patient Relationship to Insured Coverage Start Date Coverage End Date [facility] [address] [place], [place] [id number] [phone] [id number] RASHAUN SALINAS Self - patient is the insured Medical (General) History Medical History History ICD Code Breast cancer--2014---right lumpectomy-- XRT Denies MA,DM,CVA,Lung disease,renal dise ase Neg. 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
--- OUTSIDE RECORDS SUMMARY | 2025-02-20 13:11 | XMS_ITS | Encounter Summary ---
Author Organization [facility] Address [address] [place] [address] Care Team Providers Care Professor Of English Name Role Phone Lucas Bolanos MD Primary Care Provider [phone] Encounter Details Date Type Department Care Team (Late st Contact Info) Description 02/03/2025 Lab Requisition [facility] - Main Lab [address] [place] [address] Lucas Bolanos MD [address] [facility] [address] [place], [address] Anemia, unspecified Social History Tobacco Use Types Packs/Day Years [...] Date/Time Associated Diagnosis Comments COMPLETE BLOOD COUNT Routine 02/03/2025 6:23 AM EDT Anemia, unspecified COMPREHENSIVE METABOLIC PANEL Routine 02/03/2025 6:23 AM EDT Anemia, unspecified documented in this encounter Results * (ABNORMAL) Comprehensive metabolic panel (02/03/2025 6:23 AM EDT) Sodium 132(L) 133 - 145 mmol/L LAB CHEMISTRY METHOD 02/03/2025 12:[address] [facility] Potassium 4.5 3.5 - 5.5 mmol/L LAB CHEMISTRY METHOD 02/03/2025 12:[address] [facility] Chloride 97 96 - 110 mmol/L LAB CHEMISTRY METHOD 02/03/2025 12:14 PM [facility] CO2 26 21 - 32 mmol/L LAB CHEMISTRY METHOD 02/03/2025 12:14 PM [facility] Anion Gap 9 3 - 11 LAB CHEMISTRY METHOD 02/03/2025 12:14 PM [facility] Glucose 78 70 - 100 mg/dL LAB CHEMISTRY METHOD 02/03/2025 12:14 PM [facility] BUN 14 5 - 25 mg/dL LAB CHEMISTRY METHOD 02/03/2025 12:14 PM [facility] Creatinine 0.66 0.50 - 1.10 mg/dL LAB CHEMISTRY METHOD 02/03/2025 12:14 PM [facility] eGFR 87 >=60 mL/min/1. 73m2 LAB CHEMISTRY METHOD 02/03/2025 12:14 PM [facility] Comment:Calculation based on the??Chronic Kidney Disease Epidemiology Collaboration (CKD-EPI) equation refit??without adjustment for race. BUN/Creatinine Ratio 21.2 LAB CHEMISTRY METHOD 02/03/2025 12:14 PM [facility] Calcium 9.2 8.5 - 10.5 mg/dL LAB CHEMISTRY METHOD 02/03/2025 12:14 PM [facility] AST (SGOT) 28 10 - 42 unit/L LAB CHEMISTRY METHOD 02/03/2025 12:14 PM [facility] ALT (SGPT) 39 10 - 60 unit/L LAB CHEMISTRY METHOD 02/03/2025 12:14 PM [facility] Alkaline Phosphatase 251(H) 42 - 121 unit/L LAB CHEMISTRY METHOD 02/03/2025 12:14 PM [facility] Total Protein 6.5 6.0 - 8.0 g/dL LAB CHEMISTRY METHOD 02/03/2025 12:14 PM [facility] Albumin 3.5 3.2 - 5.0 g/dL LAB CHEMISTRY METHOD 02/03/2025 12:[address] [facility] Total Bilirubin 0.6 0.0 - 1.4 mg/dL LAB CHEMISTRY METHOD 02/03/2025 12:[address] [facility] Blood Venous blood specimen / Unknown Venipuncture / Unknown 02/03/2025 6:23 AM EDT 02/03/2025 10:28 AM EDT us Lucas Bolanos MD LAB BLOOD ORDERABLES Final Resul t [facility] [address] [place] [address], [place] [phone] * Complete blood count (02/03/2025 6:23 AM EDT) WBC 9.4 4.8 - 10.8 K/mcL LAB HEMETOLOGY METHOD 02/03/2025 11:33 AM [facility] RBC 4.20 3.80 - 4.80 M/mcL LAB HEMETOLOGY METHOD 02/03/2025 11:33 AM [facility] Hemoglobin 12.9 11.5 - 16.0 g/dL LAB HEMETOLOGY METHOD 02/03/2025 11:33 AM [facility] Hematocrit 38.3 35.0 - 47.0 % LAB HEMETOLOGY METHOD 02/03/2025 11:33 AM [facility] MCV 91.6 79.0 - 98.0 FL LAB HEMETOLOGY METHOD 02/03/2025 11:33 AM [facility] MCH 30.9 27.0 - 32.0 pcg LAB HEMETOLOGY METHOD 02/03/2025 11:33 AM [facility] MCHC 33.7 32.0 - 37.0 g/dL LAB HEMETOLOGY METHOD 02/03/2025 11:[address] [facility] RDW 12.8 11.0 - 15.0 % LAB HEMETOLOGY METHOD 02/03/2025 11:[address] [facility] Platelets 377 130 - 400 K/mcL LAB HEMETOLOGY METHOD 02/03/2025 11:[address] [facility] MPV 8.9 7.0 - 11.0 FL LAB HEMETOLOGY METHOD 02/03/2025 11:[address] [facility] NRBC 0.0 <1.0 % LAB HEMETOLOGY METHOD 02/03/2025 11:[address] [facility] NRBC Absolute 0.00 <0.10 K/mcL LAB HEMETOLOGY METHOD 02/03/2025 11:[address] [facility] Blood Venous blood specimen / Unknown Venipuncture / Unknown 02/03/2025 6:23 AM EDT 02/03/2025 10:28 AM EDT us Lucas Bolanos MD LAB BLOOD ORDERABLES Final Resul t [facility] [address] [place] [address], documented in this encounter Visit Diagnoses Diagnosis Anemia, unspecified documented in this encounter Care Teams Professor Of English Relationship Specialty Start Date End Date Lucas Bolanos MD [address] [place] [address] [address] [place], [phone] PCP - General Family Medicine 02/03/25 documented as of this encounter
--- OUTSIDE RECORDS SUMMARY | 2025-02-20 13:11 | XMS_ITS | Encounter Summary ---
Author Organization [facility] Address [address] [place] [address] Care Team Providers Care Knitting Machine Tender Name Role Phone Lucas Bolanos MD Primary Care Provider [phone] Encounter Details Date Type Department Care Team (Late st Contact Info) Description 02/04/[address] [facility] - Main Lab [address] [facility] [place] [address] Lucas Bolanos MD [address] [facility] [address] [place], [phone] Unspecified atrial fibrillation (CMS/HCC) Social History Tobacco Use Types Packs/Day Years [...] Associated Diagnosis Comments COMPLETE BLOOD COUNT Routine 02/04/2025 9:09 AM EDT Unspecified atrial fibrillation (CMS/HCC) C-REACTIVE PROTEIN Routine 02/04/2025 9: 09 AM EDT Unspecified atrial fibrillation (CMS/HCC) COMPREHENSIVE METABOLIC PANEL Routine 02/04/2025 9:09 AM EDT Unspecified atrial fibrillation (CMS/HCC) documented in this encounter Results * C-reactive protein (02/04/2025 9:09 AM EDT) C-Reactive Protein 0.39 <=0.50 mg/dL LAB CHEMISTRY METHOD 02/04/2025 12:15 PM EDT [facility] Blood Venous blood specimen / Unknown Venipuncture / Unknown 02/04/2025 9:09 AM EDT 02/04/2025 10:44 AM EDT us Lucas Bolanos MD LAB BLOOD ORDERABLES Final Resul t [facility] [address] [place] [address], [place] [phone] * (ABNORMAL) Comprehensive metabolic panel (02/04/2025 9:09 AM EDT) Sodium 130(L) 133 - 145 mmol/L LAB CHEMISTRY METHOD 02/04/2025 12:15 PM [facility] Potassium 4.1 3.5 - 5.5 mmol/L LAB CHEMISTRY METHOD 02/04/2025 12:15 PM [facility] Chloride 98 96 - 110 mmol/L LAB CHEMISTRY METHOD 02/04/2025 12:15 PM [facility] CO2 25 21 - 32 mmol/L LAB CHEMISTRY METHOD 02/04/2025 12:15 PM [facility] Anion Gap 7 3 - 11 LAB CHEMISTRY METHOD 02/04/2025 12:15 PM [facility] Glucose 132(H) 70 - 100 mg/dL LAB CHEMISTRY METHOD 02/04/2025 12:15 PM [facility] BUN 16 5 - 25 mg/dL LAB CHEMISTRY METHOD 02/04/2025 12:15 PM [facility] Creatinine 0.78 0.50 - 1.10 mg/dL LAB CHEMISTRY METHOD 02/04/2025 12:15 PM [facility] eGFR 75 >=60 mL/min/1. 73m2 LAB CHEMISTRY METHOD 02/04/2025 12:15 PM [facility] Comment:Calculation based on the??Chronic Kidney Disease Epidemiology Collaboration (CKD-EPI) equation refit??without adjustment for race. BUN/Creatinine Ratio 20.5 LAB CHEMISTRY METHOD 02/04/2025 12:15 PM EDT [facility] Calcium 8.9 8.5 - 10.5 mg/dL LAB CHEMISTRY METHOD 02/04/2025 12:15 PM EDT [facility] AST (SGOT) 23 10 - 42 unit/L LAB CHEMISTRY METHOD 02/04/2025 12:15 PM EDT [facility] ALT (SGPT) 37 10 - 60 unit/L LAB CHEMISTRY METHOD 02/04/2025 12:15 PM [facility] Alkaline Phosphatase 246(H) 42 - 121 unit/L LAB CHEMISTRY METHOD [facility] Total Protein 6.3 6.0 - 8.0 g/dL LAB CHEMISTRY METHOD 02/04/2025 12:15 [facility] Albumin 3.3 3.2 - 5.0 g/dL LAB CHEMISTRY METHOD 02/04/2025 12:15 PM [facility] Total Bilirubin 0.5 0.0 - 1.4 mg/dL LAB CHEMISTRY METHOD 02/04/2025 12:15 PM [facility] Blood Venous blood specimen / Unknown Venipuncture / Unknown 02/04/2025 9:09 AM EDT 02/04/2025 10:44 AM EDT us Lucas Bolanos MD LAB BLOOD ORDERABLES Final Resul t [facility] [address] [place] [address], * (ABNORMAL) Complete blood count (02/04/2025 9:09 AM EDT) WBC 10.9(H) 4.8 - 10.8 K/mcL LAB HEMETOLOGY METHOD 02/04/2025 11:17 AM [facility] RBC 4.00 3.80 - 4.80 M/mcL LAB HEMETOLOGY METHOD 02/04/2025 11:17 AM [facility] Hemoglobin 12.5 11.5 - 16.0 g/dL LAB HEMETOLOGY METHOD 02/04/2025 11:17 AM [facility] Hematocrit 36.7 35.0 - 47.0 % LAB HEMETOLOGY METHOD 02/04/2025 11:17 AM [facility] MCV 91.3 79.0 - 98.0 FL LAB HEMETOLOGY METHOD 02/04/2025 11:17 AM [facility] MCH 31.1 27.0 - 32.0 pcg LAB HEMETOLOGY METHOD 02/04/2025 11:17 AM [facility] MCHC 34.1 32.0 - 37.0 g/dL LAB HEMETOLOGY METHOD 02/04/2025 11:17 AM [facility] RDW 12.7 11.0 - 15.0 % LAB HEMETOLOGY METHOD 02/04/2025 11:17 AM [facility] Platelets 370 130 - 400 K/mcL LAB HEMETOLOGY METHOD 02/04/2025 11:17 AM [facility] MPV 9.0 7.0 - 11.0 FL LAB HEMETOLOGY METHOD 02/04/2025 11:17 AM [facility] NRBC 0.0 <1.0 % LAB HEMETOLOGY METHOD 02/04/2025 11:17 AM [facility] NRBC Absolute 0.00 <0.10 K/mcL LAB HEMETOLOGY METHOD 02/04/2025 11:17 AM [facility] Blood Venous blood specimen / Unknown Venipuncture / Unknown 02/04/2025 9:09 AM EDT 02/04/2025 10:44 AM EDT us Lucas Bolanos MD LAB BLOOD ORDERABLES Final Resul t [facility] [address] [place] [address], documented in this encounter Visit Diagnoses Diagnosis Unspecified atrial fibrillation (CMS/HCC) documented in this encounter Care Teams Knitting Machine Tender Relationship Specialty Start Date End Date Lucas Bolanos MD [address] [place] [address] [address] [place], [phone] PCP - General Family Medicine 02/03/25 documented as of this encounter
--- OUTSIDE RECORDS SUMMARY | 2025-02-20 13:11 | XMS_ITS | Data Portability ---
Author Organization [facility], Main Office Address [address] [facility], [address] [place] [address] Care Team Providers Care Canal Tender Name Role Phone RAFAL JOSHI - 2ND FLOOR OTHER Assessment Encounter Date Assessment Date Assessment LastModified by Organization Details LastModified Time 02/13/2025 02/13/2025 45 minutes spent on coordination of discharge. Not available 02/13/2025 14:36:00 Plan of Treatment Reminders Order Date Submit Date Provider Last Modified By Organization Details Last Modified Time Details Appointments None record ed. Lab None record ed. Referral None record ed. Procedures None record ed. Surgeries None record ed. Imaging None record ed. Medication Orders None record ed. Patient TargetsNo targets recorded. Patient InstructionsNo instructions recorded. Reason for Referral None Reported. Problems Name Problem SNOMED Code Status Onset Date Resolution Date Notes Provider Name and Address Organization Details Recorded Time Fracture of pelvis 21769333 Active 2024 Chrissy Quiroz NP [address] [facility], [address], [place], [address], [facility] Kasenna 17:21:43 Urinary tract infectious disease 61261643 Active 2024 Chrissy Quiroz NP [address] [facility], [address], [place], [address], [facility] [place] [facility]enna 17:21:50 Asthenia 53272701 Active 2024 Chrissy Quiroz NP [address] [facility], [address], [place], [address], [facility] [place] [facility]enna 17:21:59 Anxiety 96978751 Active 2024 Chrissy Quiroz NP [address] [facility], [address], [place], [address], [facility] [facility] 5 17:22:53 Hypertensive disorder 95035180 Active 2024 Chrissy Quiroz NP [address] [facility], [address], [place], [address], [facility] [employer] 5 17:23:01 Sciatica 13853626 Active 2024 Chrissy Quiroz NP [address] [facility], [address], [place], [address], [facility] [employer] 5 17:23:11 Osteopenia 376045067 Active 2024 Chrissy Quiroz NP [address] [facility], [address], [place], [address], [employer] 5 17:23:39 Problem Notes None recorded. Medical Equipment None Reported. Allergies Allergen ID Allergen Name Allergen Category Reaction Reaction Severity Criticality Documentation Date Start Date Code Code System Note Provider Name and Address Organization Details Recorded Time 80311 nitrofura ntoin medicatio n angioedem a diarrhea Not available Not available unabletoasse 02/03/2025 7454 RxNorm Not Available Not Available Not Available 39069 oxycodone medicatio n hives nausea vomiting Not available Not available Not available unabletoasse 02/03/2025 7804 RxNorm Not Available Not Available Not Available 59375 Substance with sulfonami de structure and antibacte rial mechanism of action (substanc e) medicatio n angioedem a diarrhea Not available Not available unabletoasse 02/03/2025 57591 8003 SNOMED Not Available Not Available Not Available 88317 hydrocodo ne Not available nausea vomiting Not available Not available unabletoasse 02/03/2025 5489 RxNorm Not Available Not Available Not Available Medications Not known to be on any medication Vitals Date Recorded Body weight Heart rate Respiratory rate Body temperature Oxygen saturation Oxygen saturation in Arterial blood by Pulse oximetry Provider Name and Address Organization Details Last Updated DateTime 5 97544.4 9 g 93 /min 18 /min 97.2 [degF] 98 % 98 % Chrissy Quiroz NP [address] [facility], [address], [place], [address], [facility] 5 17:07:18 Date Recorded Body weight Heart rate Respiratory rate Systolic blood pressure Diastolic blood pressure Provider Name and Address Organization Details Last Updated DateTime 02/04/2025 60508.4 9 g 93 /min 18 /min 165 mm[Hg] 95 mm[Hg] Lucas Bolanos MD [address] [facility], [address], [place], [address], [facility] 5 15:39:17 Date Recorded Heart rate Respiratory rate Body temperature Oxygen saturation Oxygen saturation in Arterial blood by Pulse oximetry Systolic blood pressure Diastolic blood pressure Provider Name and Address Organization Details Last Updated DateTime 70 /min 18 /min 97.5 [degF] 95 % 95 % 126 mm[Hg] 72 mm[Hg] BARI JEFFERS NP [address] [facility], [address], [place], [address], [facility] 5 14:02:36 Social History Question Answer Notes LastModified by Organizat ion Details LastModified Time Tobacco Smoking Status Never Smoker Chrissy Quiroz NP [address] [facility], [address], [place], [address], [facility] 02/03/2025 17:08:35 Do You Have An Advance Directive? No Information not available 02/03/2025 What Is Your Level Of Alcohol Consumption? Occasional On A Birthday Information not available 02/03/2025 How Many Times Per Week Do You Consume Alcohol? Less Than 1 Time Per Week Information not available 02/03/2025 What Is Your Code Status? Full Code Information not available 02/03/2025 Where Do You Live? Apartment [address] Floor Information not available 02/03/2025 What Was The Date Of Your Most Recent Tobacco Screening? 02/03/2025 Information not available 02/03/2025 Do You Have An Out Of Hospital DNR? No Information not available 02/03/2025 Have You Ever Been Counseled For Unhealthy Alcohol Use? No Information not available 02/03/2025 What Is Your Relationship Status? Single Information not available 02/03/2025 Do You Use Any Illicit Or Recreational Drugs? No Information not available 02/03/2025 Has Tobacco Cessation Counseling Been Provided? No Information not available 02/03/2025 Sex: Female Functional Status None recorded. Mental Status None recorded. Family History Nothing Reported Notes:mother: htn a neursym father: of old age Medical History No medical history recorded. Gynecological HistoryNo gynecological history recorded. Obstetrics History GPAL:G 0 P 0 0 0 0 Immunizations Vaccine Type Date Status Note Provider Nam e and Address Organization Details Recorded Time Td(adult) unspecified formulation 1 completed David [facility]-Torres [facility] 02/04/2025 16:00:58 pneumococcal polysaccharide PPV23 1 completed David Florez [facility] 02/04/2025 16:01:09 influenza, unspecified formulation 1 completed David [facility] 02/04/2025 16:01:24 influenza, unspecified formulation 2 completed David [facility] 02/04/2025 16:01:29 influenza, unspecified formulation 3 completed David Walton[facility]res [facility] 02/04/2025 16:01:33 influenza, unspecified formulation 4 completed David [facility]Tor[facility] 02/04/2025 16:01:38 SARS-COV-2 (COVID-19) vaccine, UNSPECIFIED 1 completed David Florez [facility] 02/04/2025 16:01:55 SARS-COV-2 (COVID-19) vaccine, UNSPECIFIED 1 completed David Florez [facility] 02/04/2025 16:02:00 SARS-COV-2 (COVID-19) vaccine, UNSPECIFIED 1 completed David Florez [facility] 02/04/2025 16:02:04 SARS-COV-2 (COVID-19) vaccine, UNSPECIFIED 2 completed David Florez null, [facility] 02/04/2025 16:02:09 SARS-COV-2 (COVID-19) vaccine, UNSPECIFIED 3 [facility] 16:02:14 SARS-COV-2 (COVID-19) vaccine, UNSPECIFIED 4 completed David Florez [facility] 02/04/2025 16:02:19 Past Encounters Encounter ID Performer Location Encounter Start Date Encounter Closed Date Diagnosis/Indication Diagnosis SNOMED-CT Code Diagnosis ICD10 Code Diagnosis Note [id number] Chrissy Quiroz NP [facility] [address] [place] [address] 02/03/2025 16:35:00 02/05/2025 11:47:15 Fracture of pelvis 37524531 S32.9XXD pt with multilevel central canal stenosis fracture eval'd by neurosurge ry and neurologyc onttramado l 50 mg po q 6tyl 650 mg po q 6 hrs prncyclobe nzaprine 5m gpo tid prnmiralax daily prnlidocai ne 2 patches to back dailysenn/ colace 2 tab po bidcelecox ib 200mg po qdpt ot eval and treatvital s dailymonit or for pain relief/wor sening Urinary tr act infectious disease 38725142 N39.0 acute mrsa uti treated wtih vanco and dc'd with linezolid to completepr obioticmet henamine hippurate 1 gram qdcranberr y 400 mg qdmonitor for reoccurenc ecbc and bmp weekly Asthenia 08421292 R53.1 pt ot eval and treatsuppo rtive caremonito r Hypertensive disorder 38 941577 I10 losartan 25 mg po qdmonitor vitals and for need to adjust Osteopenia 526399320 M85 .819 hx ofcalcium qdcentrum silverqd Sciatica 79360612 M54.30 hx ofshe above for pain management Retention of urine 12806 4002 R33.9 cont [address]ay cathfu with dr jara for retentionh as leg bag in place with clear yellow urinemonit or Mixed anxi ety and depressive disorder 493410700 F41.8 hx sertaline 25 mg po qdbenedryl /tyl prn qhsmelaton in 10 qhspsych prnmonitor [place] 846549404 R29.6 with recent fallsuppor tive carept ot eval and treatmonit or [id number] Lucas Bolanos MD [address] [address] 02/04/2025 15:38:52 02/05/2025 12:08:04 Fracture of pelvis 93691607 S32.9XXD see HPIImaging positive for multilevel stenosis and comminuted fractures of sacrum, S1 and S2 with L2-3 L4-5 stenosisEv al by neurosurge ry and neurology with acute need for interventi on ruled outInitial ly treated with IV dilaudid then deescalate d to tramadol, lidocaine patch and flexerilmo nitor for pain controlupd ate neurosurge ry with concerns Urinary tr act infectious disease 16311677 N30.01 see HPI with UTI secondary to MRSAnow on zyvox to complete coursemoni tor for recurrent infection Asthenia 39195110 R53.1 PT OT eval and treatmonit or fall risk and need for increased support in community Hypertensive disorder 38 688253 I10 losartan 25 mg po qdmonitor bp and need to titrate Retention of urine 21190 [address] and urology f/u scheduledu pdate with concerns Generalize d anxiety 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 F41.1 maintained on zoloft 25 mg qdcontinue dmonitor for effectpsyc h eval prn [id number] BARI JEFFERS NP [address] [address] 02/13/2025 09:27:36 02/17/2025 12:50:04 Fracture of pelvis 72939501 S32.9XXD see HPIImaging positive for multilevel stenosis and comminuted fractures of sacrum, S1 and S2 with L2-3 L4-5 stenosisEv al by neurosurge ry and neurology with acute need for interventi on ruled outInitial ly treated with IV dilaudid then deescalate d to tramadol, lidocaine patch and flexerilmo nitor for pain controlupd ate neurosurge ry with concerns Urinary tr act infectious disease 86526164 N30.01 see HPI with UTI secondary to MRSAcomple nadya zyvoxmonit or for recurrent infectionC hecking CBC, BMP today prior to d/c home Asthenia 45255314 R53.1 PT OT eval and treatmeeti ng goals for d/c home tomorrow with support of services.m onitor fall risk and need for increased support in community Generalize d anxiety disorder 71039731 F41.1 maintained on zoloft 25 mg qdcontinue dmonitor for effectpsyc h eval prn Hypertensive disorder 38 490074 I10 losartan 25 mg po qdmonitor bp and need to titrate Retention of urine 58994 4002 R33.8 Had follow up 02/11, galloway replaced due to continued retention. Flomax 0.4 mg q hs startedVoi ding trial in 1 month - galloway to be removed in am with OV scheduled in the afternoon for assessment .Update Urology with concerns.C BC, BMP x 1 today prior to d/c tomorrow. Acute hyponatremia 96794 02 E87.1 02/04 Na = 130Repeati ng BMP today prior to d/c home.Has been hydrating well with water/flui dsAlso on SSRIMonito r Health Concerns Section Related Observation LastModified by Organization Detai ls LastModified Time None Recorded Concern Status LastModified by Organization Details LastModified Time None Recorded Advance Directives Directive N: Payers Encounter Date Sequence Insurance Name Policy Number Policy Tong Covered Member ID Tong Member ID Guarantor Name 02/03/2025 1 [place] PPO) [id number] Petronella Sachsenmaier [id number] Petronella Sachsenmaier 02/04/2025 1 [place]) [id number] Petronella Sachsenmaier [id number] Petronella Sachsenmaier 02/13/2025 1 [place] PPO) [id number] Petronella Sachsenmaier [id number] Petronella Sachsenmaier Notes Date Note Type Note Provider Name and Address Organization Details Recorded Time 5 text/html Pt is seen for an initial intake. PMH: osteopenia, recurrent UTI, IBS, anxiety, HTN, cervical spinal epidural abscess, sciatica Karina is a 84 yo female with pmh above fell from a el[place] of wind on 01/07 and presented to [facility] [place] [place] on 01/27-02/01/25 with intractable back pain and sacral fracture complicated by UTI MRSA. She is here for therapy and continued care. Workup consisted of: neurology consulted and recommended dexamethasone for multilevel central canal stenosis and sacral fracture. Neurosurgery later evaluated pt and ruled out cada equina syndrome and stopped dexamethasone. She was treated with pain meds and muscle relaxers. [place] she could benefit from physical therapy.UTI MRSA with retention noted and treated with vancomycin with zyvox twice bid for 7 more days. On exam, Karina is lying in bed in NAD. States her pain is manageable and alert and oriented x3. No obvious deformities or bruising to pelvic area and able to move extremities. She states when the nerve is pinched, that's when it is painful. MOLST: full code singed 02/03/25bims: high fall risk Chrissy Quiroz NP [address] [facility], [address], [place], [address], [facility] 02/03/2025 17:39:44 5 text/html Patient is an 84 yo female admit from hospital presenting after mechanical fall 3 weeks prior, then again fell 3 days prior with concerns for urinary retention vs incontinence and paresthesias lower ext with low back pain. Imaging positive for multilevel stenosis and comminuted fractures of sacrum, S1 and S2 with L2-3 L4-5 stenosis. Eval by neurosurgery and neurology with acute need for intervention ruled out. Initially treated with IV dilaudid then deescalated to tramadol, lidocaine patch and flexeril. Not felt safe to return home at that time. Noted UTI was eval by ID and to complete course of zyvox PMH significant forrecurrent UTIsIBShtnanxietygait instability admit to facility for continued care and therapy Lucas Bolanos MD [address] [facility], [address], [place], [address], [facility] 02/04/2025 16:12:31 5 text/html Jennifer is seen today for discharge.She will be going home tomorrow with support of services. She is an 84 yo female admit from hospital presenting after mechanical fall 3 weeks prior, then again fell 3 days prior with concerns for urinary retention vs incontinence and paresthesias lower ext with low back pain. Imaging positive for multilevel stenosis and comminuted fractures of sacrum, S1 and S2 with L2-3 L4-5 stenosis. Eval by neurosurgery and neurology with acute need for intervention ruled out. Initially treated with IV dilaudid then deescalated to tramadol, lidocaine patch and flexeril. Not felt safe to return home at that time. Noted UTI was eval by ID and to complete course of zyvox. While here, Jennifer has done well.She has worked with rehab, and is meeting goals for d/c home with services.She had Urology follow up 02/11, unfortunately a galloway was reinserted due to continued retention, and flomax was also started with voiding trial and OV f/u in 1 month.VSSLast labs 02/04 stable except for wbc 10.9 and Na of 130. Per staff, no concerns. Upon exam, Jennifer is dressed, up in her chair, NAD, alert, pleasant. Happy to be returning home tomorrow. She feels well and has no complaints other than pain in her tailbone. The ultram is helping with pain, but sometimes makes her feel a little woozy. PMH significant forrecurrent UTIsIBShtnanxietygait instability BARI JEFFERS NP [address] [facility], [address], [place], [address], [facility] 02/13/2025 14:36:21 OBGyn Episode No OBEpisode recorded.
--- OUTSIDE RECORDS SUMMARY | 2025-02-20 13:11 | XMS_ITS | Encounter Summary ---
Author Organization [facility] Address [address] [place] [address] Care Team Providers Care Welfare Interviewer Name Role Phone Lucas Bolanos MD Primary Care Provider [phone] Encounter Details Date Type Department Care Team (Late st Contact Info) Description 12/13/2024 Lab Requisition [facility] - Main Lab [address] [facility] [place] [address] Jessa Livingston MD [address] [id number] Urinary tract infection, site not specified Social [...] Enterococcus faecalis(A) JAKI 12/15/2024 7:52 AM EST [facility] Comment: Edited result: Previously [...] MICROBIOLOGY - G ENERAL ORDERABLES Final Result [facility] [address] [place] [address], documented in this encounter Visit Diagnoses Diagnosis Urinary tract infection, site not specified documented in this encounter Care Teams Welfare Interviewer Relationship Specialty Start Date End Date Lucas Bolanos MD [address] [place] [address], [address] PCP - General Family Medicine 02/03/25 documented as of this encounter
== END 2025-02-20 13:05 | disposition home or self-care (01) ==
LOC: HO.HMCC 11:51
PROVIDERS: PCP Internal Medicine; Visit Provider Internal Medicine
DX: I10 Essential (primary) hypertension (principal); S32.10XA Unspecified fracture of sacrum, initial encounter for closed fracture; R33.9 Retention of urine, unspecified; R60.0 Localized edema

== ENCOUNTER → 2025-02-20 11:50 | Outpatient (BNVA) | payer MEDICARE, SELFPAY | PROVIDERS: PCP Internal Medicine; Visit Provider Internal Medicine | DX: I10 Essential (primary) hypertension (principal); R32 Unspecified urinary incontinence; R33.9 Retention of urine, unspecified; R60.0 Localized edema; S32.10XD Unspecified fracture of sacrum, subsequent encounter for fracture with routine healing; W19.XXXD Unspecified fall, subsequent encounter; Z78.0 Asymptomatic menopausal state; Z79.899 Other long term (current) drug therapy | CPT/HCPCS: 99212 ==

== ENCOUNTER 2025-02-26 12:12 | Outpatient (REF) | payer MEDICARE, SELFPAY ==
--- OUTSIDE RECORDS SUMMARY | 2025-02-26 14:14 | XMS_ITS | Patient Health Record ---
Author Organization [facility] Address [address] [place] [address] Care Team Providers Care Mosaic Floor Layer Name Role Phone Fatou Hinojosa MD Primary Care Provider Kojo Eastman [phone] Allergies Allergen (clinical drug ingredient) Drug/Non Drug [...] ff Reviewed date:01/13/2025 05:19:57 PM Interpretation: Performing Lab:[facility], [address] [place] [phone] Notes/Report: White Blood Count 9.9 4.8-10.8 X10*3/uL [...] yet reviewe d by provider) Interpretation: Performing Lab:[facility], [address] [place] [phone] Notes/Report: Bilirubin Total 0.5 0.0-1.0 mg/dL Bilirubin Direct 0.2 0.0-0.5 mg/dL Aspartate Amino Transferase 30 5-31 U/L Alanine Aminotransferase 30 0-31 U/L Total Protein 7.8 6.5-8.0 g/dL Albumin Level 4.3 3.5-5.0 g/dL Alkaline Phosphatase 143 39-117 U/L Lipase Reviewed date:01/13/2025 05:20:25 PM Interpretation: Performing Lab:[facility], [address] [place] [phone] Notes/Report: Lipase 38 8-78 U/L Immunoglobulin A Reviewed date:01/17/2025 05:21:45 PM Interpretation: Performing Lab:[facility], [address] [place] [phone] Notes/Report: Immunoglobulin A 242 70-320 mg/dL THIS TEST WAS PERFORMED AT: [facility] [address] [place] [phone] MILLI ROMAN MD Transglutaminase Ab IgG Reviewed date:01/17/2025 05:21:58 PM Interpretation: Performing Lab:[address] [address] Notes/Report: Transglutaminase Ab IgG <1.0 Value Interpretation ----- <15.0 Antibody not detected > or = 15.0 Antibody detected THIS TEST WAS PERFORMED AT: [facility] [address] [place] [phone] MILLI ROMAN MD Transglutaminase IgA Reviewed date:01/17/2025 05:22:08 PM Interpretation: Performing Lab:[address] [address] Notes/Report: Transglutaminase IgA <1.0 Value Interpretation ----- <15.0 Antibody not detected > or = 15.0 Antibody detected THIS TEST WAS PERFORMED AT: [facility] [address] [place] [phone] MILLI ROMAN MD Gliadin Ab Panel Reviewed date:01/17/2025 05:22:17 PM Interpretation: Performing Lab:[facility], [address] [place] [phone] Notes/Report: Gliadin Deamidated IgA Ab <1.0 Value Interpretation ----- <15.0 Antibody not detected > or = 15.0 Antibody detected Gliadin Deamidated IgG Ab <1.0 Value Interpretation ----- <15.0 Antibody not detected > or = 15.0 Antibody detected THIS TEST WAS PERFORMED AT: [facility] [address] [place] [phone] MILLI ROMAN MD Endomysial IgA rflx Titer Reviewed date:01/17/2025 05:22:27 PM Interpretation: Performing Lab:[facility], [address] [place] [phone] Notes/Report: Endomysial IgA Antibody Negative Negative THIS TEST WAS PERFORMED AT: [facility] [address] [place] [address] BETTINA VENEGAS MD,PHD Endomysial Titer TNP Reason [...] Problem Status W/U Status Risk Notes Problem 896340523 Encounter for screening for malignant neoplasm of colon (Z12.11) Active confirmed Problem Gallstones (386635372) Gallstones (K80.20) Active confirmed Problem Right upper quadrant pain (822913121) Abdominal pain, RUQ (R10.11) Active confirmed Problem 11624160 Irritable bowel syndrome, unspecified type (K58.9) Active confirmed Vital Signs Temperature 98.0 degrees Fahrenheit 01/08/2025 Blood pressure diastolic 01 mm Hg 01/08/2025 Height 64.5 in 01/08/2025 Blood pressure systolic 001 mm Hg 01/08/2025 Weight 121 lbs 01/08/2025 BMI 20.45 kg/m2 01/08/2025 Encounters Encounter Location Date Provider Diagnosis [facility] [address] [place] [address] 01/08/2025 Kojo Carrasco Irritable bowel syndrome, unspecified [...] Name:Kojo Carrasco , 08/12/2025 10:30:00 AM, [address], [address], [place], [address], Insurance Providers Payer Name Payer Address Payer Phone Subscriber Number Group Number Insured Name Patient Relationship to Insured Coverage Start Date Coverage End Date [facility] [address] [place], [place] [id number] [phone] [id number] RASHAUN SALINAS Self - patient is the insured Medical (General) History Medical History History ICD Code Breast cancer--2014---right lumpectomy-- XRT Denies [place],DM,CVA,Lung disease,renal dise ase Neg. 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
--- OUTSIDE RECORDS SUMMARY | 2025-02-26 14:14 | XMS_ITS | Encounter Summary ---
Author Organization [facility] Address [address] [place] [address] Care Team Providers Care Travel Agent Name Role Phone Lucas Bolanos MD Primary Care Provider [phone] Encounter Details Date Type Department Care Team (Late st Contact Info) Description 02/04/2025 Lab Requisition [facility] - Main Lab [address] [facility] [place] [address] Lucas Bolanos MD 38 [facility] [address] [place], [address] Unspecified atrial fibrillation (CMS/HCC) Social History [...] LAB CHEMISTRY METHOD 02/04/2025 12:15 PM EDT [facility] Blood Venous blood specimen / Unknown Venipuncture / Unknown 02/04/2025 9:09 AM EDT 02/04/2025 10:44 AM EDT us Lucas Bolanos MD LAB BLOOD ORDERABLES Final Resul t [facility] [address] [place] [address], [place] [phone] * (ABNORMAL) Comprehensive metabolic panel (02/04/2025 9:09 AM EDT) Sodium 130(L) 133 - 145 mmol/L LAB CHEMISTRY METHOD 02/04/2025 12:[address] [facility] Potassium 4.1 3.5 - 5.5 mmol/L LAB CHEMISTRY METHOD 02/04/2025 12:[address] [facility] Chloride 98 96 - 110 mmol/L LAB CHEMISTRY METHOD 02/04/2025 12:[address] [facility] CO2 25 21 - 32 mmol/L LAB CHEMISTRY METHOD 02/04/2025 12:[address] [facility] Anion Gap 7 3 - 11 LAB CHEMISTRY METHOD 02/04/2025 12:[address] [facility] Glucose 132(H) 70 - 100 mg/dL LAB CHEMISTRY METHOD 02/04/2025 12:[address] [facility] BUN 16 5 - 25 mg/dL LAB CHEMISTRY METHOD 02/04/2025 12:[address] [facility] Creatinine 0.78 0.50 - 1.10 mg/dL LAB CHEMISTRY METHOD 02/04/2025 12:[address] [facility] eGFR 75 >=60 mL/min/1. 73m2 LAB CHEMISTRY METHOD 02/04/2025 12:[address] [facility] Comment:Calculation based on the??Chronic Kidney Disease Epidemiology Collaboration (CKD-EPI) equation refit??without adjustment for race. BUN/Creatinine Ratio 20.5 LAB CHEMISTRY METHOD 02/04/2025 12:15 PM EDT [facility] Calcium 8.9 8.5 - 10.5 mg/dL LAB CHEMISTRY METHOD 02/04/2025 12:15 PM EDT [facility] AST (SGOT) 23 10 - 42 unit/L LAB CHEMISTRY METHOD 02/04/2025 12:15 PM EDT [facility] ALT (SGPT) 37 10 - 60 unit/L LAB CHEMISTRY METHOD 02/04/2025 12:[address] [facility] Alkaline Phosphatase 246(H) 42 - 121 unit/L LAB CHE[facility]STRY [facility] Total Protein 6.3 6.0 - 8.0 g/dL LAB CHEMISTRY METHOD [facility] Albumin 3.3 3.2 - 5.0 g/dL LAB CHEMISTRY METHOD 02/04/2025 12:[address] [facility] Total Bilirubin 0.5 0.0 - 1.4 mg/dL LAB CHEMISTRY METHOD 02/04/2025 12:[address] [facility] Blood Venous blood specimen / Unknown Venipuncture / Unknown 02/04/2025 9:09 AM EDT 02/04/2025 10:44 AM EDT us Lucas Bolanos MD LAB BLOOD ORDERABLES Final Resul t [facility] [address] [place] [address], * (ABNORMAL) Complete blood count (02/04/2025 9:09 AM EDT) WBC 10.9(H) 4.8 - 10.8 K/mcL LAB HEMETOLOGY METHOD 02/04/2025 11:[address] [facility] RBC 4.00 3.80 - 4.80 M/mcL LAB HEMETOLOGY METHOD 02/04/2025 11:[address] [facility] Hemoglobin 12.5 11.5 - 16.0 g/dL LAB HEMETOLOGY METHOD 02/04/2025 11:[address] [facility] Hematocrit 36.7 35.0 - 47.0 % LAB HEMETOLOGY METHOD 02/04/2025 11:[address] [facility] MCV 91.3 79.0 - 98.0 FL LAB HEMETOLOGY METHOD 02/04/2025 11:[address] [facility] MCH 31.1 27.0 - 32.0 pcg LAB HEMETOLOGY METHOD 02/04/2025 11:[address] [facility] MCHC 34.1 32.0 - 37.0 g/dL LAB HEMETOLOGY METHOD 02/04/2025 11:[address] [facility] RDW 12.7 11.0 - 15.0 % LAB HEMETOLOGY METHOD 02/04/2025 11:[address] [facility] Platelets 370 130 - 400 K/mcL LAB HEMETOLOGY METHOD 02/04/2025 11:[address] [facility] MPV 9.0 7.0 - 11.0 FL LAB HEMETOLOGY METHOD 02/04/2025 11:[address] [facility] NRBC 0.0 <1.0 % LAB HEMETOLOGY METHOD 02/04/2025 11:[address] [facility] NRBC Absolute 0.00 <0.10 K/mcL LAB HEMETOLOGY METHOD 02/04/2025 11:[address] [facility] Blood Venous blood specimen / Unknown Venipuncture / Unknown 02/04/2025 9:09 AM EDT 02/04/2025 10:44 AM EDT us Lucas Bolanos MD LAB BLOOD ORDERABLES Final Resul t [facility] [address] [place] [address], documented in this encounter Visit Diagnoses Diagnosis Unspecified atrial fibrillation (CMS/HCC) documented in this encounter Care Teams Travel Agent Relationship Specialty Start Date End Date Lucas Bolanos MD [address] [place] [address] [address] [place], [phone] PCP - General Family Medicine 02/03/25 documented as of this encounter
--- OUTSIDE RECORDS SUMMARY | 2025-02-26 14:14 | XMS_ITS | Encounter Summary ---
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 Potassium 4.0 3.5 - 5.5 mmol/L LAB CHEMISTRY METHOD 02/13/2025 6:16 PM EDT [facility] Chloride 98 96 - 110 mmol/L LAB CHEMISTRY METHOD 02/13/2025 6:16 PM [facility] CO2 28 21 - 32 mmol/L LAB CHEMISTRY METHOD 02/13/2025 6:16 PM [facility] Anion Gap 5 3 - 11 LAB CHEMISTRY METHOD 02/13/2025 6:16 PM [facility] Glucose 93 70 - 100 mg/dL LAB CHEMISTRY METHOD 02/13/2025 6:16 PM [facility] BUN 15 5 - 25 mg/dL LAB CHEMISTRY METHOD 02/13/2025 6:16 PM [facility] Creatinine 0.86 0.50 - 1.10 mg/dL LAB CHEMISTRY METHOD 02/13/2025 6:16 PM [facility] eGFR 67 >=60 mL/min/1. 73m2 LAB CHEMISTRY METHOD 02/13/2025 6:16 PM T [facility] Comment:Calculation based on the??Chronic Kidney Disease Epidemiology Collaboration (CKD-EPI) equation refit??without adjustment for race. BUN/Creatinine Ratio 17.4 LAB CHEMISTRY METHOD 02/13/2025 6:16 PM [facility] Calcium 8.9 8.5 - 10.5 mg/dL LAB CHEMISTRY METHOD 02/13/2025 6:16 PM T [facility] Blood Venous blood specimen / Unknown Venipuncture / Unknown 02/13/2025 5:16 PM EDT 02/13/2025 5:41 PM EDT us Lucas Bolanos MD LAB BLOOD ORDERABLES Final Resul t [facility] [address] [place] [address], [place] [phone] * (ABNORMAL) Complete blood count (02/13/2025 5:16 PM EDT) [facility] WBC 9.6 4.8 - 10.8 K/mcL LAB HEMETOLOGY METHOD 02/13/2025 5:50 PM EDT [facility] RBC 3.80 3.80 - 4.80 M/mcL LAB HEMETOLOGY METHOD 02/13/2025 5:50 PM EDT [facility] Hemoglobin 11.7 11.5 - 16.0 g/dL LAB HEMETOLOGY METHOD 02/13/2025 5:50 PM EDT [facility] Hematocrit 33.8(L) 35.0 - 47.0 % LAB HEMETOLOGY METHOD 02/13/2025 5:50 PM EDT [facility] MCV 89.4 79.0 - 98.0 FL LAB HEMETOLOGY METHOD 02/13/2025 5:50 PM EDT [facility] MCH 31.0 27.0 - 32.0 pcg LAB HEMETOLOGY METHOD 02/13/2025 5:50 PM EDT [facility] MCHC 34.6 32.0 - 37.0 g/dL LAB HEMETOLOGY METHOD 02/13/2025 5:50 PM EDT [facility] RDW 12.9 11.0 - 15.0 % LAB HEMETOLOGY METHOD 02/13/2025 5:50 PM EDT [facility] Platelets 235 130 - 400 K/mcL LAB HEMETOLOGY METHOD 02/13/2025 5:50 PM EDT [facility] MPV 8.8 7.0 - 11.0 FL LAB HEMETOLOGY METHOD 02/13/2025 5:50 PM EDT [facility] NRBC 0.0 <1.0 % LAB HEMETOLOGY METHOD 02/13/2025 5:50 PM EDT [facility] NRBC Absolute 0.00 <0.10 K/mcL LAB HEMETOLOGY METHOD 02/13/2025 5:50 PM EDT [facility] Blood Venous blood specimen / Unknown Venipuncture / Unknown 02/13/2025 5:16 PM EDT 02/13/2025 5:41 PM EDT us Lucas Bolanos MD LAB BLOOD ORDERABLES Final Resul t [facility] [address] [place] [address], documented in this encounter Visit Diagnoses Diagnosis 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
--- OUTSIDE RECORDS SUMMARY | 2025-02-26 14:14 | XMS_ITS | Encounter Summary ---
Author Organization [facility] Address [address] [place] [address] Care Team Providers Care Mig Tig Welder Name Role Phone Lucas Bolanos MD Primary Care Provider [phone] Encounter Details Date Type Department Care Team (Late st Contact Info) Description 02/03/[address] [facility] - Main Lab [address] [place] [address] Lucas Bolanos MD 38 [facility] [address] [place], [address] Anemia, unspecified Social History Tobacco Use [...] LAB CHEMISTRY METHOD 02/03/2025 12:14 PM EDT [facility] Potassium 4.5 3.5 - 5.5 mmol/L LAB CHEMISTRY METHOD 02/03/2025 12:14 PM EDT [facility] Chloride 97 96 - 110 mmol/L LAB CHEMISTRY METHOD 02/03/2025 12:14 PM [facility] CO2 26 21 - 32 mmol/L LAB CHEMISTRY METHOD 02/03/2025 12:14 PM [facility] Anion Gap 9 3 - 11 LAB CHEMISTRY METHOD 02/03/2025 12:14 PM [facility] Glucose 78 70 - 100 mg/dL LAB CHEMISTRY METHOD 02/03/2025 12:14 PM [facility] BUN 14 5 - 25 mg/dL LAB CHEMISTRY METHOD 02/03/2025 12:14 PM [facility] Creatinine 0.66 0.50 - 1.10 mg/dL LAB CHEMISTRY METHOD 02/03/2025 12:14 PM [facility] eGFR 87 >=60 mL/min/1. 73m2 LAB CHEMISTRY METHOD 02/03/2025 12:14 PM [facility] Comment:Calculation based on the??Chronic Kidney Disease Epidemiology Collaboration (CKD-EPI) equation refit??without adjustment for race. BUN/Creatinine Ratio 21.2 LAB CHEMISTRY METHOD 02/03/2025 12:14 PM [facility] Calcium 9.2 8.5 - 10.5 mg/dL LAB CHEMISTRY METHOD 02/03/2025 12:14 PM [facility] AST (SGOT) 28 10 - 42 unit/L LAB CHEMISTRY METHOD 02/03/2025 12:14 PM [facility] ALT (SGPT) 39 10 - 60 unit/L LAB CHEMISTRY METHOD 02/03/2025 12:14 PM [facility] Alkaline Phosphatase 251(H) 42 - 121 unit/L LAB CHEMISTRY METHOD 02/03/2025 12:14 PM [facility] Total Protein 6.5 6.0 - 8.0 g/dL LAB CHEMISTRY METHOD 02/03/2025 12:14 PM [facility] Albumin 3.5 3.2 - 5.0 g/dL LAB CHEMISTRY METHOD 02/03/2025 12:14 PM EDT [facility] Total Bilirubin 0.6 0.0 - 1.4 mg/dL LAB CHEMISTRY METHOD 02/03/2025 12:14 PM EDT [facility] Blood Venous blood specimen / Unknown Venipuncture / Unknown 02/03/2025 6:23 AM EDT 02/03/2025 10:28 AM EDT us Lucas Bolanos MD LAB BLOOD ORDERABLES Final Resul t [facility] [address] [place] [address], [place] [phone] * Complete blood count (02/03/2025 6:23 AM EDT) WBC 9.4 4.8 - 10.8 K/mcL LAB HEMETOLOGY METHOD 02/03/2025 11:33 AM [facility] RBC 4.20 3.80 - 4.80 M/mcL LAB HEMETOLOGY METHOD 02/03/2025 11:33 AM [facility] Hemoglobin 12.9 11.5 - 16.0 g/dL LAB HEMETOLOGY METHOD 02/03/2025 11:33 AM [facility] Hematocrit 38.3 35.0 - 47.0 % LAB HEMETOLOGY METHOD 02/03/2025 11:33 AM [facility] MCV 91.6 79.0 - 98.0 FL LAB HEMETOLOGY METHOD 02/03/2025 11:33 AM [facility] MCH 30.9 27.0 - 32.0 pcg LAB HEMETOLOGY METHOD 02/03/2025 11:33 AM [facility] MCHC 33.7 32.0 - 37.0 g/dL LAB HEMETOLOGY METHOD 02/03/2025 11:33 AM EDT [facility] RDW 12.8 11.0 - 15.0 % LAB HEMETOLOGY METHOD 02/03/2025 11:33 AM EDT [facility] Platelets 377 130 - 400 K/mcL LAB HEMETOLOGY METHOD 02/03/2025 11:33 AM EDT [facility] MPV 8.9 7.0 - 11.0 FL LAB HEMETOLOGY METHOD 02/03/2025 11:33 AM EDT [facility] NRBC 0.0 <1.0 % LAB HEMETOLOGY METHOD 02/03/2025 11:33 AM EDT [facility] NRBC Absolute 0.00 <0.10 K/mcL LAB HEMETOLOGY METHOD 02/03/2025 11:33 AM EDT [facility] Blood Venous blood specimen / Unknown Venipuncture / Unknown 02/03/2025 6:23 AM EDT 02/03/2025 10:28 AM EDT us Lucas Bolanos MD LAB BLOOD ORDERABLES Final Resul t [facility] [address] [place] [address], documented in this encounter Visit Diagnoses Diagnosis Anemia, unspecified documented in this encounter Care Teams Mig Tig Welder Relationship Specialty Start Date End Date Lucas Bolanos MD [address] [place] [address] [address] [place], [phone] PCP - General Family Medicine 02/03/25 documented as of this encounter
--- OUTSIDE RECORDS SUMMARY | 2025-02-26 14:14 | XMS_ITS ---
Author Organization [facility] Address [address] [place] [address] Care Team Providers Care Gis Specialist Name Role Phone Fatou Hinojosa MD Primary Care Provider Kojo Eastman Unavailable [phone] Allergies Allergen (clinical drug ingredient) Drug/Non Drug [...] Status W/U Status Risk Notes Problem Gallstones (644049599) Gallstones (K80.20) Active confirmed Problem Right upper quadrant pain (061734599) Abdominal pain, RUQ (R10.11) Active confirmed Vital Signs Temperature 98.0 degrees Fahrenheit 01/08/20 25 Blood pressure systolic 001 mm Hg 01/08/20 25 Blood pressure diastolic 01 mm Hg 025 Height 64.5 in 01/08/2025 Weight 121 lbs 01/08/2025 BMI 20.45 kg/m2 01/08/2025 Encounters Encounter Location Date Provider Diagnosis [facility] [address] [place] [address] 01/08/2025 Kojo Carrasco Irritable bowel syndrome, unspecified [...] Provider Name:Kojo Carrasco , 08/12/2025 10:30:00 AM, [address] [place] [address], [address], [place], [address], Progress Notes * RASHAUN WEBSTER HDO B:1940 (85 yo F)Acc No.[id number]:01/08/2025 Progress Notes Patient:?PINEDAEZEQUIEL YATES Judy Provider:?Kojo Carrasco MD :1940???Age:84 Y???Sex:Female D ate:01/08/2025 Address:[address] [place] [address], [facility] Pcp:Fatou Hinojosa MD Subjective: * Chief Complaints: * ???Patient presents today fo r ibs, diarrhea * Medical History:? * Surgical History:?Abscess in cervical spine 02/2004Lumpectomy, right breast-as above 2014 * Hospitalization/Major Diagno stic Procedure:?No Hospitalization History. * Family History:?Father: dece ased.?Mother: , aneurysm, [...] gym. Marital status: . 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 ???Nonsmoker; no sig alcohol. * Medications:?TakingLosartan Potassium 100 MG Tablet 1 tablet Orally Once a day Sertraline HCl 25 MG Tablet 1 tablet Orally Once a day Vitamin C 500 MG Capsule as directed Orally Acetaminophen 500 MG Capsule Orally PRN ibuprofen 200 MG PRN Phenylephrine HCl 10 MG Tablet as directed NEEDED Claritin NEEDED Colace 100 MG Capsule Orally DAILY Tolterodine Tartrate ER 4 MG Capsule Extended Release 24 Hour Orally Once a day Hyoscyamine 125 MG PRN Centrum Silver - Tablet as directed Orally once a day Calcium 600 mg with D 1 tab Oral once a day Acidophilus - Tablet as directed Orally once a day Metamucil 0.52 GM Capsule 2 capsules with 8 ounces of liquid Orally as directed Melatonin 5 MG Tablet 1 tablet at bedtime as needed with food Orally Once a day Vitamin D3 1000 UNIT Capsule 1 tablet Orally Once a day Cranberry 500 MG Capsule as directed Orally Taking Losartan Potassium 100 MG Tablet 1 tablet Orally Once a day Taking Sertraline HCl 25 MG Tablet 1 tablet Orally Once a day Taking Vitamin C 500 MG Capsule as directed Orally Taking Acetaminophen 500 MG Capsule Orally PRN Taking ibuprofen 200 MG PRN Taking Phenylephrine HCl 10 MG Tablet as directed NEEDED Taking Claritin NEEDED Taking Colace 100 MG Capsule Orally DAILY Taking Tolterodine Tartrate ER 4 MG Capsule Extended Release 24 Hour Orally Once a day Taking Hyoscyamine 125 MG PRN Taking Centrum Silver - Tablet as directed Orally once a day Taking Calcium 600 mg with D 1 tab Oral once a day Taking Acidophilus - Tablet as directed Orally once a day Taking Metamucil 0.52 GM Capsule 2 capsules with 8 ounces of liquid Orally as directed Taking Melatonin 5 MG Tablet 1 tablet at bedtime as needed with food Orally Once a day Taking Vitamin D3 1000 UNIT Capsule 1 tablet Orally Once a day Taking Cranberry 500 MG Capsule as directed Orally Not-Taking/PRNAnastrozole 1 MG Tablet 1 tablet Orally Once a day Meloxicam 7.5 MG Tablet 1 tablet Orally Once a day/PRN Nitrofurantoin Macrocrystal 50 MG Capsule 1 capsule with food or milk Orally Once a day Not-Taking/PRN Anastrozole 1 MG Tablet 1 tablet Orally Once a day Not-Taking/PRN Meloxicam 7.5 MG Tablet 1 tablet Orally Once a day/PRN Not-Taking/PRN Nitrofurantoin Macrocrystal 50 MG Capsule 1 capsule with food or milk Orally Once a day DiscontinuedNaproxen 220 MG PRN Fish Oil 200 mg 1 capsule Orally Once a day Medication List reviewed and reconciled with the patientDiscontinued Naproxen 220 MG PRN Discontinued Fish Oil 200 mg 1 capsule Orally Once a day Medication List reviewed and reconciled with the patient * Allergies:?VicodinNitrofurantoinSulfacetamideTrimethoprimHYDROcodoneFosfomycinye s[Allergies Verified] Objective: * Vitals:?Wt: 121 lbs, Ht: 64. [...] US abdomen complete* sched 01/30/25 at 9:00 [facility] Ultrasound dept 2nd floorfasting 8 hrs prior * 4.?Others? Refill Hyoscyamine, 125 MG, PRN.?? * Procedure Codes:?1036F TOBAC CO [id number] BP SCR NOT PRFRM REC REASON NOS * Preventive Medicine:? ??Urinary Incontinence:?Urinary Incontinence?Assessment:?Present,?Plan of care documented:?Yes,?Type of plan of care:?Addressing co-morbid factors.? ??Screenings:?Fall Risk Screening?Fall Risk Assessment:?No falls in the past year,?Screening:?No falls in the past year,?Assessment:?Not performed, no reason specified,?Plan of Care:?Not documented, no reason specified.? * Follow Up:?Fall, 2024 * * Sign off status: Completed true * Provider:?Kojo Carrasco MD Date:? 025 Generated for Pj conner/Jose/Damari on:?02/26/2025 02:13 PM EDT
--- OUTSIDE RECORDS SUMMARY | 2025-02-26 14:14 | XMS_ITS | Clinical Summary ---
Author Organization [address] Address [address] [place] [address] Phone Care Team Providers Care Clinical Assoc Name Role Phone Lucas Bolanos MD Primary Care Provider [phone] Encounters Date Type Department Care Team Description 02/13/[address] [facility] [address] [place] [phone] Lucas Bolanos MD Other longterm (current) drug therapy 02/04/[address] [facility] [address] [place] [phone] Lucas Bolanos MD Unspecified atrial fibrillation (CMS/HCC) 02/03/[address] [facility] [address] [place] [phone] Lucas Bolanos MD Anemia, unspecified 12/13/[address] [facility] [address] [place] [phone] Jessa Livingston MD Urinary tract infection, site [...] age to complete this topic Meningococcal B Vaccine Aged Out No l onger eligible based on patient's age to complete this topic RSV Immunization Patients Un kelli 20 months Aged Out No longer eligible b ased on patient's age to complete this topic Varicella Vaccines Aged Out No longer eligible based on patient's age to complete this topic Procedures Procedure Name Priority Date/Time Associated Diagnosis Comments BASIC METABOLIC PANEL STAT 02/13/2025 5:16 PM EDT Other longterm (current) drug therapy COMPLETE BLOOD COUNT STAT 02/13/2025 5:16 PM EDT Other longterm (current) drug therapy C-REACTIVE PROTEIN Routine 02/04/2025 [...] LAB HEMETOLOGY METHOD 02/13/2025 5:50 PM EDT [facility] RBC 3.80 3.80 - 4.80 M/mcL LAB HEMETOLOGY METHOD 02/13/2025 5:50 PM EDT [facility] Hemoglobin 11.7 11.5 - 16.0 g/dL LAB HEMETOLOGY METHOD 02/13/2025 5:50 PM EDT [facility] LAB Hematocrit 33.8(L) 35.0 - 47.0 % LAB HEMETOLOGY METHOD 02/13/2025 5:50 PM EDT [facility] MCV 89.4 79.0 - 98.0 FL LAB HEMETOLOGY METHOD 02/13/2025 5:50 PM EDT [facility] MCH 31.0 27.0 - 32.0 pcg LAB HEMETOLOGY METHOD 02/13/2025 5:50 PM EDT [facility] MCHC 34.6 32.0 - 37.0 g/dL LAB HEMETOLOGY METHOD 02/13/2025 5:50 PM EDT [facility] RDW 12.9 11.0 - 15.0 % LAB HEMETOLOGY METHOD 02/13/2025 5:50 PM EDT [facility] Platelets 235 130 - 400 K/mcL LAB HEMETOLOGY METHOD 02/13/2025 5:50 PM EDT [facility] MPV 8.8 7.0 - 11.0 FL LAB HEMETOLOGY METHOD 02/13/2025 5:50 PM EDT [facility] NRBC 0.0 <1.0 % LAB HEMETOLOGY METHOD 02/13/2025 5:50 PM EDT [facility] NRBC Absolute 0.00 <0.10 K/mcL LAB HEMETOLOGY METHOD 02/13/2025 5:50 PM EDT [facility] Blood Venous blood specimen / Unknown Venipuncture / Unknown 02/13/2025 5:16 PM EDT 02/13/2025 5:41 PM EDT us Lucas Bolanos MD LAB BLOOD ORDERABLES Final Resul t [facility] [address] [place] [address], * (ABNORMAL) Basic metabolic panel (02/13/2025 5:16 PM EDT) Sodium 131(L) 133 - 145 mmol/L LAB CHEMISTRY METHOD 02/13/2025 6:16 PM EDT [facility] Potassium 4.0 3.5 - 5.5 mmol/L LAB CHEMISTRY METHOD 02/13/2025 6:16 PM EDT [facility] Chloride 98 96 - 110 mmol/L LAB CHEMISTRY METHOD 02/13/2025 6:16 PM EDT [facility] CO2 28 21 - 32 mmol/L LAB CHEMISTRY METHOD 02/13/2025 6:16 PM EDT [facility] Anion Gap 5 3 - 11 LAB CHEMISTRY METHOD 02/13/2025 6:16 PM EDT [facility] Glucose 93 70 - 100 mg/dL LAB CHEMISTRY METHOD 02/13/2025 6:16 PM EDT [facility] BUN 15 5 - 25 mg/dL LAB CHEMISTRY METHOD 02/13/2025 6:16 PM EDT [facility] Creatinine 0.86 0.50 - 1.10 mg/dL LAB CHEMISTRY METHOD 02/13/2025 6:16 PM EDT [facility] eGFR 67 >=60 mL/min/1. 73m2 LAB CHEMISTRY METHOD 02/13/2025 6:16 PM EDT [facility] Comment:Calculation based on the??Chronic Kidney Disease Epidemiology Collaboration (CKD-EPI) equation refit??without adjustment for race. BUN/Creatinine Ratio 17.4 LAB CHEMISTRY METHOD 02/13/2025 6:16 PM EDT [facility] Calcium 8.9 8.5 - 10.5 mg/dL LAB CHEMISTRY METHOD 02/13/2025 6:16 PM EDT [facility] Blood Venous blood specimen / Unknown Venipuncture / Unknown 02/13/2025 5:16 PM EDT 02/13/2025 5:41 PM EDT us Lucas Bolanos MD LAB BLOOD ORDERABLES Final Resul t Performing Organization Address City/[facility]/ZIP Co de Phone Number [facility] [address] [place] [address], [place] [phone] * C-reactive protein (02/04/2025 9:09 AM EDT) C-Reactive Protein 0.39 <=0.50 mg/dL LAB CHEMISTRY METHOD 02/04/2025 12:15 PM EDT [facility] Blood Venous blood specimen / Unknown Venipuncture / Unknown 02/04/2025 9:09 AM EDT 02/04/2025 10:44 AM EDT us Lucas Bolanos MD LAB BLOOD ORDERABLES Final Resul t [facility] [address] [place] [address], [place] [phone] * (ABNORMAL) Comprehensive metabolic panel (02/04/2025 9:09 AM EDT) Only the most recent of2 resultswithin the time period is included. Sodium 130(L) 133 - 145 mmol/L LAB CHEMISTRY METHOD 02/04/2025 12:15 PM [facility] Potassium 4.1 3.5 - 5.5 mmol/L LAB CHEMISTRY METHOD 02/04/2025 12:15 PM [facility] Chloride 98 96 - 110 mmol/L LAB CHEMISTRY METHOD 02/04/2025 12:15 PM [facility] CO2 25 21 - 32 mmol/L LAB CHEMISTRY METHOD 02/04/2025 12:15 PM [facility] Anion Gap 7 3 - 11 LAB CHEMISTRY METHOD 02/04/2025 12:15 PM [facility] Glucose 132(H) 70 - 100 mg/dL LAB CHEMISTRY METHOD 02/04/2025 12:15 PM [facility] BUN 16 5 - 25 mg/dL LAB CHEMISTRY METHOD 02/04/2025 12:15 PM [facility] Creatinine 0.78 0.50 - 1.10 mg/dL LAB CHEMISTRY METHOD 02/04/2025 12:15 PM [facility] eGFR 75 >=60 mL/min/1. 73m2 LAB CHEMISTRY METHOD 02/04/2025 12:15 PM [facility] Comment:Calculation based on the??Chronic Kidney Disease Epidemiology Collaboration (CKD-EPI) equation refit??without adjustment for race. BUN/Creatinine Ratio 20.5 LAB CHEMISTRY METHOD 02/04/2025 12:15 PM [facility] Calcium 8.9 8.5 - 10.5 mg/dL LAB CHEMISTRY METHOD 02/04/2025 12:15 PM [facility] AST (SGOT) 23 10 - 42 unit/L LAB CHEMISTRY METHOD 02/04/2025 12:15 PM EDT [facility] ALT (SGPT) 37 10 - 60 unit/L LAB CHEMISTRY METHOD 02/04/2025 12:15 PM EDT [facility] Alkaline Phosphatase 246(H) 42 - 121 unit/L LAB CHEMISTRY METHOD 02/04/2025 12:15 PM EDT [facility] Total Protein 6.3 6.0 - 8.0 g/dL LAB CHEMISTRY METHOD 02/04/2025 12:15 PM EDT [facility] Albumin 3.3 3.2 - 5.0 g/dL LAB CHEMISTRY METHOD 02/04/2025 12:15 PM EDT [facility] Total Bilirubin 0.5 0.0 - 1.4 mg/dL LAB CHEMISTRY METHOD 02/04/2025 12:15 PM EDT [facility] Blood Venous blood specimen / Unknown Venipuncture / Unknown 02/04/2025 9:09 AM EDT 02/04/2025 10:44 AM EDT us Lucas Bolanos MD LAB BLOOD ORDERABLES Final Resul t [facility] [address] [place] [address], * (ABNORMAL) Culture urine (12/13/2024 12:00 AM [...] MICROBIOLOGY - G ENERAL ORDERABLES Final Result [facility] [address] [place] [address], [place] [phone] from Last 3 Months Insurance [place] [facility] Care Teams Clinical Assoc Relationship Specialty Start Date End Date Lucas Bolanos MD [address] [place] [address], [phone] PCP - General Family Medicine 02/03/25
--- OUTSIDE RECORDS SUMMARY | 2025-02-26 14:14 | XMS_ITS | Encounter Summary ---
Author Organization [facility] Address [address] [place] [address] Care Team Providers Care Riding Silks Custodian Name Role Phone Lucas Bolanos MD Primary Care Provider [phone] Encounter Details Date Type Department Care Team (Late st Contact Info) Description 12/13/2024 Lab Requisition [facility] - Main Lab [address] [facility] [place] [address] Jessa Livingston MD [address] [id number] Urinary tract infection, site not specified Social [...] Enterococcus faecalis(A) JAKI 12/15/2024 7:52 AM EST [facility] Comment: Edited result: Previously reported [...] MICROBIOLOGY - G ENERAL ORDERABLES Final Result [facility] [address] [place] [address], documented in this encounter Visit Diagnoses Diagnosis Urinary tract infection, site not specified documented in this encounter Care Teams Riding Silks Custodian Relationship Specialty Start Date End Date Lucas Bolanos MD [address] [place] [address], [phone] PCP - General Family Medicine 02/03/25 documented as of this encounter
[2025-02-26 14:16] LABS: Anion Gap 13 (12-20); Blood Urea Nitrogen 14 mg/dL (9-16); Calcium 9.1 mg/dL (8.4-10.2); Carbon Dioxide 27 mmol/L (22-29); Chloride 99 mmol/L (96-108); Estimated Glomerular Filt Rate > 60; Glucose Random 77 mg/dL (60-115); Potassium 4.3 mmol/L (3.3-5.1); Sodium 135 mmol/L (135-145)
== END 2025-02-26 12:13 | disposition home or self-care (01) ==
LOC: HO.HMGCLDS 12:12
PROVIDERS: PCP Internal Medicine; Visit Provider Internal Medicine
DX: I10 Essential (primary) hypertension (principal)
CPT/HCPCS: 36415; 80048

== ENCOUNTER → 2025-02-27 23:59 | Outpatient (BNV) | payer MEDICARE, SELFPAY | PROVIDERS: PCP Internal Medicine; Visit Provider Internal Medicine | DX: I10 Essential (primary) hypertension (principal); F41.8 Other specified anxiety disorders; M15.9 Polyosteoarthritis, unspecified | CPT/HCPCS: G0180 ==

== ENCOUNTER 2025-03-28 13:00 | Outpatient (REF) | payer MEDICARE, SELFPAY ==
--- NOTE | 2025-03-28 13:03 | EMG_ITS ---
Chief complaint: 85-year-old, recent sacral fractures, pain on both lower extremities, very sensitive to touch especially in the ankles Reason for referral: Evaluate for neuropathy Referred by: Dr. Hinojosa Procedure done: Bilateral lower extremity NCS/EMG Precautions and/or limitations: None The limb temperature was monitored continuously and remained between 32-36 degrees C during the performance of the NCS. Nerve Conduction Studies Anti Sensory Summary Table ?Stim Site NR Onset (ms) Norm Onset (ms) Peak (ms) Norm Peak (ms) O-P Amp (?V) Norm O-P Amp Site1 Site2 Delta-0 (ms) Dist (cm) Devyn (m/s) Norm Devyn (m/s) Left Sural Anti Sensory (Lat Mall) Calf ? 2.4 2.9 <4.0 14.2 >5.0 Calf Lat Mall 2.4 14.0 58 Right Sural Anti Sensory (Lat Mall) Calf ? 2.5 3.5 <4.0 10.5 >5.0 Calf Lat Mall 2.5 14.0 56 Motor Summary Table ?Stim Site NR Onset (ms) Norm Onset (ms) O-P Amp (mV) Norm O-P Amp iAmp (mV) Amp (1st) (%) Site1 Site2 Delta-0 (ms) Dist (cm) Devyn (m/s) Norm Devyn (m/s) Left Peroneal Motor (Ext Dig Brev) Ankle ? 4.5 <4.0 2.0 >2.5 2.4 100.0 Ankle Ext Dig Brev 4.5 0.0 B Fib ? 10.9 1.6 2.1 80.0 B Fib Ankle 6.4 30.0 47 >40 Poplt ? 11.8 1.8 2.2 90.0 Poplt B Fib 0.9 4.5 50 >40 Right Peroneal Motor (Ext Dig Brev) Ankle ? 4.8 <4.0 1.3 >2.5 1.6 100.0 Ankle Ext Dig Brev 4.8 0.0 B Fib ? 10.3 1.4 1.7 107.7 B Fib Ankle 5.5 28.5 52 >40 Poplt ? 12.0 1.5 1.7 115.4 Poplt B Fib 1.7 5.0 29 >40 Left Tibial Motor (Abd Rogel Brev) Ankle ? 3.0 <5 3.1 >2.5 3.8 100.0 Ankle Abd Rogel Brev 3.0 0.0 Knee ? 14.3 2.4 2.7 77.4 Knee Ankle 11.3 37.0 33 >40 Right Tibial Motor (Abd Rogel Brev) Ankle ? 4.1 <5 1.5 >2.5 2.3 100.0 Ankle Abd Rogel Brev 4.1 0.0 Knee ? 13.8 0.7 0.9 46.7 Knee Ankle 9.7 38.0 39 >40 EMG ?Side Muscle Nerve Root Ins Act Fibs Psw Amp Dur Poly Recrt Int Pat Comment Right AbdHallucis MedPlantar S1-2 Incr 1+ 1+ Nml Nml 0 Nml Complete Right AntTibialis Dp Br Peron L4-5 Nml Nml Nml Nml Nml 0 Nml Complete Right PostTibialis Tibial L5, S1 Incr 1+ 1+ Nml Nml 0 Nml Complete Right MedGastroc Tibial S1-2 Incr 1+ 1+ Nml Nml 0 Nml Complete Right VastusMed Femoral L2-4 Nml Nml Nml Nml Nml 0 Nml Complete Left AbdHallucis MedPlantar S1-2 Incr 1+ 1+ Nml Nml 0 Nml Complete Left AntTibialis Dp Br Peron L4-5 Nml Nml Nml Nml Nml 0 Nml Complete Left PostTibialis Tibial L5, S1 Nml Nml Nml Nml Nml 0 Nml Complete Left MedGastroc Tibial S1-2 Incr 1+ 1+ Nml Nml 0 Nml Complete Left VastusMed Femoral L2-4 Nml Nml Nml Nml Nml 0 Nml Complete Paraspinal EMG ?Side Muscle Nerve Root Ins Act Fibs Psw Comment Right Lumbar Upper Rami Nml Nml Nml Right Lumbar Mid Rami Nml Nml Nml Right Lumbar Lower Rami Incr 1+ 1+ Left Lumbar Upper Rami Nml Nml Nml Left Lumbar Mid Rami Nml Nml Nml Left Lumbar Lower Rami Incr 1+ 1+ FINDINGS: Right peroneal nerve showed prolonged distal latency, small amplitude and slow conduction velocity especially across fibular neck. Right tibial nerve showed normal distal latency, small amplitude and slow conduction velocity. Left peroneal nerve showed prolonged distal latency, small amplitude and normal conduction velocity. Left tibial nerve showed normal distal latency, normal amplitude and slow conduction velocity. Bilateral sural nerves were within normal. Concentric needle EMG was performed in selected muscles of the bilateral lower extremity in lumbar paraspinals. Study revealed signs of electric abnormalities as shown in the table above. Right medial gastrocnemius, posterior tibialis and AH muscles showed increased insertional activity, PSWs and fibrillations. Left medial gastrocnemius and AH showed increased insertional activity, PSWs and fibrillations. Bilateral lower lumbar paraspinals showed increased insertional activity, PSWs and fibrillations. IMPRESSION: 1. This is an abnormal study. 2. 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 3. There is no electrodiagnostic evidence for lumbosacral plexopathy or peripheral neuropathy. Thank you for your kind referral. Troi Ruiz MD, DAVID Board Certified, [place] [employer] and Rehabilitation (ABPMR) Board Certified, [place] Board of Electrodiagnostic Medicine (ABEM) CODIN 89370 x 2 MTDD
--- OUTSIDE RECORDS SUMMARY | 2025-03-28 13:04 | XMS_ITS | Encounter Summary ---
Author Organization [facility] Address [address] [place] [address] Care Team Providers Care Dog Daycare Provider Name Role Phone Lucas Bolanos MD Primary Care Provider [phone] Encounter Details Date Type Department Care Team (Late st Contact Info) Description 02/13/2025 Lab Requisition [facility] - Main Lab [address] [place] [address] Lucas Bolanos MD 38 [facility] [address] [place], [phone] Other fdc (current) drug therapy Social History Tobacco Use [...] COUNT STAT 02/13/2025 5:16 PM EDT Other joint terminal attack controller (current) drug therapy BASIC METABOLIC PANEL STAT 02/13/2025 5:16 PM EDT Other fdc (current) drug therapy documented in this encounter Results * (ABNORMAL) Basic metabolic panel (02/13/2025 5:16 PM EDT) Sodium 131(L) 133 - 145 mmol/L LAB CHEMISTRY METHOD 02/13/2025 6:16 PM EDT [facility] Potassium 4.0 3.5 - 5.5 mmol/L LAB CHEMISTRY METHOD 02/13/2025 6:16 PM EDT [facility] Chloride 98 96 - 110 mmol/L LAB CHEMISTRY METHOD 02/13/2025 6:16 PM [facility] CO2 28 21 - 32 mmol/L LAB CHEMISTRY METHOD 02/13/2025 6:16 PM [facility] Anion Gap 5 3 - 11 LAB CHEMISTRY METHOD 02/13/2025 6:16 PM [facility] Glucose 93 70 - 100 mg/dL LAB CHEMISTRY METHOD 02/13/2025 6:16 PM [facility] BUN 15 5 - 25 mg/dL LAB CHEMISTRY METHOD 02/13/2025 6:16 PM [facility] Creatinine 0.86 0.50 - 1.10 mg/dL LAB CHEMISTRY METHOD 02/13/2025 6:16 PM [facility] eGFR 67 >=60 mL/min/1. 73m2 LAB CHEMISTRY METHOD 02/13/2025 6:16 PM T [facility] Comment:Calculation based on the??Chronic Kidney Disease Epidemiology Collaboration (CKD-EPI) equation refit??without adjustment for race. BUN/Creatinine Ratio 17.4 LAB CHEMISTRY METHOD 02/13/2025 6:16 PM [facility] Calcium 8.9 8.5 - 10.5 mg/dL LAB CHEMISTRY METHOD 02/13/2025 6:16 PM T [facility] Blood Venous blood specimen / Unknown Venipuncture / Unknown 02/13/2025 5:16 PM EDT 02/13/2025 5:41 PM EDT us Lucas Bolanos MD LAB BLOOD ORDERABLES Final Resul t [facility] [address] [place] [address], [place] [phone] * (ABNORMAL) Complete blood count (02/13/2025 5:16 PM EDT) [facility] WBC 9.6 4.8 - 10.8 K/mcL LAB HEMETOLOGY METHOD 02/13/2025 5:50 PM EDT [facility] RBC 3.80 3.80 - 4.80 M/mcL LAB HEMETOLOGY METHOD 02/13/2025 5:50 PM EDT [facility] Hemoglobin 11.7 11.5 - 16.0 g/dL LAB HEMETOLOGY METHOD 02/13/2025 5:50 PM EDT [facility] Hematocrit 33.8(L) 35.0 - 47.0 % LAB HEMETOLOGY METHOD 02/13/2025 5:50 PM EDT [facility] MCV 89.4 79.0 - 98.0 FL LAB HEMETOLOGY METHOD 02/13/2025 5:50 PM EDT [facility] MCH 31.0 27.0 - 32.0 pcg LAB HEMETOLOGY METHOD 02/13/2025 5:50 PM EDT [facility] MCHC 34.6 32.0 - 37.0 g/dL LAB HEMETOLOGY METHOD 02/13/2025 5:50 PM EDT [facility] RDW 12.9 11.0 - 15.0 % LAB HEMETOLOGY METHOD 02/13/2025 5:50 PM EDT [facility] Platelets 235 130 - 400 K/mcL LAB HEMETOLOGY METHOD 02/13/2025 5:50 PM EDT [facility] MPV 8.8 7.0 - 11.0 FL LAB HEMETOLOGY METHOD 02/13/2025 5:50 PM EDT [facility] NRBC 0.0 <1.0 % LAB HEMETOLOGY METHOD 02/13/2025 5:50 PM EDT [facility] NRBC Absolute 0.00 <0.10 K/mcL LAB HEMETOLOGY METHOD 02/13/2025 5:50 PM EDT [facility] Blood Venous blood specimen / Unknown Venipuncture / Unknown 02/13/2025 5:16 PM EDT 02/13/2025 5:41 PM EDT us Lucas Bolanos MD LAB BLOOD ORDERABLES Final Resul t [facility] [address] [place] [address], documented in this encounter Visit Diagnoses Diagnosis Other fdc (current) drug therapy documented in this encounter Care Teams Dog Daycare Provider Relationship Specialty Start Date End Date Lucas Bolanos MD [address] [place] [address], [phone] PCP - General Family Medicine 02/03/25 documented as of this encounter
--- OUTSIDE RECORDS SUMMARY | 2025-03-28 13:04 | XMS_ITS | Encounter Summary ---
Author Organization [facility] Address [address] [place] [address] Care Team Providers Care International Account Executive Name Role Phone Lucas Bolanos MD Primary Care Provider Encounter Details Date Type Department Care Team (Late st Contact Info) Description 02/03/[address] [facility] - Main Lab [address] [place] [address] Lucas Bolanos MD 38 [facility] [address] [place], [phone] Anemia, unspecified Social History Tobacco Use [...] LAB CHEMISTRY METHOD 02/03/2025 12:14 PM EDT [facility] Potassium 4.5 3.5 - 5.5 mmol/L LAB CHEMISTRY METHOD 02/03/2025 12:14 PM EDT [facility] Chloride 97 96 - 110 mmol/L LAB CHEMISTRY METHOD 02/03/2025 12:14 PM [facility] CO2 26 21 - 32 mmol/L LAB CHEMISTRY METHOD 02/03/2025 12:14 PM [facility] Anion Gap 9 3 - 11 LAB CHEMISTRY METHOD 02/03/2025 12:14 PM [facility] Glucose 78 70 - 100 mg/dL LAB CHEMISTRY METHOD 02/03/2025 12:14 PM [facility] BUN 14 5 - 25 mg/dL LAB CHEMISTRY METHOD 02/03/2025 12:14 PM [facility] Creatinine 0.66 0.50 - 1.10 mg/dL LAB CHEMISTRY METHOD 02/03/2025 12:14 PM [facility] eGFR 87 >=60 mL/min/1. 73m2 LAB CHEMISTRY METHOD 02/03/2025 12:14 PM [facility] Comment:Calculation based on the??Chronic Kidney Disease Epidemiology Collaboration (CKD-EPI) equation refit??without adjustment for race. BUN/Creatinine Ratio 21.2 LAB CHEMISTRY METHOD 02/03/2025 12:14 PM [facility] Calcium 9.2 8.5 - 10.5 mg/dL LAB CHEMISTRY METHOD 02/03/2025 12:14 PM [facility] AST (SGOT) 28 10 - 42 unit/L LAB CHEMISTRY METHOD 02/03/2025 12:14 PM [facility] ALT (SGPT) 39 10 - 60 unit/L LAB CHEMISTRY METHOD 02/03/2025 12:14 PM [facility] Alkaline Phosphatase 251(H) 42 - 121 unit/L LAB CHEMISTRY METHOD 02/03/2025 12:14 PM [facility] Total Protein 6.5 6.0 - 8.0 g/dL LAB CHEMISTRY METHOD 02/03/2025 12:14 PM [facility] Albumin 3.5 3.2 - 5.0 g/dL LAB CHEMISTRY METHOD 02/03/2025 12:14 PM EDT [facility] Total Bilirubin 0.6 0.0 - 1.4 mg/dL LAB CHEMISTRY METHOD 02/03/2025 12:14 PM EDT [facility] Blood Venous blood specimen / Unknown Venipuncture / Unknown 02/03/2025 6:23 AM EDT 02/03/2025 10:28 AM EDT us Lucas Bolanos MD LAB BLOOD ORDERABLES Final Resul t [facility] [address] [place] [address], [place] [phone] * Complete blood count (02/03/2025 6:23 AM EDT) WBC 9.4 4.8 - 10.8 K/mcL LAB HEMETOLOGY METHOD 02/03/2025 11:33 AM [facility] RBC 4.20 3.80 - 4.80 M/mcL LAB HEMETOLOGY METHOD 02/03/2025 11:33 AM [facility] Hemoglobin 12.9 11.5 - 16.0 g/dL LAB HEMETOLOGY METHOD 02/03/2025 11:33 AM [facility] Hematocrit 38.3 35.0 - 47.0 % LAB HEMETOLOGY METHOD 02/03/2025 11:33 AM [facility] MCV 91.6 79.0 - 98.0 FL LAB HEMETOLOGY METHOD 02/03/2025 11:33 AM [facility] MCH 30.9 27.0 - 32.0 pcg LAB HEMETOLOGY METHOD 02/03/2025 11:33 AM [facility] MCHC 33.7 32.0 - 37.0 g/dL LAB HEMETOLOGY METHOD 02/03/2025 11:33 AM EDT [facility] RDW 12.8 11.0 - 15.0 % LAB HEMETOLOGY METHOD 02/03/2025 11:33 AM EDT [facility] Platelets 377 130 - 400 K/mcL LAB HEMETOLOGY METHOD 02/03/2025 11:33 AM EDT [facility] MPV 8.9 7.0 - 11.0 FL LAB HEMETOLOGY METHOD 02/03/2025 11:33 AM EDT [facility] NRBC 0.0 <1.0 % LAB HEMETOLOGY METHOD 02/03/2025 11:33 AM EDT [facility] NRBC Absolute 0.00 <0.10 K/mcL LAB HEMETOLOGY METHOD 02/03/2025 11:33 AM EDT [facility] Blood Venous blood specimen / Unknown Venipuncture / Unknown 02/03/2025 6:23 AM EDT 02/03/2025 10:28 AM EDT us Lucas Bolanos MD LAB BLOOD ORDERABLES Final Resul t [facility] [address] [place] [address], documented in this encounter Visit Diagnoses Diagnosis Anemia, unspecified documented in this encounter Care Teams International Account Executive Relationship Specialty Start Date End Date Lucas Bolanos MD [address] [place] [address] [address] [place], [phone] PCP - General Family Medicine 02/03/25 documented as of this encounter
--- OUTSIDE RECORDS SUMMARY | 2025-03-28 13:04 | XMS_ITS | Clinical Summary ---
Author Organization 299 [facility] Address [address] [place] [address] Phone Care Team Providers Care Punch Card Operator Name Role Phone Lucas Bolanos MD Primary Care Provider [phone] Encounters Date Type Department Care Team Description 02/13/2025 Lab Requisition [facility] [address] [place] [address] Lucas Bolanos MD Other terminal system operator (current) drug therapy 02/04/2025 Lab Requisition [facility] [address] [place] [address] Lucas Bolanos MD Unspecified atrial fibrillation (CMS/HCC V24, CMS/HCC V28) 02/03/2025 Lab Requisition [facility] [address] [place] [address] Lucas Bolanos MD Anemia, unspecified from Last 3 Months Social History Tobacco [...] STAT 02/13/2025 5:16 PM EDT Other terminal system operator (current) drug therapy COMPLETE BLOOD COUNT STAT 02/13/2025 5:16 PM EDT Other terminal system operator (current) drug therapy C-REACTIVE PROTEIN Routine 02/04/2025 9: 09 AM EDT Unspecified atrial fibrillation (CMS/HCC) COMPREHENSIVE METABOLIC PANEL Routine 02/04/2025 9:09 AM EDT Unspecified atrial fibrillation (CMS/HCC) COMPLETE BLOOD COUNT Routine 02/04/2025 9:09 AM EDT Unspecified atrial fibrillation (CMS/HCC) COMPREHENSIVE METABOLIC PANEL Routine 02/03/2025 6:23 AM EDT Anemia, unspecified COMPLETE BLOOD COUNT Routine 02/03/2025 6:23 AM EDT Anemia, unspecified from Last 3 Months Results * (ABNORMAL) Complete blood count (02/13/2025 5:16 PM EDT) Only the most recent of3 resultswithin the time period is included. [facility] WBC 9.6 4.8 - 10.8 K/mcL [...] K/mcL LAB HEMETOLOGY METHOD 02/13/2025 5:50 PM T [facility] Blood Venous blood specimen / Unknown Venipuncture / Unknown 02/13/2025 5:16 PM EDT 02/13/2025 5:41 PM EDT us Lucas Bolanos MD LAB BLOOD ORDERABLES Final Resul t [facility] [address] [place] [address], * (ABNORMAL) Basic metabolic panel (02/13/2025 5:16 PM EDT) Sodium 131(L) 133 - 145 mmol/L LAB CHEMISTRY METHOD 02/13/2025 6:16 PM [facility] Potassium 4.0 3.5 - 5.5 mmol/L LAB CHEMISTRY METHOD 02/13/2025 6:16 PM [facility] Chloride 98 96 - 110 mmol/L LAB CHEMISTRY METHOD 02/13/2025 6:16 PM [facility] CO2 28 21 - 32 mmol/L LAB CHEMISTRY METHOD 02/13/2025 6:16 PM [facility] Anion Gap 5 3 - 11 LAB CHEMISTRY METHOD 02/13/2025 6:16 PM [facility] Glucose 93 70 - 100 mg/dL LAB CHEMISTRY METHOD 02/13/2025 6:16 PM [facility] BUN 15 5 - 25 mg/dL LAB CHEMISTRY METHOD 02/13/2025 6:16 PM [facility] Creatinine 0.86 0.50 - 1.10 mg/dL LAB CHEMISTRY METHOD 02/13/2025 6:16 PM [facility] eGFR 67 >=60 mL/min/1. 73m2 LAB CHEMISTRY METHOD 02/13/2025 6:16 PM EDT [facility] Comment:Calculation based on the??Chronic Kidney Disease Epidemiology Collaboration (CKD-EPI) equation refit??without adjustment for race. BUN/Creatinine Ratio 17.4 LAB CHEMISTRY METHOD 02/13/2025 6:16 PM EDT [facility] Calcium 8.9 8.5 - 10.5 mg/dL LAB CHEMISTRY METHOD 02/13/2025 6:16 PM EDT [facility] Blood Venous blood specimen / Unknown Venipuncture / Unknown 02/13/2025 5:16 PM EDT 02/13/2025 5:41 PM EDT Lucas Bolanos MD LAB BLOOD ORDERABLES Final Resul t Performing Organization Address City/[facility]/ZIP Co de Phone Number [facility] [address] [place] [address], * C-reactive protein (02/04/2025 9:09 AM EDT) C-Reactive Protein 0.39 <=0.50 mg/dL LAB CHEMISTRY METHOD 02/04/2025 12:15 PM EDT [facility] Blood Venous blood specimen / Unknown Venipuncture / Unknown 02/04/2025 9:09 AM EDT 02/04/2025 10:44 AM EDT Lucas Bolanos MD LAB BLOOD ORDERABLES Final Resul t [facility] [address] [place] [address], [place] [phone] * (ABNORMAL) Comprehensive metabolic panel (02/04/2025 9:09 AM EDT) Only the most recent of2 resultswithin the time period is included. Sodium 130(L) 133 - 145 mmol/L LAB CHEMISTRY METHOD 02/04/2025 12:15 PM [facility] Potassium 4.1 3.5 - 5.5 mmol/L LAB CHEMISTRY METHOD 02/04/2025 12:15 PM [facility] Chloride 98 96 - 110 mmol/L LAB CHEMISTRY METHOD 02/04/2025 12:15 PM [facility] CO2 25 21 - 32 mmol/L LAB CHEMISTRY METHOD 02/04/2025 12:15 PM [facility] Anion Gap 7 3 - 11 LAB CHEMISTRY METHOD 02/04/2025 12:15 PM [facility] Glucose 132(H) 70 - 100 mg/dL LAB CHEMISTRY METHOD 02/04/2025 12:15 PM [facility] BUN 16 5 - 25 mg/dL LAB CHEMISTRY METHOD 02/04/2025 12:15 PM [facility] Creatinine 0.78 0.50 - 1.10 mg/dL LAB CHEMISTRY METHOD 02/04/2025 12:15 PM [facility] eGFR 75 >=60 mL/min/1. 73m2 LAB CHEMISTRY METHOD 02/04/2025 12:15 PM [facility] Comment:Calculation based on the??Chronic Kidney Disease Epidemiology Collaboration (CKD-EPI) equation refit??without adjustment for race. BUN/Creatinine Ratio 20.5 LAB CHEMISTRY METHOD 02/04/2025 12:15 PM [facility] Calcium 8.9 8.5 - 10.5 mg/dL LAB CHEMISTRY METHOD 02/04/2025 12:15 PM [facility] AST (SGOT) 23 10 - 42 unit/L LAB CHEMISTRY METHOD 02/04/2025 12:15 PM [facility] ALT (SGPT) 37 10 - 60 unit/L LAB CHEMISTRY METHOD 02/04/2025 12:15 PM [facility] Alkaline Phosphatase 246(H) 42 - 121 unit/L LAB CHEMISTRY METHOD 02/04/2025 12:15 PM EDT [facility] Total Protein 6.3 6.0 - 8.0 g/dL LAB CHEMISTRY METHOD 02/04/2025 12:15 PM EDT [facility] Albumin 3.3 3.2 - 5.0 g/dL LAB CHEMISTRY METHOD 02/04/2025 12:15 PM EDT [facility] Total Bilirubin 0.5 0.0 - 1.4 mg/dL LAB CHEMISTRY METHOD 02/04/2025 12:15 PM EDT [facility] Blood Venous blood specimen / Unknown Venipuncture / Unknown 02/04/2025 9:09 AM EDT 02/04/2025 10:44 AM EDT us Lucas Bolanos MD LAB BLOOD ORDERABLES Final Resul t [facility] [address] [place] [address], [place] [phone] from Last 3 Months Insurance MEDICAID - [place] [facility] MEDICARE ADVANTAGE Member Subscriber Plan / Payer (Ef fective 2024-Present) Name:Jennifer Joseph Relation to Subscriber:Self Name:Jennifer Joseph Payer ID:[id number] Type:Not on file Address: [facility] [id number] Care Teams Punch Card Operator Relationship Specialty Start Date End Date Lucas Bolanos MD [address] [place] [address], [phone] PCP - General Family Medicine 02/03/25
--- OUTSIDE RECORDS SUMMARY | 2025-03-28 13:04 | XMS_ITS | Data Portability ---
Author Organization [facility] Digital Message Display [facility], Main Office Address [address] [place] [address] Care Team Providers Care Senior Qa Analyst Name Role Phone RAFAL JOSHI - 2ND [...] Organization Details Recorded Time Fracture of pelvis 53731900 Active 2024 Chrissy Quiroz NP [address], [address], [place], [address], [facility] 17:21:43 Urinary tract infectious disease 28609505 Active 2024 Chrissy Quiroz NP [address], [address], [place], [address], [facility] 17:21:50 Asthenia 78497747 Active 2024 Chrissy Quiroz NP [address], [address], [place], [address], [facility] 17:21:59 Anxiety 27421674 Active 2024 Chrissy Quiroz NP [address], [address], [place], [address], [facility] Digital Message Display [facility] 5 17:22:53 Hypertensive disorder 01790826 Active 2024 Chrissy Quiroz NP [address], [address], [place], [address], [facility] Digital Message Display [facility] 5 17:23:01 Sciatica 32119493 Active 2024 Chrissy Quiroz NP [address], [address], [place], [address], [facility] Digital Message Display [facility] 5 17:23:11 Osteopenia 145097991 Active 2024 Chrissy Quiroz NP [address], [address], [place], [address], [facility] Digital Message Display [facility] 5 17:23:39 Problem Notes None recorded. Medical Equipment None Reported. Allergies Allergen ID Allergen Name Allergen Category Reaction Reaction Severity Criticality Documentation Date Start Date Code Code System Note Provider Name and Address Organization Details Recorded Time 97243 nitrofura ntoin medicatio n angioedem a diarrhea Not available Not available unabletoasse 02/03/2025 7454 RxNorm Chrissy Quiroz NP [address], [address], [place], [address], [facility] Digital Message Display [facility] 5 16:38:25 04098 oxycodone medicatio n hives nausea vomiting Not available Not available Not available unabletoasse 02/03/2025 7804 RxNorm Chrissy Quiroz NP [address], [address], [place], [address], [facility] Digital Message Display [facility] 5 16:38:55 20235 Substance with sulfonami de structure and antibacte rial mechanism of action (substanc e) medicatio n angioedem a diarrhea Not available Not available unabletoasse 02/03/2025 30114 8003 SNOMED Chrissy Quiroz NP [address], [address], [place], [address], [facility] Digital Message Display [facility] 5 16:39:20 19171 hydrocodo ne Not available nausea vomiting Not available Not available unabletoasse 02/03/2025 5489 RxNorm Chrissy Quiroz NP [address], [address], [place], [address], [facility] 5 16:39:42 Medications Not known to be on any medication Vitals Date Recorded Body weight Heart rate Respiratory rate Body temperature Oxygen saturation Oxygen saturation in Arterial blood by Pulse oximetry Provider Name and Address Organization Details Last Updated DateTime 5 73134.4 9 g 93 /min 18 /min 97.2 [degF] 98 % 98 % Chrissy Quiroz NP [address], [address], [place], [address], [facility] 5 17:07:18 Date Recorded Body weight Heart rate Respiratory rate Systolic blood pressure Diastolic blood pressure Provider Name and Address Organization Details Last Updated DateTime 02/04/2025 96409.4 9 g 93 /min 18 /min 165 mm[Hg] 95 mm[Hg] Lucas Bolanos MD [address], [address], [place], [address], [facility] 5 15:39:17 Date Recorded Heart rate Respiratory rate Body temperature Oxygen saturation Oxygen saturation in Arterial blood by Pulse oximetry Systolic blood pressure Diastolic blood pressure Provider Name and Address Organization Details Last Updated DateTime 5 70 /min 18 /min 97.5 [degF] 95 % 95 % 126 mm[Hg] 72 mm[Hg] BARI JEFFERS NP [address], [address], [place], [address], [facility] 5 14:02:36 Social History Question Answer Notes LastModified by Organizat ion Details LastModified Time Tobacco Smoking Status Never Smoker Chrissy Quiroz NP [address], [facility] [address], [place], [address], [facility] 02/03/2025 17:08:35 Do You Have An Advance [...] Time Td(adult) unspecified formulation 1 completed [facility] 02/04/2025 16:00:58 pneumococcal polysaccharide PPV23 1 completed [facility] 02/04/2025 16:01:09 influenza, unspecified formulation 1 completed [facility] 02/04/2025 16:01:24 influenza, unspecified formulation 2 completed [facility] 02/04/2025 16:01:29 influenza, unspecified formulation 3 completed [facility] 02/04/2025 16:01:33 influenza, unspecified formulation 4 completed [facility] 02/04/2025 16:01:38 SARS-COV-2 (COVID-19) vaccine, UNSPECIFIED 1 completed [facility] 02/04/2025 16:01:55 SARS-COV-2 (COVID-19) vaccine, UNSPECIFIED 1 completed [facility] 02/04/2025 16:02:00 SARS-COV-2 (COVID-19) vaccine, UNSPECIFIED 1 completed [facility] 02/04/2025 16:02:04 SARS-COV-2 (COVID-19) vaccine, UNSPECIFIED 2 completed [facility] 02/04/2025 16:02:09 SARS-COV-2 (COVID-19) vaccine, UNSPECIFIED 3 completed [facility] 02/04/2025 16:02:14 SARS-COV-2 (COVID-19) vaccine, UNSPECIFIED 4 completed [facility] 02/04/2025 16:02:19 Past Encounters Encounter ID Performer Location Encounter Start Date Encounter Closed Date Diagnosis/Indication Diagnosis SNOMED-CT Code Diagnosis ICD10 Code Diagnosis Note [id number] Chrissy Quiroz NP [address] [address] 02/03/2025 16:35:00 02/05/2025 11:47:15 Fracture of pelvis 02571436 S32.9XXD pt with multilevel central canal stenosis [...] relief/wor sening Urinary tr act infectious disease 46400793 N39.0 acute mrsa uti treated wtih vanco and dc'd with linezolid to completepr obioticmet henamine hippurate 1 gram qdcranberr y 400 mg qdmonitor for reoccurenc ecbc and bmp weekly Asthenia 20697205 R53.1 pt ot eval and treatsuppo rtive caremonito r Hypertensive disorder 38 170556 I10 losartan 25 mg po qdmonitor vitals and for need to adjust Osteopenia 801535357 M85 .819 hx ofcalcium qdcentrum silverqd Sciatica 51890973 M54.30 hx ofshe above for pain management Retention of urine 36365 4002 R33.9 cont [address] cathfu with dr jara for retentionh as leg bag in place with clear yellow urinemonit or Mixed anxi ety and depressive disorder 748973104 F41.8 hx sertaline 25 mg po qdbenedryl /tyl prn qhsmelaton in 10 qhspsych prnmonitor [place] 594544715 R29.6 with recent fallsuppor tive carept ot eval and treatmonit or [id number] Lucas Bolanos MD [address] [address] 02/04/2025 15:38:52 02/05/2025 12:08:04 Fracture of pelvis 48518055 S32.9XXD see HPIImaging positive for multilevel stenosis and comminuted fractures of sacrum, S1 and S2 with L2-3 L4-5 stenosisEv al by neurosurge ry and neurology with acute need for interventi on ruled outInitial ly treated with IV dilaudid then deescalate d to tramadol, lidocaine patch and flexerilmo nitor for pain controlupd ate neurosurge ry with concerns Urinary tr act infectious disease 56672032 N30.01 see HPI with UTI secondary to MRSAnow on zyvox to complete coursemoni tor for recurrent infection Asthenia 55238638 R53.1 PT OT eval and treatmonit or fall risk and need for increased support in community Hypertensive disorder 38 224695 I10 losartan 25 mg po qdmonitor bp and need to titrate Retention of urine 92[address] [address] and urology f/u scheduledu pdate with concerns Generalize d anxiety disorder 97743020 F41.1 maintained on zoloft 25 mg qdcontinue dmonitor for effectpsyc h eval prn [id number] BARI JEFFERS NP [place] [address] [place] [address] 02/13/2025 09:27:36 02/17/2025 12:50:04 Fracture of pelvis 49732765 S32.9XXD see HPIImaging positive for multilevel stenosis and comminuted fractures of sacrum, S1 and S2 with L2-3 L4-5 stenosisEv al by neurosurge ry and neurology with acute need for interventi on ruled outInitial ly treated with IV dilaudid then deescalate d to tramadol, lidocaine patch and flexerilmo nitor for pain controlupd ate neurosurge ry with concerns Urinary tr act infectious disease 18675611 N30.01 see HPI with UTI secondary to MRSAcomple nadya zyvoxmonit or for recurrent infectionC hecking CBC, BMP today prior to d/c home Asthenia 93507542 R53.1 PT OT eval and treatmeeti ng goals for d/c home tomorrow with support of services.m onitor fall risk and need for increased support in community Generalize d anxiety disorder 97395603 F41.1 maintained on zoloft 25 mg qdcontinue dmonitor for effectpsyc h eval prn Hypertensive disorder 38 595406 I10 losartan 25 mg po qdmonitor bp and need to titrate Retention of urine 80615 4002 R33.8 Had follow up 02/11, galloway replaced due to continued retention. Flomax 0.4 mg q hs startedVoi ding trial in 1 month - galloway to be removed in am with OV scheduled in the afternoon for assessment .Update Urology with concerns.C BC, BMP x 1 today prior to d/c tomorrow. Acute hyponatremia 73857 02 E87.1 02/04 Na = 130Repeati ng [...] Tong Member ID Guarantor Name 02/03/2025 1 [place] ([place] PPO) [id number] Jennifer Joseph [id number] Jennifer Joseph 02/04/2025 1 [place] PPO) [id number] Jennifer Joseph [id number] Jennifer Joseph 02/13/2025 1 [place] PPO) [id number] Jennifer Joseph [id number] Jennifer Joseph Notes Date Note Type Note Provider Name and Address Organization Details Recorded Time 5 text/html Pt is seen for an initial intake. PMH: osteopenia, recurrent UTI, IBS, anxiety, HTN, cervical spinal epidural abscess, sciatica Karina is a 84 yo female with pmh above fell from a el[place] of wind on 01/07 and [facility] [place] [facility]27-02/01/25 with intractable back pain and sacral fracture complicated by UTI MRSA. She is here for therapy and continued care. Workup consisted of: neurology consulted and recommended dexamethasone for multilevel central canal stenosis and sacral fracture. Neurosurgery later evaluated pt and ruled out cada equina syndrome and stopped dexamethasone. She was treated with pain meds and muscle relaxers. [employer] she could benefit from physical therapy.UTI MRSA [...] high fall risk Chrissy Quiroz NP [address] [facility] [address], [address], [place], [address], [facility] 02/03/2025 17:39:44 5 text/html Patient is an [...] care and therapy Lucas Bolanos MD [address] [facility] [address] [facility], [address], [place], [address], [facility] 02/04/2025 16:12:31 5 text/html Jennifer is seen [...] forrecurrent UTIsIBShtnanxietygait instability BARI JEFFERS NP [address], [address], [place], [address], [facility] 02/13/2025 14:36:21 OBGyn Episode No OBEpisode recorded.
--- OUTSIDE RECORDS SUMMARY | 2025-03-28 13:04 | XMS_ITS ---
Author Organization [facility] Address [address] [place] [address] Care Team Providers Care Senior C Software Engineer Name Role Phone Fatou Hinojosa MD Primary Care Provider Kojo Eastman Unavailable [phone] Allergies Allergen (clinical drug ingredient) Drug/Non Drug [...] Status W/U Status Risk Notes Problem Gallstones (888753652) Gallstones (K80.20) Active confirmed Problem Right upper quadrant pain (121365052) Abdominal pain, RUQ (R10.11) Active confirmed Vital Signs Temperature 98.0 degrees Fahrenheit 01/08/20 25 Blood pressure systolic 001 mm Hg 01/08/20 25 Blood pressure diastolic 01 mm Hg 025 Height 64.5 in 01/08/2025 Weight 121 lbs 01/08/2025 BMI 20.45 kg/m2 01/08/2025 Encounters Encounter Location Date Provider Diagnosis [facility] [address] [place] [address] 01/08/2025 Kojo Carrasco Irritable bowel syndrome, unspecified [...] Provider Name:Kojo Carrasco , 08/12/2025 10:30:00 AM, [address] [place] [address], [address], [place], [address], Progress Notes * RASHAUN WEBSTER HDO B:1940 (85 yo F)Acc No.[id number]:01/08/2025 Progress Notes Patient:?PINEDAEZEQUIEL YATES Judy Provider:?Kojo Carrasco MD :1940???Age:84 Y???Sex:Female D ate:01/08/2025 Address:[address] [place] [address], [facility] Pcp:Fatou Hinojosa MD Subjective: * Chief Complaints: [...] gym. Marital status: . 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 ???Nonsmoker; no sig alcohol. * Medications:?TakingLosartan Potassium [...] US abdomen complete* sched 01/30/25 at 9:00 [facility] Ultrasound dept 2nd floorfasting 8 hrs prior * 4.?Others? Refill Hyoscyamine, 125 MG, PRN.?? * Procedure Codes:?1036F TOBAC CO [id number] BP SCR NOT PRFRM REC REASON NOS [...] MD Date:? 025 Generated for Pj conner/Jose/Damari on:?03/28/2025 01:04 PM EDT
--- OUTSIDE RECORDS SUMMARY | 2025-03-28 13:05 | XMS_ITS | Encounter Summary ---
Author Organization [facility] Address [address] [place] [address] Care Team Providers Care Footwear Sales Coordinator Name Role Phone Lucas Bolanos MD Primary Care Provider [phone] Encounter Details Date Type Department Care Team (Late st Contact Info) Description 02/04/2025 Lab Requisition [facility] - Main Lab [address] [facility] [place] [address] Lucas Bolanos MD [address] [facility] [address] [place], [address] Unspecified atrial fibrillation (CMS/HCC V24, CMS/HCC V28) Social History Tobacco Use Types Packs/Day Years [...] t [facility] [address] [place] [address], [place] [phone] * (ABNORMAL) Comprehensive metabolic panel (02/04/2025 9:09 [...] 20.5 LAB CHEMISTRY METHOD 02/04/2025 12:15 PM T [facility] Calcium 8.9 8.5 - 10.5 mg/dL LAB CHEMISTRY METHOD 02/04/2025 12:[address] [facility] AST (SGOT) 23 10 - 42 unit/L LAB CHEMISTRY METHOD 02/04/2025 12:[address] [facility] ALT (SGPT) 37 10 - 60 unit/L LAB CHEMISTRY METHOD 02/04/2025 12:[address] [facility] Alkaline Phosphatase 246(H) 42 - 121 unit/L LAB CHEMISTRY METHOD 02/04/2025 12:[address] [facility] Total Protein 6.3 6.0 - 8.0 g/dL LAB CHEMISTRY METHOD 02/04/2025 12:[address] [facility] Albumin 3.3 3.2 - 5.0 [...] t [facility] [address] [place] [address], * (ABNORMAL) Complete blood count (02/04/2025 9:09 [...] MD LAB BLOOD ORDERABLES Final Resul t [facility] [address] [place] [address], documented in this encounter Visit Diagnoses Diagnosis Unspecified atrial fibrillation (CMS/HCC V24, CMS/HCC V28) documented in this encounter Care Teams Footwear Sales Coordinator Relationship Specialty Start Date End Date Lucas Bolanos MD [address] [place] [address], [address] PCP - General Family Medicine 02/03/25 documented as of this encounter
--- OUTSIDE RECORDS SUMMARY | 2025-03-28 13:05 | XMS_ITS | Patient Health Record ---
Author Organization [facility] Address [address] [place] [address] Care Team Providers Care Screening Nurse Name Role Phone Fatou Hinojosa MD Primary Care Provider Kojo Eastman [phone] Allergies Allergen (clinical drug ingredient) Drug/Non Drug [...] ff Reviewed date:01/13/2025 05:19:57 PM Interpretation: Performing Lab:[facility], [address] [place] [phone] Notes/Report: White Blood Count 9.9 4.8-10.8 X10*3/uL [...] yet reviewe d by provider) Interpretation: Performing Lab:[facility], [address] [place] [phone] Notes/Report: Bilirubin Total 0.5 0.0-1.0 mg/dL Bilirubin Direct 0.2 0.0-0.5 mg/dL Aspartate Amino Transferase 30 5-31 U/L Alanine Aminotransferase 30 0-31 U/L Total Protein 7.8 6.5-8.0 g/dL Albumin Level 4.3 3.5-5.0 g/dL Alkaline Phosphatase 143 39-117 U/L Lipase Reviewed date:01/13/2025 05:20:25 PM Interpretation: Performing Lab:[facility], [address] [place] [phone] Notes/Report: Lipase 38 8-78 U/L Immunoglobulin A Reviewed date:01/17/2025 05:21:45 PM Interpretation: Performing Lab:[facility], [address] [place] [phone] Notes/Report: Immunoglobulin A 242 70-320 mg/dL THIS TEST WAS PERFORMED AT: [facility] [address] [place] [phone] MILLI ROMAN MD Transglutaminase Ab IgG Reviewed date:01/17/2025 05:21:58 PM Interpretation: Performing Lab:[address] [phone] Notes/Report: Transglutaminase Ab IgG <1.0 Value Interpretation ----- <15.0 Antibody not detected > or = 15.0 Antibody detected THIS TEST WAS PERFORMED AT: [facility] [address] [place] [phone] MILLI ROMAN MD Transglutaminase IgA Reviewed date:01/17/2025 05:22:08 PM Interpretation: Performing Lab:[address] [phone] Notes/Report: Transglutaminase IgA <1.0 Value Interpretation ----- <15.0 Antibody not detected > or = 15.0 Antibody detected THIS TEST WAS PERFORMED AT: [facility] [address] [place] [phone] MILLI ROMAN MD Gliadin Ab Panel Reviewed date:01/17/2025 05:22:17 PM Interpretation: Performing Lab:[facility], [address] [place] [phone] Notes/Report: Gliadin Deamidated IgA Ab <1.0 Value Interpretation ----- <15.0 Antibody not detected > or = 15.0 Antibody detected Gliadin Deamidated IgG Ab <1.0 Value Interpretation ----- <15.0 Antibody not detected > or = 15.0 Antibody detected THIS TEST WAS PERFORMED AT: [facility] [address] [place] [phone] MILLI ROMAN MD Endomysial IgA rflx Titer Reviewed date:01/17/2025 05:22:27 PM Interpretation: Performing Lab:[facility], [address] [place] [phone] Notes/Report: Endomysial IgA Antibody Negative Negative THIS TEST WAS PERFORMED AT: [facility] [address] [place] [address] BETTINA VENEGAS MD,PHD Endomysial Titer TNP Reason [...] Problem Status W/U Status Risk Notes Problem 028611568 Encounter for screening for malignant neoplasm of colon (Z12.11) Active confirmed Problem Gallstones (513814068) Gallstones (K80.20) Active confirmed Problem Right upper quadrant pain (519300298) Abdominal pain, RUQ (R10.11) Active confirmed Problem 66830703 Irritable bowel syndrome, unspecified type (K58.9) Active confirmed Vital Signs Temperature 98.0 degrees Fahrenheit 01/08/2025 Blood pressure diastolic 01 mm Hg 01/08/2025 Height 64.5 in 01/08/2025 Blood pressure systolic 001 mm Hg 01/08/2025 Weight 121 lbs 01/08/2025 BMI 20.45 kg/m2 01/08/2025 Encounters Encounter Location Date Provider Diagnosis [facility] [address] [place] [phone] 01/08/2025 Kojo Carrasco Irritable bowel syndrome, unspecified [...] Name:Kojo Carrasco , 08/12/2025 10:30:00 AM, [address], [address], [place], [address], Insurance Providers Payer Name Payer Address Payer Phone Subscriber Number Group Number Insured Name Patient Relationship to Insured Coverage Start Date Coverage End Date [facility] [address] [place], [place] [phone] [id number] RASHAUN SALINAS Self - patient is the insured Medical (General) History Medical History History ICD Code Breast cancer--2014---right lumpectomy-- XRT Denies SC,DM,CVA,Lung disease,renal dise ase Neg. 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
--- OUTSIDE RECORDS SUMMARY | 2025-03-28 13:05 | XMS_ITS | Encounter Summary ---
Author Organization [facility] Address [address] [place] [address] Care Team Providers Care Ultrasound Tester Name Role Phone Lucas Bolanos MD Primary Care Provider [phone] Encounter Details Date Type Department Care Team (Late st Contact Info) Description 12/13/2024 Lab Requisition [facility] - Main Lab [address] [facility] [place] [address] Jessa Livingston MD [address] [id number] Urinary tract infection, site not specified Social [...] Enterococcus faecalis(A) JAKI 12/15/2024 7:52 AM EST [facility] Comment: Edited result: Previously reported [...] MICROBIOLOGY - G ENERAL ORDERABLES Final Result [facility] ([facility]) [facility] [address] [place] [address], documented in this encounter Visit Diagnoses Diagnosis Urinary tract infection, site not specified documented in this encounter Care Teams Ultrasound Tester Relationship Specialty Start Date End Date Lucas Bolanos MD [address] [place] [address], [phone] PCP - General Family Medicine 02/03/25 documented as of this encounter
== END 2025-03-28 13:01 | disposition home or self-care (01) ==
LOC: HO.NEURO 13:00
PROVIDERS: PCP Internal Medicine; Visit Provider Internal Medicine
DX: G57.93 Unspecified mononeuropathy of bilateral lower limbs (principal)
CPT/HCPCS: 95886; 95909

== ENCOUNTER → 2025-03-28 13:03 | Outpatient (BNV) | payer MEDICARE, SELFPAY | PROVIDERS: PCP Internal Medicine; Visit Provider Physical Medicine & Rehabilitation | DX: M54.16 Radiculopathy, lumbar region (principal) | CPT/HCPCS: 95886; 95909 ==

== ENCOUNTER 2025-04-02 11:13 | Outpatient (REF) | payer MEDICARE, SELFPAY ==
--- NOTE | ~2025-04-02 | MM_ITS ---
EXAMINATION: DXA BONE DENSITY AXIAL HISTORY: Z78.0 - Asymptomatic menopausal state TECHNIQUE: Muufri Dual energy absorptiometry (DEXA) of the lumbar spine, total left hip, and femoral neck was performed. COMPARISON: There are no prior studies for comparison. FINDINGS: The bone mineral density of the lumbar spine is 0.841 with a T-score of -2.7, and a Z-score of -0.5. This is indicative of osteoporosis. The bone mineral density of the left total hip is 0.620 with a T-score of -3.1, and a Z-score of -0.6. This is indicative of osteoporosis. The bone mineral density of the left femoral neck is 0.674 with a T-score of -2.6, and a Z-score of -0.1. This is indicative of osteoporosis. MM/XR DEXA axial skeleton IMPRESSION: Based on bone mineral density, and according to World Health Organization (WHO) criteria, the diagnosis is consistent with osteoporosis. All bone density values are in grams per centimeter squared (g/cm2). Statistically, 68% of repeat scans fall within 1 SD (+/- 0.010 g/cm2 for AP spine L1-L4) and 1 SD (+/- 0.012 g/cm2 for femur total) FRAX is a trademark of the [employer]'s [place] [employer] Metabolic Bone Disease, a World Health Organization (WHO) Collaborating Center. Electronically signed by: Kojo Gtz MD 04/02/2025 11:54 AM EDT
--- OUTSIDE RECORDS SUMMARY | 2025-04-02 12:17 | XMS_ITS | Clinical Summary ---
Author Organization [facility] Address [address] [place] [address] Phone Care Team Providers Care Mule Spinner Name Role Phone Lucas Bolanos MD Primary Care Provider [phone] Encounters Date Type Department Care Team Description 02/13/2025 Lab Requisition [facility] Lab [address] [place] [address] Lucas Bolanos MD Other ballaster (current) drug therapy 02/04/2025 Lab Requisition [facility] [address] [place] [address] Lucas Bolanos MD Unspecified atrial fibrillation (CMS/HCC V24, CMS/HCC V28) 02/03/2025 Lab Requisition [facility] [address] [place] [address] Lucas Bolanos MD Anemia, unspecified [...] PANEL STAT 02/13/2025 5:16 PM EDT Other halfway (current) drug therapy COMPLETE BLOOD COUNT STAT 02/13/2025 5:16 PM EDT Other 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 [facility] WBC 9.6 4.8 - 10.8 K/mcL LAB HEMETOLOGY METHOD 02/13/2025 5:50 PM EDT [facility] RBC 3.80 3.80 - 4.80 M/mcL LAB HEMETOLOGY METHOD 02/13/2025 5:50 PM EDT [facility] Hemoglobin 11.7 11.5 - 16.0 g/dL LAB HEMETOLOGY METHOD 02/13/2025 5:50 PM EDT [facility] Hematocrit 33.8(L) 35.0 - 47.0 % LAB HEMETOLOGY METHOD 02/13/2025 5:50 PM EDT [facility] MCV 89.4 79.0 - 98.0 FL LAB HEMETOLOGY METHOD 02/13/2025 5:50 PM EDT [facility] MCH 31.0 27.0 - 32.0 pcg LAB HEMETOLOGY METHOD 02/13/2025 5:50 PM EDT [facility] MCHC 34.6 32.0 - 37.0 g/dL LAB HEMETOLOGY METHOD 02/13/2025 5:50 PM EDT [facility] RDW 12.9 11.0 - 15.0 % LAB HEMETOLOGY METHOD 02/13/2025 5:50 PM EDT [facility] Platelets 235 130 - 400 K/mcL LAB HEMETOLOGY METHOD 02/13/2025 5:50 PM EDT [facility] MPV 8.8 7.0 - 11.0 FL LAB HEMETOLOGY METHOD 02/13/2025 5:50 PM EDT [facility] NRBC 0.0 <1.0 % LAB HEMETOLOGY METHOD 02/13/2025 5:50 PM EDT [facility] NRBC Absolute 0.00 <0.10 K/mcL LAB HEMETOLOGY METHOD 02/13/2025 5:50 PM T [facility] Blood Venous blood specimen / Unknown Venipuncture / Unknown 02/13/2025 5:16 PM EDT 02/13/2025 5:41 PM EDT us Lucas Bolanos MD LAB BLOOD ORDERABLES Final Resul t [facility] [address] [place] [address], * (ABNORMAL) Basic metabolic panel (02/13/2025 5:16 PM EDT) Sodium 131(L) 133 - 145 mmol/L LAB CHEMISTRY METHOD 02/13/2025 6:16 PM [facility] Potassium 4.0 3.5 - 5.5 mmol/L LAB CHEMISTRY METHOD 02/13/2025 6:16 PM [facility] Chloride 98 [...] LAB CHEMISTRY METHOD 02/13/2025 6:16 PM EDT [facility] Comment:Calculation based on the??Chronic Kidney Disease Epidemiology Collaboration (CKD-EPI) equation refit??without adjustment for race. BUN/Creatinine Ratio 17.4 LAB CHEMISTRY METHOD 02/13/2025 6:16 PM EDT [facility] Calcium 8.9 8.5 - 10.5 mg/dL LAB CHEMISTRY METHOD 02/13/2025 6:16 PM EDT [facility] Blood Venous blood specimen / Unknown Venipuncture / Unknown 02/13/2025 5:16 PM EDT 02/13/2025 5:41 PM EDT Lucas Bolanos MD LAB BLOOD ORDERABLES Final Resul t Performing Organization Address City/[facility]/ZIP Co de Phone Number [facility] [address] [place] [address], * C-reactive protein (02/04/2025 9:09 AM EDT) C-Reactive Protein 0.39 <=0.50 mg/dL LAB CHEMISTRY METHOD 02/04/2025 12:15 PM EDT [facility] Blood Venous blood specimen / Unknown Venipuncture / Unknown 02/04/2025 9:09 AM EDT 02/04/2025 10:44 AM EDT Lucas Bolanos MD LAB BLOOD ORDERABLES Final Resul t [facility] [address] [place] [address], [place] [phone] * (ABNORMAL) Comprehensive metabolic panel (02/04/2025 9:09 [...] 20.5 LAB CHEMISTRY METHOD 02/04/2025 12:15 PM [facility] Calcium 8.9 8.5 - 10.5 mg/dL LAB CHEMISTRY METHOD 02/04/2025 12:15 PM [facility] AST (SGOT) 23 10 - 42 unit/L LAB CHEMISTRY METHOD 02/04/2025 12:15 PM [facility] ALT (SGPT) 37 10 - 60 unit/L LAB CHEMISTRY METHOD 02/04/2025 12:15 PM [facility] Alkaline Phosphatase 246(H) 42 - 121 unit/L LAB CHEMISTRY METHOD 02/04/2025 12:15 PM EDT [facility] Total Protein 6.3 6.0 - 8.0 g/dL LAB CHEMISTRY METHOD 02/04/2025 12:15 PM EDT [facility] Albumin 3.3 3.2 - 5.0 g/dL LAB CHEMISTRY METHOD 02/04/2025 12:15 PM EDT [facility] Total Bilirubin 0.5 0.0 - 1.4 mg/dL LAB CHEMISTRY METHOD 02/04/2025 12:15 PM EDT [facility] Blood Venous blood specimen / Unknown Venipuncture / Unknown 02/04/2025 9:09 AM EDT 02/04/2025 10:44 AM EDT us Lucas Bolanos MD LAB BLOOD ORDERABLES Final Resul t [facility] [address] [place] [address], [place] [phone] from Last 3 Months Insurance [place] - [place] [facility] MEDICARE ADVANTAGE Member Subscriber Plan / Payer (Ef fective 2024-Present) Name:Jennifer Joseph Relation to Subscriber:Self Name:Jennifer Joseph Payer ID:[id number] Type:Not on file Address: [facility] [id number] [address] Care Teams Mule Spinner Relationship Specialty Start Date End Date Lucas Bolanos MD [address] [place] [address], [phone] PCP - General Family Medicine 02/03/25
--- OUTSIDE RECORDS SUMMARY | 2025-04-02 12:17 | XMS_ITS | Encounter Summary ---
Author Organization [facility] Address [address] [place] [address] Care Team Providers Care Manager Architectural Name Role Phone Lucas Bolanos MD Primary Care Provider [phone] Encounter Details Date Type Department Care Team (Late st Contact Info) Description 02/03/2025 Lab Requisition [facility] - Main Lab [address] [place] [address] Lucas Bolanos MD [address] [facility] [address] [place], [phone] Anemia, unspecified Social History Tobacco Use [...] LAB CHEMISTRY METHOD 02/03/2025 12:14 PM EDT [facility] Potassium 4.5 3.5 - 5.5 mmol/L LAB CHEMISTRY METHOD 02/03/2025 12:14 PM EDT [facility] Chloride 97 96 - 110 mmol/L LAB CHEMISTRY METHOD 02/03/2025 12:14 PM [facility] CO2 26 21 - 32 mmol/L LAB CHEMISTRY METHOD 02/03/2025 12:14 PM [facility] Anion Gap 9 3 - 11 LAB CHEMISTRY METHOD 02/03/2025 12:14 PM [facility] Glucose 78 70 - 100 mg/dL LAB CHEMISTRY METHOD 02/03/2025 12:14 PM [facility] BUN 14 5 - 25 mg/dL LAB CHEMISTRY METHOD 02/03/2025 12:14 PM [facility] Creatinine 0.66 0.50 - 1.10 mg/dL LAB CHEMISTRY METHOD 02/03/2025 12:14 PM [facility] eGFR 87 >=60 mL/min/1. 73m2 LAB CHEMISTRY METHOD 02/03/2025 12:14 PM [facility] Comment:Calculation based on the??Chronic Kidney Disease Epidemiology Collaboration (CKD-EPI) equation refit??without adjustment for race. BUN/Creatinine Ratio 21.2 LAB CHEMISTRY METHOD 02/03/2025 12:14 PM [facility] Calcium 9.2 8.5 - 10.5 mg/dL LAB CHEMISTRY METHOD 02/03/2025 12:14 PM [facility] AST (SGOT) 28 10 - 42 unit/L LAB CHEMISTRY METHOD 02/03/2025 12:14 PM [facility] ALT (SGPT) 39 10 - 60 unit/L LAB CHEMISTRY METHOD 02/03/2025 12:14 PM [facility] Alkaline Phosphatase 251(H) 42 - 121 unit/L LAB CHEMISTRY METHOD 02/03/2025 12:14 PM [facility] Total Protein 6.5 6.0 - 8.0 g/dL LAB CHEMISTRY METHOD 02/03/2025 12:14 PM [facility] Albumin 3.5 3.2 - 5.0 g/dL LAB CHEMISTRY METHOD 02/03/2025 12:14 PM EDT [facility] Total Bilirubin 0.6 0.0 - 1.4 mg/dL LAB CHEMISTRY METHOD 02/03/2025 12:14 PM EDT [facility] Blood Venous blood specimen / Unknown Venipuncture / Unknown 02/03/2025 6:23 AM EDT 02/03/2025 10:28 AM EDT us Lucas Bolanos MD LAB BLOOD ORDERABLES Final Resul t [facility] [address] [place] [address], [place] [phone] * Complete blood count (02/03/2025 6:23 AM EDT) WBC 9.4 4.8 - 10.8 K/mcL LAB HEMETOLOGY METHOD 02/03/2025 11:33 AM [facility] RBC 4.20 3.80 - 4.80 M/mcL LAB HEMETOLOGY METHOD 02/03/2025 11:33 AM [facility] Hemoglobin 12.9 11.5 - 16.0 g/dL LAB HEMETOLOGY METHOD 02/03/2025 11:33 AM [facility] Hematocrit 38.3 35.0 - 47.0 % LAB HEMETOLOGY METHOD 02/03/2025 11:33 AM [facility] MCV 91.6 79.0 - 98.0 FL LAB HEMETOLOGY METHOD 02/03/2025 11:33 AM [facility] MCH 30.9 27.0 - 32.0 pcg LAB HEMETOLOGY METHOD 02/03/2025 11:33 AM [facility] MCHC 33.7 32.0 - 37.0 g/dL LAB HEMETOLOGY METHOD 02/03/2025 11:33 AM EDT [facility] RDW 12.8 11.0 - 15.0 % LAB HEMETOLOGY METHOD 02/03/2025 11:33 AM EDT [facility] Platelets 377 130 - 400 K/mcL LAB HEMETOLOGY METHOD 02/03/2025 11:33 AM EDT [facility] MPV 8.9 7.0 - 11.0 FL LAB HEMETOLOGY METHOD 02/03/2025 11:33 AM EDT [facility] NRBC 0.0 <1.0 % LAB HEMETOLOGY METHOD 02/03/2025 11:33 AM EDT [facility] NRBC Absolute 0.00 <0.10 K/mcL LAB HEMETOLOGY METHOD 02/03/2025 11:33 AM EDT [facility] Blood Venous blood specimen / Unknown Venipuncture / Unknown 02/03/2025 6:23 AM EDT 02/03/2025 10:28 AM EDT us Lucas Bolanos MD LAB BLOOD ORDERABLES Final Resul t [facility] [address] [place] [address], documented in this encounter Visit Diagnoses Diagnosis Anemia, unspecified documented in this encounter Care Teams Manager Architectural Relationship Specialty Start Date End Date Lucas Bolanos MD [address] [place] [address] [address] [place], [phone] PCP - General Family Medicine 02/03/25 documented as of this encounter
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
--- OUTSIDE RECORDS SUMMARY | 2025-04-02 12:17 | XMS_ITS | Encounter Summary ---
Author Organization [facility] Address [address] [place] [address] Care Team Providers Care Medical Device Sales Name Role Phone Lucas Bolanos MD Primary Care Provider [phone] Encounter Details Date Type Department Care Team (Late st Contact Info) Description 02/13/2025 Lab Requisition [facility] - Main Lab [address] [place] [address] Lucas Bolanos MD [address] [facility] [address] [place], [address] Other jail (current) drug therapy Social History Tobacco Use [...] COUNT STAT 02/13/2025 5:16 PM EDT Other horse breeder (current) drug therapy BASIC METABOLIC PANEL STAT 02/13/2025 5:16 PM EDT Other jail (current) drug therapy documented in this encounter Results * (ABNORMAL) Basic metabolic panel (02/13/2025 5:16 PM EDT) Sodium 131(L) 133 - 145 mmol/L LAB CHEMISTRY METHOD 02/13/2025 6:16 PM EDT [facility] Potassium 4.0 3.5 - 5.5 mmol/L LAB CHEMISTRY METHOD 02/13/2025 6:16 PM EDT [facility] Chloride 98 96 - 110 mmol/L LAB CHEMISTRY METHOD 02/13/2025 6:16 PM [facility] CO2 28 21 - 32 mmol/L LAB CHEMISTRY METHOD 02/13/2025 6:16 PM [facility] Anion Gap 5 3 - 11 LAB CHEMISTRY METHOD 02/13/2025 6:16 PM [facility] Glucose 93 70 - 100 mg/dL LAB CHEMISTRY METHOD 02/13/2025 6:16 PM [facility] BUN 15 5 - 25 mg/dL LAB CHEMISTRY METHOD 02/13/2025 6:16 PM [facility] Creatinine 0.86 0.50 - 1.10 mg/dL LAB CHEMISTRY METHOD 02/13/2025 6:16 PM [facility] LAB eGFR 67 >=60 mL/min/1. 73m2 LAB CHEMISTRY METHOD 02/13/2025 6:16 PM T [facility] Comment:Calculation based on the??Chronic Kidney Disease Epidemiology Collaboration (CKD-EPI) equation refit??without adjustment for race. BUN/Creatinine Ratio 17.4 LAB CHEMISTRY METHOD 02/13/2025 6:16 PM [facility] Calcium 8.9 8.5 - 10.5 mg/dL LAB CHEMISTRY METHOD 02/13/2025 6:16 PM T [facility] Blood Venous blood specimen / Unknown Venipuncture / Unknown 02/13/2025 5:16 PM EDT 02/13/2025 5:41 PM EDT us Lucas Bolanos MD LAB BLOOD ORDERABLES Final Resul t [facility] [address] [place] [address], [place] [phone] * (ABNORMAL) Complete blood count (02/13/2025 5:16 PM EDT) [facility] WBC 9.6 4.8 - 10.8 K/mcL LAB [...] Resul t [facility] [address] [place] [address], documented in this encounter Visit Diagnoses Diagnosis Other jail (current) drug therapy documented in this encounter Care Teams Medical Device Sales Relationship Specialty Start Date End Date Lucas Bolanos MD [address] [place] [address], [phone] PCP - General Family Medicine 02/03/25 documented as of this encounter
--- OUTSIDE RECORDS SUMMARY | 2025-04-02 12:17 | XMS_ITS ---
Author Organization [facility] Address [address] [place] [address] Care Team Providers Care Paster Supervisor Name Role Phone Fatou Hinojosa MD Primary Care Provider Kojo Eastman Unavailable [phone] Allergies Allergen (clinical drug ingredient) Drug/Non Drug [...] Status W/U Status Risk Notes Problem Gallstones (903868426) Gallstones (K80.20) Active confirmed Problem Abdominal pain, RUQ (R10.11) Active confirmed Vital Signs Temperature 98.0 degrees Fahrenheit 01/08/20 25 Blood pressure systolic 001 mm Hg 01/08/20 25 Blood pressure diastolic 01 mm Hg 025 Height 64.5 in 01/08/2025 Weight 121 lbs 01/08/2025 BMI 20.45 kg/m2 01/08/2025 Encounters Encounter Location Date Provider Diagnosis [facility] [address] [place] [address] 01/08/2025 Kojo Carrasco Irritable bowel syndrome, unspecified [...] Name:Kojo Carrasco , 08/12/2025 10:30:00 AM, [address] [facility], [address], [place], [address], Progress Notes * RASHAUN WEBSTER B:1940 (85 yo F)Acc No.[id number]:01/08/2025 Progress Notes Patient:?EZEQUIEL WEBSTER Provider:?Kojo Carrasco MD :1940???Age:84 Y???Sex:Female D ate:01/08/2025 Address:[address] [place] [address] [address], [place] Pcp:Fatou Hinojosa MD Subjective: * Chief Complaints: [...] Marital status: . 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 ???Nonsmoker; no sig alcohol. * Medications:?TakingLosartan Potassium [...] US abdomen complete* sched 01/30/25 at 9:00 [facility] Ultrasound dept 2nd floorfasting 8 hrs prior * 4.?Others? Refill Hyoscyamine, 125 MG, PRN.?? * Procedure Codes:?1036F TOBAC CO NON-HCPQZ1912 BP SCR NOT PRFRM REC REASON NOS [...] MD Date:? 025 Generated for Pj conner/Jose/Damari on:?04/02/2025 12:17 PM EDT
--- OUTSIDE RECORDS SUMMARY | 2025-04-02 12:17 | XMS_ITS | Encounter Summary ---
Author Organization [facility] Address [address] [place] [address] Care Team Providers Care Program Technician Name Role Phone Lucas Bolanos MD Primary Care Provider [phone] Encounter Details Date Type Department Care Team (Late st Contact Info) Description 12/13/2024 Lab Requisition [facility] - Main Lab [address] [place] [address] Jessa Livingston MD [address] [id number] Urinary tract infection, site not specified Social [...] Enterococcus faecalis(A) JAKI 12/15/2024 7:52 AM EST [facility] Comment: Edited result: Previously reported as [...] MICROBIOLOGY - G ENERAL ORDERABLES Final Result [facility] [address] [place] [address], documented in this encounter Visit Diagnoses Diagnosis Urinary tract infection, site not specified documented in this encounter Care Teams Program Technician Relationship Specialty Start Date End Date Lucas Bolanos MD [address] [place] [address], [address] PCP - General Family Medicine 02/03/25 documented as of this encounter
--- OUTSIDE RECORDS SUMMARY | 2025-04-02 12:17 | XMS_ITS | Encounter Summary ---
Author Organization [facility] Address [address] [place] [address] Care Team Providers Care Vacuum Drier Operator Name Role Phone Lucas Bolanos MD Primary Care Provider [phone] Encounter Details Date Type Department Care Team (Late st Contact Info) Description 02/04/2025 Lab Requisition [facility] - Main Lab [address] [facility] [place] [address] Lucas Bolanos MD [address] [facility] [address] [place], [address] Unspecified atrial fibrillation (CMS/HCC V24, CMS/HCC [...] mg/dL LAB CHEMISTRY METHOD 02/04/2025 12:15 PM [facility] Blood Venous blood specimen / Unknown Venipuncture / Unknown 02/04/2025 9:09 AM EDT 02/04/2025 10:44 AM EDT us Lucas Bolanos MD LAB BLOOD ORDERABLES Final Resul t [facility] [address] [place] [address], [place] [phone] * (ABNORMAL) Comprehensive metabolic panel (02/04/2025 9:09 AM EDT) Sodium 130(L) 133 - 145 mmol/L LAB CHEMISTRY METHOD 02/04/2025 12:15 PM [facility] Potassium 4.1 3.5 - 5.5 mmol/L LAB CHEMISTRY METHOD 02/04/2025 12:15 PM [facility] Chloride 98 96 - 110 mmol/L LAB CHEMISTRY METHOD 02/04/2025 12:15 PM [facility] CO2 25 21 - 32 mmol/L LAB CHEMISTRY METHOD 02/04/2025 12:15 PM [facility] Anion Gap 7 3 - 11 LAB CHEMISTRY METHOD 02/04/2025 12:15 PM [facility] Glucose 132(H) 70 - 100 mg/dL LAB CHEMISTRY METHOD 02/04/2025 12:15 PM [facility] BUN 16 5 - 25 mg/dL LAB CHEMISTRY METHOD 02/04/2025 12:15 PM [facility] Creatinine 0.78 0.50 - 1.10 mg/dL LAB CHEMISTRY METHOD 02/04/2025 12:15 PM [facility] eGFR 75 >=60 mL/min/1. 73m2 LAB CHEMISTRY METHOD 02/04/2025 12:15 PM [facility] Comment:Calculation based on the??Chronic Kidney Disease Epidemiology Collaboration (CKD-EPI) equation refit??without adjustment for race. BUN/Creatinine Ratio 20.5 LAB CHEMISTRY METHOD 02/04/2025 12:[address] [facility] Calcium 8.9 8.5 - 10.5 mg/dL LAB CHEMISTRY METHOD 02/04/2025 12:15 PM [facility] AST (SGOT) 23 10 - 42 unit/L LAB CHEMISTRY METHOD 02/04/2025 12:15 PM [facility] ALT (SGPT) 37 10 - 60 unit/L LAB CHEMISTRY METHOD 02/04/2025 12:15 PM [facility] Alkaline Phosphatase 246(H) 42 - 121 unit/L LAB CHEMISTRY METHOD 02/04/2025 12:15 PM [facility] Total Protein 6.3 6.0 - 8.0 g/dL LAB CHEMISTRY METHOD 02/04/2025 12:15 PM [facility] Albumin 3.3 3.2 - 5.0 g/dL LAB CHEMISTRY METHOD 02/04/2025 12:15 PM [facility] Total Bilirubin 0.5 0.0 - 1.4 mg/dL LAB CHEMISTRY METHOD 02/04/2025 12:15 PM [facility] Blood Venous blood specimen / Unknown Venipuncture / Unknown 02/04/2025 9:09 AM EDT 02/04/2025 10:44 AM EDT us Lucas Bolanos MD LAB BLOOD ORDERABLES Final Resul t [facility] [address] [place] [address], * (ABNORMAL) Complete blood count (02/04/2025 9:09 AM EDT) WBC 10.9(H) 4.8 - 10.8 K/mcL LAB HEMETOLOGY METHOD 02/04/2025 11:17 AM [facility] RBC 4.00 3.80 - 4.80 M/mcL LAB HEMETOLOGY METHOD 02/04/2025 11:17 AM [facility] Hemoglobin 12.5 11.5 - 16.0 g/dL LAB HEMETOLOGY METHOD 02/04/2025 11:17 AM [facility] Hematocrit 36.7 35.0 - 47.0 % LAB HEMETOLOGY METHOD 02/04/2025 11:17 AM [facility] MCV 91.3 79.0 - 98.0 FL LAB HEMETOLOGY METHOD 02/04/2025 11:17 AM [facility] MCH 31.1 27.0 - 32.0 pcg LAB HEMETOLOGY METHOD 02/04/2025 11:17 AM [facility] MCHC 34.1 32.0 - 37.0 g/dL LAB HEMETOLOGY METHOD 02/04/2025 11:17 AM [facility] RDW 12.7 11.0 - 15.0 % LAB HEMETOLOGY METHOD 02/04/2025 11:17 AM [facility] Platelets 370 130 - 400 K/mcL LAB HEMETOLOGY METHOD 02/04/2025 11:17 AM [facility] MPV 9.0 7.0 - 11.0 FL LAB HEMETOLOGY METHOD 02/04/2025 11:17 AM [facility] NRBC 0.0 <1.0 % LAB HEMETOLOGY METHOD 02/04/2025 11:17 AM [facility] NRBC Absolute 0.00 <0.10 K/mcL LAB HEMETOLOGY METHOD 02/04/2025 11:17 AM [facility] Blood Venous blood specimen / Unknown Venipuncture / Unknown 02/04/2025 9:09 AM EDT 02/04/2025 10:44 AM EDT us Lucas Bolanos MD LAB BLOOD ORDERABLES Final Resul t [facility] [address] [place] [address], documented in this encounter Visit Diagnoses Diagnosis Unspecified atrial fibrillation (CMS/HCC V24, CMS/HCC V28) documented in this encounter Care Teams Vacuum Drier Operator Relationship Specialty Start Date End Date Lucas Bolanos MD [address] [place] [address], [phone] PCP - General Family Medicine 02/03/25 documented as of this encounter
--- OUTSIDE RECORDS SUMMARY | 2025-04-02 12:17 | XMS_ITS | Patient Health Record ---
Author Organization [facility] Address [address] [place] [address] Care Team Providers Care Craft Recruiter Name Role Phone Fatou Hinojosa MD Primary Care Provider Kojo Eastman [phone] Allergies Allergen (clinical drug ingredient) Drug/Non Drug [...] ff Reviewed date:01/13/2025 05:19:57 PM Interpretation: Performing Lab:[facility], [address] [place] [phone] Notes/Report: White Blood Count 9.9 4.8-10.8 X10*3/uL [...] yet reviewe d by provider) Interpretation: Performing Lab:[facility], [address] [place] [phone] Notes/Report: Bilirubin Total 0.5 0.0-1.0 mg/dL Bilirubin Direct 0.2 0.0-0.5 mg/dL Aspartate Amino Transferase 30 5-31 U/L Alanine Aminotransferase 30 0-31 U/L Total Protein 7.8 6.5-8.0 g/dL Albumin Level 4.3 3.5-5.0 g/dL Alkaline Phosphatase 143 39-117 U/L Lipase Reviewed date:01/13/2025 05:20:25 PM Interpretation: Performing Lab:[facility], [address] [place] [phone] Notes/Report: Lipase 38 8-78 U/L Immunoglobulin A Reviewed date:01/17/2025 05:21:45 PM Interpretation: Performing Lab:[facility], [address] [place] [phone] Notes/Report: Immunoglobulin A 242 70-320 mg/dL THIS TEST WAS PERFORMED AT: [facility] [address] [place] [phone] MILLI ROMAN MD Transglutaminase Ab IgG Reviewed date:01/17/2025 05:21:58 PM Interpretation: Performing Lab:[address] [phone] Notes/Report: Transglutaminase Ab IgG <1.0 Value Interpretation ----- <15.0 Antibody not detected > or = 15.0 Antibody detected THIS TEST WAS PERFORMED AT: [facility] [address] [place] [phone] MILLI ROMAN MD Transglutaminase IgA Reviewed date:01/17/2025 05:22:08 PM Interpretation: Performing Lab:[address] [phone] Notes/Report: Transglutaminase IgA <1.0 Value Interpretation ----- <15.0 Antibody not detected > or = 15.0 Antibody detected THIS TEST WAS PERFORMED AT: [facility] [address] [place] [phone] MILLI ROMAN MD Gliadin Ab Panel Reviewed date:01/17/2025 05:22:17 PM Interpretation: Performing Lab:[facility], [address] [place] [phone] Notes/Report: Gliadin Deamidated IgA Ab <1.0 Value Interpretation ----- <15.0 Antibody not detected > or = 15.0 Antibody detected Gliadin Deamidated IgG Ab <1.0 Value Interpretation ----- <15.0 Antibody not detected > or = 15.0 Antibody detected THIS TEST WAS PERFORMED AT: [facility] [address] [place] [phone] MILLI ROMAN MD Endomysial IgA rflx Titer Reviewed date:01/17/2025 05:22:27 PM Interpretation: Performing Lab:[facility], [address] [place] [phone] Notes/Report: Endomysial IgA Antibody Negative Negative THIS TEST WAS PERFORMED AT: [facility] [address] [place] [address] BETTINA VENEGAS MD,PHD Endomysial Titer TNP Reason [...] Problem Status W/U Status Risk Notes Problem 722788915 Encounter for screening for malignant neoplasm of colon (Z12.11) Active confirmed Problem Gallstones (011536894) Gallstones (K80.20) Active confirmed Problem Abdominal pain, RUQ (R10.11) Active confirmed Problem 18619984 Irritable bowel syndrome, unspecified type (K58.9) Active confirmed Vital Signs Temperature 98.0 degrees Fahrenheit 01/08/2025 Blood pressure diastolic 01 mm Hg 01/08/2025 Height 64.5 in 01/08/2025 Blood pressure systolic 001 mm Hg 01/08/2025 Weight 121 lbs 01/08/2025 BMI 20.45 kg/m2 01/08/2025 Encounters Encounter Location Date Provider Diagnosis [facility] [address] [facility] [address] [place] [address] 01/08/2025 Kojo Carrasco Irritable bowel syndrome, unspecified [...] Provider Name:Kojo Carrasco , 08/12/2025 10:30:00 AM, [address] [place] [address], [address], [place], [address], Insurance Providers Payer Name Payer Address Payer Phone Subscriber Number Group Number Insured Name Patient Relationship to Insured Coverage Start Date Coverage End Date [facility] [address] [place], [place] [phone] [phone] [id number] RASHAUN SALINAS Self - patient is [...]
== END 2025-04-02 11:14 | disposition home or self-care (01) ==
LOC: HO.MAMMO 11:13
PROVIDERS: PCP Internal Medicine; Visit Provider Internal Medicine
DX: Z13.820 Encounter for screening for osteoporosis (principal); Z78.0 Asymptomatic menopausal state
CPT/HCPCS: 77080

== ENCOUNTER → 2025-04-02 11:30 | Outpatient (BNV) | payer MEDICARE, SELFPAY | PROVIDERS: PCP Internal Medicine; Visit Provider Radiology Diagnostic Radiology | DX: E28.39 Other primary ovarian failure (principal) | CPT/HCPCS: 77080 ==

== ENCOUNTER 2025-05-05 13:45 | Outpatient (REF) | payer MEDICARE, SELFPAY ==
--- NOTE | ~2025-05-05 | US_ITS ---
CLINICAL HISTORY: CYSTITIS WITHOUT HEMATURIA US kidneys and bladder Comparison: None Findings: Right kidney 10.1 cm length. No significant focal abnormality. Left kidney 9.9 cm length. No significant focal abnormality. No bilateral hydronephrosis. Normal bilateral renal echogenicity. Minimal debris noted in urinary bladder. No wall thickening or other abnormality. Prevoid volume 192 mL. Post void volume 65 mL. Bilateral ureteral jets visualized. Impression: Nonspecific minimal debris in urinary bladder Postvoid residual volume 65 mL Otherwise unremarkable This document has been electronically signed by: Haroon Cardona MD on 05/06/2025 00:46:43
--- OUTSIDE RECORDS SUMMARY | 2025-05-05 15:22 | XMS_ITS | Encounter Summary ---
Author Organization [facility] Address [address] [place] [address] Care Team Providers Care Executive Director Of Marketing Name Role Phone Lucas Bolanos MD Primary Care Provider [phone] Encounter Details Date Type Department Care Team (Late st Contact Info) Description 02/13/2025 Lab Requisition [facility] - Main Lab [address] [place] [address] Lucas Bolanos MD [address] [facility] [address] [place], [address] Other snf (current) drug therapy Social History Tobacco Use [...] COUNT STAT 02/13/2025 5:16 PM EDT Other rn long term care (current) drug therapy BASIC METABOLIC PANEL STAT 02/13/2025 5:16 PM EDT Other rn long term care (current) drug therapy documented in this encounter Results * (ABNORMAL) Basic metabolic panel (02/13/2025 5:16 PM EDT) Sodium 131(L) 133 - 145 mmol/L LAB CHEMISTRY METHOD 02/13/2025 6:16 PM EDT [facility] Potassium 4.0 3.5 - 5.5 mmol/L LAB CHEMISTRY METHOD 02/13/2025 6:16 PM EDT [facility] Chloride 98 96 - 110 mmol/L LAB CHEMISTRY METHOD 02/13/2025 6:16 PM [facility] CO2 28 21 - 32 mmol/L LAB CHEMISTRY METHOD 02/13/2025 6:16 PM [facility] Anion Gap 5 3 - 11 LAB CHEMISTRY METHOD 02/13/2025 6:16 PM [facility] Glucose 93 70 - 100 mg/dL LAB CHEMISTRY METHOD 02/13/2025 6:16 PM [facility] BUN 15 5 - 25 mg/dL LAB CHEMISTRY METHOD 02/13/2025 6:16 PM [facility] Creatinine 0.86 0.50 - 1.10 mg/dL LAB CHEMISTRY METHOD 02/13/2025 6:16 PM [facility] eGFR 67 >=60 mL/min/1. 73m2 LAB CHEMISTRY METHOD 02/13/2025 6:16 PM T [facility] Comment:Calculation based on the??Chronic Kidney Disease Epidemiology Collaboration (CKD-EPI) equation refit??without adjustment for race. BUN/Creatinine Ratio 17.4 LAB CHEMISTRY METHOD 02/13/2025 6:16 PM [facility] Calcium 8.9 8.5 - 10.5 mg/dL LAB CHEMISTRY METHOD 02/13/2025 6:16 PM T [facility] Blood Venous blood specimen / Unknown Venipuncture / Unknown 02/13/2025 5:16 PM EDT 02/13/2025 5:41 PM EDT us Lucas Bolanos MD LAB BLOOD ORDERABLES Final Resul t [facility] [address] [place] [address], [place] [phone] * (ABNORMAL) Complete blood count (02/13/2025 5:16 PM EDT) [facility] WBC 9.6 4.8 - 10.8 K/mcL LAB HEMETOLOGY METHOD 02/13/2025 5:50 PM EDT [facility] RBC 3.80 3.80 - 4.80 M/mcL LAB HEMETOLOGY METHOD 02/13/2025 5:50 PM EDT [facility] Hemoglobin 11.7 11.5 - 16.0 g/dL LAB HEMETOLOGY METHOD 02/13/2025 5:50 PM EDT [facility] Hematocrit 33.8(L) 35.0 - 47.0 % LAB HEMETOLOGY METHOD 02/13/2025 5:50 PM EDT [facility] MCV 89.4 79.0 - 98.0 FL LAB HEMETOLOGY METHOD 02/13/2025 5:50 PM EDT [facility] MCH 31.0 27.0 - 32.0 pcg LAB HEMETOLOGY METHOD 02/13/2025 5:50 PM EDT [facility] MCHC 34.6 32.0 - 37.0 g/dL LAB HEMETOLOGY METHOD 02/13/2025 5:50 PM EDT [facility] RDW 12.9 11.0 - 15.0 % LAB HEMETOLOGY METHOD 02/13/2025 5:50 PM EDT [facility] Platelets 235 130 - 400 K/mcL LAB HEMETOLOGY METHOD 02/13/2025 5:50 PM EDT [facility] MPV 8.8 7.0 - 11.0 FL LAB HEMETOLOGY METHOD 02/13/2025 5:50 PM EDT [facility] NRBC 0.0 <1.0 % LAB HEMETOLOGY METHOD 02/13/2025 5:50 PM EDT [facility] NRBC Absolute 0.00 <0.10 K/mcL LAB HEMETOLOGY METHOD 02/13/2025 5:50 PM EDT [facility] Blood Venous blood specimen / Unknown Venipuncture / Unknown 02/13/2025 5:16 PM EDT 02/13/2025 5:41 PM EDT us Lucas Bolanos MD LAB BLOOD ORDERABLES Final Resul t [facility] [address] [place] [address], documented in this encounter Visit Diagnoses Diagnosis Other rn long term care (current) drug therapy documented in this encounter Care Teams Executive Director Of Marketing Relationship Specialty Start Date End Date Lucas Bolanos MD [address] [place] [address], [phone] PCP - General Family Medicine 02/03/25 documented as of this encounter
== END 2025-05-05 13:46 | disposition home or self-care (01) ==
LOC: HO.US 13:45
PROVIDERS: PCP Internal Medicine; Visit Provider Student in an Organized Health Care Education/Training Program
DX: N30.00 Acute cystitis without hematuria (principal)
CPT/HCPCS: 76770

== ENCOUNTER → 2025-05-05 13:47 | Outpatient (BNV) | payer MEDICARE, SELFPAY | PROVIDERS: PCP Internal Medicine; Visit Provider Radiology Diagnostic Radiology | DX: N30.90 Cystitis, unspecified without hematuria (principal) | CPT/HCPCS: 76770 ==

== ENCOUNTER 2025-05-08 08:24 | Outpatient (REF) | payer MEDICARE, SELFPAY ==
--- NOTE | ~2025-05-08 | US_ITS ---
CLINICAL HISTORY: GALLSTONES, RUQ PAIN US abdomen limited with color Doppler Comparison: US - US RETROPERITONEAL COMP - 05/05/25 14:57 EDT Findings: Visualized pancreas is normal. Tail obscured by bowel gas. Liver is normal in size and echotexture. No focal hepatic masses. Common duct 2.1 mm diameter. Gallbladder is physiologically distended. Layering gallstone. No gallbladder wall thickening. No pericholecystic fluid. No sonographic Chiang sign. Right kidney measures, 10.8 cm in length. Normal cortical width and echotexture. No hydronephrosis calculus or mass. Impression: 1. Cholelithiasis without evidence of cholecystitis. This document has been electronically signed by: Pedro Talbot MD on 05/08/2025 10:04:16
--- OUTSIDE RECORDS SUMMARY | 2025-05-08 08:33 | XMS_ITS | Encounter Summary ---
Author Organization [facility] Address [address] [place] [address] Care Team Providers Care Park Keeper Name Role Phone Lucas Bolanos MD Primary Care Provider [phone] Encounter Details Date Type Department Care Team (Late st Contact Info) Description 02/13/2025 Lab Requisition [facility] - Main Lab [address] [place] [address] Lucas Bolanos MD [address] [facility] [address] [place], [address] Other jail (current) drug therapy Social [...] COUNT STAT 02/13/2025 5:16 PM EDT Other intermediate manager (current) drug therapy BASIC METABOLIC PANEL STAT 02/13/2025 5:16 PM EDT Other intermediate manager (current) drug therapy documented in this encounter Results * (ABNORMAL) Basic metabolic panel (02/13/2025 5:16 PM EDT) Sodium 131(L) 133 - 145 mmol/L LAB CHEMISTRY METHOD 02/13/2025 6:16 PM EDT [facility] Potassium 4.0 3.5 - 5.5 mmol/L LAB CHEMISTRY METHOD 02/13/2025 6:16 PM EDT [facility] Chloride 98 96 - 110 [...] LAB CHEMISTRY METHOD 02/13/2025 6:16 PM T [facility] Comment:Calculation based on the Chronic Kidney Disease Epidemiology Collaboration (CKD-EPI) equation refit without adjustment for race. BUN/Creatinine Ratio 17.4 LAB CHEMISTRY METHOD 02/13/2025 6:16 PM [facility] Calcium 8.9 8.5 - 10.5 mg/dL LAB CHEMISTRY METHOD 02/13/2025 6:16 PM [facility] Blood Venous blood specimen / Unknown Venipuncture / Unknown 02/13/2025 5:16 PM EDT 02/13/2025 5:41 PM EDT us Lucas Bolanos MD LAB BLOOD ORDERABLES Final Resul t [facility] [address] [place] [address], [place] [phone] * (ABNORMAL) Complete blood count (02/13/2025 5:16 PM EDT) WBC 9.6 4.8 - 10.8 K/mcL LAB HEMETOLOGY METHOD 02/13/2025 5:50 PM EDT [facility] RBC 3.80 3.80 - 4.80 M/mcL LAB HEMETOLOGY METHOD 02/13/2025 5:50 PM EDT [facility] Hemoglobin 11.7 11.5 - 16.0 g/dL LAB HEMETOLOGY METHOD 02/13/2025 5:50 PM EDT [facility] Hematocrit 33.8(L) 35.0 - 47.0 % LAB HEMETOLOGY METHOD 02/13/2025 5:50 PM EDT [facility] MCV 89.4 79.0 - 98.0 FL LAB HEMETOLOGY METHOD 02/13/2025 5:50 PM EDT [facility] MCH 31.0 27.0 - 32.0 pcg LAB HEMETOLOGY METHOD 02/13/2025 5:50 PM EDT [facility] MCHC 34.6 32.0 - 37.0 g/dL LAB HEMETOLOGY METHOD 02/13/2025 5:50 PM EDT [facility] RDW 12.9 11.0 - 15.0 % LAB HEMETOLOGY METHOD 02/13/2025 5:50 PM EDT [facility] Platelets 235 130 - 400 K/mcL LAB HEMETOLOGY METHOD 02/13/2025 5:50 PM EDT [facility] MPV 8.8 7.0 - 11.0 FL LAB HEMETOLOGY METHOD 02/13/2025 5:50 PM EDT [facility] NRBC 0.0 <1.0 % LAB HEMETOLOGY METHOD 02/13/2025 5:50 PM EDT [facility] NRBC Absolute 0.00 <0.10 K/mcL LAB HEMETOLOGY METHOD 02/13/2025 5:50 PM EDT [facility] Blood Venous blood specimen / Unknown Venipuncture / Unknown 02/13/2025 5:16 PM EDT 02/13/2025 5:41 PM EDT us Lucas Bolanos MD LAB BLOOD ORDERABLES [facility] [address] [place] [address], documented in this encounter Visit Diagnoses Diagnosis Other jail (current) drug therapy documented in this encounter Care Teams Park Keeper Relationship Specialty Start Date End Date Lucas Bolanos MD [address] [place] [address], [phone] PCP - General Family Medicine 02/03/25 documented as of this encounter
== END 2025-05-08 08:25 | disposition home or self-care (01) ==
LOC: HO.HMGCX 08:24
PROVIDERS: PCP Internal Medicine; Visit Provider Internal Medicine
DX: K80.20 Calculus of gallbladder without cholecystitis without obstruction (principal); R10.11 Right upper quadrant pain
CPT/HCPCS: 76705

== ENCOUNTER → 2025-05-08 08:25 | Outpatient (BNV) | payer MEDICARE, SELFPAY | PROVIDERS: PCP Internal Medicine; Visit Provider Radiology Diagnostic Radiology | DX: K80.20 Calculus of gallbladder without cholecystitis without obstruction (principal) | CPT/HCPCS: 76705 ==

== ENCOUNTER 2025-06-19 13:06 | Outpatient (AMB) | payer MEDICARE, SELFPAY ==
--- OUTSIDE RECORDS SUMMARY | 2025-06-19 13:18 | XMS_ITS | Patient Health Record ---
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 Phone Fatou Hinojosa MD Primary Care Provider Kojo Eastman [phone] Allergies Allergen (clinical drug ingredient) Drug/Non Drug [...] ff Reviewed date:01/13/2025 05:19:57 PM Interpretation: Performing Lab:[facility], [address] [place] [phone] Notes/Report: White Blood Count 9.9 4.8-10.8 X10*3/uL [...] yet reviewe d by provider) Interpretation: Performing Lab:[facility], [address] [place] [phone] Notes/Report: Bilirubin Total 0.5 0.0-1.0 mg/dL Bilirubin Direct 0.2 0.0-0.5 mg/dL Aspartate Amino Transferase 30 5-31 U/L Alanine Aminotransferase 30 0-31 U/L Total Protein 7.8 6.5-8.0 g/dL Albumin Level 4.3 3.5-5.0 g/dL Alkaline Phosphatase 143 39-117 U/L Lipase Reviewed date:01/13/2025 05:20:25 PM Interpretation: Performing Lab:[facility], [address] [place] [phone] Notes/Report: Lipase 38 8-78 U/L Immunoglobulin A Reviewed date:01/17/2025 05:21:45 PM Interpretation: Performing Lab:[facility], [address] [place] [phone] Notes/Report: Immunoglobulin A 242 70-320 mg/dL THIS TEST WAS PERFORMED AT: [facility] [address] [place] [phone] MILLI ROMAN MD Transglutaminase Ab IgG Reviewed date:01/17/2025 05:21:58 PM Interpretation: Performing Lab:[address] [phone] Notes/Report: Transglutaminase Ab IgG <1.0 Value Interpretation ----- <15.0 Antibody not detected > or = 15.0 Antibody detected THIS TEST WAS PERFORMED AT: [facility] [address] [place] [phone] MILLI ROMAN MD Transglutaminase IgA Reviewed date:01/17/2025 05:22:08 PM Interpretation: Performing Lab:[address] [phone] Notes/Report: Transglutaminase IgA <1.0 Value Interpretation ----- <15.0 Antibody not detected > or = 15.0 Antibody detected THIS TEST WAS PERFORMED AT: [facility] [address] [place] [phone] MILLI ROMAN MD Gliadin Ab Panel Reviewed date:01/17/2025 05:22:17 PM Interpretation: Performing Lab:[facility], [address] [place] [phone] Notes/Report: Gliadin Deamidated IgA Ab <1.0 Value Interpretation ----- <15.0 Antibody not detected > or = 15.0 Antibody detected Gliadin Deamidated IgG Ab <1.0 Value Interpretation ----- <15.0 Antibody not detected > or = 15.0 Antibody detected THIS TEST WAS PERFORMED AT: [facility] [address] [place] [phone] MILLI ROMAN MD Endomysial IgA rflx Titer Reviewed date:01/17/2025 05:22:27 PM Interpretation: Performing Lab:[facility], [address] [place] [phone] Notes/Report: Endomysial IgA Antibody Negative Negative THIS TEST WAS PERFORMED AT: [facility] [address] [place] [address] BETTINA VENEGAS MD,PHD Endomysial Titer TNP US abdomen limited (Not yet reviewed by provider) Interpretation: Performing Lab: Notes/Report: [facility] [address] [place] [address] Ultrasound Report Signed Patient: Jennifer Wilson MR#: [id number] : 1940 Acct:[id number] Age/Sex: 85 / F ADM Date: 05/08/25 Loc: HO.HMGCX Attending Dr: Kojo Carrasco MD Ordering Physician: Kojo Carrasco MD Date of Service: 05/08/25 Procedure(s): US abdomen limited Accession Number(s): [id number] cc: Fatou Hinojosa MD; Kojo Carrasco MD CLINICAL HISTORY: GALLSTONES, RUQ PAIN US abdomen limited with color Doppler Comparison: US - US RETROPERITONEAL COMP - 05/05/25 14:57 EDT Findings: Visualized pancreas is normal. Tail obscured by bowel gas. Liver is normal in size and echotexture. No focal hepatic masses. Common duct 2.1 mm diameter. Gallbladder is physiologically distended. Layering gallstone. No gallbladder wall thickening. No pericholecystic fluid. No sonographic Chiang sign. Right kidney measures, 10.8 cm in length. Normal cortical width and echotexture. No hydronephrosis calculus or mass. Impression: 1. Cholelithiasis without evidence of cholecystitis. 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: Reason For Referral No Information Medications Medication [...] Problem Status W/U Status Risk Notes Problem 583780394 Encounter for screening for malignant neoplasm of colon (Z12.11) Active confirmed Problem Gallstones (343970709) Gallstones (K80.20) Active confirmed Problem Abdominal pain, RUQ (R10.11) Active confirmed Problem 06213745 Irritable bowel syndrome, unspecified type (K58.9) Active confirmed Vital Signs Temperature 98.0 degrees Fahrenheit 01/08/2025 Blood pressure diastolic 01 mm Hg 01/08/2025 Height 64.5 in 01/08/2025 Blood pressure systolic 001 mm Hg 01/08/2025 Weight 121 lbs 01/08/2025 BMI 20.45 kg/m2 01/08/2025 Encounters Encounter Location Date Provider Diagnosis [facility] [address] [place] [address] 01/08/2025 Kojo Carrasco Irritable bowel syndrome, unspecified [...] Liver Panel 01/13/2025 Lipase 01/08/2025 US abdomen limited 05/08/2025 US abdomen complete 01/08/2025 Future Test Test Name Order Date COLONOSCOPY 05/30/2019 Next Appt Details Provider Name:Kojo Carrasco , 08/12/2025 10:30:00 AM, [address], [address], [place], [address], Insurance Providers Payer Name Payer Address Payer Phone Subscriber Number Group Number Insured Name Patient Relationship to Insured Coverage Start Date Coverage End Date [facility] [address] [place], [place] [id number] [phone] [id number] JENNIFER SALINAS Self - patient is the insured [...]
--- OUTSIDE RECORDS SUMMARY | 2025-06-19 13:18 | XMS_ITS | Encounter Summary ---
Author Organization 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 Chloride 98 96 - 110 mmol/L LAB CHEMISTRY METHOD 02/13/2025 6:16 PM [facility] CO2 28 21 - 32 mmol/L LAB CHEMISTRY METHOD 02/13/2025 6:16 PM [facility] Anion Gap 5 3 - 11 LAB CHEMISTRY METHOD 02/13/2025 6:16 PM [facility] Glucose 93 70 - 100 mg/dL LAB CHEMISTRY METHOD 02/13/2025 6:16 PM [facility] BUN 15 5 - 25 mg/dL LAB CHEMISTRY METHOD 02/13/2025 6:16 PM [facility] Creatinine 0.86 0.50 - 1.10 mg/dL LAB CHEMISTRY METHOD 02/13/2025 6:16 PM [facility] eGFR 67 >=60 mL/min/1. 73m2 LAB CHEMISTRY METHOD 02/13/2025 6:[address] [facility] Comment:Calculation based on the Chronic Kidney Disease Epidemiology Collaboration (CKD-EPI) equation refit without adjustment for race. BUN/Creatinine Ratio 17.4 LAB CHEMISTRY METHOD 02/13/2025 6:16 PM [facility] Calcium 8.9 8.5 - 10.5 mg/dL LAB CHEMISTRY METHOD 02/13/2025 6:16 PM [facility] Blood Venous blood specimen / Unknown Venipuncture / Unknown 02/13/2025 5:16 PM EDT 02/13/2025 5:41 PM EDT us Lucas Bolanos MD LAB BLOOD ORDERABLES Final Resul t [facility] [address] [place] [address], [place] [phone] * (ABNORMAL) Complete blood count (02/13/2025 5:16 PM EDT) WBC 9.6 4.8 - 10.8 K/mcL LAB HEMETOLOGY METHOD 02/13/2025 5:[address] [facility] RBC 3.80 3.80 - 4.80 M/mcL LAB HEMETOLOGY METHOD 02/13/2025 5:[address] [facility] Hemoglobin 11.7 11.5 - 16.0 g/dL LAB HEMETOLOGY METHOD 02/13/2025 5:[address] [facility] Hematocrit 33.8(L) 35.0 - 47.0 % LAB HEMETOLOGY METHOD 02/13/2025 5:[address] [facility] MCV 89.4 79.0 - 98.0 FL LAB HEMETOLOGY METHOD 02/13/2025 5:[address] [facility] MCH 31.0 27.0 - 32.0 pcg LAB HEMETOLOGY METHOD 02/13/2025 5:[address] [facility] MCHC 34.6 32.0 - 37.0 g/dL LAB HEMETOLOGY METHOD 02/13/2025 5:[address] [facility] RDW 12.9 11.0 - 15.0 % LAB HEMETOLOGY METHOD 02/13/2025 5:[address] [facility] Platelets 235 130 - 400 K/mcL LAB HEMETOLOGY METHOD 02/13/2025 5:[address] [facility] MPV 8.8 7.0 - 11.0 FL LAB HEMETOLOGY METHOD 02/13/2025 5:[address] [facility] NRBC 0.0 <1.0 % LAB HEMETOLOGY METHOD 02/13/2025 5:[address] [facility] NRBC Absolute 0.00 <0.10 K/mcL LAB HEMETOLOGY METHOD 02/13/2025 5:[address] [facility] Blood Venous blood specimen / Unknown Venipuncture / Unknown 02/13/2025 5:16 PM EDT 02/13/2025 5:41 PM EDT us Lucas Bolanos MD LAB BLOOD ORDERABLES [facility] [address] [place] [address], documented in this encounter Visit Diagnoses Diagnosis Other alf (current) drug therapy documented in this encounter Care Teams Dairy Farmworker Relationship Specialty Start Date End Date Lucas Bolanos MD [address] [place] [address], [phone] PCP - General Family Medicine 02/03/25 documented as of this encounter
--- NOTE | 2025-06-19 13:41 | AM.OFFVISMDC ---
Intake Vital Signs 06/19/25 13:57 Height 5 ft 4 in Weight 117 lb BMI 20.1 BP 120/78 Blood Pressure Location Lt brachial Position Sitting Respiration 18 Pulse 64 Pulse Source Pulse Oximeter Temp 98.1 F Temp Source Oral Pulse Oximetry (%) 100 Oxygen Delivery Method Room Air Intake Visit Reasons: SWV G0439 Allergies nitrofurantoin (NITROFURANTOIN) Allergy (Unknown, Verified 06/19/25 13:57) diarrhea, swollen lips oxycodone (From PERCOCET) Allergy (Unknown, Verified 06/19/25 13:57) NAUSEA & VOMITING Sulfa (Sulfonamide Antibiotics) (SULFA (SULFONAMIDE ANTIBIOTICS)) Allergy (Unknown, Verified 06/19/25 13:57) diarrhea, swollen lips trimethoprim (TRIMETHOPRIM) Allergy (Unknown, Verified 06/19/25 13:57) diarrhea, swollen lips hydrocodone (From VICODIN) Adverse Reaction (Mild, Verified 06/19/25 13:57) NAUSEA & VOMITING Nitrofurantoin Macrocrystal Allergy (Unknown, Uncoded 06/19/25 13:57) diarrhea, swollen lips Trimethoprim HCl Allergy (Unknown, Uncoded 06/19/25 13:57) diarrhea swollen lips Medication List - Last Reconciled 06/19/25 by Fatou Hinojosa MD acetaminophen 650 mg (2 x 325 mg) PO Q6H PRN alendronate (Fosamax) 70 mg PO QWEEK ascorbic acid (vitamin C) 500 mg PO DAILY calcium carbonate-vitamin D3 600 mg-12.5 mcg (500 unit) (Calcium with Vit D3) 1 cap PO DAILY cranberry fruit 400 mg PO DAILY diphenhydramine-acetaminophen 25-500 mg (Acetaminophen PM) 1 - 2 tabs PO BEDTIME PRN estradiol 0.01%(0.1mg/gram) 1 appful vaginal DAILY ketorolac 0.5% 2 drps ophthalmic (eye) DAILY PRN L.acidophilus,helvet-B.bifidum 250 million cell (Acidophilus Probiotic Complex) 1 cap PO DAILY lidocaine 4% (Lidocaine Pain Relief) 2 patches See Protocol transdermal DAILY loratadine (Claritin) 10 mg PO DAILY losartan 25 mg PO DAILY melatonin 10 mg PO BEDTIME PRN [methanamine hippurate 2 cap daily] polyethylene glycol 3350 17 grams PO DAILY PRN sennosides-docusate sodium 8.6-50 mg (Senna Plus) 2 tabs PO BID sertraline 25 mg PO DAILY trospium 20 mg PO DAILY HPI SWV G0439 HPI Details Initiated the conversation about Advanced Directives. Advanced Directives help? patients prepare for current and future decisions about their medical treatment? and place of care. Discussed with patient that it is a process where a patients? current condition and prognosis are reviewed, their wishes for information? regarding their illness are elicited, and likely medical dilemmas are presented? and options discussed. The form can be amended as needed, reviewed yearly and? make changes as needed IPPE/AWV ? year old presents? for her ? Annual? Wellness Visit, initial visit.? Medical / Social History Reviewed? Past Medical History ?Yes? . ? [place]? of Care / Care Team list updated ?Yes . ? Surgical/Hospitalization? History ?Yes . ? Current Medications? (including OTC and supplements) ?Yes . ? Family History ?Yes? . ? Tobacco? Control form ?Yes . ? AUDIT-C (Alcohol use) form? ?Yes . ? Illicit drug use in Social? History ?Yes . ? Current diagnosis of? depression? ?No ? Appropriate PHQ2/PHQ9? completed ?Yes . ? Data entered by ?Medical? Fashion Illustrator and reviewed by provider ? Fall Risk ? Fall? History? Have you had any falls with? injury in the past year? ?No . ? Have you had two or more? falls in the past year? ?No . ? Fall Risk Assessment: ?No? falls in the past year . ? HRA filled out by? the patient, reviewed by Provider and scanned. ? IPPE/AWV ? Balance? Romberg? ?Yes . ? Tandem? walk ?Yes . ? Walk and? Turn ?Yes . ? Rise from? sit to stand ?Yes . ?Vision? Corrective? lens ?Yes ? Vision? screen ? Up-to-date, has an appointment [] for vision? screening and glaucoma screening ?Hearing? Whisper? test ?pass .? Initiated the conversation about Advanced Directives. Advanced Directives help? patients prepare for current and future decisions about their medical treatment? and place of care. Discussed with patient that it is a process where a patients? current condition and prognosis are reviewed, their wishes for information? regarding their illness are elicited, and likely medical dilemmas are presented? and options discussed. The form can be amended as needed, reviewed yearly and? make changes as needed Written? Plan?Completed. See Patient? Documents. [facility] Medical History (Updated 06/19/25 @ 15:05 by Fatou Hinojosa MD) Neuropathic pain, leg, bilateral Vitamin D deficiency Hearing loss Annual physical exam Gallstones Osteopenia Frequent UTI Breast calcification, right Sacroiliitis Urge incontinence IBS (irritable bowel syndrome) Surgical History H/O colonoscopy Family History Father No problems noted. Mother HTN (hypertension) Aneurysm Social History Household Members: None Housing: Condominium Do you presently have visiting nurse or other home services: No Alcohol intake: current Alcohol intake frequency: holidays/special occasions only Comment: bed alarm broke: chair alarm attached to jasen Patient Tobacco Use Status: Never used Tobacco e-Cigarette/Vaping Use: Never Used service: No Current occupational status: retired Cognitive needs: No Hearing needs: No Vision needs: No Questionnaire Medicare Wellness Checkup What is your age?: 80 or older What gender do you identify with?: female During the past 4 weeks, how much have you been bothered by emotional problems such as feeling anxious, depressed, irritable, sad or downhearted, and blue?: slightly During the past 4 weeks, has your physical & emotional health limited your social activities with family, friends, neighbors, or groups?: slightly During the past 4 weeks, how much bodily pain have you generally had?: mild pain During the past 4 weeks, was someone available to help you if you needed & wanted help?: yes, quite a bit During the past 4 weeks, what was the hardest physical activity you could do for at least 2 minutes?: heavy Can you get to places out of walking distance without help? (For eg., can you travel alone on buses, taxis or drive your car?): Yes Can you go shopping for groceries or clothes without someone's help?: Yes Can you prepare your own meals?: Yes Can you do your housework without help?: Yes Because of any health problems, do you need the help of another person with your personal care needs such as eating, bathing, dressing or getting around the house?: No Can you handle your own money without help?: Yes During the past 4 weeks, how would you rate your health in general?: good During the past 4 weeks how have things been going for you?: pretty well Are you having difficulties driving your car?: no Do you always fasten your seat belt when you are in a car?: yes, usually During past 4 weeks, have you been bothered by the following: never: Sexual problems? and Problems using the telephone?, seldom: Falling or dizzy when standing up and Teeth or denture problems? and sometimes: Trouble eating well? and Tiredness or fatigue? Have you fallen 2 or more times in the past year?: No Are you afraid of falling?: Yes Are you a smoker?: no During the past 4 weeks, how many drinks of wine, beer, or other alcoholic beverages did you have?: no alcohol at all Do you exercise for about 20 minutes 3 or more times a week?: yes, most of the time Have you been given information to help with the following?: yes: Hazards in your house that might hurt you? and yes: Keeping track of your medications? How often do you have trouble taking medicines the way you have been told to take them?: I always take medicine as prescribed How confident are you that you can control & manage most of your health problems?: somewhat confident What is your race?: White Mini Mental State Exam (MMSE) Orientation What is the (year) (season) (date) (day) (month)?: year, season, date, day and month Where are we (state) (county) (town or city) (hospital) (floor)?: state, county, town or city, hospital/clinic and floor Registration Name of 3 unrelated objects clearly and slowly, then ask patient to repeat all 3 of them. (1st repeat determines score. Make sure they can repeat all three): object 1, object 2 and object 3 Attention & Calculation (CHOOSE ONE) Spell WORLD backwards (DLROW): 5 letters Recall Ask patient to repeat the 3 items from question #3.: object 1, object 2 and object 3 Language Show patient a wristwatch & ask what it is. Repeat for pencil.: watch and pencil Ask the patient to repeat the phrase 'No ifs, ands, or buts' after you.: correct Ask the patient to 'take a piece of paper with their right hand' 'fold paper in half' 'place paper on floor': take paper in right hand, fold paper in half and place paper on floor Print the sentence 'CLOSE YOUR EYES' on a piece. If patient actually closes eyes then score.: followed written direction Give patient a blank piece of paper & ask to write a sentence. Score if it contains a noun & verb.: sentence contains subject and verb Score Score: 29 Activity of Daily Living Bathing - sponge bath, tub bath or shower: receives no assistance (gets in/out by self, if usual bathing means Dressing - getting clothes from closets & drawers, including inner/outer garments & fasteners.: gets clothes & gets completely dressed without help Toileting - going to the 'toilet room' for urine/bowel elimination & cleaning self/arranging clothes: goes to toilet room, cleans self, arranges clothes without help Transfer: moves in & out of bed and chair without help (may use support object) Continence: controls urination/bowel movements completely by self Feeding: feeds self without help Total Score: 0 Information obtained from: patient Using telephone: independent Traveling: independent Shopping: independent Preparing meals: independent Housework: independent Taking medicine: independent Managing money: independent PHQ-9 Over the last 2 weeks, how often have you been bothered by any of the following problems? 1. Little interest or pleasure in doing things: not at all 2. Feeling down, depressed, or hopeless: not at all 3. Trouble falling or staying asleep, or sleeping too much: several days 4. Feeling tired or having little energy: several days 5. Poor appetite or overeating: several days 6. Feeling bad about yourself - or that you are a failure or have let yourself or your family down: not at all 7. Trouble concentrating on things, such as reading the newspaper or watching television: not at all 8. Moving or speaking so slowly that other people could have noticed. Or the opposite - being so fidgety or restless that you have been moving around a lot more than usual: not at all 9. Thoughts that you would be better off or of hurting yourself in some way: not at all Total score: 3 Depression Screening Interpretation: Negative Depression Screening Done: Yes 23555 - PHQ-9 Billing: Yes Source: Developed by Drs. Kojo Mcpherson, Sumi Kern, Harinder Lubin and colleagues, with an educational kingsley from [employer]. Review of Systems Const All systems reviewed & are unremarkable except as noted in HPI and below Eyes Reports no additional complaints ENT Reports no additional complaints Card Reports no additional complaints Resp Reports no additional complaints GI Reports no additional complaints Reports no additional complaints Physical Exam Vital Signs: Last Vital Signs Temp 98.1 F 06/19/25 13:57 Pulse 64 06/19/25 13:57 Resp 18 06/19/25 13:57 BP 120/78 06/19/25 13:57 Pulse Ox 100 06/19/25 13:57 Oxygen Delivery Method Room Air 06/19/25 13:57 BMI result Body Mass Index 20.1 Const General: no acute distress Eyes General: appearance normal, both eyes and all related structures Neck Neck: Yes supple Resp Effort & Inspection: normal respiratory effort Auscultation: clear to auscultation bilaterally Cardio Rhythm: regular rhythm Heart sounds: S1 normal heart sound present and S2 normal heart sound present GI Inspection: Yes normal to inspection Palpation (GI): Soft to palpation Percussion: Yes normal to percussion Auscultation: normal bowel sounds Extrem General: Yes no clubbing, cyanosis or edema Immunizations pneumoc 20-merari conj-dip cr(PF) 0.5 mL IM syringe Performing Provider: Fatou Hinojosa MD Performing Location: [facility] [place] [facility] Administered by: ISIDRA Schmitz on 06/19/25 14:54 Dose Route Admin Location Dispensed Lot Number Expiration Date [facility] Fitness/Wellness Director 0.5 mL IM Left Deltoid 0.5 mL [id number] 06/19/26 0522-1138-00 [employer] Total Dispensed Waste 0.5 mL 0 % VIS Given Date VIS Provided VIS Publication Date 06/19/25 Single Vaccine 25 Eligibility Eligibility Date Funding Source Not [facility] Eligible 06/19/25 Private Assessment & Plan Assessment & Plan (1) HTN (hypertension): Code(s): I10 - Essential (primary) hypertension Plan: Continue losartan (2) Anxiety: Code(s): F41.9 - Anxiety disorder, unspecified Plan: Continue Zoloft (3) Vitamin D deficiency: Code(s): E55.9 - Vitamin D deficiency, unspecified Plan: Continue vitamin-D supplement (4) Frequent UTI: Comment: Established with [facility] Code(s): N39.0 - Urinary tract infection, site not specified Plan: Continue current medications follow-up with Urology (5) Osteoporosis: Comment: DEXA 03/2025 T score -3.1 total left hip, patient can not take Fosamax Code(s): M81.0 - Age-related osteoporosis without current pathological fracture Plan: Prolia injections will be started. Patient will continue vitamin-D supplement and weight-bearing exercises discussed with the patient, follow-up in 6 months Orders: Orders Complete Blood Count Auto Diff 6 Months E55.9 - Vitamin D deficiency, unspecified, I10 - Essential (primary) hypertension, M81.0 - Age-related osteoporosis without current pathological fracture Vitamin D 25-OH Total 6 Months E55.9 - Vitamin D deficiency, unspecified, I10 - Essential (primary) hypertension, M81.0 - Age-related osteoporosis without current pathological fracture Pneumococcal 20 Immunization Today Z23 - Encounter for immunization Comprehensive [place]. Panel Fast 6 Months E55.9 - Vitamin D deficiency, unspecified, I10 - Essential (primary) hypertension, M81.0 - Age-related osteoporosis without current pathological fracture TSH reflex Free T4 6 Months E55.9 - Vitamin D deficiency, unspecified, I10 - Essential (primary) hypertension, M81.0 - Age-related osteoporosis without current pathological fracture Medications: New Prolia (denosumab) 60 mg subcut [id number] 1 mL 1RF NS estradiol 0.01%(0.1mg/gram) peasize to urethra os daily; 42.5 grams 3RF Discontinued alendronate (Fosamax) Discontinued Reason: Doctor's Order 70 mg PO QWEEK 14 tabs 3RF Quality Reporting (2019) Depression/Bipolar (159/160/161/177) PHQ-9: Total score: 3 Coding Level of Care Code Medicare Subsequent (G0439) Diagnoses HTN (hypertension) I10 Anxiety F41.9 Vitamin D deficiency E55.9 Frequent UTI N39.0 Osteoporosis M81.0 CPT Codes Advance Care Planning - Advance Care Planning discussion: On file, no changes ([id number]) Advance Care Planning - Time spent: 1-15 minutes, on File ([id number]) Additional Codes PHQ-9 - 46540 - PHQ-9 Billing: Yes ([id number]) Advance Care Planning Advance Care Planning discussion: On file, no changes Forms completed: Health Care Proxy Time spent: 1-15 minutes, on File Did not discuss due to Cultural/Spiritual beliefs: Yes
[2025-06-19 13:57] VITALS: BP 120/78; PULSE 64; RESP 18; TEMP 36.7; O2SAT 100; BMI 20.1
== END 2025-06-19 14:49 | disposition home or self-care (01) ==
LOC: HO.HMCC 13:07
PROVIDERS: PCP Internal Medicine; Visit Provider Internal Medicine
DX: Z00.00 Encounter for general adult medical examination without abnormal findings (principal); I10 Essential (primary) hypertension; F41.9 Anxiety disorder, unspecified; E55.9 Vitamin D deficiency, unspecified; N39.0 Urinary tract infection, site not specified; M81.0 Age-related osteoporosis without current pathological fracture; Z23 Encounter for immunization

== ENCOUNTER → 2025-06-19 13:06 | Outpatient (BNVA) | payer MEDICARE, SELFPAY | PROVIDERS: PCP Internal Medicine; Visit Provider Internal Medicine | DX: I10 Essential (primary) hypertension (principal); Z23 Encounter for immunization; F41.9 Anxiety disorder, unspecified; E55.9 Vitamin D deficiency, unspecified; N39.0 Urinary tract infection, site not specified; M81.0 Age-related osteoporosis without current pathological fracture; Z79.899 Other long term (current) drug therapy; Z13.31 Encounter for screening for depression | CPT/HCPCS: 90471; 90677; 96127 ==

== ENCOUNTER 2025-07-02 10:58 | Outpatient (AMB) | payer MEDICARE, SELFPAY ==
--- NOTE | 2025-07-02 11:17 | AM.OFFVISNUR ---
Intake Visit Reasons: Prolia injection Intake Note: Pt arrived for Prolia injection Allergies nitrofurantoin (NITROFURANTOIN) Allergy (Unknown, Verified 06/19/25 13:57) diarrhea, swollen lips oxycodone (From PERCOCET) Allergy (Unknown, Verified 06/19/25 13:57) NAUSEA & VOMITING Sulfa (Sulfonamide Antibiotics) (SULFA (SULFONAMIDE ANTIBIOTICS)) Allergy (Unknown, Verified 06/19/25 13:57) diarrhea, swollen lips trimethoprim (TRIMETHOPRIM) Allergy (Unknown, Verified 06/19/25 13:57) diarrhea, swollen lips hydrocodone (From VICODIN) Adverse Reaction (Mild, Verified 06/19/25 13:57) NAUSEA & VOMITING Nitrofurantoin Macrocrystal Allergy (Unknown, Uncoded 06/19/25 13:57) diarrhea, swollen lips Trimethoprim HCl Allergy (Unknown, Uncoded 06/19/25 13:57) diarrhea swollen lips Office Meds Prolia 60 mg/mL subcutaneous syringe Performing Provider: Fatou Hinojosa MD Performing Location: [facility] Adult [facility] Administered by: Ya Pompa RN on 07/02/25 11:17 Dose Route Admin Location Dispensed Lot Number Expiration Date [facility] Lining Marker 60 mg subcut right upper arm 1 mL [id number] 04/19/28 89126-618-29 [employer] Total Dispensed Waste 1 mL 0 % Comments: Pt supplied Assessment & Plan Assessment & Plan Orders: Orders AMB Denosumab Injection Patient Supplied Today M81.0 - Age-related osteoporosis without current pathological fracture Coding
--- OUTSIDE RECORDS SUMMARY | 2025-07-02 11:53 | XMS_ITS | Patient Health Record ---
Author Organization [facility] Address [address] [place] [address] Care Team Providers Care Expander Name Role Phone Fatou Hinojosa MD Primary Care Provider Kojo Eastman [phone] Allergies Allergen (clinical drug ingredient) Drug/Non Drug [...] ff Reviewed date:01/13/2025 05:19:57 PM Interpretation: Performing Lab:[facility], [address] [place] [phone] Notes/Report: White Blood Count 9.9 4.8-10.8 X10*3/uL [...] yet reviewe d by provider) Interpretation: Performing Lab:[facility], [address] [place] [phone] Notes/Report: Bilirubin Total 0.5 0.0-1.0 mg/dL Bilirubin Direct 0.2 0.0-0.5 mg/dL Aspartate Amino Transferase 30 5-31 U/L Alanine Aminotransferase 30 0-31 U/L Total Protein 7.8 6.5-8.0 g/dL Albumin Level 4.3 3.5-5.0 g/dL Alkaline Phosphatase 143 39-117 U/L Lipase Reviewed date:01/13/2025 05:20:25 PM Interpretation: Performing Lab:[facility], [address] [place] [phone] Notes/Report: Lipase 38 8-78 U/L Immunoglobulin A Reviewed date:01/17/2025 05:21:45 PM Interpretation: Performing Lab:[facility], [address] [place] [phone] Notes/Report: Immunoglobulin A 242 70-320 mg/dL THIS TEST WAS PERFORMED AT: [email or web address] [address] [place] [phone] MILLI ROMAN MD Transglutaminase Ab IgG Reviewed date:01/17/2025 05:21:58 PM Interpretation: Performing Lab:[address] [phone] Notes/Report: Transglutaminase Ab IgG <1.0 Value Interpretation ----- <15.0 Antibody not detected > or = 15.0 Antibody detected THIS TEST WAS PERFORMED AT: [email or web address] [address] [place] [phone] MILLI ROMAN MD Transglutaminase IgA Reviewed date:01/17/2025 05:22:08 PM Interpretation: Performing Lab:[address] [phone] Notes/Report: Transglutaminase IgA <1.0 Value Interpretation ----- <15.0 Antibody not detected > or = 15.0 Antibody detected THIS TEST WAS PERFORMED AT: [email or web address] [address] [place] [phone] MILLI ROMAN MD Gliadin Ab Panel Reviewed date:01/17/2025 05:22:17 PM Interpretation: Performing Lab:[facility], [address] [place] [phone] Notes/Report: Gliadin Deamidated IgA Ab <1.0 Value Interpretation ----- <15.0 Antibody not detected > or = 15.0 Antibody detected Gliadin Deamidated IgG Ab <1.0 Value Interpretation ----- <15.0 Antibody not detected > or = 15.0 Antibody detected THIS TEST WAS PERFORMED AT: [email or web address] [address] [place] [phone] MILLI ROMAN MD Endomysial IgA rflx Titer Reviewed date:01/17/2025 05:22:27 PM Interpretation: Performing Lab:[facility], [address] [place] [phone] Notes/Report: Endomysial IgA Antibody Negative Negative THIS TEST WAS PERFORMED AT: [employer] [address] [place] [address] BETTINA VENEGAS MD,PHD Endomysial Titer TNP US abdomen limited (Not yet reviewed by provider) Interpretation: Performing Lab: Notes/Report: [facility] [address] [address] Ultrasound Report Signed Patient: Jennifer Wilson MR#: [id number] : 1940 Acct:[id number] Age/Sex: 85 / F ADM Date: 05/08/25 Loc: HO.HMGCX Attending Dr: Kojo Carrasco MD Ordering Physician: Kojo Carrasco MD Date of Service: 05/08/25 Procedure(s): US abdomen limited Accession Number(s): [id number] cc: Fatou Hinojosa MD; Kojo Carrasco MD [...] 05/08/25 1005 DD/ 1004 TD/TT: 05/08/25 1004 Clinical Counselor: Reason For Referral No Information Medications Medication [...] Problem Status W/U Status Risk Notes Problem [id number] Encounter for screening for malignant neoplasm of colon (Z12.11) Active confirmed Problem Gallstones (694145204) Gallstones (K80.20) Active confirmed Problem Right upper quadrant pain (205444339) Abdominal pain, RUQ (R10.11) Active confirmed Problem 74791083 Irritable bowel syndrome, unspecified type (K58.9) Active confirmed Vital Signs Temperature 98.0 degrees Fahrenheit 01/08/2025 Blood pressure diastolic 01 mm Hg 01/08/2025 Height 64.5 in 01/08/2025 Blood pressure systolic 001 mm Hg 01/08/2025 Weight 121 lbs 01/08/2025 BMI 20.45 kg/m2 01/08/2025 Encounters Encounter Location Date Provider Diagnosis [facility] [address] [place] [address] 01/08/2025 Kojo Carrasco Irritable bowel syndrome, unspecified [...] 10:30:00 AM, [address], [address], [place], [address], Insurance Providers Payer Name Payer Address Payer Phone Subscriber Number Group Number Insured Name Patient Relationship to Insured Coverage Start Date Coverage End Date [facility] [address] [place], [place] [id number] [phone] [id number] JENNIFER SALINAS Self - patient is the insured Medical (General) History Medical History History ICD Code Breast cancer--2014---right lumpectomy-- XRT Denies LA,DM,CVA,Lung disease,renal dise ase Neg. 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
--- OUTSIDE RECORDS SUMMARY | 2025-07-02 11:53 | XMS_ITS | Encounter Summary ---
Author Organization [facility] Address [address] [place] [address] Care Team Providers Care Food Cashier Name Role Phone Lucas Bolanos MD Primary Care Provider [phone] Encounter Details Date Type Department Care Team (Late st Contact Info) Description 02/13/2025 Lab Requisition [facility] - Main Lab [address] [place] [address] Lucas Bolanos MD [address] [facility] [address] [place], [phone] Other custodial (current) drug therapy Social History Tobacco Use [...] COUNT STAT 02/13/2025 5:16 PM EDT Other custodial (current) drug therapy BASIC METABOLIC PANEL STAT 02/13/2025 5:16 PM EDT Other custodial (current) drug therapy documented in this encounter Results * (ABNORMAL) Basic metabolic panel (02/13/2025 5:16 PM EDT) Sodium 131(L) 133 - 145 mmol/L LAB CHEMISTRY METHOD 02/13/2025 6:16 PM EDT [facility] Potassium 4.0 3.5 - 5.5 mmol/L LAB CHEMISTRY METHOD 02/13/2025 6:16 PM EDT [facility] Chloride 98 96 - 110 mmol/L LAB CHEMISTRY METHOD 02/13/2025 6:16 PM [facility] CO2 28 21 - 32 mmol/L LAB CHEMISTRY METHOD 02/13/2025 6:16 PM [facility] Anion Gap 5 3 - 11 LAB CHEMISTRY METHOD 02/13/2025 6:16 PM [facility] Glucose 93 70 - 100 mg/dL LAB CHEMISTRY METHOD 02/13/2025 6:16 PM [facility] BUN 15 5 - 25 mg/dL LAB CHEMISTRY METHOD 02/13/2025 6:16 PM [facility] Creatinine 0.86 0.50 - 1.10 mg/dL LAB CHEMISTRY METHOD 02/13/2025 6:16 PM [facility] eGFR 67 >=60 mL/min/1. 73m2 LAB CHEMISTRY METHOD 02/13/2025 6:16 PM T [facility] Comment:Calculation based on the Chronic Kidney Disease Epidemiology Collaboration (CKD-EPI) equation refit without adjustment for race. BUN/Creatinine Ratio 17.4 LAB CHEMISTRY METHOD 02/13/2025 6:16 PM [facility] Calcium 8.9 8.5 - 10.5 mg/dL LAB CHEMISTRY METHOD 02/13/2025 6:16 PM [facility] Blood Venous blood specimen / Unknown Venipuncture / Unknown 02/13/2025 5:16 PM EDT 02/13/2025 5:41 PM EDT us Lucas Bolanos MD LAB BLOOD ORDERABLES Final Resul t [facility] [address] [place] [address], [place] [phone] * (ABNORMAL) Complete blood count (02/13/2025 5:16 PM EDT) WBC 9.6 4.8 - 10.8 K/mcL LAB HEMETOLOGY METHOD 02/13/2025 5:50 PM EDT [facility] RBC 3.80 3.80 - 4.80 M/mcL LAB HEMETOLOGY METHOD 02/13/2025 5:50 PM EDT [facility] Hemoglobin 11.7 11.5 - 16.0 g/dL LAB HEMETOLOGY METHOD 02/13/2025 5:50 PM EDT [facility] Hematocrit 33.8(L) 35.0 - 47.0 % LAB HEMETOLOGY METHOD 02/13/2025 5:50 PM EDT [facility] MCV 89.4 79.0 - 98.0 FL LAB HEMETOLOGY METHOD 02/13/2025 5:50 PM EDT [facility] MCH 31.0 27.0 - 32.0 pcg LAB HEMETOLOGY METHOD 02/13/2025 5:50 PM EDT [facility] MCHC 34.6 32.0 - 37.0 g/dL LAB HEMETOLOGY METHOD 02/13/2025 5:50 PM EDT [facility] RDW 12.9 11.0 - 15.0 % LAB HEMETOLOGY METHOD 02/13/2025 5:50 PM EDT [facility] Platelets 235 130 - 400 K/mcL LAB HEMETOLOGY METHOD 02/13/2025 5:50 PM EDT [facility] MPV 8.8 7.0 - 11.0 FL LAB HEMETOLOGY METHOD 02/13/2025 5:50 PM EDT [facility] NRBC 0.0 <1.0 % LAB HEMETOLOGY METHOD 02/13/2025 5:50 PM EDT [facility] NRBC Absolute 0.00 <0.10 K/mcL LAB HEMETOLOGY METHOD 02/13/2025 5:50 PM EDT [facility] Blood Venous blood specimen / Unknown Venipuncture / Unknown 02/13/2025 5:16 PM EDT 02/13/2025 5:41 PM EDT us Lucas Bolanos MD LAB BLOOD ORDERABLES Final [facility]ul t [facility] [address] [place] [address], documented in this encounter Visit Diagnoses Diagnosis 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
== END 2025-07-02 11:17 | disposition home or self-care (01) ==
LOC: HO.HMCC 10:59
PROVIDERS: PCP Internal Medicine; Visit Provider Internal Medicine
DX: M81.0 Age-related osteoporosis without current pathological fracture (principal)

== ENCOUNTER → 2025-07-02 10:58 | Outpatient (BNVA) | payer MEDICARE, SELFPAY | PROVIDERS: PCP Internal Medicine; Visit Provider Internal Medicine | DX: M81.0 Age-related osteoporosis without current pathological fracture (principal) | CPT/HCPCS: 96372; J0897 ==

== ENCOUNTER 2025-07-15 13:00 | Outpatient (RCR) | payer MEDICARE, SELFPAY ==
--- NOTE | 2025-06-13 12:50 | MHC.PT.EP ---
[facility] [place] Office [place] [facility] [place] [facility] [address] Letty Alfaro [address] [phone] F: [phone] F: [phone] F: [phone] F: [phone] Physical Therapy Plan of Care Date of Evaluation: 06/13/25 Date of Surgery: Diagnosis: This is an 85 yo female presenting to skilled PT with a script for other abnormalities of gait and mobility. Assessment: This is an 85 yo female presenting to skilled PT with a script for other abnormalities of gait and mobility. Pt presents following sacral and coccyx fracture after a fall while holding onto a car door that was blown open by the wind around President's Day. She states after that fall she did have pain but was able to continue with her normal activities. There was intermittent paresthesias in the bilateral lower extremities, urinary and bowel issues. She was hospitalized with imaging reporting CT of the pelvis shows acute comminuted fractures of the sacrum involving S1 and S2 and the neural foramina. There is multilevel spondylosis at L4-5 and L5-S1 resulting in central spinal canal stenosis and bilateral neural foramina stenosis. CT of the lumbar spine shows moderate to advanced lumbar spondylosis with severe central canal stenosis identified at L2-3, and L3-4 with moderate to severe central canal stenosis at L4-5. MRI of the lumbar spine shows similar findings with the bilateral neural foramina stenosis at L2-3 to L4-5 compressing the neural elements of the thecal sac and to a lesser extent in the exiting nerve roots. Following hospitalization she had SNF rehab as well as home PT. She is here reporting pain L side sacral crest and into the sacrum (sharp, achy), reports L LE sciatica to her ankle, reports B LE quads, knees and ankles (stabbing). She feels off balance with walking and turning her head, transfers to standing, stairs. Assessment reveals pain that ranges from up to a 4/10 at the worst. Patient demos decreased L LE ROM, strength of B LE's, core and back, TTP at B LE's, evidence of falls risk through Bettye SOPT and DGI as well as impaired posture with forward head, increased thoracic kyphosis, posterior pelvic tilt and rounded shoulders. Based on functional limitations, impaired QOL and pain tolerance patient is a good candidate for skilled PT 2x/wk for 4wks (will do 1x/wk, has 12 visits approved). Frequency and Duration: The patient will be seen 2x/wk for 4wks Short Term Goals: Pt will demonstrate improved postural awareness and understanding of core engagement with supine and standing tasks without cues throughout session to improve balance safety as well as improve strength in 2 weeks. Pt will continue to reinforce precautions, sitting, standing and ADL modifications with proper body mechanics and prevent falls in 2 wks. Halfway Goals: Pt will demonstrate improved outcome measure by 5 points in 4 weeks for improved functional mobility. Pt will demonstrate ability to bend and lift WNL min to no pain for household tasks in 4 wks. Pt will be I in HEP and compliant in 4wks Pt will demo reciprocal gait on stairs in 4 wks Treatment Plan: Modalities to reduce pain, spasms and effusion. Manual therapy to restore motion and function. Therapeutic exercise to improve strength and flexibility. Neuromuscular re-education for posture and balance. Therapeutic activities to return to functional activities of daily living. Electronically signed by: Heather Malagon PT Please sign and return to therapist. Thank you for your referral.
--- NOTE | 2025-08-12 15:48 | MHC.PT.DC ---
[facility] [place] [facility] [place] [facility] [place] [facility] [address] Letty Alfaro [address] [phone] F: [phone] F: [phone] F: [phone] F: [phone] Physical Therapy Discharge Report Diagnosis: This is an 85 yo female presenting to skilled PT with a script for other abnormalities of gait and mobility. Date of Surgery: Date of Evaluation: 06/13/25 Date of Discharge: 08/12/25 Treatments to Date: 5 Cancellations to Date: 0 No Shows to Date: 0 Discharge Status: Achieved Goals Improved Function Independent with HEP Patient Elected to Stop Discharge Summary: 07/15: Pt has come to 5 sessions of PT and feels like her balance is much better. She is now dealing with something else, her back and LE's and wants to talk with her MD about further testing. At this time she is I in her program, feels ready to be DC'd from therapy and has met her balance goals. DC to [facility] after 30 days. Electronically signed by: Heather Malagon PT Please sign and return to therapist. Thank you for your referral.
== END 2025-08-12 15:48 | disposition home or self-care (01) ==
LOC: HO.PTCHIC 13:00
PROVIDERS: PCP Internal Medicine; Visit Provider Internal Medicine
DX: R26.89 Other abnormalities of gait and mobility (principal)
CPT/HCPCS: 97110; 97112; 97162; 97163